=== PATIENT | female | born 1950 | race Caucasian/White ===

== ENCOUNTER 2020-01-06 06:24 | Outpatient (REF) | payer OTHER, SELFPAY ==
[2020-01-06 07:39] LABS: Alanine Aminotransferase 29 U/L (0-31); Albumin Level 3.9 g/dL (3.5-5.0); Alkaline Phosphatase 79 U/L (39-117); Aspartate Amino Transferase 27 U/L (5-31); Bilirubin Direct 0.3 mg/dL (0.0-0.5); Bilirubin Total 0.6 mg/dL (0.0-1.0); Total Protein 7.4 g/dL (6.5-8.0)
== END 2020-01-06 06:25 | disposition home or self-care (01) ==
LOC: HO.LABR 06:24
PROVIDERS: PCP Internal Medicine; Visit Provider Internal Medicine
DX: K75.4 Autoimmune hepatitis (principal)
CPT/HCPCS: 80076

== ENCOUNTER 2020-02-04 07:04 | Outpatient (REF) | payer OTHER, SELFPAY ==
[2020-02-04 08:25] LABS: Cholesterol 148 mg/dL; HDL Cholesterol 47 mg/dL; LDL Cholesterol Calculated 85 mg/dl; Triglycerides 81 mg/dL
[2020-02-04 08:30] LABS: Alanine Aminotransferase 51 U/L (0-31); Albumin Level 3.8 g/dL (3.5-5.0); Alkaline Phosphatase 131 U/L (39-117); Aspartate Amino Transferase 52 U/L (5-31); Bilirubin Direct 0.3 mg/dL (0.0-0.5); Bilirubin Total 0.5 mg/dL (0.0-1.0); Total Protein 7.6 g/dL (6.5-8.0)
[2020-02-04 08:48] LABS: Free T4 (Free Thyroxine) 1.46 ng/dL (0.71-1.85); Thyroid Stimulating Hormone 0.22 mIU/mL (0.32-4.0)
== END 2020-02-04 07:05 | disposition home or self-care (01) ==
LOC: HO.LABR 07:04
PROVIDERS: PCP Internal Medicine; Visit Provider Internal Medicine
DX: K75.4 Autoimmune hepatitis (principal)
CPT/HCPCS: 80061; 80076; 84439; 84443

== ENCOUNTER 2020-02-10 15:22 | Outpatient (REF) | payer OTHER, SELFPAY ==
--- NOTE | 2020-02-10 15:27 | US_ITS ---
EXAMINATION: US VENOUS ULTRASOUND WITH DOPPLER LOWER EXTREMITY, LEFT CLINICAL INFORMATION: Lower quadrant pain COMPARISON: None TECHNIQUE: Ultrasound of the deep veins is performed from the hip to the calf with compression sonography and color and pulse Doppler assessment. Spectral analysis with color-flow imaging is performed. FINDINGS: There is normal venous compression and respiratory variation and augmented flow. The visualized common femoral vein, superficial femoral vein, profunda femoral vein, popliteal vein, and the trifurcation region shows no evidence of deep venous thrombosis. There is no significant popliteal fossa cyst. Inguinal lymph nodes noted within normal limits If the patient's symptoms persist, followup ultrasound in 5 days 7 days might be of value to exclude proximal propagation from a non-visualized calf vein. US/US venous duplex LE LT IMPRESSION: No DVT demonstrated in the left lower extremity.
== END 2020-02-10 15:23 | disposition home or self-care (01) ==
LOC: HO.US 15:22
PROVIDERS: PCP Internal Medicine; Visit Provider Nurse Practitioner Family
DX: R10.32 Left lower quadrant pain (principal)
CPT/HCPCS: 93971

== ENCOUNTER 2020-03-13 07:00 | Outpatient (REF) | payer OTHER, SELFPAY ==
[2020-03-13 08:08] LABS: Alanine Aminotransferase 21 U/L (0-31); Albumin Level 3.9 g/dL (3.5-5.0); Alkaline Phosphatase 97 U/L (39-117); Aspartate Amino Transferase 21 U/L (5-31); Bilirubin Direct 0.3 mg/dL (0.0-0.5); Bilirubin Total 0.7 mg/dL (0.0-1.0); Total Protein 7.5 g/dL (6.5-8.0)
== END 2020-03-13 07:01 | disposition home or self-care (01) ==
LOC: HO.LABR 07:00
PROVIDERS: PCP Internal Medicine; Visit Provider Internal Medicine
DX: K75.4 Autoimmune hepatitis (principal)
CPT/HCPCS: 80076

== ENCOUNTER 2020-04-07 12:00 | Outpatient (REF) | payer MEDICARE, SELFPAY ==
[2020-04-07 13:52] LABS: Alanine Aminotransferase 39 U/L (0-31); Albumin Level 3.9 g/dL (3.5-5.0); Alkaline Phosphatase 112 U/L (39-117); Aspartate Amino Transferase 45 U/L (5-31); Bilirubin Direct 0.5 mg/dL (0.0-0.5); Bilirubin Total 1.2 mg/dL (0.0-1.0); Total Protein 7.7 g/dL (6.5-8.0)
== END 2020-04-07 12:01 | disposition home or self-care (01) ==
LOC: HO.LABR 12:00
PROVIDERS: PCP Internal Medicine; Visit Provider Internal Medicine
DX: K75.4 Autoimmune hepatitis (principal)
CPT/HCPCS: 36415; 80076

== ENCOUNTER 2020-05-05 07:07 | Outpatient (REF) | payer MEDICARE, SELFPAY ==
[2020-05-05 08:05] LABS: Alanine Aminotransferase 51 U/L (0-31); Albumin Level 3.6 g/dL (3.5-5.0); Alkaline Phosphatase 118 U/L (39-117); Aspartate Amino Transferase 49 U/L (5-31); Bilirubin Direct 0.4 mg/dL (0.0-0.5); Bilirubin Total 0.8 mg/dL (0.0-1.0); Total Protein 7.8 g/dL (6.5-8.0)
== END 2020-05-05 07:08 | disposition home or self-care (01) ==
LOC: HO.LABR 07:07
PROVIDERS: PCP Internal Medicine; Visit Provider Internal Medicine
DX: K75.4 Autoimmune hepatitis (principal)
CPT/HCPCS: 36415; 80076

== ENCOUNTER 2020-06-05 07:04 | Outpatient (REF) | payer MEDICARE, SELFPAY ==
[2020-06-05 08:11] LABS: Alanine Aminotransferase 59 U/L (0-31); Albumin Level 3.6 g/dL (3.5-5.0); Alkaline Phosphatase 159 U/L (39-117); Aspartate Amino Transferase 62 U/L (5-31); Bilirubin Direct 0.2 mg/dL (0.0-0.5); Bilirubin Total 0.4 mg/dL (0.0-1.0); Total Protein 8.3 g/dL (6.5-8.0)
== END 2020-06-05 07:05 | disposition home or self-care (01) ==
LOC: HO.LABR 07:04
PROVIDERS: PCP Internal Medicine; Visit Provider Internal Medicine
DX: K75.4 Autoimmune hepatitis (principal)
CPT/HCPCS: 36415; 80076

== ENCOUNTER 2020-07-07 11:28 | Outpatient (REF) | payer MEDICARE, SELFPAY ==
[2020-07-07 13:01] LABS: Alanine Aminotransferase 43 U/L (0-31); Albumin Level 3.5 g/dL (3.5-5.0); Alkaline Phosphatase 115 U/L (39-117); Aspartate Amino Transferase 47 U/L (5-31); Bilirubin Direct 0.3 mg/dL (0.0-0.5); Bilirubin Total 0.8 mg/dL (0.0-1.0); Total Protein 8.2 g/dL (6.5-8.0)
== END 2020-07-07 11:29 | disposition home or self-care (01) ==
LOC: HO.LABR 11:28
PROVIDERS: PCP Internal Medicine; Visit Provider Internal Medicine
DX: K75.4 Autoimmune hepatitis (principal)
CPT/HCPCS: 36415; 80076

== ENCOUNTER 2020-07-11 09:14 | Outpatient (REF) | payer MEDICARE, SELFPAY ==
[2020-07-11 12:05] LABS: Free T4 (Free Thyroxine) 1.38 ng/dL (0.71-1.85); Thyroid Stimulating Hormone 0.06 uIU/mL (0.32-4.0)
== END 2020-07-11 09:15 | disposition home or self-care (01) ==
LOC: HO.HMGCLDS 09:14
PROVIDERS: PCP Internal Medicine; Visit Provider Internal Medicine
DX: E03.9 Hypothyroidism, unspecified (principal); M85.80 Other specified disorders of bone density and structure, unspecified site
CPT/HCPCS: 36415; 82306; 84439; 84443

== ENCOUNTER 2020-08-02 06:49 | Outpatient (REF) | payer MEDICARE, SELFPAY ==
[2020-08-02 09:21] LABS: Alanine Aminotransferase 19 U/L (0-31); Albumin Level 3.7 g/dL (3.5-5.0); Alkaline Phosphatase 97 U/L (39-117); Aspartate Amino Transferase 26 U/L (5-31); Bilirubin Direct 0.3 mg/dL (0.0-0.5); Bilirubin Total 0.6 mg/dL (0.0-1.0); Total Protein 8.1 g/dL (6.5-8.0)
== END 2020-08-02 06:50 | disposition home or self-care (01) ==
LOC: HO.LABR 06:49
PROVIDERS: PCP Internal Medicine; Visit Provider Internal Medicine
DX: K75.4 Autoimmune hepatitis (principal)
CPT/HCPCS: 36415; 80076

== ENCOUNTER 2020-08-07 08:04 | Emergency (ER) | payer MEDICARE, SELFPAY ==
--- NOTE | ~2020-08-07 | CT_ITS ---
EXAMINATION: CT ABDOMEN AND PELVIS WITH CONTRAST CLINICAL INFORMATION: Abdominal cramps and diarrhea. Evaluate for colitis. COMPARISON: Previous CT scans most recent May 2019 TECHNIQUE: Multidetector volumetric images were obtained from the superior aspect of the liver through the pubic symphysis following administration 85 mL of Omnipaque 350 intravenous contrast. Sagittal and coronal reformatted images were obtained on the technologist's workstation. Oral contrast: Yes This CT examination was performed using dose optimization techniques as appropriate, variously including the following: *Automated exposure control *Adjustment of mA and/or kV according to patient size (this includes techniques or standardized protocols for targeted exams where dose is matched to indication/reason for exam; i.e. extremities or head) *Use of iterative reconstruction technique DLP: 5-7 mGy-cm FINDINGS: LUNG BASES: There is a 2 mm left lower lobe nodule axial image 10 series 2. This is similar to previous exams. The lung bases are otherwise clear. LIVER, GALLBLADDER, AND BILIARY TREE: There are small low-attenuation liver lesions that are stable and compatible with a. There are small calcifications in the liver that are stable. The liver and gallbladder are otherwise unremarkable. There is no biliary duct dilatation. PANCREAS: Unremarkable. SPLEEN: There are calcifications in the spleen that are stable. These are probably related to old granulomatous disease. ADRENAL GLANDS: Unremarkable. KIDNEYS AND URETERS: The kidneys are normal in size, shape, and attenuation. No hydronephrosis, hydroureter, or calculi seen. No perinephric stranding. BLADDER: Unremarkable. GASTROINTESTINAL TRACT: There is wall thickening of the proximal colon suggestive of mild colitis. There is mild dilatation of the colon. No evidence of obstruction, perforation or abscess is seen. The small and large bowel is otherwise unremarkable. The appendix is normal. The stomach is not optimally distended. ABDOMINAL WALL: No significant hernia is appreciated. LYMPH NODES: There are small retroperitoneal and bilateral inguinal lymph nodes. No enlarged lymph nodes are seen. VASCULAR: Unremarkable. PELVIC VISCERA: Unremarkable. OSSEOUS STRUCTURES: There is a left superior-inferior pubic ramus fracture near the pubic symphysis. This is new from May 2019 exam. There is a L3 vertebral body compression fracture that is unchanged. CT/CT abdomen pelvis w con IMPRESSION: Colitis of the proximal colon. Stable liver cysts. Calcifications in the liver and spleen probably related to old granulomatous disease. Left pubic symphysis fracture new in the interval from May 2019
--- NOTE | 2020-08-07 08:46 | ED_ITS ---
HPI - Nausea/Vomiting/Diarrhea General Chief complaint: Abdominal Pain Stated complaint: diarrhea Time Seen by Provider: 08/07/20 08:46 Source: patient Mode of arrival: ambulatory Limitations: no limitations History of Present Illness HPI Narrative: 70 yo female with hx of breast cancer, gastritis, anemia, autoimmune hepatitis (prednisone only) comes in [facility] 2 weeks of diarrhea up to 3 a day, poor appetite, no recent antibiotics, no food exposures, no prior episodes of this in past MD elicited complaint: diarrhea Onset (ago): week(s) (2) Associated nausea: No Associated abdominal pain: Yes Location of pain: LUQ and LLQ Radiation: diffuse Pain consistency: intermittent Severity: mild Quality: cramping Exacerbating factors: eating Relieving factors: none Context: new medication Associated symptoms: malaise Related Data Home Medications Medication Instructions Recorded Confirmed clobetasol 0.05 % topical ointment g TOPICAL DIRECTED 01/05/20 07/28/20 omeprazole 20 mg capsule,delayed 20 mg PO DAILY cap 01/05/20 07/28/20 release prednisone 5 mg tablet 5 mg PO Q OTHER DAY tab 07/12/20 07/28/20 Previous Rx's Medication Instructions Recorded cholecalciferol (vitamin D3) 1,250 1,250 mcg PO QWEEK 90 Days #13 cap 07/11/20 mcg (50,000 unit) capsule Levoxyl 125 mcg tablet 125 mcg PO QAM #90 tab NS 07/12/20 levofloxacin 500 mg PO DAILY 7 Days #7 tab 08/07/20 metronidazole [Flagyl] 500 mg PO BID 7 Days #14 tab 08/07/20 Allergies Allergy/AdvReac Type Severity Reaction Status Date / Time No Known Allergies Allergy Verified 07/28/20 16:25 [No Known Allergies*] Review of Systems Review of Systems: Constitutional : No Weight loss, No Fever, No Chills ENT/Mouth : No sore throat, No Rhinorrhea Eyes: No Swelling, No Redness Cardiovascular : No Chest Pain, No SOB, NoEdema Respiratory : No Cough, No Sputum, No Wheezing Gastrointestinal : Positive Nausea, no Vomiting, positive Diarrhea, positive abdominal Pain, No Hematochezia, No Melena Genitourinary : No Dysuria, No Urinary Frequency, No Hematuria, No Urgency Musculoskeletal : No joint pain, No Myalgias, No Joint Swelling Skin : No Skin Lesions, No rash Neuro : No Weakness, No Numbness, No Dizziness, No Headache Psych : No Anxiety/Panic, No Depression Heme/Lymph: No Bruising, No Lymphadenopathy Endocrine : No Polyuria, No Polydipsia All other systems reviewed and are negative. Gastrointestinal: Gastrointestinal: Denies nausea PMFSH Past Medical History Attestation statement: The following information was validated with the patient. Medical History Autoimmune hepatitis Breast cancer screening by mammogram Chronic gastritis Ductal carcinoma of left breast Duodenal ulcer Esophageal ulcer Graves disease H/O malignant neoplasm of breast History of Helicobacter pylori infection History of peptic ulcer disease Hypothyroidism Iron deficiency anemia Osteopenia Positive DASIA (antinuclear antibody) Psoriasis Tubular adenoma of colon Varicose veins of both lower extremities Vitamin D deficiency Surgical History H/O colonoscopy H/O excision of epidermal inclusion cyst H/O tubal ligation History of oophorectomy Family History Family History Father No problems noted. Mother No problems noted. Paternal Grandmother No problems noted. Paternal Grandfather No problems noted. Maternal Aunt Lupus Rheumatoid arthritis Paternal Aunt Lupus Rheumatoid arthritis Sister Psoriasis Social History Social History Alcohol intake: unknown Smoking Status: Unknown if ever smoked Packs Per Day: 1 Cigarettes Per Day: 20.0 Years Smoked: 40 yrs Use of substances other than those prescribed or required for medical reasons: Unknown Advance Directives: No Advance Directives Information Provided: No Physical Exam Vital Signs: Vital Signs: Last Vital Signs Temp 98 F 08/07/20 09:01 Pulse 90 08/07/20 09:01 Resp 18 08/07/20 09:01 BP 134/79 08/07/20 09:01 Pulse Ox 98 08/07/20 09:01 Body Mass Index 27.8 Appearance: Alert. Oriented X3. No acute distress. Eyes: Pupils equal, round and reactive to light. ENT: Pharynx normal. Neck: Normal inspection. Neck supple. CVS: Normal heart rate and rhythm. Pulses normal. Respiratory: No respiratory distress. Breath sounds normal. Abdomen: Soft and mild LLQ pain no rebound or guarding Skin: Skin warm and dry. Normal skin color. Normal skin turgor. Extremities: No lower extremity edema. No calf ttp Neuro: Oriented X 3. No motor deficit. No sensory deficit. Course Course Course Narrative: mild colitis x 2 weeks - stable labs, no bleeding, afebrile can tolerate by mouth given duration will start on levofloxacin and flagyl MDM - Nausea/Vomiting/Diarrhea MDM Narrative Medical decision making narrative: 70 yo female with autoimmune hepatitis on prednisone comes in with 2 weeks of diarrhea not related to antibiotics, no food exposures, non bloody at this time will obtain labs, CT scan for colitis, IVF, dispo per results and findings. Lab Data Result diagrams: 08/07/20 09:09 08/07/20 09:09 Labs: Lab Results 08/07/20 08/07/20 08/07/20 Range/Units 09:09 09:09 09:09 WBC 10.0 (4.8-10.8) X10*3/uL RBC 4.48 (4.20-5.50) X10*6/uL Hgb 11.0 L (12.0-16.0) g/dl Hct 35.7 L (37-47) % MCV 79.7 L (80-98) fL MCH 24.6 L (27.0-33.0) pg MCHC 30.8 L (31.0-35.0) g/dl RDW 16.5 H (11.0-16.0) % Plt Count 281 (160-400) X10*3/uL MPV 9.7 (9.4-12.3) fL Immature Gran % (Auto) 0.5 H (0.0-0.4) % Neut % (Auto) 61.8 (45-73) % Lymph % (Auto) 24.9 (20-40) % [place] % (Auto) 9.7 (2-11) % Eos % (Auto) 2.8 (0-4) % Baso % (Auto) 0.3 (0-2) % Lymph # (Auto) 2.5 (1.2-4.9) X10*3/uL [place] # (Auto) 1.0 (0.1-1.2) X10*3/uL Eos # (Auto) 0.3 (0.0-0.4) X10*3/uL Baso # (Auto) 0.0 (0.0-0.2) X10*3/uL Abs Immat Gran (auto) 0.05 H (0.00-0.03) X10*3/uL Absolute Neuts (auto) 6.2 (2.0-8.3) X10*3/uL Absolute Nucleated RBC 0.000 (0.0-0.012) X10*3/uL Nucleated RBC % (auto) 0.0 (0.0-0.2) /100WBC Hold Blue Top SEE NOTE Sodium 138 (135-145) mmol/L Potassium 4.0 (3.3-5.1) mmol/L Chloride 103 (96-108) mmol/L Carbon Dioxide 28 (22-29) mmol/L Anion Gap 11 L (12-20) BUN 8 L (9-16) mg/dL Creatinine 0.70 (0.5-1.4) mg/dL Estim Creat Clear Calc 71.7 Estimated GFR > 60 Random Glucose 115 (60-115) mg/dL Calcium 9.0 (8.4-10.2) mg/dL Magnesium 1.9 (1.6-2.6) mg/dL Total Bilirubin 0.9 (0.0-1.0) mg/dL Direct Bilirubin 0.3 (0.0-0.5) mg/dL AST 31 (5-31) U/L ALT 23 (0-31) U/L Alkaline Phosphatase 84 (39-117) U/L Total Protein 7.6 (6.5-8.0) g/dL Albumin 3.5 (3.5-5.0) g/dL Lipase 27 (8-78) U/L COVID-19 (MANE) (Negative) COVID-19 Clin Com 08/07/20 Range/Units 09:12 WBC (4.8-10.8) X10*3/uL RBC (4.20-5.50) X10*6/uL Hgb (12.0-16.0) g/dl Hct (37-47) % MCV (80-98) fL MCH (27.0-33.0) pg MCHC (31.0-35.0) g/dl RDW (11.0-16.0) % Plt Count (160-400) X10*3/uL MPV (9.4-12.3) fL Immature Gran % (Auto) (0.0-0.4) % Neut % (Auto) (45-73) % Lymph % (Auto) (20-40) % [place] % (Auto) (2-11) % Eos % (Auto) (0-4) % Baso % (Auto) (0-2) % Lymph # (Auto) (1.2-4.9) X10*3/uL [place] # (Auto) (0.1-1.2) X10*3/uL Eos # (Auto) (0.0-0.4) X10*3/uL Baso # (Auto) (0.0-0.2) X10*3/uL Abs Immat Gran (auto) (0.00-0.03) X10*3/uL Absolute Neuts (auto) (2.0-8.3) X10*3/uL Absolute Nucleated RBC (0.0-0.012) X10*3/uL Nucleated RBC % (auto) (0.0-0.2) /100WBC Hold Blue Top Sodium (135-145) mmol/L Potassium (3.3-5.1) mmol/L Chloride (96-108) mmol/L Carbon Dioxide (22-29) mmol/L Anion Gap (12-20) BUN (9-16) mg/dL Creatinine (0.5-1.4) mg/dL Estim Creat Clear Calc Estimated GFR Random Glucose (60-115) mg/dL Calcium (8.4-10.2) mg/dL Magnesium (1.6-2.6) mg/dL Total Bilirubin (0.0-1.0) mg/dL Direct Bilirubin (0.0-0.5) mg/dL AST (5-31) U/L ALT (0-31) U/L Alkaline Phosphatase (39-117) U/L Total Protein (6.5-8.0) g/dL Albumin (3.5-5.0) g/dL Lipase (8-78) U/L COVID-19 (MANE) Negative (Negative) COVID-19 Clin Com See Note Discharge Plan Discharge Clinical Impression: Colitis Diarrhea Qualifiers: Diarrhea type: unspecified type Qualified Code(s): R19.7 - Diarrhea, unspecified Patient Disposition: Home, Self-Care Instructions: Colitis (ED) Additional Instructions: return to ED for any worsening symptoms or concerns continue to follow brat diet for 3 days, add in yogurt Prescriptions: New levofloxacin 500 mg tablet 500 mg PO DAILY 7 Days Qty: 7 RF: 0 metronidazole [Flagyl] 500 mg tablet 500 mg PO BID 7 Days Qty: 14 RF: 0 No Action cholecalciferol (vitamin D3) 1,250 mcg (50,000 unit) capsule 1,250 mcg PO QWEEK 90 Days Qty: 13 RF: 0 clobetasol 0.05 % ointment topical DIRECTED RF: 0 omeprazole 20 mg capsule,delayed release(DR/EC) 20 mg PO DAILY RF: 0 prednisone 5 mg tablet 5 mg PO Q OTHER DAY RF: 0 levothyroxine [Levoxyl] 125 mcg tablet 125 mcg PO QAM Qty: 90 RF: 2 Referrals: Josephine La MD [Primary Care Provider] - 5 days (recheck assess improvement)
[2020-08-07 09:01] VITALS: BP 134/79; PULSE 90; RESP 18; TEMP 36.6; O2SAT 98; BMI 27.8
[2020-08-07 09:15] LABS: MANUAL DIFF FLAG NO
[2020-08-07] MEDS: 0.9 % Sodium Chloride 1,000 ML 999 ML IVCONT (09:15)
[2020-08-07 09:18] LABS: Basophils Percent Auto 0.3 % (0-2); Eosinophils Absolute Auto 0.3 X10*3/uL (0.0-0.4); Eosinophils Percent Auto 2.8 % (0-4); Hematocrit 35.7 % (37-47); Imm Gran Abs Auto 0.05 X10*3/uL (0.00-0.03); Imm Gran Pct Auto 0.5 % (0.0-0.4); Lymphocytes Absolute Auto 2.5 X10*3/uL (1.2-4.9); Lymphocytes Percent Auto 24.9 % (20-40); Mean Corpuscular HGB Conc 30.8 g/dl (31.0-35.0); Mean Corpuscular Hemoglobin 24.6 pg (27.0-33.0); Mean Corpuscular Volume 79.7 fL (80-98); Mean Platelet Volume 9.7 fL (9.4-12.3); Monocytes Percent Auto 9.7 % (2-11); Neutrophils Absolute Auto 6.2 X10*3/uL (2.0-8.3); Neutrophils Percent Auto 61.8 % (45-73); Platelet Count 281 X10*3/uL (160-400); Red Blood Count 4.48 X10*6/uL (4.20-5.50); Red Cell Distribution Width 16.5 % (11.0-16.0)
[2020-08-07 09:34] LABS: COVID-19 Test Negative (Negative); IDNOW Serial# 9DD0AD1C
[2020-08-07 09:40] LABS: Alanine Aminotransferase 23 U/L (0-31); Albumin Level 3.5 g/dL (3.5-5.0); Alkaline Phosphatase 84 U/L (39-117); Anion Gap 11 (12-20); Aspartate Amino Transferase 31 U/L (5-31); Bilirubin Direct 0.3 mg/dL (0.0-0.5); Bilirubin Total 0.9 mg/dL (0.0-1.0); Blood Urea Nitrogen 8 mg/dL (9-16); Carbon Dioxide 28 mmol/L (22-29); Chloride 103 mmol/L (96-108); Creatinine Clr Calc Pharmacy 71.7; Estimated Glomerular Filt Rate > 60; Glucose Random 115 mg/dL (60-115); Lipase 27 U/L (8-78); Magnesium 1.9 mg/dL (1.6-2.6); Sodium 138 mmol/L (135-145); Total Protein 7.6 g/dL (6.5-8.0)
[2020-08-07] MEDS: iohexoL 350 MG/ML 100 ML INFUS..BTL IV ×2 (09:45→10:11)
== END 2020-08-07 11:04 | disposition home or self-care (01) ==
PROVIDERS: Emergency Provider Emergency Medicine; PCP Internal Medicine
DX: K52.9 Noninfective gastroenteritis and colitis, unspecified (principal); R10.32 Left lower quadrant pain; F17.210 Nicotine dependence, cigarettes, uncomplicated; Z71.6 Tobacco abuse counseling; Z79.899 Other long term (current) drug therapy; Z20.822 Contact with and (suspected) exposure to COVID-19
CPT/HCPCS: 36415; 74177; 80048; 80076; 83690; 83735; 85025; 87635; 96360; 96361; 99284; Q9967

== ENCOUNTER 2020-09-01 10:25 | Outpatient (REF) | payer MEDICARE, SELFPAY ==
[2020-09-01 11:30] LABS: MANUAL DIFF FLAG NO
[2020-09-01 11:42] LABS: Basophils Percent Auto 0.4 % (0-2); Eosinophils Absolute Auto 0.1 X10*3/uL (0.0-0.4); Hematocrit 36.5 % (37-47); Hemoglobin 11.3 g/dl (12.0-16.0); Imm Gran Abs Auto 0.03 X10*3/uL (0.00-0.03); Imm Gran Pct Auto 0.4 % (0.0-0.4); Lymphocytes Absolute Auto 2.7 X10*3/uL (1.2-4.9); Lymphocytes Percent Auto 32.3 % (20-40); Mean Corpuscular Hemoglobin 24.6 pg (27.0-33.0); Mean Corpuscular Volume 79.5 fL (80-98); Mean Platelet Volume 10.2 fL (9.4-12.3); Monocytes Absolute Auto 0.7 X10*3/uL (0.1-1.2); Monocytes Percent Auto 8.6 % (2-11); Neutrophils Absolute Auto 4.7 X10*3/uL (2.0-8.3); Neutrophils Percent Auto 57.3 % (45-73); Platelet Count 345 X10*3/uL (160-400); Red Blood Count 4.59 X10*6/uL (4.20-5.50); Red Cell Distribution Width 17.5 % (11.0-16.0); White Blood Count 8.2 X10*3/uL (4.8-10.8)
[2020-09-01 12:00] LABS: Alanine Aminotransferase 19 U/L (0-31); Alkaline Phosphatase 88 U/L (39-117); Anion Gap 11 (12-20); Aspartate Amino Transferase 26 U/L (5-31); Bilirubin Direct 0.3 mg/dL (0.0-0.5); Bilirubin Total 0.7 mg/dL (0.0-1.0); Blood Urea Nitrogen 13 mg/dL (9-16); C Reactive Protein 0.17 mg/dL (< or = 0.50); Calcium 9.4 mg/dL (8.4-10.2); Carbon Dioxide 27 mmol/L (22-29); Chloride 104 mmol/L (96-108); Estimated Glomerular Filt Rate > 60; Glucose Random 100 mg/dL (60-115); Potassium 4.7 mmol/L (3.3-5.1); Sodium 137 mmol/L (135-145)
[2020-09-01 12:24] LABS: Erythrocyte Sedimentation Rate 27 MM/HR (0-20)
[2020-09-01 16:13] LABS: Leukocytes Stool Qualitative NEGATIVE (NEGATIVE)
[2020-09-02 08:29] LABS: CDIFF Ag Negative (Negative); CDIFF Internal ctrl Dots and bkg OK (V); CDiff Toxin Negative (Negative)
== END 2020-09-01 10:26 | disposition home or self-care (01) ==
LOC: HO.LAB 10:25
PROVIDERS: PCP Internal Medicine; Visit Provider Internal Medicine
DX: R19.7 Diarrhea, unspecified (principal)
CPT/HCPCS: 36415; 80048; 80076; 85025; 85652; 86140; 87045; 87046; 87177; 87209; 87324; 87329; 87449; 89055

== ENCOUNTER 2020-09-06 10:07 | Outpatient (REF) | payer MEDICARE, SELFPAY ==
--- NOTE | ~2020-09-06 | MM_ITS ---
EXAMINATION: MM SCREENING DIGITAL BREAST TOMOSYNTHESIS, BILATERAL CLINICAL INFORMATION: Screening. Asymptomatic. Status post left lumpectomy. COMPARISON: Mammography: February 05, 2019 and studies dating back to December 12, 2009 TECHNIQUE: Digital breast tomosynthesis is performed in both the craniocaudal and mediolateral oblique views along with computer-aided detection (CAD). Synthesized 2D images are generated from the tomosynthesis. FINDINGS: The breasts are extremely dense, which lowers the sensitivity of mammography (ACR BI-RADS breast composition Category d). There are no new significant masses, abnormal calcifications, or other abnormalities. Architecture distortion related to previous lumpectomy upper outer aspect of the left breast MM/MM tomosynthesis screening BI IMPRESSION: There are no significant changes from prior study. ASSESSMENT: BI-RADS BI-RADS 2 RECOMMENDATION: Routine annual mammography screening. This patient's information was entered into a reminder system with a target due date for their next mammogram.
--- NOTE | ~2020-09-06 | MM_ITS ---
EXAMINATION: BONE DENSITOMETRY CLINICAL INDICATION: Vitamin D deficiency, unspecified. COMPARISON: Previous BD dated 02/05/2019 and baseline BD dated 03/03/2012. TECHNIQUE: Using a [employer] DXA System (software version: 13.1) manufactured by [employer], dual-energy x-ray absorptiometry was performed of the lumbar spine and left hip. The images are of good technical quality. Summary results are attached. FINDINGS: AP SPINE L1-L4: Current: BMD 0.938 g/cm2, Z-score -0.5, T-score -2.0, osteopenia, 3.5% decrease from previous, 7.4% increase from baseline (<5% change is not significant). Prior: BMD 0.972 g/cm2. Baseline: BMD 0.873 g/cm2. LEFT FEMUR, NECK: Current: BMD 0.803 g/cm2, Z-score -0.1, T-score -1.7, osteopenia. Prior: BMD 0.830 g/cm2. Baseline: BMD 0.867 g/cm2. LEFT FEMUR, TOTAL: Current: BMD 0.870 g/cm2, Z-score 0.2, T-score -1.1, osteopenia, 4.0% decrease from previous, 2.6% decrease from baseline (<5% change is not significant). Prior: BMD 0.906 g/cm2. Baseline: BMD 0.893 g/cm2. IDENTIFIED RISK FACTORS: Early menopause, secondary osteoporosis, tobacco use (current smoker), low calcium intake, glucocorticoids (chronic), right oophorectomy. HISTORY OF FRACTURE: None listed. MEDICATIONS: None listed. MM/XR DEXA axial skeleton IMPRESSION: 1. DIAGNOSIS: Osteopenia based on the lowest T-score value of -2.0 in the lumbar spine applying World Health Organization criteria. 2. 10-YEAR FRACTURE RISK PREDICTION, FRAX: Major osteoporotic fracture (clinical spine, forearm, hip or shoulder) 16.8%. Hip fracture 4.8%. 3. Treatment Recommendations: NOF guidelines recommend consideration for treatment in postmenopausal women and men age 50 and older presenting with the following: -A hip or vertebral (clinical or morphometric) fracture. -T-score less than or equal to -2.5 at the femoral neck or spine after appropriate evaluation to exclude secondary causes. -Low bone mass at the hip or spine and a 10-year fracture probability by FRAX of greater than or equal to 3% for hip fracture or greater than or equal to 20% for major osteoporotic fracture based on the [place] adapted WHO algorithm. 4. Other Recommendations: All treatment decisions require clinical judgment and consideration of individual patient factors, including patient preferences, comorbidities, previous drug use, risk factors not captured in the FRAX model (e.g. frailty, falls, vitamin D deficiency, increased bone turnover, interval significant decline in bone density) and possible under or overestimation of fracture risk by FRAX. Additional medical evaluation for secondary cause of low bone mineral density may be appropriate. FUTURE SCAN RECOMMENDATION: People with diagnosed cases of osteoporosis or at high risk for fracture should have regular bone mineral density tests. For patients eligible for Medicare, routine testing is allowed once every 2 years. The testing frequency can be increased to one year for patients who have rapidly progressing disease, those who are receiving or discontinuing medical therapy to restore bone mass, or have additional risk factors.
== END 2020-09-06 10:08 | disposition home or self-care (01) ==
LOC: HO.MAMMO 10:07
PROVIDERS: Visit Provider Internal Medicine
DX: Z13.820 Encounter for screening for osteoporosis (principal); Z78.0 Asymptomatic menopausal state; Z12.31 Encounter for screening mammogram for malignant neoplasm of breast
CPT/HCPCS: 77063; 77067; 77080

== ENCOUNTER 2020-09-08 11:37 | Outpatient (REF) | payer MEDICARE, SELFPAY ==
[2020-09-08 12:51] LABS: MANUAL DIFF FLAG NO
[2020-09-08 13:01] LABS: Basophils Percent Auto 0.2 % (0-2); Eosinophils Absolute Auto 0.2 X10*3/uL (0.0-0.4); Hematocrit 35.5 % (37-47); Hemoglobin 10.7 g/dl (12.0-16.0); Imm Gran Abs Auto 0.03 X10*3/uL (0.00-0.03); Imm Gran Pct Auto 0.4 % (0.0-0.4); Lymphocytes Absolute Auto 2.5 X10*3/uL (1.2-4.9); Lymphocytes Percent Auto 30.6 % (20-40); Mean Corpuscular HGB Conc 30.1 g/dl (31.0-35.0); Mean Corpuscular Hemoglobin 24.2 pg (27.0-33.0); Mean Corpuscular Volume 80.1 fL (80-98); Mean Platelet Volume 10.4 fL (9.4-12.3); Monocytes Absolute Auto 0.6 X10*3/uL (0.1-1.2); Monocytes Percent Auto 7.6 % (2-11); Neutrophils Absolute Auto 4.9 X10*3/uL (2.0-8.3); Neutrophils Percent Auto 59.2 % (45-73); Platelet Count 283 X10*3/uL (160-400); Red Blood Count 4.43 X10*6/uL (4.20-5.50); Red Cell Distribution Width 17.2 % (11.0-16.0); White Blood Count 8.3 X10*3/uL (4.8-10.8)
[2020-09-08 13:10] LABS: Anion Gap 11 (12-20); Blood Urea Nitrogen 11 mg/dL (9-16); Calcium 9.1 mg/dL (8.4-10.2); Carbon Dioxide 27 mmol/L (22-29); Chloride 104 mmol/L (96-108); Estimated Glomerular Filt Rate > 60; Glucose Random 108 mg/dL (60-115); Potassium 4.4 mmol/L (3.3-5.1); Sodium 138 mmol/L (135-145)
[2020-09-12 16:07] LABS: TS Negative Control Passed; TS Panel A 0; TS Panel B 1; TS Positive Control Passed; TSpotTB Negative (SeeBelow)
== END 2020-09-08 11:38 | disposition home or self-care (01) ==
LOC: HO.LAB 11:37
PROVIDERS: PCP Internal Medicine; Visit Provider Dermatology
DX: L40.0 Psoriasis vulgaris (principal)
CPT/HCPCS: 36415; 80048; 85025; 86481

== ENCOUNTER 2020-10-06 07:59 | Outpatient (REF) | payer MEDICARE, SELFPAY ==
[2020-10-06 09:33] LABS: Alanine Aminotransferase 13 U/L (0-31); Albumin Level 3.7 g/dL (3.5-5.0); Alkaline Phosphatase 79 U/L (39-117); Aspartate Amino Transferase 18 U/L (5-31); Bilirubin Direct 0.3 mg/dL (0.0-0.5); Bilirubin Total 0.6 mg/dL (0.0-1.0); Total Protein 7.4 g/dL (6.5-8.0)
== END 2020-10-06 08:00 | disposition home or self-care (01) ==
LOC: HO.LABR 07:59
PROVIDERS: PCP Internal Medicine; Visit Provider Internal Medicine
DX: K75.4 Autoimmune hepatitis (principal)
CPT/HCPCS: 36415; 80076

== ENCOUNTER 2020-12-11 10:12 | Outpatient (REF) | payer MEDICARE, SELFPAY ==
[2020-12-11 11:43] LABS: Alanine Aminotransferase 61 U/L (0-31); Albumin Level 3.6 g/dL (3.5-5.0); Alkaline Phosphatase 109 U/L (39-117); Aspartate Amino Transferase 60 U/L (5-31); Bilirubin Direct 0.3 mg/dL (0.0-0.5); Bilirubin Total 0.8 mg/dL (0.0-1.0); Total Protein 7.6 g/dL (6.5-8.0)
== END 2020-12-11 10:13 | disposition home or self-care (01) ==
LOC: HO.LABR 10:12
PROVIDERS: PCP Internal Medicine; Visit Provider Internal Medicine
DX: K75.4 Autoimmune hepatitis (principal)
CPT/HCPCS: 36415; 80076

== ENCOUNTER 2021-01-04 11:42 | Outpatient (REF) | payer MEDICARE, SELFPAY ==
[2021-01-04 12:16] LABS: Alanine Aminotransferase 60 U/L (0-31); Albumin Level 3.3 g/dL (3.5-5.0); Alkaline Phosphatase 182 U/L (39-117); Aspartate Amino Transferase 70 U/L (5-31); Bilirubin Direct 0.4 mg/dL (0.0-0.5); Bilirubin Total 0.4 mg/dL (0.0-1.0); Total Protein 8.3 g/dL (6.5-8.0)
[2021-01-04 12:36] LABS: Free T4 (Free Thyroxine) 1.33 ng/dL (0.71-1.85); Thyroid Stimulating Hormone 0.55 uIU/mL (0.32-4.0); Vitamin D 25-OH Total 22.9 ng/mL (>30)
== END 2021-01-04 11:43 | disposition home or self-care (01) ==
LOC: HO.LAB 11:42
PROVIDERS: PCP Internal Medicine; Visit Provider Internal Medicine
DX: K75.4 Autoimmune hepatitis (principal); E03.9 Hypothyroidism, unspecified; M85.80 Other specified disorders of bone density and structure, unspecified site; E55.9 Vitamin D deficiency, unspecified; Z78.0 Asymptomatic menopausal state
CPT/HCPCS: 36415; 80076; 82306; 84439; 84443

== ENCOUNTER 2021-01-18 10:52 | Outpatient (REF) | payer MEDICARE, SELFPAY ==
[2021-01-18 11:17] LABS: MANUAL DIFF FLAG NO
[2021-01-18 11:51] LABS: Basophils Percent Auto 0.2 % (0-2); Eosinophils Absolute Auto 0.1 X10*3/uL (0.0-0.4); Eosinophils Percent Auto 0.9 % (0-4); Hemoglobin 10.8 g/dl (12.0-16.0); Imm Gran Abs Auto 0.05 X10*3/uL (0.00-0.03); Imm Gran Pct Auto 0.4 % (0.0-0.4); Lymphocytes Absolute Auto 2.7 X10*3/uL (1.2-4.9); Lymphocytes Percent Auto 21.5 % (20-40); Mean Corpuscular Hemoglobin 22.4 pg (27.0-33.0); Mean Corpuscular Volume 74.7 fL (80-98); Mean Platelet Volume 9.8 fL (9.4-12.3); Monocytes Absolute Auto 0.7 X10*3/uL (0.1-1.2); Monocytes Percent Auto 5.8 % (2-11); Neutrophils Absolute Auto 8.9 X10*3/uL (2.0-8.3); Neutrophils Percent Auto 71.2 % (45-73); Platelet Count 460 X10*3/uL (160-400); Red Blood Count 4.82 X10*6/uL (4.20-5.50); Red Cell Distribution Width 18.6 % (11.0-16.0); White Blood Count 12.5 X10*3/uL (4.8-10.8)
[2021-01-18 12:14] LABS: Alanine Aminotransferase 20 U/L (0-31); Albumin Level 3.7 g/dL (3.5-5.0); Alkaline Phosphatase 122 U/L (39-117); Anion Gap 11 (12-20); Aspartate Amino Transferase 29 U/L (5-31); Bilirubin Direct 0.4 mg/dL (0.0-0.5); Bilirubin Total 0.7 mg/dL (0.0-1.0); Blood Urea Nitrogen 7 mg/dL (9-16); C Reactive Protein 0.98 mg/dL (< or = 0.50); Calcium 9.7 mg/dL (8.4-10.2); Carbon Dioxide 26 mmol/L (22-29); Chloride 105 mmol/L (96-108); Estimated Glomerular Filt Rate > 60; Glucose Random 101 mg/dL (60-115); Sodium 138 mmol/L (135-145); Total Protein 8.5 g/dL (6.5-8.0)
[2021-01-18 12:46] LABS: Erythrocyte Sedimentation Rate 34 MM/HR (0-20)
[2021-01-19 19:46] LABS: Immunoglobulin A 754 mg/dL (70-320)
[2021-01-20 12:51] LABS: Gliadin Deamidated IgA Ab <1.0 U/mL; Gliadin Deamidated IgG Ab <1.0 U/mL; Transglutaminase Ab IgG <1.0 U/mL; Transglutaminase IgA <1.0 U/mL
[2021-01-24 14:46] LABS: Endomysial IgA Antibody Negative (Negative)
== END 2021-01-18 10:53 | disposition home or self-care (01) ==
LOC: HO.LAB 10:52
PROVIDERS: PCP Internal Medicine; Visit Provider Internal Medicine
DX: K75.1 Phlebitis of portal vein (principal); R19.7 Diarrhea, unspecified
CPT/HCPCS: 36415; 80048; 80076; 82784; 83516; 85025; 85652; 86140; 86255; 86256

== ENCOUNTER 2021-01-20 | Outpatient (REF) | payer MEDICARE, SELFPAY ==
[2021-01-22 08:55] LABS: CDiff Gene PCR NEGATIVE (Negative)
[2021-01-22 10:44] LABS: Leukocytes Stool Qualitative NEGATIVE (NEGATIVE)
[2021-01-26 21:12] LABS: Calprotectin, Fecal 211 mcg/g
== END 2021-01-20 00:01 | disposition home or self-care (01) ==
LOC: HO.LNP
PROVIDERS: Visit Provider Internal Medicine
DX: K75.4 Autoimmune hepatitis (principal); R19.7 Diarrhea, unspecified
CPT/HCPCS: 83993; 87045; 87046; 87177; 87209; 87329; 87493; 89055

== ENCOUNTER 2021-02-05 09:24 | Day surgery (SDC) | payer MEDICARE, SELFPAY ==
[2021-01-30 10:23] VITALS: BMI 28.0
--- NOTE | 2021-02-01 14:14 | P.CONAN_ITS ---
Documented by User: Paula Merino NP 02/01/21 14:33 HPI - Anesthesia Eval Consult details Narrative: 70yo F for Colonoscopy PMFSH Active Problems Active Problems: All Active Problems (Updated 01/30/21 @ 10:26 by Kellie Gamez RN) Lumbar radiculopathy (Acute) Deep inguinal pain, left (Acute) Somatic dysfunction of left sacroiliac joint (Acute) Gastroenteritis (Acute) Breast cancer screening by mammogram (Acute) Vitamin D deficiency (Acute) Positive DASIA (antinuclear antibody) (Acute) Osteopenia (Acute) Psoriasis (Acute) Chronic gastritis (Acute) Autoimmune hepatitis (Acute) Varicose veins of both lower extremities (Acute) Hypothyroidism (Acute) Ductal carcinoma of left breast (Acute) Tubular adenoma of colon (Acute) Past Medical History Medical History (Updated 01/30/21 @ 10:26 by Kellie Gamez RN) Anemia Autoimmune hepatitis Breast cancer screening by mammogram Chronic gastritis COVID-19 vaccine series completed Ductal carcinoma of left breast Duodenal ulcer Esophageal ulcer Graves disease H/O malignant neoplasm of breast History of Helicobacter pylori infection History of peptic ulcer disease Hypothyroidism Iron deficiency anemia Osteopenia Positive DASIA (antinuclear antibody) Psoriasis Tubular adenoma of colon Varicose veins of both lower extremities Vitamin D deficiency Family History Family History Father No problems noted. Mother No problems noted. Paternal Grandmother No problems noted. Paternal Grandfather No problems noted. Maternal Aunt Lupus Rheumatoid arthritis Paternal Aunt Lupus Rheumatoid arthritis Sister Psoriasis Surgical History Surgical History (Updated 01/30/21 @ 10:23 by Kellie Gamez RN) H/O colonoscopy H/O excision of epidermal inclusion cyst H/O tubal ligation History of esophagogastroduodenoscopy (EGD) History of lumpectomy of left breast History of oophorectomy Social History Social History Are you a primary pediatric care coordinator to a significant other at home: No Do you presently have visiting nurse or other home services: No Alcohol intake: unknown Patient Tobacco Use Status: Current everyday Tobacco user Tobacco use type: Cigarette Cigarette Packs Per Day: 1 Cigarettes Per Day: 20.0 Years Smoked: 50 Use of substances other than those prescribed or required for medical reasons: No Have you been hit, kicked, punched, or otherwise hurt by someone within the past year? If so, by whom?: No Are you DNR?: No Advance Directives: No Advance Directives Information Provided: Yes (informational brochure mailed) Advance Directives on File: No Recently lost weight without trying: Yes How much weight loss: 2-13 pounds Eating poorly because of decreased appetite: Yes Nutrition screen score: 4 Nutrition Risks: Acute nausea or vomiting x1 week Poor oral hygiene: No Meds Allergies Allergy/AdvReac Type Severity Reaction Status Date / Time adhesive tape Allergy Intermediate Blister Verified 01/30/21 10:21 Home Medications Medication Instructions Recorded Confirmed Last Taken Type clobetasol 0.05 % topical ointment 1 appl TOPICAL DIRECTED PRN 01/05/20 01/30/21 Unknown History omeprazole 20 mg capsule,delayed 20 mg PO DAILY cap 01/05/20 01/30/21 Unknown History release prednisone 5 mg tablet 5 mg PO Q OTHER DAY tab 07/12/20 01/30/21 Unknown History cholecalciferol (vitamin D3) 25 25 mcg PO DAILY 01/30/21 01/30/21 Unknown History mcg (1,000 unit) capsule (Vitamin D3) Exam Exam Date and Time: February 01, 2021 1414 Height,Weight and Vital Signs: Height 5 ft 2.5 in Weight 70.76 kg Pertinent Lab Results Pertinent Lab Results: Laboratory Tests 01/18/21 01/18/21 11:14 11:14 WBC 12.5 H Hgb 10.8 L Hct 36.0 L Plt Count 460 H D Sodium 138 Potassium 4.0 Chloride 105 Carbon Dioxide 26 BUN 7 L Creatinine 0.73 Assessment and Plan Assessment Anesthesia Assessment: Chart Reviewed Documented by User: Tania Johnson MD 02/05/21 10:44 PMFSH Past Medical History Medical History (Updated 01/30/21 @ 10:26 by Kellie Gamez RN) Anemia Autoimmune hepatitis Breast cancer screening by mammogram Chronic gastritis COVID-19 vaccine series completed Ductal carcinoma of left breast Duodenal ulcer Esophageal ulcer Graves disease H/O malignant neoplasm of breast History of Helicobacter pylori infection History of peptic ulcer disease Hypothyroidism Iron deficiency anemia Osteopenia Positive DASIA (antinuclear antibody) Psoriasis Tubular adenoma of colon Varicose veins of both lower extremities Vitamin D deficiency Family History Family History Father No problems noted. Mother No problems noted. Paternal Grandmother No problems noted. Paternal Grandfather No problems noted. Maternal Aunt Lupus Rheumatoid arthritis Paternal Aunt Lupus Rheumatoid arthritis Sister Psoriasis Surgical History Surgical History (Updated 01/30/21 @ 10:23 by Kellie Gamez RN) H/O colonoscopy H/O excision of epidermal inclusion cyst H/O tubal ligation History of esophagogastroduodenoscopy (EGD) History of lumpectomy of left breast History of oophorectomy History of Problems with Anesthesia: No Social History Social History Are you a primary pediatric care coordinator to a significant other at home: No Do you presently have visiting nurse or other home services: No Alcohol intake: unknown Patient Tobacco Use Status: Current everyday Tobacco user Tobacco use type: Cigarette Cigarette Packs Per Day: 1 Cigarettes Per Day: 20.0 Years Smoked: 50 Use of substances other than those prescribed or required for medical reasons: No Have you been hit, kicked, punched, or otherwise hurt by someone within the past year? If so, by whom?: No Are you DNR?: No Advance Directives: No Advance Directives Information Provided: Yes (informational brochure mailed) Advance Directives on File: No Recently lost weight without trying: Yes How much weight loss: 2-13 pounds Eating poorly because of decreased appetite: Yes Nutrition screen score: 4 Nutrition Risks: Acute nausea or vomiting x1 week Poor oral hygiene: No Meds Allergies Allergy/AdvReac Type Severity Reaction Status Date / Time adhesive tape Allergy Intermediate Blister Verified 01/30/21 10:21 Home Medications Medication Instructions Recorded Confirmed Last Taken Type clobetasol 0.05 % topical ointment 1 appl TOPICAL DIRECTED PRN 01/05/20 01/30/21 Unknown History omeprazole 20 mg capsule,delayed 20 mg PO DAILY cap 01/05/20 01/30/21 Unknown History release prednisone 5 mg tablet 5 mg PO Q OTHER DAY tab 07/12/20 01/30/21 Unknown History cholecalciferol (vitamin D3) 25 25 mcg PO DAILY 01/30/21 01/30/21 Unknown History mcg (1,000 unit) capsule (Vitamin D3) Exam Airway Mallampati Class: II TM Dist: >3cm Neck ROM: Full Loose/Missing/Broken Teeth: No Heart: RRR Lungs: CTA Assessment and Plan Assessment Anesthesia Assessment: Anesthesia Plan Discussed Final Anesthetic Review History of Problems with Anesthesia: No NPO: Yes ASA Class: III Final Preanesthetic Review: Meds/Allgs Chart Reviewed, Consent Obtained/Reviewed and Anes Risks/Benef Reviewed Patient Risk: Intermediate Procedure Risk: Low Anesthetic Plan Anesthetic Plan: MAC: Disposition: Standard PACU
[2021-02-05 09:31] VITALS: BP 126/66; PULSE 89; RESP 16; TEMP 36.1; O2SAT 98
[2021-02-05] MEDS: Lactated Ringers 1,000 ML 100 ML IVCONT (09:48)
[2021-02-05 12:00] VITALS: BP 89/49; PULSE 86; RESP 18; TEMP 36.6; O2SAT 100
--- NOTE | 2021-02-05 12:03 | PM.OP ---
Brief Operative Note Date of Service: 02/05/21 Pre-op diagnosis: Diarrhea, screening Post-op diagnosis: other (Colon polyp, AVM of cecum, R/O microscopic colitis) Procedure: Colonoscopy to the cecum and TI with cold snare polypectomy and biopsies Surgeon: Placido Abarca Anesthesia: MAC Was an Hydrogen Treater used for this Procedure?: No Estimated blood loss (mL): 3.0 Pathology: other (A. Terminal ileum B. Ascending colon C. Descending colon D. Polyp at 20cm) Condition: stable Disposition: PACU
[2021-02-05 12:15] VITALS: BP 110/68; PULSE 67; RESP 18; O2SAT 97
[2021-02-05 12:30] VITALS: BP 115/67; PULSE 67; RESP 18; TEMP 36.8; O2SAT 98
[2021-02-05 12:36] VITALS: TEMP 36.8
--- NOTE | 2021-02-05 15:16 | OP_ITS ---
SURGEON: Placido Abarca MD INDICATIONS: The patient presents for evaluation of diarrhea and personal history of tubular adenoma of the colon. Full consent has been obtained from her for this, including risks of bleeding and perforation. PREOPERATIVE DIAGNOSIS: POSTOPERATIVE DIAGNOSIS: PROCEDURE PERFORMED: Colonoscopy to cecum and terminal ileum with biopsies, and snare polypectomy with a cold snare. ESTIMATED BLOOD LOSS: COMPLICATIONS: ANESTHESIA: Monitored anesthesia care. ASSISTANTS: SPECIMENS: PREOPERATIVE DIAGNOSES: Diarrhea and personal history of tubular adenoma of the colon. POSTOPERATIVE DIAGNOSES: Diarrhea and personal history of tubular adenoma of the colon, colon polyp, rule out microscopic colitis, diverticulosis, small angiodysplasia of cecum, internal hemorrhoids. DESCRIPTION OF PROCEDURE: The patient was placed in the left lateral decubitus position. The digital rectal exam revealed no abnormalities. The Olympus video pediatric colonoscope was entered into the rectum and advanced to the cecum with the assistance of abdominal wall pressure. Once in the cecum, I did identify cecal pouch with appendiceal orifice and a normal-appearing ileocecal valve. The terminal ileum was cannulated and appeared normal. Biopsies were obtained. There was no sign of any ileitis. The scope was withdrawn back in the colon. The entire cecum was well visualized and appeared normal other than a 2 mm nonbleeding angiodysplasia in the vicinity of the appendiceal orifice. The remainder of the cecum appeared normal. The scope was then slowly withdrawn assessing all mucosal surfaces carefully. Preparation was excellent. I did not visualize any sign of colitis nor other angiodysplasia. Random biopsies were obtained in the ascending and descending colon to rule out microscopic colitis. There was a mild amount of sigmoid diverticulosis. At 20 cm, was an approximately 4 mm polyp, which was snared and recovered with the cold snare polypectomy. The polyp was recovered by suction. The polypectomy site appeared clean, without any sign of residual polyp nor any significant bleeding. In the rectum, scope was retroflexed visualizing internal hemorrhoids, but no other pathology. The rectal mucosa appeared normal. The scope was straightened out and withdrawn from the patient. She tolerated the procedure well and was returned to the recovery area in stable condition. IMPRESSION: 1. Colon polyp, status post snare polypectomy. 2. Rule out microscopic colitis. 3. Diverticulosis. 4. Nonbleeding angiodysplasia of cecum. 5. Internal hemorrhoids. PLAN: The results of the pathology will be checked. I would recommend a repeat colonoscopy in 5 years. In regard to her diarrhea, I do not see any obvious colitis today, but if indeed, she has underlying microscopic colitis and we will need to treat that with something such as budesonide. She is currently on 5 mg of prednisone every other day for the underlying autoimmune hepatitis. Given her clinical history, she may very well have some type of colitis in relation to the autoimmune history that she has. Of note, recent laboratories and stool specimens were negative for any sign of infection, although the sedimentation rate and C-reactive protein were slightly elevated. Interestingly, the calprotectin level was elevated in the stool specimen as well. She may have intermittent episodes of colitis that go into remission spontaneously. She did have an episode back in July, which was seen on the CAT scan, but that also resolved spontaneously. She will be seen within 2 to 3 months for a followup visit. In the meantime, she will use some Imodium on a p.r.n. basis unless some specific etiology is seen on the biopsies from today. MD FERNANDA Kunz/ALLISON / [id number]
== END 2021-02-05 13:00 | disposition home or self-care (01) ==
PROVIDERS: PCP Internal Medicine; Visit Provider Internal Medicine
PROC: 0DJD8ZZ Inspection of Lower Intestinal Tract, Via Natural or Artificial Opening Endoscopic (ICD-10-PCS; CPT 45378; principal; 2021-02-05 10:30)
DX: Z12.11 Encounter for screening for malignant neoplasm of colon (principal); Z86.010 Personal history of colon polyps; Z80.0 Family history of malignant neoplasm of digestive organs; D12.5 Benign neoplasm of sigmoid colon; K57.30 Diverticulosis of large intestine without perforation or abscess without bleeding; K55.20 Angiodysplasia of colon without hemorrhage; K64.8 Other hemorrhoids; K52.832 Lymphocytic colitis; K75.4 Autoimmune hepatitis; D64.9 Anemia, unspecified; E05.00 Thyrotoxicosis with diffuse goiter without thyrotoxic crisis or storm; Z79.52 Long term (current) use of systemic steroids; Z79.899 Other long term (current) drug therapy; F17.210 Nicotine dependence, cigarettes, uncomplicated; Z85.3 Personal history of malignant neoplasm of breast; Z92.3 Personal history of irradiation
CPT/HCPCS: 45385; 45380; 88305

== ENCOUNTER 2021-03-05 07:04 | Outpatient (REF) | payer MEDICARE, SELFPAY ==
[2021-03-05 08:35] LABS: Alanine Aminotransferase 18 U/L (0-31); Albumin Level 3.8 g/dL (3.5-5.0); Alkaline Phosphatase 81 U/L (39-117); Aspartate Amino Transferase 18 U/L (5-31); Bilirubin Direct 0.2 mg/dL (0.0-0.5); Bilirubin Total 0.5 mg/dL (0.0-1.0); Total Protein 7.6 g/dL (6.5-8.0)
== END 2021-03-05 07:05 | disposition home or self-care (01) ==
LOC: HO.LABR 07:04
PROVIDERS: PCP Internal Medicine; Visit Provider Internal Medicine
DX: K75.4 Autoimmune hepatitis (principal)
CPT/HCPCS: 36415; 80076

== ENCOUNTER 2021-05-07 09:33 | Outpatient (REF) | payer MEDICARE, SELFPAY ==
[2021-05-07 10:40] LABS: Alanine Aminotransferase 16 U/L (0-31); Albumin Level 3.8 g/dL (3.5-5.0); Alkaline Phosphatase 80 U/L (39-117); Aspartate Amino Transferase 18 U/L (5-31); Bilirubin Direct 0.3 mg/dL (0.0-0.5); Bilirubin Total 0.8 mg/dL (0.0-1.0); Total Protein 7.6 g/dL (6.5-8.0)
== END 2021-05-07 09:34 | disposition home or self-care (01) ==
LOC: HO.LABR 09:33
PROVIDERS: PCP Internal Medicine; Visit Provider Internal Medicine
DX: K75.4 Autoimmune hepatitis (principal)
CPT/HCPCS: 36415; 80076

== ENCOUNTER 2021-07-05 06:59 | Outpatient (REF) | payer MEDICARE, SELFPAY ==
[2021-07-05 08:23] LABS: Alanine Aminotransferase 38 U/L (0-31); Albumin Level 3.9 g/dL (3.5-5.0); Alkaline Phosphatase 91 U/L (39-117); Aspartate Amino Transferase 34 U/L (5-31); Bilirubin Direct 0.3 mg/dL (0.0-0.5); Bilirubin Total 0.8 mg/dL (0.0-1.0); Total Protein 7.7 g/dL (6.5-8.0)
== END 2021-07-05 07:00 | disposition home or self-care (01) ==
LOC: HO.LABR 06:59
PROVIDERS: PCP Internal Medicine; Visit Provider Internal Medicine
DX: K75.4 Autoimmune hepatitis (principal)
CPT/HCPCS: 36415; 80076

== ENCOUNTER 2021-09-04 06:38 | Outpatient (REF) | payer MEDICARE, SELFPAY ==
[2021-09-04 07:47] LABS: Alanine Aminotransferase 100 U/L (0-31); Albumin Level 3.5 g/dL (3.5-5.0); Alkaline Phosphatase 171 U/L (39-117); Aspartate Amino Transferase 109 U/L (5-31); Bilirubin Direct 0.4 mg/dL (0.0-0.5); Bilirubin Total 0.7 mg/dL (0.0-1.0); Total Protein 8.3 g/dL (6.5-8.0)
== END 2021-09-04 06:39 | disposition home or self-care (01) ==
LOC: HO.LABR 06:38
PROVIDERS: PCP Internal Medicine; Visit Provider Internal Medicine
DX: K75.4 Autoimmune hepatitis (principal)
CPT/HCPCS: 36415; 80076

== ENCOUNTER 2021-09-07 10:44 | Outpatient (REF) | payer MEDICARE, SELFPAY ==
--- NOTE | ~2021-09-07 | MM_ITS ---
EXAMINATION: MM SCREENING DIGITAL BREAST TOMOSYNTHESIS, BILATERAL CLINICAL INFORMATION: Screening. Asymptomatic. Left lumpectomy for breast cancer, 1999. Due for yearly. COMPARISON: Mammography: 09/06/2020, 02/05/2019, 01/02/2018, 12/31/2016 TECHNIQUE: Digital breast tomosynthesis is performed in both the craniocaudal and mediolateral oblique views along with computer-aided detection (CAD). Synthesized 2D images are generated from the tomosynthesis. FINDINGS: The breasts are heterogeneously dense, which may obscure small masses (ACR BI-RADS breast composition Category c). Parenchymal pattern is similar to prior studies. There is no interval significant mass or architectural abnormality. Biopsy clip marker again present right mid upper outer quadrant. Postsurgical changes again seen left breast with old scarring posterior upper outer quadrant and left axillary left clips. Again, there is dermal lesion overlying the posterior upper inner left breast also marked with skin marker in 2019. There are scattered bilateral benign coarse round and some vascular and spine are coarse calcifications. No significant changes. MM/MM tomosynthesis screening BI IMPRESSION: No significant changes from prior studies. Post therapy changes left breast. ASSESSMENT: BI-RADS 2: Benign RECOMMENDATION: Routine annual mammography screening. This patient's information was entered into a reminder system with a target due date for their next mammogram.
== END 2021-09-07 10:45 | disposition home or self-care (01) ==
LOC: HO.MAMMO 10:44
PROVIDERS: Visit Provider Internal Medicine
DX: Z12.31 Encounter for screening mammogram for malignant neoplasm of breast (principal)
CPT/HCPCS: 77063; 77067

== ENCOUNTER 2021-09-12 06:27 | Outpatient (REF) | payer MEDICARE, SELFPAY ==
[2021-09-12 06:46] LABS: MANUAL DIFF FLAG NO
[2021-09-12 07:14] LABS: Basophils Percent Auto 0.4 % (0-2); Eosinophils Absolute Auto 0.2 X10*3/uL (0.0-0.4); Eosinophils Percent Auto 2.4 % (0-4); Hematocrit 31.4 % (37.0-47.0); Hemoglobin 9.1 g/dl (12.0-16.0); Imm Gran Abs Auto 0.04 X10*3/uL (0.00-0.03); Imm Gran Pct Auto 0.4 % (0.0-0.4); Lymphocytes Absolute Auto 3.4 X10*3/uL (1.2-4.9); Lymphocytes Percent Auto 33.6 % (20-40); Mean Corpuscular Hemoglobin 20.8 pg (27.0-33.0); Mean Corpuscular Volume 71.7 fL (80.0-98.0); Mean Platelet Volume 9.5 fL (9.4-12.3); Monocytes Absolute Auto 1.1 X10*3/uL (0.1-1.2); Monocytes Percent Auto 10.6 % (2-11); Neutrophils Absolute Auto 5.3 x10*3/uL (2.0-8.3); Neutrophils Percent Auto 52.6 % (45-73); Platelet Count 379 X10*3/uL (160-400); Red Blood Count 4.38 X10*6/uL (4.20-5.50); Red Cell Distribution Width 19.4 % (11.0-16.0); White Blood Count 10.1 X10*3/uL (4.8-10.8)
[2021-09-12 07:18] LABS: INTERNATIONAL NORM RATIO 1.2 (0.9-1.1); Prothrombin Time 13.9 SEC (9.9-13.0)
[2021-09-12 08:07] LABS: Alanine Aminotransferase 101 U/L (0-31); Albumin Level 3.3 g/dL (3.5-5.0); Alkaline Phosphatase 154 U/L (39-117); Aspartate Amino Transferase 104 U/L (5-31); Bilirubin Direct 0.2 mg/dL (0.0-0.5); Bilirubin Total 0.3 mg/dL (0.0-1.0); Total Protein 8.1 g/dL (6.5-8.0)
== END 2021-09-12 06:28 | disposition home or self-care (01) ==
LOC: HO.LAB 06:27
PROVIDERS: PCP Internal Medicine; Visit Provider Internal Medicine
DX: K75.4 Autoimmune hepatitis (principal)
CPT/HCPCS: 36415; 80076; 85025; 85610

== ENCOUNTER 2021-09-24 07:44 | Outpatient (REF) | payer MEDICARE, SELFPAY ==
[2021-09-24 08:54] LABS: Basophils Percent Auto 0.3 % (0-2); Eosinophils Absolute Auto 0.1 X10*3/uL (0.0-0.4); Eosinophils Percent Auto 0.3 % (0-4); Hematocrit 36.1 % (37.0-47.0); Hemoglobin 10.5 g/dl (12.0-16.0); Imm Gran Pct Auto 0.6 % (0.0-0.4); Lymphocytes Percent Auto 31.6 % (20-40); MANUAL DIFF FLAG SCAN; Mean Corpuscular HGB Conc 29.1 g/dl (31.0-35.0); Mean Corpuscular Volume 75.7 fL (80.0-98.0); Mean Platelet Volume 10.3 fL (9.4-12.3); Monocytes Absolute Auto 0.9 X10*3/uL (0.1-1.2); Neutrophils Absolute Auto 9.6 x10*3/uL (2.0-8.3); Neutrophils Percent Auto 61.2 % (45-73); Platelet Count 413 X10*3/uL (160-400); Red Blood Count 4.77 X10*6/uL (4.20-5.50); Red Cell Distribution Width 23.9 % (11.0-16.0); SCAN SMEAR FLAG 1; White Blood Count 15.8 X10*3/uL (4.8-10.8)
[2021-09-24 09:24] LABS: Alanine Aminotransferase 37 U/L (0-31); Albumin Level 3.5 g/dL (3.5-5.0); Alkaline Phosphatase 91 U/L (39-117); Aspartate Amino Transferase 25 U/L (5-31); Bilirubin Direct 0.4 mg/dL (0.0-0.5); Bilirubin Total 0.6 mg/dL (0.0-1.0); C Reactive Protein 0.11 mg/dL (< or = 0.50); Iron 76 mcg/dL (30-160); Percent Iron Saturation 18 % (15-50); Total Iron Binding Capacity 422 mcg/dL (228-428); Total Protein 7.7 g/dL (6.5-8.0); Unsaturated Iron Binding 346 ug/dL
[2021-09-24 09:31] LABS: SLIDE REVIEW VERIFIED
[2021-09-24 09:36] LABS: Ferritin 22 ng/mL (10-250)
[2021-09-24 09:47] LABS: Erythrocyte Sedimentation Rate 13 MM/HR (0-20)
[2021-09-24 10:27] LABS: Vitamin B12 520 pg/mL (200-900)
== END 2021-09-24 07:45 | disposition home or self-care (01) ==
LOC: HO.LAB 07:44
PROVIDERS: Visit Provider Internal Medicine
DX: K75.4 Autoimmune hepatitis (principal); D64.9 Anemia, unspecified
CPT/HCPCS: 36415; 80076; 82607; 82728; 82746; 83540; 85025; 85652; 86140

== ENCOUNTER 2021-10-15 06:33 | Outpatient (REF) | payer MEDICARE, SELFPAY ==
[2021-10-15 06:38] LABS: MANUAL DIFF FLAG NO
[2021-10-15 07:26] LABS: Basophils Percent Auto 0.3 % (0-2); Eosinophils Absolute Auto 0.2 X10*3/uL (0.0-0.4); Eosinophils Percent Auto 2.5 % (0-4); Hematocrit 40.8 % (37.0-47.0); Hemoglobin 12.2 g/dl (12.0-16.0); Imm Gran Abs Auto 0.03 X10*3/uL (0.00-0.03); Imm Gran Pct Auto 0.3 % (0.0-0.4); Lymphocytes Absolute Auto 3.3 X10*3/uL (1.2-4.9); Lymphocytes Percent Auto 36.2 % (20-40); Mean Corpuscular HGB Conc 29.9 g/dl (31.0-35.0); Mean Corpuscular Hemoglobin 24.2 pg (27.0-33.0); Mean Platelet Volume 9.8 fL (9.4-12.3); Monocytes Absolute Auto 0.7 X10*3/uL (0.1-1.2); Monocytes Percent Auto 7.3 % (2-11); Neutrophils Absolute Auto 4.8 x10*3/uL (2.0-8.3); Neutrophils Percent Auto 53.4 % (45-73); Platelet Count 300 X10*3/uL (160-400); Red Blood Count 5.04 X10*6/uL (4.20-5.50); Red Cell Distribution Width 27.3 % (11.0-16.0); White Blood Count 9.1 X10*3/uL (4.8-10.8)
[2021-10-15 07:48] LABS: Alanine Aminotransferase 32 U/L (0-31); Albumin Level 3.6 g/dL (3.5-5.0); Alkaline Phosphatase 80 U/L (39-117); Aspartate Amino Transferase 31 U/L (5-31); Bilirubin Direct 0.4 mg/dL (0.0-0.5); Bilirubin Total 0.8 mg/dL (0.0-1.0); Total Protein 7.6 g/dL (6.5-8.0)
== END 2021-10-15 06:34 | disposition home or self-care (01) ==
LOC: HO.LAB 06:33
PROVIDERS: PCP Internal Medicine; Visit Provider Internal Medicine
DX: K75.4 Autoimmune hepatitis (principal); D50.9 Iron deficiency anemia, unspecified
CPT/HCPCS: 36415; 80076; 85025

== ENCOUNTER 2021-11-09 06:09 | Outpatient (REF) | payer MEDICARE, SELFPAY ==
[2021-11-09 07:20] LABS: Alanine Aminotransferase 27 U/L (0-31); Albumin Level 3.8 g/dL (3.5-5.0); Alkaline Phosphatase 76 U/L (39-117); Aspartate Amino Transferase 26 U/L (5-31); Bilirubin Direct 0.3 mg/dL (0.0-0.5); Bilirubin Total 0.5 mg/dL (0.0-1.0); Total Protein 7.7 g/dL (6.5-8.0)
== END 2021-11-09 06:10 | disposition home or self-care (01) ==
LOC: HO.LABR 06:09
PROVIDERS: PCP Internal Medicine; Visit Provider Internal Medicine
DX: K75.4 Autoimmune hepatitis (principal)
CPT/HCPCS: 36415; 80076

== ENCOUNTER 2021-11-21 15:12 | Outpatient (REF) | payer MEDICARE, SELFPAY ==
[2021-11-21 17:30] LABS: Free T4 (Free Thyroxine) 1.28 ng/dL (0.71-1.85); Thyroid Stimulating Hormone 3.58 uIU/mL (0.32-4.0); Vitamin D 25-OH Total 18.9 ng/mL (>30)
== END 2021-11-21 15:13 | disposition home or self-care (01) ==
LOC: HO.HMGCLDS 15:12
PROVIDERS: PCP Internal Medicine; Visit Provider Internal Medicine
DX: E03.9 Hypothyroidism, unspecified (principal); M85.80 Other specified disorders of bone density and structure, unspecified site; N95.9 Unspecified menopausal and perimenopausal disorder
CPT/HCPCS: 36415; 82306; 84439; 84443

== ENCOUNTER 2021-12-05 06:32 | Outpatient (REF) | payer MEDICARE, SELFPAY ==
[2021-12-05 07:56] LABS: Alanine Aminotransferase 24 U/L (0-31); Albumin Level 3.8 g/dL (3.5-5.0); Alkaline Phosphatase 81 U/L (39-117); Aspartate Amino Transferase 21 U/L (5-31); Bilirubin Direct 0.2 mg/dL (0.0-0.5); Bilirubin Total 0.3 mg/dL (0.0-1.0)
== END 2021-12-05 06:33 | disposition home or self-care (01) ==
LOC: HO.LABR 06:32
PROVIDERS: PCP Internal Medicine; Visit Provider Internal Medicine
DX: K75.4 Autoimmune hepatitis (principal)
CPT/HCPCS: 36415; 80076

== ENCOUNTER 2022-01-14 07:09 | Outpatient (REF) | payer MEDICARE, SELFPAY ==
[2022-01-14 07:59] LABS: Alanine Aminotransferase 22 U/L (0-31); Albumin Level 3.9 g/dL (3.5-5.0); Alkaline Phosphatase 87 U/L (39-117); Aspartate Amino Transferase 21 U/L (5-31); Bilirubin Direct 0.3 mg/dL (0.0-0.5); Bilirubin Total 0.8 mg/dL (0.0-1.0); Total Protein 7.9 g/dL (6.5-8.0)
== END 2022-01-14 07:10 | disposition home or self-care (01) ==
LOC: HO.LAB 07:09
PROVIDERS: PCP Internal Medicine; Visit Provider Internal Medicine
DX: K75.4 Autoimmune hepatitis (principal)
CPT/HCPCS: 36415; 80076

== ENCOUNTER 2022-02-16 07:08 | Outpatient (REF) | payer MEDICARE, SELFPAY ==
[2022-02-16 08:27] LABS: Alanine Aminotransferase 57 U/L (0-31); Albumin Level 3.8 g/dL (3.5-5.0); Alkaline Phosphatase 102 U/L (39-117); Aspartate Amino Transferase 51 U/L (5-31); Bilirubin Direct 0.4 mg/dL (0.0-0.5); Bilirubin Total 1.1 mg/dL (0.0-1.0); Total Protein 7.8 g/dL (6.5-8.0)
== END 2022-02-16 07:09 | disposition home or self-care (01) ==
LOC: HO.LAB 07:08
PROVIDERS: PCP Internal Medicine; Visit Provider Internal Medicine
DX: K75.4 Autoimmune hepatitis (principal)
CPT/HCPCS: 36415; 80076

== ENCOUNTER 2022-03-27 08:02 | Outpatient (REF) | payer MEDICARE, SELFPAY ==
[2022-03-27 09:07] LABS: Alanine Aminotransferase 41 U/L (0-31); Albumin Level 3.6 g/dL (3.5-5.0); Alkaline Phosphatase 104 U/L (39-117); Aspartate Amino Transferase 39 U/L (5-31); Bilirubin Direct 0.2 mg/dL (0.0-0.5); Bilirubin Total 0.6 mg/dL (0.0-1.0)
== END 2022-03-27 08:03 | disposition home or self-care (01) ==
LOC: HO.LAB 08:02
PROVIDERS: PCP Internal Medicine; Visit Provider Internal Medicine
DX: R79.89 Other specified abnormal findings of blood chemistry (principal)
CPT/HCPCS: 36415; 80076

== ENCOUNTER 2022-04-22 07:27 | Outpatient (REF) | payer MEDICARE, SELFPAY ==
[2022-04-22 08:43] LABS: Alanine Aminotransferase 39 U/L (0-31); Albumin Level 3.8 g/dL (3.5-5.0); Alkaline Phosphatase 103 U/L (39-117); Aspartate Amino Transferase 38 U/L (5-31); Bilirubin Direct 0.3 mg/dL (0.0-0.5); Bilirubin Total 0.7 mg/dL (0.0-1.0); Total Protein 8.6 g/dL (6.5-8.0)
== END 2022-04-22 07:28 | disposition home or self-care (01) ==
LOC: HO.LABR 07:27
PROVIDERS: PCP Internal Medicine; Visit Provider Internal Medicine
DX: K75.4 Autoimmune hepatitis (principal)
CPT/HCPCS: 36415; 80076

== ENCOUNTER 2022-05-20 13:29 | Outpatient (REF) | payer MEDICARE, SELFPAY ==
[2022-05-20 14:23] LABS: Alanine Aminotransferase 77 U/L (0-31); Aspartate Amino Transferase 72 U/L (5-31)
[2022-05-20 14:25] LABS: Alanine Aminotransferase 78 U/L (0-31); Albumin Level 3.5 g/dL (3.5-5.0); Alkaline Phosphatase 101 U/L (39-117); Aspartate Amino Transferase 72 U/L (5-31); Bilirubin Direct 0.3 mg/dL (0.0-0.5); Cholesterol 130 mg/dL; HDL Cholesterol 45 mg/dL; LDL Cholesterol Calculated 72 mg/dl; Total Protein 8.2 g/dL (6.5-8.0); Triglycerides 65 mg/dL
[2022-05-20 14:40] LABS: Free T4 (Free Thyroxine) 1.55 ng/dL (0.71-1.85); Vitamin D 25-OH Total 21.7 ng/mL (>30)
[2022-05-20 14:41] LABS: Thyroid Stimulating Hormone 2.38 uIU/mL (0.32-4.0)
== END 2022-05-20 13:30 | disposition home or self-care (01) ==
LOC: HO.LABR 13:29
PROVIDERS: PCP Internal Medicine; Visit Provider Internal Medicine
DX: E03.9 Hypothyroidism, unspecified (principal); E55.9 Vitamin D deficiency, unspecified; M85.80 Other specified disorders of bone density and structure, unspecified site; N95.9 Unspecified menopausal and perimenopausal disorder; K75.4 Autoimmune hepatitis
CPT/HCPCS: 36415; 80061; 80076; 82306; 84439; 84443; 84450; 84460

== ENCOUNTER 2022-05-27 10:40 | Outpatient (AMB) | payer MEDICARE, SELFPAY ==
--- NOTE | 2022-05-27 11:26 | MHC.PC.OV ---
Vital Signs 05/27/22 11:30 Height 5 ft 3 in Weight 178 lb BMI 31.5 BP 124/70 Blood Pressure Location Rt brachial Position Sitting Pulse 95 Pulse Source Pulse Oximeter Pulse Oximetry (%) 96 Oxygen Delivery Method Room Air Intake Visit Reasons: 6 month follow up Allergies adhesive tape Allergy (Intermediate, Verified 05/27/22 11:27) Blister Medication List - Last Reconciled 12/26/22 by Josephine La MD cholecalciferol (vitamin D3) 1,250 mcg PO QWEEK 90 days Levoxyl (levothyroxine) 125 mcg PO QAM NS omeprazole 20 mg PO DAILY prednisone 5 mg PO DAILY Tobacco use date assessed: 05/27/22 Fall risk assessment: No Falls in past year Last assessed Fall Risk: 05/27/22 HPI 6 month follow up HPI Details 2-year-old lady with history of autoimmune hepatitis, here today for follow-up on her hypothyroidism. Currently taking Levoxyl 125 mcg daily in a.m.. Has been feeling well on current dose, no complaints of any chest pain, shortness of breath, tachycardia, lightheadedness or tremors alteration in bowel movements or fatigue reported. Recent fasting labs done which showed presence of normal thyroid levels, liver enzymes, but vitamin-D is low at 21.7. [facility] Medical History (Updated 05/27/22 @ 11:55 by Josephine La MD) Lymphocytic colitis COVID-19 vaccine series completed Breast cancer screening by mammogram Vitamin D deficiency Positive DASIA (antinuclear antibody) Duodenal ulcer Esophageal ulcer Osteopenia History of peptic ulcer disease History of Helicobacter pylori infection Psoriasis Chronic gastritis Iron deficiency anemia Autoimmune hepatitis Varicose veins of both lower extremities Hypothyroidism Graves disease Ductal carcinoma of left breast Tubular adenoma of colon H/O malignant neoplasm of breast Surgical History History of lumpectomy of left breast History of esophagogastroduodenoscopy (EGD) History of oophorectomy H/O excision of epidermal inclusion cyst H/O colonoscopy H/O tubal ligation Family History Father No problems noted. Mother No problems noted. Paternal Grandmother No problems noted. Paternal Grandfather No problems noted. Maternal Aunt Lupus Rheumatoid arthritis Paternal Aunt Lupus Rheumatoid arthritis Sister Psoriasis Social History Housing: House Are you a primary continuum of care manager to a significant other at home: No Do you presently have visiting nurse or other home services: No Alcohol intake: unknown Patient Tobacco Use Status: Current everyday Tobacco user Tobacco use type: Cigarette Cigarette Packs Per Day: 1 Cigarettes Per Day: 20.0 Years Smoked: 50 e-Cigarette/Vaping Use: Never Used service: No Current occupational status: retired Cognitive needs: No Hearing needs: No Vision needs: Yes Questionnaire PHQ-9 Over the last 2 weeks, how often have you been bothered by any of the following problems? Depression Screening Interpretation: Negative Source: Developed by Drs. Placido Narvaez, Bridgette Ward, Nirmal Calhoun and colleagues, with an educational fawad from [employer]. Thrive Questionnaire Date Thrive assessed: 11/26/21 AUDIT C Alcohol Use Questionnaire (AUDIT-C) 1. How often do you have a drink containing alcohol?: Never 3. How often do you have six or more drinks on one occasion?: Never Total Score: 0 NIDIA-7 AMB Questionnaire NIDIA-7 Date NIDIA - 7 assessed: 11/26/21 Source: Developed by Drs. Placido Narvaez, Bridgette Ward, Nirmal Calhoun and colleagues, with an educational fawad from [employer]. Review of Systems Const Denies body aches, Denies fever(s), Denies headache(s) and Denies weakness Eyes Denies change in vision ENT Denies dizziness, Denies dry mouth, Denies headache(s), Denies nasal congestion and Denies sore throat Card Denies chest pain, Denies lightheadedness and Denies dyspnea Resp Denies chest congestion, Denies cough and Denies dyspnea GI Denies abdominal pain, Denies change in bowel habits and Denies heartburn Musc Denies arthralgias, Denies joint swelling and Reports stiffness Neuro Denies dizziness, Denies headache(s) and Denies weakness Endo Reports no additional complaints Physical exam (Primary Care) Vital Signs: Last Vital Signs Pulse 95 05/27/22 11:30 BP 124/70 05/27/22 11:30 Pulse Ox 96 05/27/22 11:30 Oxygen Delivery Method Room Air 05/27/22 11:30 BMI result Body Mass Index 31.5 Tobacco/Smoking Status: Tobacco use Status Tobacco use date assessed 05/27/22 05/27/22 11:30 Patient Tobacco Use Status Current everyday Tobacco 05/27/22 11:27 Tobacco use type Cigarette 05/27/22 11:27 e-Cigarette/Vaping Use Never Used 05/27/22 11:27 Are you ready to quit: No Depression Screening Interpretation: Negative Thrive Assessment: Date of Thrive Assessment Date Thrive assessed 11/26/21 05/27/22 11:27 Const General: cooperative, comfortable and no acute distress Orientation/consciousness: patient oriented x3 HENMT Ears: hearing grossly normal bilaterally, TM's normal bilaterally and EAC's normal General nose exam: Normal external nose present and No nasal discharge present Face and sinus: Yes sinuses nontender and Yes face symmetric Mouth: Normal oral and palatal mucosa present and moist mucous membranes Neck Neck: Yes full ROM, Yes no lymphadenopathy and Yes supple Thyroid: Thyroid normal Resp Auscultation: clear to auscultation bilaterally Cardio Other: S1-S2 present regular rate and rhythm GI Palpation (GI): Soft to palpation, nontender, no guarding and no masses Auscultation: normal bowel sounds Neuro General: patient oriented x3, gait normal, moves all extremities, no focal motor deficits and CN's II-XI intact bilaterally Extrem General: Yes full ROM, Yes no joint enlargement, Yes no pedal edema, Yes no calf tenderness and Yes normal gait Results Reviewed Results Reviewed: Name: Idania Figueroa Age/Sex: 72/F [facility] 1950 [id number] [id number] Attend Dr: Placido Abarca Re05/20/22 Status: DEP REF Location: [facility] Disch: SPEC : [id number] KI: 05/20/22 STATUS: COMP REQ : [id number] RECD: 05/20/[address]: Josephine La MD COMP: 05/20/22 ENTERED: 05/20/[address]: Placido Abarca ORDERED: AST, ALT, Vitamin D 25-OH, Free T4 Test Result Flag Reference Site AST (GOT) 72 H 5-31 U/L ALT (GPT) 77 H 0-31 U/L Vit D 25-OH Tot 21.7 >30 ng/mL Health Based Reference Values* < 20 ng/mL Deficient 20-30 ng/mL Insufficient > 30 ng/mL Sufficient *Carrie MORFIN. N Engl J Med. 2007;[id number] Care must be taken in interpreting Vitamin D results from different laboratories and methodologies. Published data demonstrated that results from patients undergoing hemodialysis may show a negative bias when tested with various automated 25-OH vitamin D assays when compared to LC-MS/MS. When testing samples from patients whose predominant form of Vitamin D is Vitamin D2, such as patients receiving Vitamin D2 supplementation, results that are subtherapeutic should be confirmed with another method such as LC-MS/MS. Free T4 1.55 0.71-1.85 ng/dL Assessment and Plan Assessment & Plan (1) Vitamin D deficiency: Code(s): E55.9 - Vitamin D deficiency, unspecified Plan: Prescription sent for vitamin-D 3 replacement 96824 units per capsule to take once a week for next 3 months. Advised patient to take [id number] vitamin D3 at 2000 units once a day after she finishes taking this prescription. (2) Hypothyroidism: Code(s): E03.9 - Hypothyroidism, unspecified Plan: Thyroid levels are within normal limits, will continue current dose of levothyroxine (3) Autoimmune hepatitis: Comment: on a slow taper of prednisone currently being followed by Dr. Abarca Code(s): K75.4 - Autoimmune hepatitis Plan: Currently followed by Dr. Abarca on a slow taper prednisone Medications: Changed From cholecalciferol (vitamin D3) 1,250 mcg PO QWEEK 90 days 13 tabs 0RF E55.9 - Vitamin D deficiency, unspecified To cholecalciferol (vitamin D3) 1,250 mcg PO QWEEK 13 tabs 0RF 90 days E55.9 - Vitamin D deficiency, unspecified Coding Level of Care Code Est Pt Level 3 (21471) Diagnoses Vitamin D deficiency E55.9 Hypothyroidism E03.9 Autoimmune hepatitis K75.4
[2022-05-27 11:30] VITALS: BP 124/70; PULSE 95; O2SAT 96; BMI 31.5
== END 2022-05-27 12:28 | disposition home or self-care (01) ==
LOC: HO.HMGC 10:40
PROVIDERS: PCP Internal Medicine; Visit Provider Internal Medicine
DX: K75.4 Autoimmune hepatitis (principal); E55.9 Vitamin D deficiency, unspecified; E03.9 Hypothyroidism, unspecified
CPT/HCPCS: 99213

== ENCOUNTER 2022-06-03 06:22 | Outpatient (REF) | payer MEDICARE, SELFPAY ==
[2022-06-03 07:59] LABS: Alanine Aminotransferase 65 U/L (0-31); Albumin Level 3.3 g/dL (3.5-5.0); Alkaline Phosphatase 96 U/L (39-117); Aspartate Amino Transferase 59 U/L (5-31); Bilirubin Direct 0.3 mg/dL (0.0-0.5); Bilirubin Total 0.8 mg/dL (0.0-1.0); Total Protein 7.8 g/dL (6.5-8.0)
== END 2022-06-03 06:23 | disposition home or self-care (01) ==
LOC: HO.LAB 06:22
PROVIDERS: PCP Internal Medicine; Visit Provider Internal Medicine
DX: K75.4 Autoimmune hepatitis (principal)
CPT/HCPCS: 36415; 80076

== ENCOUNTER 2022-07-01 06:38 | Outpatient (REF) | payer MEDICARE, SELFPAY ==
[2022-07-01 06:49] LABS: MANUAL DIFF FLAG NO
[2022-07-01 07:44] LABS: INTERNATIONAL NORM RATIO 1.1 (0.9-1.1); Prothrombin Time 13.1 SEC (10.0-13.1)
[2022-07-01 08:04] LABS: Basophils Percent Auto 0.4 % (0-2); Eosinophils Absolute Auto 0.1 X10*3/uL (0.0-0.4); Eosinophils Percent Auto 0.7 % (0-4); Hematocrit 35.5 % (37.0-47.0); Hemoglobin 10.4 g/dl (12.0-16.0); Imm Gran Abs Auto 0.04 X10*3/uL (0.00-0.03); Imm Gran Pct Auto 0.4 % (0.0-0.4); Lymphocytes Absolute Auto 2.4 X10*3/uL (1.2-4.9); Lymphocytes Percent Auto 24.1 % (20-40); Mean Corpuscular HGB Conc 29.3 g/dl (31.0-35.0); Mean Corpuscular Hemoglobin 22.1 pg (27.0-33.0); Mean Corpuscular Volume 75.5 fL (80.0-98.0); Mean Platelet Volume 9.8 fL (9.4-12.3); Monocytes Absolute Auto 0.9 X10*3/uL (0.1-1.2); Monocytes Percent Auto 9.4 % (2-11); Neutrophils Absolute Auto 6.5 x10*3/uL (2.0-8.3); Platelet Count 368 X10*3/uL (160-400); Red Cell Distribution Width 16.9 % (11.0-16.0)
[2022-07-02 13:24] LABS: Alpha Fetoprotein 2.5 ng/mL
== END 2022-07-01 06:39 | disposition home or self-care (01) ==
LOC: HO.LAB 06:38
PROVIDERS: Visit Provider Internal Medicine
DX: K75.4 Autoimmune hepatitis (principal); R94.5 Abnormal results of liver function studies
CPT/HCPCS: 36415; 82105; 85025; 85610

== ENCOUNTER 2022-07-12 07:48 | Outpatient (REF) | payer MEDICARE, SELFPAY ==
--- NOTE | ~2022-07-12 | US_ITS ---
EXAMINATION: US COMPLETE ABDOMEN WITH LIVER ELASTOGRAPHY CLINICAL INFORMATION: Autoimmune hepatitis. Abnormal liver function tests. COMPARISON: Previous CT of the abdomen and pelvis most recent July 2020 and abdominal ultrasound March 2019 TECHNIQUE: Real-time imaging of the abdominal viscera. Noninvasive ultrasound liver fibrosis assessment is performed using Patel ElastPQ point quantification shear wave elastography (2D-SWE) with a C5-2 MHz transducer. Multiple elastography samples are obtained. FINDINGS: PANCREAS: Normal. ABDOMINAL AORTA: The proximal, middle, and distal aortic segments are normal in caliber. INFERIOR VENA CAVA: Visualized portions are normal. LIVER: The liver is normal in size and shape. Liver echotexture may be slightly increased. There are several cysts, largest measuring 1.8 x 1.4 x 1.6 cm in the left lobe. No other focal liver lesion. No biliary duct dilatation. The right lobe measures 16 cm in length. The left lobe measures 12 cm in length. Portal flow is normal/hepatopedal Shear wave liver elastography median stiffness is 2 m/s (reference: normal median stiffness is 1.3 m/s or less). IQR/median stiffness to assess sampling precision is 0.05 (reference: good quality data set is IQR/median stiffness of 0.15 or less). GALLBLADDER: Normal. The gallbladder is physiologically distended without evidence of stones, sludge, polyps, wall thickening or pericholecystic fluid. COMMON BILE DUCT: Normal in caliber measuring 0.4 cm in diameter. RIGHT KIDNEY: Normal. No hydronephrosis. No renal calculi or focal parenchymal lesions. The kidney measures 11 cm in maximum dimension. LEFT KIDNEY: Normal. No hydronephrosis. No renal calculi or focal parenchymal lesions. The kidney measures 10.6 cm in maximum dimension. SPLEEN: Normal. The spleen measures 10 cm in maximum dimension. FREE FLUID: None. US/US abdomen comp w elastography IMPRESSION: 1. Impression: Multiple liver cysts. Question slight increased liver echogenicity. 2. Liver elastography: Adequate liver sampling. Increased liver stiffness suggestive of compensated advanced chronic liver disease but need further test for confirmation. REFERENCE: Society of Radiologists in Ultrasound Liver Stiffness Thresholds (2020): LIVER STIFFNESS THRESHOLDS: *Liver Stiffness equal or less than 1.3 m/s: High probability of being normal. *Liver Stiffness less than 1.7 m/s: In the absence of other known clinical signs, rules out compensated advanced chronic liver disease. *Liver Stiffness 1.7-2.1 m/s: Suggestive of compensated advanced chronic liver disease but need further test for confirmation. *Liver Stiffness over 2.1 m/s: Rules in compensated advanced chronic liver disease. *Liver Stiffness over 2.4 m/s: Suggestive of clinically significant portal hypertension. QUALITY OF DATA SET: *IQR/Median value equal or less than 0.15 implies a quality data set. *IQR/Median value over 0.15 implies a poor quality data set. SIGNIFICANT CHANGE FROM PRIOR EXAM: Significant change if liver stiffness measurement is 10% or greater from prior exam. OTHER CONSIDERATIONS: The stage of liver fibrosis may be overestimated in the setting of acute hepatitis, liver inflammation, elevated liver function tests, hepatic vascular congestion, obstructive cholestasis, non-fasting state, and infiltrative diseases such as amyloidosis and lymphoma. In some patients with NAFLD, the liver stiffness thresholds for compensated advanced chronic liver disease may be lower. In causes other than viral hepatitis and NAFLD, liver stiffness thresholds are not well established.
== END 2022-07-12 07:49 | disposition home or self-care (01) ==
LOC: HO.US 07:48
PROVIDERS: PCP Internal Medicine; Visit Provider Internal Medicine
DX: K75.4 Autoimmune hepatitis (principal); R94.5 Abnormal results of liver function studies
CPT/HCPCS: 76705; 76981

== ENCOUNTER 2022-07-31 12:36 | Outpatient (REF) | payer MEDICARE, SELFPAY ==
[2022-07-31 12:49] LABS: MANUAL DIFF FLAG NO
[2022-07-31 13:33] LABS: Basophils Percent Auto 0.3 % (0-2); Eosinophils Absolute Auto 0.1 X10*3/uL (0.0-0.4); Eosinophils Percent Auto 0.6 % (0-4); Hematocrit 37.8 % (37.0-47.0); Hemoglobin 11.2 g/dl (12.0-16.0); Imm Gran Abs Auto 0.04 X10*3/uL (0.00-0.03); Imm Gran Pct Auto 0.4 % (0.0-0.4); Lymphocytes Absolute Auto 2.4 X10*3/uL (1.2-4.9); Lymphocytes Percent Auto 23.4 % (20-40); Mean Corpuscular HGB Conc 29.6 g/dl (31.0-35.0); Mean Corpuscular Volume 77.8 fL (80.0-98.0); Mean Platelet Volume 10.4 fL (9.4-12.3); Monocytes Absolute Auto 0.8 X10*3/uL (0.1-1.2); Monocytes Percent Auto 7.4 % (2-11); Neutrophils Absolute Auto 6.9 x10*3/uL (2.0-8.3); Neutrophils Percent Auto 67.9 % (45-73); Platelet Count 341 X10*3/uL (160-400); Red Blood Count 4.86 X10*6/uL (4.20-5.50); Red Cell Distribution Width 21.6 % (11.0-16.0); White Blood Count 10.1 X10*3/uL (4.8-10.8)
[2022-07-31 14:25] LABS: Alanine Aminotransferase 23 U/L (0-31); Albumin Level 3.6 g/dL (3.5-5.0); Alkaline Phosphatase 88 U/L (39-117); Aspartate Amino Transferase 28 U/L (5-31); Bilirubin Direct 0.3 mg/dL (0.0-0.5); Bilirubin Total 0.9 mg/dL (0.0-1.0); Iron 27 mcg/dL (30-160); Percent Iron Saturation 7 % (15-50); Total Iron Binding Capacity 381 mcg/dL (228-428); Total Protein 7.9 g/dL (6.5-8.0); Unsaturated Iron Binding 354 ug/dL
[2022-07-31 14:41] LABS: Ferritin 23 ng/mL (10-250); Folate 12.6 ng/mL (> or = 4.0); Vitamin B12 737 pg/mL (200-900)
== END 2022-07-31 12:37 | disposition home or self-care (01) ==
LOC: HO.LAB 12:36
PROVIDERS: PCP Internal Medicine; Visit Provider Internal Medicine
DX: D50.9 Iron deficiency anemia, unspecified (principal)
CPT/HCPCS: 36415; 80076; 82607; 82728; 82746; 83540; 85025

== ENCOUNTER 2022-09-02 07:15 | Outpatient (REF) | payer MEDICARE, SELFPAY ==
[2022-09-02 08:17] LABS: Alanine Aminotransferase 32 U/L (0-31); Albumin Level 3.5 g/dL (3.5-5.0); Alkaline Phosphatase 89 U/L (39-117); Aspartate Amino Transferase 34 U/L (5-31); Bilirubin Direct 0.3 mg/dL (0.0-0.5); Bilirubin Total 0.9 mg/dL (0.0-1.0); Total Protein 7.9 g/dL (6.5-8.0)
== END 2022-09-02 07:16 | disposition home or self-care (01) ==
LOC: HO.LABR 07:15
PROVIDERS: PCP Internal Medicine; Visit Provider Internal Medicine
DX: K75.4 Autoimmune hepatitis (principal)
CPT/HCPCS: 36415; 80076

== ENCOUNTER 2022-09-09 09:31 | Outpatient (REF) | payer MEDICARE, SELFPAY ==
--- NOTE | ~2022-09-09 | MM_ITS ---
EXAMINATION: MM SCREENING DIGITAL BREAST TOMOSYNTHESIS, BILATERAL CLINICAL INFORMATION: Screening. Asymptomatic. Left lumpectomy for breast cancer, 1999. COMPARISON: Mammography: 09/07/2021, 09/06/2020, 02/05/2019 TECHNIQUE: Digital breast tomosynthesis is performed in both the craniocaudal and mediolateral oblique views along with computer-aided detection (CAD). Synthesized 2D images are generated from the tomosynthesis. FINDINGS: The breasts are heterogeneously dense, which may obscure small masses (ACR BI-RADS breast composition Category c). Breast tissue composition borders on extremely dense. Parenchymal pattern is similar to prior studies and there is no developing density or interval architectural abnormality. There are post therapy changes on the left with reduced breast size, surgical clips, and scarring posterior upper outer quadrant. There are multiple bilateral round, rim, vascular, and lesser scattered punctate calcifications. No abnormal calcifications. The axilla are unremarkable. There is dermal lesion overlying the posterior medial left breast. MM/MM tomosynthesis screening BI IMPRESSION: -No mammographic evidence of malignancy. -Post therapy changes left breast. ASSESSMENT: BI-RADS 2: Benign RECOMMENDATION: Routine annual mammography screening. This patient's information was entered into a reminder system with a target due date for their next mammogram.
== END 2022-09-09 09:32 | disposition home or self-care (01) ==
LOC: HO.MAMMO 09:31
PROVIDERS: PCP Internal Medicine; Visit Provider Internal Medicine
DX: Z12.31 Encounter for screening mammogram for malignant neoplasm of breast (principal)
CPT/HCPCS: 77063; 77067

== ENCOUNTER 2022-10-07 07:11 | Outpatient (REF) | payer MEDICARE, SELFPAY ==
[2022-10-07 08:05] LABS: Alanine Aminotransferase 41 U/L (0-31); Albumin Level 3.6 g/dL (3.5-5.0); Alkaline Phosphatase 90 U/L (39-117); Aspartate Amino Transferase 41 U/L (5-31); Bilirubin Direct 0.2 mg/dL (0.0-0.5); Bilirubin Total 0.6 mg/dL (0.0-1.0); Total Protein 8.5 g/dL (6.5-8.0)
== END 2022-10-07 07:12 | disposition home or self-care (01) ==
LOC: HO.LABR 07:11
PROVIDERS: PCP Internal Medicine; Visit Provider Internal Medicine
DX: K75.4 Autoimmune hepatitis (principal)
CPT/HCPCS: 36415; 80076

== ENCOUNTER 2022-11-04 06:36 | Outpatient (REF) | payer MEDICARE, SELFPAY ==
[2022-11-04 07:43] LABS: Alanine Aminotransferase 39 U/L (0-31); Albumin Level 3.6 g/dL (3.5-5.0); Alkaline Phosphatase 86 U/L (39-117); Aspartate Amino Transferase 38 U/L (5-31); Bilirubin Direct 0.4 mg/dL (0.0-0.5); Bilirubin Total 0.9 mg/dL (0.0-1.0); Total Protein 8.9 g/dL (6.5-8.0)
== END 2022-11-04 06:37 | disposition home or self-care (01) ==
LOC: HO.LABR 06:36
PROVIDERS: PCP Internal Medicine; Visit Provider Internal Medicine
DX: K75.4 Autoimmune hepatitis (principal)
CPT/HCPCS: 36415; 80076

== ENCOUNTER 2022-12-03 07:10 | Outpatient (REF) | payer MEDICARE, SELFPAY ==
[2022-12-03 08:17] LABS: Alanine Aminotransferase 39 U/L (0-31); Albumin Level 3.5 g/dL (3.5-5.0); Alkaline Phosphatase 90 U/L (39-117); Aspartate Amino Transferase 42 U/L (5-31); Bilirubin Direct 0.3 mg/dL (0.0-0.5); Bilirubin Total 0.7 mg/dL (0.0-1.0); Total Protein 8.4 g/dL (6.5-8.0)
== END 2022-12-03 07:11 | disposition home or self-care (01) ==
LOC: HO.LABR 07:10
PROVIDERS: Visit Provider Internal Medicine
DX: K75.4 Autoimmune hepatitis (principal)
CPT/HCPCS: 36415; 80076

== ENCOUNTER 2022-12-25 06:26 | Outpatient (REF) | payer MEDICARE, SELFPAY ==
[2022-12-25 06:36] LABS: MANUAL DIFF FLAG NO
[2022-12-25 07:30] LABS: Basophils Percent Auto 0.3 % (0-2); Eosinophils Absolute Auto 0.1 X10*3/uL (0.0-0.4); Eosinophils Percent Auto 0.9 % (0-4); Hematocrit 41.1 % (37.0-47.0); Hemoglobin 12.3 g/dl (12.0-16.0); Imm Gran Abs Auto 0.04 X10*3/uL (0.00-0.03); Imm Gran Pct Auto 0.5 % (0.0-0.4); Lymphocytes Percent Auto 23.1 % (20-40); Mean Corpuscular HGB Conc 29.9 g/dl (31.0-35.0); Mean Corpuscular Volume 80.1 fL (80.0-98.0); Mean Platelet Volume 10.2 fL (9.4-12.3); Monocytes Absolute Auto 0.8 X10*3/uL (0.1-1.2); Monocytes Percent Auto 8.7 % (2-11); Neutrophils Absolute Auto 5.7 x10*3/uL (2.0-8.3); Neutrophils Percent Auto 66.5 % (45-73); Platelet Count 305 X10*3/uL (160-400); Red Blood Count 5.13 X10*6/uL (4.20-5.50); Red Cell Distribution Width 22.9 % (11.0-16.0); White Blood Count 8.6 X10*3/uL (4.8-10.8)
[2022-12-25 08:17] LABS: Alanine Aminotransferase 38 U/L (0-31); Albumin Level 3.8 g/dL (3.5-5.0); Alkaline Phosphatase 89 U/L (39-117); Aspartate Amino Transferase 41 U/L (5-31); Bilirubin Direct 0.3 mg/dL (0.0-0.5); Bilirubin Total 0.7 mg/dL (0.0-1.0); Iron 71 mcg/dL (30-160); Percent Iron Saturation 18 % (15-50); Total Iron Binding Capacity 388 mcg/dL (228-428); Total Protein 8.7 g/dL (6.5-8.0); Unsaturated Iron Binding 317 ug/dL
[2022-12-25 08:20] LABS: Ferritin 39 ng/mL (10-250)
== END 2022-12-25 06:27 | disposition home or self-care (01) ==
LOC: HO.LAB 06:26
PROVIDERS: PCP Internal Medicine; Visit Provider Internal Medicine
DX: K75.4 Autoimmune hepatitis (principal); D50.9 Iron deficiency anemia, unspecified
CPT/HCPCS: 36415; 80076; 82728; 83540; 85025

== ENCOUNTER 2023-01-28 06:54 | Outpatient (REF) | payer MEDICARE, SELFPAY ==
[2023-01-28 07:14] LABS: MANUAL DIFF FLAG NO
[2023-01-28 07:32] LABS: Basophils Percent Auto 0.4 % (0-2); Eosinophils Absolute Auto 0.1 X10*3/uL (0.0-0.4); Eosinophils Percent Auto 1.2 % (0-4); Hematocrit 44.8 % (37.0-47.0); Hemoglobin 14.1 g/dl (12.0-16.0); Imm Gran Abs Auto 0.03 X10*3/uL (0.00-0.03); Imm Gran Pct Auto 0.4 % (0.0-0.4); Lymphocytes Absolute Auto 1.9 X10*3/uL (1.2-4.9); Lymphocytes Percent Auto 22.6 % (20-40); Mean Corpuscular HGB Conc 31.5 g/dl (31.0-35.0); Mean Corpuscular Hemoglobin 26.3 pg (27.0-33.0); Mean Corpuscular Volume 83.4 fL (80.0-98.0); Mean Platelet Volume 10.1 fL (9.4-12.3); Monocytes Absolute Auto 0.8 X10*3/uL (0.1-1.2); Monocytes Percent Auto 9.2 % (2-11); Neutrophils Absolute Auto 5.4 x10*3/uL (2.0-8.3); Neutrophils Percent Auto 66.2 % (45-73); Platelet Count 273 X10*3/uL (160-400); Red Blood Count 5.37 X10*6/uL (4.20-5.50); Red Cell Distribution Width 23.4 % (11.0-16.0); White Blood Count 8.2 X10*3/uL (4.8-10.8)
[2023-01-28 08:12] LABS: Alanine Aminotransferase 187 U/L (0-31); Albumin Level 3.3 g/dL (3.5-5.0); Alkaline Phosphatase 137 U/L (39-117); Aspartate Amino Transferase 199 U/L (5-31); Bilirubin Direct 0.3 mg/dL (0.0-0.5); Bilirubin Total 0.9 mg/dL (0.0-1.0); Total Protein 8.5 g/dL (6.5-8.0)
== END 2023-01-28 06:55 | disposition home or self-care (01) ==
LOC: HO.LABR 06:54
PROVIDERS: PCP Internal Medicine; Visit Provider Internal Medicine
DX: K75.4 Autoimmune hepatitis (principal); D50.9 Iron deficiency anemia, unspecified
CPT/HCPCS: 36415; 80076; 85025

== ENCOUNTER 2023-02-03 06:37 | Outpatient (REF) | payer MEDICARE, SELFPAY ==
[2023-02-03 08:41] LABS: Alanine Aminotransferase 99 U/L (0-31); Albumin Level 3.5 g/dL (3.5-5.0); Alkaline Phosphatase 113 U/L (39-117); Anion Gap 11 (12-20); Aspartate Amino Transferase 58 U/L (5-31); Bilirubin Direct 0.3 mg/dL (0.0-0.5); Bilirubin Total 0.7 mg/dL (0.0-1.0); Blood Urea Nitrogen 12 mg/dL (9-16); Calcium 9.7 mg/dL (8.4-10.2); Carbon Dioxide 31 mmol/L (22-29); Chloride 98 mmol/L (96-108); Estimated Glomerular Filt Rate > 60; Glucose Random 181 mg/dL (60-115); Potassium 3.9 mmol/L (3.3-5.1); Sodium 136 mmol/L (135-145); Total Protein 8.6 g/dL (6.5-8.0)
== END 2023-02-03 06:38 | disposition home or self-care (01) ==
LOC: HO.LAB 06:37
PROVIDERS: PCP Internal Medicine; Visit Provider Internal Medicine
DX: K75.4 Autoimmune hepatitis (principal)
CPT/HCPCS: 36415; 80048; 80076

== ENCOUNTER 2023-02-17 07:02 | Outpatient (REF) | payer MEDICARE, SELFPAY ==
[2023-02-17 08:30] LABS: Alanine Aminotransferase 36 U/L (0-31); Albumin Level 3.9 g/dL (3.5-5.0); Alkaline Phosphatase 81 U/L (39-117); Aspartate Amino Transferase 21 U/L (5-31); Bilirubin Direct 0.4 mg/dL (0.0-0.5); Bilirubin Total 1.2 mg/dL (0.0-1.0); Glucose Fasting 121 mg/dL (60-99); Total Protein 8.4 g/dL (6.5-8.0)
== END 2023-02-17 07:03 | disposition home or self-care (01) ==
LOC: HO.LAB 07:02
PROVIDERS: PCP Internal Medicine; Visit Provider Internal Medicine
DX: K75.4 Autoimmune hepatitis (principal)
CPT/HCPCS: 36415; 80076; 82947

== ENCOUNTER 2023-03-18 07:30 | Outpatient (REF) | payer MEDICARE, SELFPAY ==
[2023-03-18 07:49] LABS: MANUAL DIFF FLAG NO
[2023-03-18 08:47] LABS: Basophils Percent Auto 0.3 % (0-2); Eosinophils Percent Auto 0.1 % (0-4); Hematocrit 48.9 % (37.0-47.0); Hemoglobin 15.6 g/dl (12.0-16.0); Imm Gran Abs Auto 0.09 X10*3/uL (0.00-0.03); Imm Gran Pct Auto 0.9 % (0.0-0.4); Lymphocytes Absolute Auto 2.9 X10*3/uL (1.2-4.9); Lymphocytes Percent Auto 27.6 % (20-40); Mean Corpuscular HGB Conc 31.9 g/dl (31.0-35.0); Mean Corpuscular Hemoglobin 28.7 pg (27.0-33.0); Mean Corpuscular Volume 90.1 fL (80.0-98.0); Mean Platelet Volume 10.5 fL (9.4-12.3); Monocytes Absolute Auto 0.7 X10*3/uL (0.1-1.2); Monocytes Percent Auto 6.4 % (2-11); Neutrophils Absolute Auto 6.8 x10*3/uL (2.0-8.3); Neutrophils Percent Auto 64.7 % (45-73); Platelet Count 249 X10*3/uL (160-400); Red Blood Count 5.43 X10*6/uL (4.20-5.50); Red Cell Distribution Width 16.2 % (11.0-16.0); White Blood Count 10.5 X10*3/uL (4.8-10.8)
[2023-03-18 09:07] LABS: Alanine Aminotransferase 24 U/L (0-31); Albumin Level 3.8 g/dL (3.5-5.0); Alkaline Phosphatase 72 U/L (39-117); Aspartate Amino Transferase 20 U/L (5-31); Bilirubin Direct 0.3 mg/dL (0.0-0.5); Bilirubin Total 0.9 mg/dL (0.0-1.0); Total Protein 7.7 g/dL (6.5-8.0)
== END 2023-03-18 07:31 | disposition home or self-care (01) ==
LOC: HO.LABR 07:30
PROVIDERS: PCP Internal Medicine; Visit Provider Internal Medicine
DX: K75.4 Autoimmune hepatitis (principal); D50.9 Iron deficiency anemia, unspecified
CPT/HCPCS: 36415; 80076; 85025

== ENCOUNTER 2023-04-22 06:48 | Outpatient (REF) | payer MEDICARE, SELFPAY ==
[2023-04-22 06:56] LABS: MANUAL DIFF FLAG NO
[2023-04-22 07:38] LABS: Basophils Absolute Auto 0.1 X10*3/uL (0.0-0.2); Basophils Percent Auto 0.4 % (0-2); Eosinophils Absolute Auto 0.1 X10*3/uL (0.0-0.4); Eosinophils Percent Auto 0.4 % (0-4); Hematocrit 51.6 % (37.0-47.0); Hemoglobin 16.9 g/dl (12.0-16.0); Imm Gran Abs Auto 0.07 X10*3/uL (0.00-0.03); Imm Gran Pct Auto 0.6 % (0.0-0.4); Lymphocytes Absolute Auto 2.9 X10*3/uL (1.2-4.9); Lymphocytes Percent Auto 24.8 % (20-40); Mean Corpuscular HGB Conc 32.8 g/dl (31.0-35.0); Mean Corpuscular Hemoglobin 30.1 pg (27.0-33.0); Mean Platelet Volume 10.2 fL (9.4-12.3); Monocytes Absolute Auto 0.9 X10*3/uL (0.1-1.2); Monocytes Percent Auto 7.2 % (2-11); Neutrophils Absolute Auto 7.8 x10*3/uL (2.0-8.3); Neutrophils Percent Auto 66.6 % (45-73); Platelet Count 264 X10*3/uL (160-400); Red Blood Count 5.61 X10*6/uL (4.20-5.50); Red Cell Distribution Width 14.3 % (11.0-16.0); White Blood Count 11.8 X10*3/uL (4.8-10.8)
[2023-04-22 07:52] LABS: Alanine Aminotransferase 49 U/L (0-31); Albumin Level 3.9 g/dL (3.5-5.0); Alkaline Phosphatase 76 U/L (39-117); Aspartate Amino Transferase 48 U/L (5-31); Bilirubin Direct 0.5 mg/dL (0.0-0.5); Bilirubin Total 1.5 mg/dL (0.0-1.0); Total Protein 8.2 g/dL (6.5-8.0)
== END 2023-04-22 06:49 | disposition home or self-care (01) ==
LOC: HO.LABR 06:48
PROVIDERS: Visit Provider Internal Medicine
DX: K75.4 Autoimmune hepatitis (principal); D50.9 Iron deficiency anemia, unspecified
CPT/HCPCS: 36415; 80076; 85025

== ENCOUNTER 2023-05-23 06:49 | Outpatient (REF) | payer MEDICARE, SELFPAY ==
[2023-05-23 07:05] LABS: MANUAL DIFF FLAG NO
[2023-05-23 07:12] LABS: Basophils Percent Auto 0.6 % (0-2); Eosinophils Absolute Auto 0.1 X10*3/uL (0.0-0.4); Eosinophils Percent Auto 1.6 % (0-4); Hematocrit 46.8 % (37.0-47.0); Hemoglobin 15.4 g/dl (12.0-16.0); Imm Gran Abs Auto 0.04 X10*3/uL (0.00-0.03); Imm Gran Pct Auto 0.6 % (0.0-0.4); Lymphocytes Absolute Auto 1.8 X10*3/uL (1.2-4.9); Lymphocytes Percent Auto 25.3 % (20-40); Mean Corpuscular HGB Conc 32.9 g/dl (31.0-35.0); Mean Corpuscular Hemoglobin 30.6 pg (27.0-33.0); Mean Corpuscular Volume 92.9 fL (80.0-98.0); Mean Platelet Volume 9.9 fL (9.4-12.3); Monocytes Absolute Auto 0.5 X10*3/uL (0.1-1.2); Monocytes Percent Auto 7.3 % (2-11); Neutrophils Absolute Auto 4.6 x10*3/uL (2.0-8.3); Neutrophils Percent Auto 64.6 % (45-73); Platelet Count 211 X10*3/uL (160-400); Red Blood Count 5.04 X10*6/uL (4.20-5.50); Red Cell Distribution Width 14.1 % (11.0-16.0)
[2023-05-23 07:44] LABS: Alanine Aminotransferase 126 U/L (0-31); Albumin Level 3.5 g/dL (3.5-5.0); Alkaline Phosphatase 88 U/L (39-117); Aspartate Amino Transferase 96 U/L (5-31); Bilirubin Direct 0.5 mg/dL (0.0-0.5); Total Protein 7.9 g/dL (6.5-8.0)
== END 2023-05-23 06:50 | disposition home or self-care (01) ==
LOC: HO.LABR 06:49
PROVIDERS: Visit Provider Internal Medicine
DX: K75.4 Autoimmune hepatitis (principal); D50.9 Iron deficiency anemia, unspecified
CPT/HCPCS: 36415; 80076; 85025

== ENCOUNTER 2023-06-03 06:34 | Outpatient (REF) | payer MEDICARE, SELFPAY ==
[2023-06-03 07:25] LABS: Alanine Aminotransferase 48 U/L (0-31); Albumin Level 3.7 g/dL (3.5-5.0); Alkaline Phosphatase 77 U/L (39-117); Aspartate Amino Transferase 24 U/L (5-31); Bilirubin Direct 0.3 mg/dL (0.0-0.5); Bilirubin Total 0.7 mg/dL (0.0-1.0); Total Protein 8.1 g/dL (6.5-8.0)
[2023-06-03 08:16] LABS: HBS Num1 0.02 mIU/mL (0-7.99); HBc Num1 0.38 S/CO (0.00-0.79); HBsAGNum1 0.63 S/CO (0.00-0.99); Hepatitis B Core Antibody Nonreactive (Nonreactive); Hepatitis B Surface Antigen Negative (Negative); ~Hepatitis B Surface Antibody NONREACTIVE (Nonreactive)
[2023-06-05 19:34] LABS: TS Negative Control Passed; TS Panel A 0; TS Panel B 1; TS Positive Control Passed; TSpotTB Negative (Negative)
== END 2023-06-03 06:35 | disposition home or self-care (01) ==
LOC: HO.LAB 06:34
PROVIDERS: PCP Internal Medicine; Visit Provider Internal Medicine
DX: K75.4 Autoimmune hepatitis (principal)
CPT/HCPCS: 36415; 80076; 86481; 86704; 86706; 87340

== ENCOUNTER 2023-06-23 08:05 | Outpatient (REF) | payer MEDICARE, SELFPAY ==
[2023-06-23 08:18] LABS: MANUAL DIFF FLAG NO
[2023-06-23 08:24] LABS: Basophils Percent Auto 0.2 % (0-2); Hematocrit 49.1 % (37.0-47.0); Imm Gran Abs Auto 0.07 X10*3/uL (0.00-0.03); Imm Gran Pct Auto 0.6 % (0.0-0.4); Lymphocytes Absolute Auto 1.8 X10*3/uL (1.2-4.9); Lymphocytes Percent Auto 14.8 % (20-40); Mean Corpuscular HGB Conc 32.6 g/dl (31.0-35.0); Mean Corpuscular Hemoglobin 31.2 pg (27.0-33.0); Mean Corpuscular Volume 95.7 fL (80.0-98.0); Mean Platelet Volume 10.1 fL (9.4-12.3); Monocytes Absolute Auto 0.4 X10*3/uL (0.1-1.2); Monocytes Percent Auto 3.4 % (2-11); Neutrophils Absolute Auto 9.7 x10*3/uL (2.0-8.3); Platelet Count 202 X10*3/uL (160-400); Red Blood Count 5.13 X10*6/uL (4.20-5.50); Red Cell Distribution Width 13.8 % (11.0-16.0)
[2023-06-23 08:47] LABS: Alanine Aminotransferase 25 U/L (0-31); Albumin Level 3.6 g/dL (3.5-5.0); Alkaline Phosphatase 67 U/L (39-117); Aspartate Amino Transferase 14 U/L (5-31); Bilirubin Direct 0.4 mg/dL (0.0-0.5); Bilirubin Total 1.3 mg/dL (0.0-1.0); Total Protein 7.2 g/dL (6.5-8.0)
== END 2023-06-23 08:06 | disposition home or self-care (01) ==
LOC: HO.LABR 08:05
PROVIDERS: Visit Provider Internal Medicine
DX: K75.4 Autoimmune hepatitis (principal); D50.9 Iron deficiency anemia, unspecified
CPT/HCPCS: 36415; 80076; 85025

== ENCOUNTER 2023-07-24 06:32 | Outpatient (REF) | payer MEDICARE, SELFPAY ==
[2023-07-24 06:44] LABS: MANUAL DIFF FLAG NO
[2023-07-24 08:03] LABS: Basophils Percent Auto 0.3 % (0-2); Eosinophils Absolute Auto 0.1 X10*3/uL (0.0-0.4); Eosinophils Percent Auto 0.7 % (0-4); Hematocrit 50.8 % (37.0-47.0); Hemoglobin 16.7 g/dl (12.0-16.0); Imm Gran Abs Auto 0.05 X10*3/uL (0.00-0.03); Imm Gran Pct Auto 0.4 % (0.0-0.4); Lymphocytes Absolute Auto 2.4 X10*3/uL (1.2-4.9); Lymphocytes Percent Auto 21.5 % (20-40); Mean Corpuscular HGB Conc 32.9 g/dl (31.0-35.0); Mean Corpuscular Volume 94.4 fL (80.0-98.0); Mean Platelet Volume 10.5 fL (9.4-12.3); Monocytes Absolute Auto 0.7 X10*3/uL (0.1-1.2); Monocytes Percent Auto 5.8 % (2-11); Neutrophils Percent Auto 71.3 % (45-73); Platelet Count 228 X10*3/uL (160-400); Red Blood Count 5.38 X10*6/uL (4.20-5.50); Red Cell Distribution Width 13.4 % (11.0-16.0); White Blood Count 11.2 X10*3/uL (4.8-10.8)
[2023-07-24 08:41] LABS: Alanine Aminotransferase 21 U/L (0-31); Albumin Level 3.8 g/dL (3.5-5.0); Alkaline Phosphatase 70 U/L (39-117); Aspartate Amino Transferase 20 U/L (5-31); Bilirubin Direct 0.5 mg/dL (0.0-0.5); Bilirubin Total 1.4 mg/dL (0.0-1.0); Total Protein 7.6 g/dL (6.5-8.0)
== END 2023-07-24 06:33 | disposition home or self-care (01) ==
LOC: HO.LABR 06:32
PROVIDERS: PCP Internal Medicine; Visit Provider Internal Medicine
DX: K75.4 Autoimmune hepatitis (principal)
CPT/HCPCS: 36415; 80076; 85025

== ENCOUNTER 2023-08-13 09:16 | Outpatient (REF) | payer MEDICARE, SELFPAY ==
[2023-08-13 09:29] LABS: MANUAL DIFF FLAG NO
[2023-08-13 09:58] LABS: Basophils Percent Auto 0.3 % (0-2); Eosinophils Absolute Auto 0.1 X10*3/uL (0.0-0.4); Eosinophils Percent Auto 0.7 % (0-4); Hematocrit 47.2 % (37.0-47.0); Hemoglobin 15.9 g/dl (12.0-16.0); Imm Gran Abs Auto 0.04 X10*3/uL (0.00-0.03); Imm Gran Pct Auto 0.3 % (0.0-0.4); Lymphocytes Absolute Auto 1.9 X10*3/uL (1.2-4.9); Lymphocytes Percent Auto 15.8 % (20-40); Mean Corpuscular HGB Conc 33.7 g/dl (31.0-35.0); Mean Corpuscular Hemoglobin 31.4 pg (27.0-33.0); Mean Corpuscular Volume 93.1 fL (80.0-98.0); Mean Platelet Volume 10.5 fL (9.4-12.3); Monocytes Absolute Auto 0.8 X10*3/uL (0.1-1.2); Monocytes Percent Auto 6.5 % (2-11); Neutrophils Absolute Auto 9.2 x10*3/uL (2.0-8.3); Neutrophils Percent Auto 76.4 % (45-73); Platelet Count 263 X10*3/uL (160-400); Red Blood Count 5.07 X10*6/uL (4.20-5.50); Red Cell Distribution Width 13.6 % (11.0-16.0)
[2023-08-13 10:16] LABS: Alanine Aminotransferase 42 U/L (0-31); Albumin Level 3.8 g/dL (3.5-5.0); Alkaline Phosphatase 76 U/L (39-117); Amylase 13 U/L (28-100); Anion Gap 12 (12-20); Aspartate Amino Transferase 46 U/L (5-31); Bilirubin Direct 0.3 mg/dL (0.0-0.5); Bilirubin Total 0.9 mg/dL (0.0-1.0); Blood Urea Nitrogen 13 mg/dL (9-16); Calcium 9.6 mg/dL (8.4-10.2); Carbon Dioxide 27 mmol/L (22-29); Chloride 105 mmol/L (96-108); Estimated Glomerular Filt Rate > 60; Glucose Random 99 mg/dL (60-115); Lipase 56 U/L (8-78); Potassium 4.1 mmol/L (3.3-5.1); Sodium 140 mmol/L (135-145); Total Protein 7.9 g/dL (6.5-8.0)
== END 2023-08-13 09:17 | disposition home or self-care (01) ==
LOC: HO.LAB 09:16
PROVIDERS: Visit Provider Internal Medicine
DX: K75.4 Autoimmune hepatitis (principal); R11.2 Nausea with vomiting, unspecified
CPT/HCPCS: 36415; 80048; 80076; 82150; 83690; 85025

== ENCOUNTER 2023-08-20 07:01 | Outpatient (REF) | payer MEDICARE, SELFPAY ==
[2023-08-20 07:14] LABS: MANUAL DIFF FLAG NO
[2023-08-20 07:53] LABS: Basophils Absolute Auto 0.1 X10*3/uL (0.0-0.2); Basophils Percent Auto 0.3 % (0-2); Eosinophils Percent Auto 0.1 % (0-4); Hematocrit 48.6 % (37.0-47.0); Hemoglobin 16.2 g/dl (12.0-16.0); Imm Gran Abs Auto 0.14 X10*3/uL (0.00-0.03); Imm Gran Pct Auto 0.7 % (0.0-0.4); Lymphocytes Absolute Auto 1.5 X10*3/uL (1.2-4.9); Mean Corpuscular HGB Conc 33.3 g/dl (31.0-35.0); Mean Corpuscular Volume 93.1 fL (80.0-98.0); Mean Platelet Volume 10.7 fL (9.4-12.3); Monocytes Absolute Auto 0.7 X10*3/uL (0.1-1.2); Monocytes Percent Auto 3.7 % (2-11); Neutrophils Absolute Auto 16.5 x10*3/uL (2.0-8.3); Neutrophils Percent Auto 87.2 % (45-73); Platelet Count 316 X10*3/uL (160-400); Red Blood Count 5.22 X10*6/uL (4.20-5.50); Red Cell Distribution Width 13.8 % (11.0-16.0); White Blood Count 18.9 X10*3/uL (4.8-10.8)
[2023-08-20 08:45] LABS: Alanine Aminotransferase 56 U/L (0-31); Albumin Level 3.9 g/dL (3.5-5.0); Alkaline Phosphatase 82 U/L (39-117); Aspartate Amino Transferase 66 U/L (5-31); Bilirubin Direct 0.5 mg/dL (0.0-0.5); Bilirubin Total 1.7 mg/dL (0.0-1.0)
== END 2023-08-20 07:02 | disposition home or self-care (01) ==
LOC: HO.LABR 07:01
PROVIDERS: PCP Internal Medicine; Visit Provider Internal Medicine
DX: K75.4 Autoimmune hepatitis (principal); D50.9 Iron deficiency anemia, unspecified
CPT/HCPCS: 36415; 80076; 85025

== ENCOUNTER 2023-08-27 07:35 | Outpatient (REF) | payer MEDICARE, SELFPAY ==
[2023-08-27 07:46] LABS: MANUAL DIFF FLAG NO
[2023-08-27 08:03] LABS: Basophils Percent Auto 0.4 % (0-2); Eosinophils Absolute Auto 0.2 X10*3/uL (0.0-0.4); Eosinophils Percent Auto 1.4 % (0-4); Hematocrit 46.2 % (37.0-47.0); Hemoglobin 15.7 g/dl (12.0-16.0); Imm Gran Abs Auto 0.05 X10*3/uL (0.00-0.03); Imm Gran Pct Auto 0.5 % (0.0-0.4); Lymphocytes Absolute Auto 2.8 X10*3/uL (1.2-4.9); Lymphocytes Percent Auto 26.7 % (20-40); Mean Corpuscular Hemoglobin 31.8 pg (27.0-33.0); Mean Corpuscular Volume 93.5 fL (80.0-98.0); Monocytes Absolute Auto 0.7 X10*3/uL (0.1-1.2); Monocytes Percent Auto 6.4 % (2-11); Neutrophils Absolute Auto 6.7 x10*3/uL (2.0-8.3); Neutrophils Percent Auto 64.6 % (45-73); Platelet Count 288 X10*3/uL (160-400); Red Blood Count 4.94 X10*6/uL (4.20-5.50); Red Cell Distribution Width 13.8 % (11.0-16.0); White Blood Count 10.4 X10*3/uL (4.8-10.8)
[2023-08-27 08:38] LABS: Alanine Aminotransferase 55 U/L (0-31); Albumin Level 3.6 g/dL (3.5-5.0); Alkaline Phosphatase 77 U/L (39-117); Aspartate Amino Transferase 53 U/L (5-31); Bilirubin Direct 0.4 mg/dL (0.0-0.5); Bilirubin Total 0.9 mg/dL (0.0-1.0); Total Protein 7.5 g/dL (6.5-8.0)
== END 2023-08-27 07:36 | disposition home or self-care (01) ==
LOC: HO.LAB 07:35
PROVIDERS: PCP Internal Medicine; Visit Provider Internal Medicine
DX: K75.4 Autoimmune hepatitis (principal)
CPT/HCPCS: 36415; 80076; 85025

== ENCOUNTER 2023-09-15 09:18 | Outpatient (REF) | payer MEDICARE, SELFPAY ==
--- NOTE | ~2023-09-15 | MM_ITS ---
EXAMINATION: MM SCREENING DIGITAL BREAST TOMOSYNTHESIS, BILATERAL CLINICAL INFORMATION: Screening. Asymptomatic. The patient is status post left breast cancer diagnosis in 1998. She was treated with surgery, chemotherapy and radiation. COMPARISON: Mammography: This study is compared with prior exams dating back to 2019. TECHNIQUE: Digital breast tomosynthesis is performed in both the craniocaudal and mediolateral oblique views along with computer-aided detection (CAD). Synthesized 2D images are generated from the tomosynthesis. FINDINGS: The breasts are heterogeneously dense, which may obscure small masses (ACR BI-RADS breast composition Category c). There are no significant masses, abnormal calcifications, or other abnormalities. There are bilateral benign calcifications in each breast. There are postsurgical changes in the upper outer quadrant of the left breast from prior cancer treatment. There is a biopsy tissue marker in the right breast. MM/MM tomosynthesis screening BI IMPRESSION: No mammographic evidence of malignancy. ASSESSMENT: BI-RADS BI-RADS 2 - Benign Findings RECOMMENDATION: Routine annual mammography screening. 1 year F/U This examination should not preclude the clinical evaluation of a suspicious palpable abnormality. This patient's information was entered into a reminder system with a target due date for their next mammogram.
== END 2023-09-15 09:19 | disposition home or self-care (01) ==
LOC: HO.MAMMO 09:18
PROVIDERS: PCP Internal Medicine; Visit Provider Internal Medicine
DX: Z12.31 Encounter for screening mammogram for malignant neoplasm of breast (principal)
CPT/HCPCS: 77063; 77067

== ENCOUNTER → 2023-09-15 09:30 | Outpatient (BNV) | payer MEDICARE, SELFPAY | PROVIDERS: PCP Internal Medicine; Visit Provider Radiology Diagnostic Radiology | DX: Z12.31 Encounter for screening mammogram for malignant neoplasm of breast (principal) | CPT/HCPCS: 77063; 77067 ==

== ENCOUNTER 2023-09-25 08:49 | Outpatient (REF) | payer MEDICARE, SELFPAY ==
[2023-09-25 08:59] LABS: MANUAL DIFF FLAG NO
[2023-09-25 09:44] LABS: Basophils Percent Auto 0.3 % (0-2); Eosinophils Absolute Auto 0.1 X10*3/uL (0.0-0.4); Eosinophils Percent Auto 1.1 % (0-4); Hematocrit 45.1 % (37.0-47.0); Hemoglobin 14.9 g/dl (12.0-16.0); Imm Gran Abs Auto 0.05 X10*3/uL (0.00-0.03); Imm Gran Pct Auto 0.5 % (0.0-0.4); Lymphocytes Absolute Auto 3.1 X10*3/uL (1.2-4.9); Lymphocytes Percent Auto 32.3 % (20-40); Mean Corpuscular Hemoglobin 31.6 pg (27.0-33.0); Mean Corpuscular Volume 95.6 fL (80.0-98.0); Mean Platelet Volume 10.4 fL (9.4-12.3); Monocytes Absolute Auto 0.6 X10*3/uL (0.1-1.2); Monocytes Percent Auto 6.2 % (2-11); Neutrophils Absolute Auto 5.7 x10*3/uL (2.0-8.3); Neutrophils Percent Auto 59.6 % (45-73); Platelet Count 234 X10*3/uL (160-400); Red Blood Count 4.72 X10*6/uL (4.20-5.50); Red Cell Distribution Width 13.9 % (11.0-16.0); White Blood Count 9.6 X10*3/uL (4.8-10.8)
[2023-09-25 10:25] LABS: Alanine Aminotransferase 27 U/L (0-31); Albumin Level 3.7 g/dL (3.5-5.0); Alkaline Phosphatase 74 U/L (39-117); Aspartate Amino Transferase 28 U/L (5-31); Bilirubin Direct 0.4 mg/dL (0.0-0.5); Bilirubin Total 1.2 mg/dL (0.0-1.0); Total Protein 7.7 g/dL (6.5-8.0)
== END 2023-09-25 08:50 | disposition home or self-care (01) ==
LOC: HO.LABR 08:49
PROVIDERS: PCP Internal Medicine; Visit Provider Internal Medicine
DX: K75.4 Autoimmune hepatitis (principal); D50.9 Iron deficiency anemia, unspecified
CPT/HCPCS: 36415; 80076; 85025

== ENCOUNTER 2023-10-27 09:20 | Outpatient (REF) | payer MEDICARE, SELFPAY ==
[2023-10-27 09:29] LABS: MANUAL DIFF FLAG NO
[2023-10-27 09:57] LABS: Basophils Percent Auto 0.5 % (0-2); Eosinophils Absolute Auto 0.2 X10*3/uL (0.0-0.4); Eosinophils Percent Auto 1.9 % (0-4); Hematocrit 45.7 % (37.0-47.0); Hemoglobin 15.4 g/dl (12.0-16.0); Imm Gran Abs Auto 0.03 X10*3/uL (0.00-0.03); Imm Gran Pct Auto 0.4 % (0.0-0.4); Lymphocytes Absolute Auto 2.3 X10*3/uL (1.2-4.9); Lymphocytes Percent Auto 27.9 % (20-40); Mean Corpuscular HGB Conc 33.7 g/dl (31.0-35.0); Mean Corpuscular Hemoglobin 31.4 pg (27.0-33.0); Mean Corpuscular Volume 93.3 fL (80.0-98.0); Mean Platelet Volume 9.9 fL (9.4-12.3); Monocytes Absolute Auto 0.6 X10*3/uL (0.1-1.2); Monocytes Percent Auto 6.6 % (2-11); Neutrophils Absolute Auto 5.2 x10*3/uL (2.0-8.3); Neutrophils Percent Auto 62.7 % (45-73); Platelet Count 246 X10*3/uL (160-400); Red Cell Distribution Width 13.5 % (11.0-16.0); White Blood Count 8.3 X10*3/uL (4.8-10.8)
[2023-10-27 10:43] LABS: Alanine Aminotransferase 29 U/L (0-31); Albumin Level 3.7 g/dL (3.5-5.0); Alkaline Phosphatase 74 U/L (39-117); Aspartate Amino Transferase 32 U/L (5-31); Bilirubin Direct 0.3 mg/dL (0.0-0.5); Total Protein 7.6 g/dL (6.5-8.0)
== END 2023-10-27 09:21 | disposition home or self-care (01) ==
LOC: HO.LABR 09:20
PROVIDERS: PCP Internal Medicine; Visit Provider Internal Medicine
DX: K75.4 Autoimmune hepatitis (principal); D50.9 Iron deficiency anemia, unspecified
CPT/HCPCS: 36415; 80076; 85025

== ENCOUNTER 2023-11-24 07:10 | Outpatient (REF) | payer MEDICARE, SELFPAY ==
[2023-11-24 07:25] LABS: MANUAL DIFF FLAG NO
[2023-11-24 07:48] LABS: Basophils Absolute Auto 0.1 X10*3/uL (0.0-0.2); Basophils Percent Auto 0.5 % (0-2); Eosinophils Absolute Auto 0.1 X10*3/uL (0.0-0.4); Eosinophils Percent Auto 0.6 % (0-4); Hematocrit 46.7 % (37.0-47.0); Hemoglobin 15.7 g/dl (12.0-16.0); Imm Gran Abs Auto 0.05 X10*3/uL (0.00-0.03); Imm Gran Pct Auto 0.5 % (0.0-0.4); Lymphocytes Absolute Auto 2.6 X10*3/uL (1.2-4.9); Lymphocytes Percent Auto 27.7 % (20-40); Mean Corpuscular HGB Conc 33.6 g/dl (31.0-35.0); Mean Corpuscular Hemoglobin 31.5 pg (27.0-33.0); Mean Corpuscular Volume 93.6 fL (80.0-98.0); Mean Platelet Volume 9.8 fL (9.4-12.3); Monocytes Absolute Auto 0.4 X10*3/uL (0.1-1.2); Monocytes Percent Auto 3.8 % (2-11); Neutrophils Absolute Auto 6.2 x10*3/uL (2.0-8.3); Neutrophils Percent Auto 66.9 % (45-73); Platelet Count 237 X10*3/uL (160-400); Red Blood Count 4.99 X10*6/uL (4.20-5.50); Red Cell Distribution Width 14.3 % (11.0-16.0); White Blood Count 9.3 X10*3/uL (4.8-10.8)
[2023-11-24 08:13] LABS: Alanine Aminotransferase 37 U/L (0-31); Alkaline Phosphatase 71 U/L (39-117); Aspartate Amino Transferase 50 U/L (5-31); Bilirubin Direct 0.3 mg/dL (0.0-0.5); Bilirubin Total 0.8 mg/dL (0.0-1.0); Total Protein 8.2 g/dL (6.5-8.0)
== END 2023-11-24 07:11 | disposition home or self-care (01) ==
LOC: HO.LABR 07:10
PROVIDERS: PCP Internal Medicine; Visit Provider Internal Medicine
DX: K75.4 Autoimmune hepatitis (principal); D50.9 Iron deficiency anemia, unspecified
CPT/HCPCS: 36415; 80076; 85025

== ENCOUNTER 2023-12-22 07:43 | Outpatient (REF) | payer MEDICARE, SELFPAY ==
[2023-12-22 07:58] LABS: MANUAL DIFF FLAG NO
[2023-12-22 08:24] LABS: Basophils Absolute Auto 0.1 X10*3/uL (0.0-0.2); Basophils Percent Auto 0.6 % (0-2); Eosinophils Absolute Auto 0.1 X10*3/uL (0.0-0.4); Eosinophils Percent Auto 1.2 % (0-4); Hemoglobin 14.1 g/dl (12.0-16.0); Imm Gran Abs Auto 0.04 X10*3/uL (0.00-0.03); Imm Gran Pct Auto 0.5 % (0.0-0.4); Lymphocytes Absolute Auto 2.7 X10*3/uL (1.2-4.9); Mean Corpuscular HGB Conc 32.8 g/dl (31.0-35.0); Mean Corpuscular Hemoglobin 31.1 pg (27.0-33.0); Mean Corpuscular Volume 94.7 fL (80.0-98.0); Monocytes Absolute Auto 0.4 X10*3/uL (0.1-1.2); Monocytes Percent Auto 4.4 % (2-11); Neutrophils Absolute Auto 5.3 x10*3/uL (2.0-8.3); Neutrophils Percent Auto 62.3 % (45-73); Platelet Count 243 X10*3/uL (160-400); Red Blood Count 4.54 X10*6/uL (4.20-5.50); Red Cell Distribution Width 15.2 % (11.0-16.0); White Blood Count 8.6 X10*3/uL (4.8-10.8)
[2023-12-22 09:01] LABS: Alanine Aminotransferase 40 U/L (0-31); Albumin Level 3.9 g/dL (3.5-5.0); Alkaline Phosphatase 67 U/L (39-117); Aspartate Amino Transferase 50 U/L (5-31); Bilirubin Direct 0.4 mg/dL (0.0-0.5); Bilirubin Total 1.1 mg/dL (0.0-1.0); Total Protein 8.2 g/dL (6.5-8.0)
== END 2023-12-22 07:44 | disposition home or self-care (01) ==
LOC: HO.LABR 07:43
PROVIDERS: PCP Internal Medicine; Visit Provider Internal Medicine
DX: K75.4 Autoimmune hepatitis (principal); D50.9 Iron deficiency anemia, unspecified
CPT/HCPCS: 36415; 80076; 85025

== ENCOUNTER 2024-01-30 09:09 | Outpatient (REF) | payer MEDICARE, SELFPAY ==
[2024-01-30 09:33] LABS: MANUAL DIFF FLAG NO
[2024-01-30 10:36] LABS: Basophils Percent Auto 0.5 % (0-2); Eosinophils Absolute Auto 0.2 X10*3/uL (0.0-0.4); Eosinophils Percent Auto 2.5 % (0-4); Hematocrit 38.2 % (37.0-47.0); Hemoglobin 12.4 g/dl (12.0-16.0); Imm Gran Abs Auto 0.04 X10*3/uL (0.00-0.03); Imm Gran Pct Auto 0.5 % (0.0-0.4); Lymphocytes Absolute Auto 2.3 X10*3/uL (1.2-4.9); Lymphocytes Percent Auto 26.9 % (20-40); Mean Corpuscular HGB Conc 32.5 g/dl (31.0-35.0); Mean Corpuscular Hemoglobin 29.8 pg (27.0-33.0); Mean Corpuscular Volume 91.8 fL (80.0-98.0); Mean Platelet Volume 10.3 fL (9.4-12.3); Monocytes Absolute Auto 0.8 X10*3/uL (0.1-1.2); Monocytes Percent Auto 9.8 % (2-11); Neutrophils Absolute Auto 5.1 x10*3/uL (2.0-8.3); Neutrophils Percent Auto 59.8 % (45-73); Platelet Count 302 X10*3/uL (160-400); Red Blood Count 4.16 X10*6/uL (4.20-5.50); Red Cell Distribution Width 13.6 % (11.0-16.0); White Blood Count 8.5 X10*3/uL (4.8-10.8)
[2024-01-30 11:52] LABS: Alanine Aminotransferase 197 U/L (0-31); Albumin Level 3.4 g/dL (3.5-5.0); Alkaline Phosphatase 107 U/L (39-117); Aspartate Amino Transferase 196 U/L (5-31); Bilirubin Direct 0.3 mg/dL (0.0-0.5); Total Protein 8.3 g/dL (6.5-8.0)
== END 2024-01-30 09:10 | disposition home or self-care (01) ==
LOC: HO.LAB 09:09
PROVIDERS: PCP Internal Medicine; Visit Provider Internal Medicine
DX: K75.4 Autoimmune hepatitis (principal)
CPT/HCPCS: 36415; 80076; 85025

== ENCOUNTER 2024-02-09 07:02 | Outpatient (REF) | payer MEDICARE, SELFPAY ==
[2024-02-09 07:58] LABS: Alanine Aminotransferase 58 U/L (0-31); Albumin Level 3.6 g/dL (3.5-5.0); Alkaline Phosphatase 71 U/L (39-117); Aspartate Amino Transferase 30 U/L (5-31); Bilirubin Direct 0.3 mg/dL (0.0-0.5); Bilirubin Total 0.9 mg/dL (0.0-1.0); Total Protein 8.3 g/dL (6.5-8.0)
== END 2024-02-09 07:03 | disposition home or self-care (01) ==
LOC: HO.LAB 07:02
PROVIDERS: PCP Internal Medicine; Visit Provider Internal Medicine
DX: K75.4 Autoimmune hepatitis (principal)
CPT/HCPCS: 36415; 80076

== ENCOUNTER 2024-02-17 08:27 | Outpatient (AMB) | payer MEDICARE, SELFPAY ==
--- NOTE | 2024-02-17 08:30 | MHC.PC.OV ---
Vital Signs 02/17/24 08:38 Height 5 ft 2 in Weight 170 lb BMI 31.1 BP 110/74 Blood Pressure Location Lt brachial Position Sitting Pulse 78 Pulse Source Pulse Oximeter Pulse Oximetry (%) 97 Oxygen Delivery Method Room Air Intake Visit Reasons: Annual PE - see comments Intake Note: Pt is here today for her PE: last mammogram 09/15/23, bone density scan 09/06/20, colonoscopy 02/15/21 Allergies adhesive tape Allergy (Intermediate, Verified 02/17/24 09:12) Blister Medication List - Last Reconciled 02/17/24 by Josephine La MD Levoxyl (levothyroxine) 125 mcg PO QAM NS omeprazole 20 mg PO DAILY prednisone 5 mg PO DIRECTED Tobacco use date assessed: 02/17/24 Fall risk assessment: No Falls in past year Last assessed Fall Risk: 02/17/24 Dental Screening Dental Screen Date: 02/17/24 Did you have a dental visit in the last 12 months?: Yes Did you have a dental problem in the last 6 months where you did not have access to dental care?: Yes Was dental information given to patient?: Patient has dentist HPI Annual PE - see comments HPI Details The patient is a 74-year-old female presenting for a routine physical exam and management of chronic conditions. She reports a history of autoimmune hepatitis diagnosed three years ago by Dr Abarca, for which she is currently on Prednisone 30 mg daily, planning to decrease by 5 mg weekly until reaching 10 mg. The condition has caused fluctuations in liver enzymes, resulting in recent increases in medication dosage. She also has a background of lymphocytic colitis and has been experiencing various gastrointestinal issues. Past treatments include colonoscopy performed in January 2021, revealing lymphocytic colitis and removal of a tubular adenoma, repeat colonoscopy due again in [address] Abarca. 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 Her last mammogram in August 2023 was benign but noted bilateral dense breast tissue, prompting a planned breast ultrasound. She also has a history of osteopenia noted in her lumbar spine, left femoral neck, and left femur from a bone density test performed in August 2020. No history of fractures is reported. The patient has a history of hypothyroidism, currently managed with Levothyroxine 125 micrograms daily in the morning. She also experiences GERD controlled with Omeprazole and reports a significant weight loss of 8 pounds since May last year. A known smoker, she uses approximately a pack of cigarettes daily and does not plan to quit, declines lung cancer screening.. There is no current alcohol Complains of redness and swelling on medial aspect of left lower leg , which has been present for the last week . No history of trauma or prolonged immobilization. - Lives with family; has a and a son as healthcare proxies. - Reports a pack per day smoking habit and is not interested in quitting. - Declines alcohol consumption. - Last dental cleaning not recent; planned tooth extractions on March 02. - Reports no exercise regime or specific dietary plan. [facility] Medical History (Updated 02/17/24 @ 09:54 by Josephine La MD) Osteopenia of multiple sites History of ductal carcinoma in situ (DCIS) of left breast Dense breast tissue on mammogram Autoimmune hepatitis treated with steroids Lymphocytic colitis COVID-19 vaccine series completed Breast cancer screening by mammogram Vitamin D deficiency Positive DASIA (antinuclear antibody) Duodenal ulcer Esophageal ulcer Osteopenia History of peptic ulcer disease History of Helicobacter pylori infection Psoriasis Chronic gastritis Iron deficiency anemia Autoimmune hepatitis Varicose veins of both lower extremities Hypothyroidism Graves disease Ductal carcinoma of left breast Tubular adenoma of colon H/O malignant neoplasm of breast Surgical History History of lumpectomy of left breast History of esophagogastroduodenoscopy (EGD) History of oophorectomy H/O excision of epidermal inclusion cyst H/O colonoscopy H/O tubal ligation Family History Father No problems noted. Mother No problems noted. Paternal Grandmother No problems noted. Paternal Grandfather No problems noted. Maternal Aunt Lupus Rheumatoid arthritis Paternal Aunt Lupus Rheumatoid arthritis Sister Psoriasis Social History Housing: House Are you a primary rn coronary care unit to a significant other at home: No Do you presently have visiting nurse or other home services: No Alcohol intake: unknown Patient Tobacco Use Status: Current everyday Tobacco user Tobacco use type: Cigarette Cigarette Packs Per Day: 1 Cigarettes Per Day: 20.0 Years Smoked: 50 e-Cigarette/Vaping Use: Never Used service: No Current occupational status: retired Cognitive needs: No Hearing needs: No Vision needs: Yes Questionnaire PHQ-9 Over the last 2 weeks, how often have you been bothered by any of the following problems? 1. Little interest or pleasure in doing things: not at all 2. Feeling down, depressed, or hopeless: not at all 3. Trouble falling or staying asleep, or sleeping too much: several days 4. Feeling tired or having little energy: not at all 5. Poor appetite or overeating: not at all 6. Feeling bad about yourself - or that you are a failure or have let yourself or your family down: not at all 7. Trouble concentrating on things, such as reading the newspaper or watching television: not at all 8. Moving or speaking so slowly that other people could have noticed. Or the opposite - being so fidgety or restless that you have been moving around a lot more than usual: not at all 9. Thoughts that you would be better off or of hurting yourself in some way: not at all Total score: 1 Depression Screening Interpretation: Negative Depression Screening Done: Yes 01709 - PHQ-9 Billing: Yes Source: Developed by Drs. Placido Narvaez, Bridgette Ward, Nirmal Calhoun and colleagues, with an educational fawad from [employer]. Thrive Questionnaire Date Thrive assessed: 02/17/24 I am a: Patient What is your living situation today?: I have a steady place to live Within the past 12 months, did the food you bought not last and you didn't have the money to get more?: Often true Within the past 12 months, did you worry whether your food would run out before you got money to buy more?: Never true Do you have trouble paying for medicines?: No Do you have trouble getting transportation to medical appointments?: No Do you have trouble paying your heating and electricity bill?: No Do you have trouble taking care of your child, family member or friend?: No Do you have trouble with day-to-day activities such as bathing, preparing meals, shopping, managing finances, etc.?: No Are you currently unemployed and looking for a job?: I choose not to answer this question Are you interested in more education?: No Please select the resources that you would like help with: None Currently or been in a relationship where the following occur: No concerns reported THRIVE Score: 1 AUDIT C Alcohol Use Questionnaire (AUDIT-C) 1. How often do you have a drink containing alcohol?: Never Total Score: 0 NIDIA-7 AMB Questionnaire NIDIA-7 Date NIDIA - 7 assessed: 02/17/24 Feeling nervous, anxious, or on edge: 0 = Not at all Not being able to stop or control worryin = Not at all Worrying too much about different things: 0 = Not at all Trouble relaxin = Not at all Being so restless that it is hard to sit still: 0 = Not at all Becoming easily annoyed or irritable: 0 = Not at all Feeling afraid as if something awful might happen: 0 = Not at all Total NIDIA-7 score (0-4 normal; 5-9 mild; 10-14 moderate; 15-21 severe): 0 Source: Developed by Drs. Placido Narvaez, Bridgette Ward, Nirmal Calhoun and colleagues, with an educational fawad from [employer]. NIDIA-7 Assessment Billing NIDIA-7 Assessment Tool: NIDIA-7 Assessment 20313 Review of Systems Const Details: - General: Denies chest pain or breathlessness. Reports weight loss. - Gastrointestinal: Denies abdominal pain or changes in bowel habits; heartburn controlled with medication. - Genitourinary: Denies urinary incontinence or vaginal discharge. - Musculoskeletal: Denies muscle weakness; no fractures reported. - Respiratory: Denies breathing difficulty; reports stuffy nose and congested ears occasionally. - Endocrine: Denies increased thirst or abnormal bleeding. - Neurological: Denies headaches or fainting spells; no reported muscle pain. - Psychiatric: Denies depression or anxiety. Eyes Details: goes to [facility] , beginning cataracts ENT Reports no additional complaints Reports nipple discharge Musc Reports no additional complaints, Reports abnormal gait (uses a walker) and Reports radiating pain into limb Skin/Breast Denies breast pain, Denies breast mass, Denies lesions, Reports nipple discharge and Denies unusual bruising Neuro Reports abnormal gait (uses a walker) Psych Reports no additional complaints Endo Reports no additional complaints Shin/Lymph Reports no additional complaints Aller/Immun Reports no additional complaints Physical exam (Primary Care) Vital Signs: Last Vital Signs Pulse 78 02/17/24 08:38 BP 110/74 02/17/24 08:38 Pulse Ox 97 02/17/24 08:38 Oxygen Delivery Method Room Air 02/17/24 08:38 BMI result Body Mass Index 31.1 Tobacco/Smoking Status: Tobacco use Status Tobacco use date assessed 02/17/24 02/17/24 08:43 Patient Tobacco Use Status Current everyday Tobacco 02/17/24 08:31 Tobacco use type Cigarette 02/17/24 08:31 e-Cigarette/Vaping Use Never Used 02/17/24 08:31 Are you ready to quit: No Tobacco cessation counseling provided: Yes PHQ-9: PHQ-9 Score PHQ-9: Total score 1 02/18/24 00:33 Depression Screening Interpretation: Negative Thrive Assessment: Date of Thrive Assessment Date Thrive assessed 02/17/24 02/17/24 08:43 Currently or been in a relationship where the following occur: No concerns reported Advance Care Planning discussion: Completed/Scanned Date of discussion: 02/17/24 Who was present: patient Forms completed: Health Care Proxy and MOLST Time spent: 16-45 minutes Const Other: - General: cooperative, comfortable and no acute distress Orientation/consciousness: patient oriented x3 HENMT Ears: hearing grossly normal bilaterally, TM's normal bilaterally and EAC's normal General nose exam: Normal external nose present and No nasal discharge present Face and sinus: Yes sinuses nontender and Yes face symmetric Mouth: Normal oral and palatal mucosa present and moist mucous membranes Eyes General: appearance normal, both eyes and all related structures Neck Neck: Yes full ROM, Yes no lymphadenopathy and Yes supple Thyroid: Thyroid normal Chest Breast/axilla palpation: normal palpation of the breasts Resp Auscultation: clear to auscultation bilaterally Cardio Other: S1-S2 present regular rate and rhythm GI Palpation (GI): Soft to palpation, nontender, no guarding and no masses Auscultation: normal bowel sounds General: Yes bladder normal to inspection and Yes no CVA tenderness Back/Spine/Pelvis Back: no CVA tenderness Skin Other: erythematous swelling on medial aspect of left lower extremity, slightly warm and tender to palpation Neuro General: patient oriented x3, moves all extremities, no focal motor deficits and CN's II-XI intact bilaterally Extrem General: Yes normal to inspection, Yes full ROM, Yes no joint enlargement, Yes no pedal edema and Yes no calf tenderness Psych Appearance: grossly normal and well kempt Mental Status: mental status grossly normal Speech and movement: Normal speech and movement present Affect: normal affect Attitude: cooperative Thought process: Normal thought process present Thought content: Normal thought content present Results Reviewed Results Reviewed: Name: Idania Figueroa Age/Sex: 73/F : 1950 Unit#: [id number] Attend Dr: Placido Abarca MD Re01/30/24 Status: DEP REF Location: .LAB Disch: SPEC : [id number] KI: 01/30/24 STATUS: COMP REQ : [id number] RECD: 01/30/[address] [facility] DR: Placido Abarca MD COMP: 01/30/24 ENTERED: 01/30/[address] [facility] [address]: ORDERED: CBC Auto Diff Test Result Flag Reference WBC 8.5 4.8-10.8 X10*3/uL RBC 4.16 L 4.20-5.50 X10*6/uL HGB 12.4 12.0-16.0 g/dl HCT 38.2 37.0-47.0 % MCV 91.8 80.0-98.0 fL MCH 29.8 27.0-33.0 pg MCHC 32.5 31.0-35.0 g/dl RDW 13.6 11.0-16.0 % PLT 302 160-400 X10*3/uL MPV 10.3 9.4-12.3 fL Neut Pct Auto 59.8 45-73 % ImGran Pct Auto 0.5 H 0.0-0.4 % Lymp Pct Auto 26.9 20-40 % [place] Pct Auto 9.8 2-11 % Eos Pct Auto 2.5 0-4 % Baso Pct Auto 0.5 0-2 % NRBC Pct Auto 0.0 0.0-0.2 /100WBC ANC Neut Abs # 5.1 2.0-8.3 x10*3/uL ImGran Abs Auto 0.04 H 0.00-0.03 X10*3/uL Lymph Abs Auto 2.3 1.2-4.9 X10*3/uL [place] Abs Auto 0.8 0.1-1.2 X10*3/uL Eos Abs Auto 0.2 0.0-0.4 X10*3/uL Baso Abs Auto 0.0 0.0-0.2 X10*3/uL NRBC Abs Auto 0.000 0.0-0.012 X10*3/uL Name: Idania Figueroa Age/Sex: 73/F : 1950 Unit#: [id number] Attend Dr: Placido Abarca MD Re02/09/24 Status: DEP REF Location: .LAB Disch: SPEC : [id number] KI: 02/09/24 STATUS: COMP REQ : [id number] RECD: 02/09/[address]: Placido Abarca MD COMP: 02/09/24 ENTERED: 02/09/[address] [facility] [address]: ORDERED: Liver Panel Test Result Flag Reference Total Bili 0.9 0.0-1.0 mg/dL Direct Bili 0.3 0.0-0.5 mg/dL AST (GOT) 30 5-31 U/L ALT (GPT) 58 H 0-31 U/L Protein, Total 8.3 H 6.5-8.0 g/dL Alb 3.6 3.5-5.0 g/dL Alk Phos 71 39-117 U/L Coding Level of Care Code Est Pt Prev Care >65y(00148) Diagnoses Annual visit for general adult medical examination with abnormal findings Z00.01 Osteopenia of multiple sites M85.89 Hypothyroidism E03.9 Autoimmune hepatitis treated with steroids K75.4 Pain and swelling of left lower leg M79.662; M79.89 Additional Codes NIDIA-7 Assessment Billing - NIDIA-7 Assessment Tool: NIDIA-7 Assessment 04050 ([id number]) PHQ-9 - 79365 - PHQ-9 Billing: Yes ([id number]) Vital Signs *Quality* - Advance Care Planning discussion: Completed/Scanned ([id number]) Vital Signs *Quality* - Time spent: 16-45 minutes ([id number]) Time Spent (min) 10 Comment Assessment & Plan Assessment & Plan (1) Annual visit for general adult medical examination with abnormal findings: Code(s): Z00.01 - Encounter for general adult medical examination with abnormal findings (2) Osteopenia of multiple sites: Code(s): M85.89 - Other specified disorders of bone density and structure, multiple sites Category: Medical (3) Hypothyroidism: Code(s): E03.9 - Hypothyroidism, unspecified Category: Medical (4) Autoimmune hepatitis treated with steroids: Comment: followed by Dr Abarca Code(s): K75.4 - Autoimmune hepatitis Category: Medical Plan: on a slow taper of prednisone currently being followed by Dr. Abarca (5) Pain and swelling of left lower leg: Code(s): M79.662 - Pain in left lower leg; M79.89 - Other specified soft tissue disorders Category: Medical Plan: stat venous doppler US to r/o DVT, elevateleg and may try taking tylenol 500 mg/tab every 6 hours as needed for pain relief . Plan 1. - Osteopenia: - Ductal Carcinoma History: Order breast ultrasound to further evaluate dense breast tissue. - Hypothyroidism: Order TSH and free T4 to assess current dose efficacy. - GERD: Continue current management with Omeprazole. - Vaccinations: advised to get flu and shingles vaccines from pharmacy. - Smoking and Obesity: Document smoking status; encourage cessation, discuss weight management at future visits. - Hypertension: Continue surveillance as blood pressure is currently controlled. . Given her history of dense breasts and previous cancer, I advised a breast ultrasound for further assessment. We reviewed her osteopenia status and the necessity of a bone density scan. I addressed her smoking habit and the potential health benefits of quitting. We discussed updating her vaccinations, including the shingles and flu vaccines. Given her discomfort, I ordered a leg ultrasound to check for deep vein thrombosis. I advised fasting labs for cholesterol, electrolytes, and thyroid function, which she can undertake at her convenience. Scheduled breast ultrasound and bone density scan. - Schedule follow-up in three months, with blood work a week prior. - Follow up with Dr. Abarca in May 2024 continue current thyroid medication dosage. - Maintain care with regular dental cleanings every six months. - Patient was informed and verbally consented to the use of an ambient scribe for clinic note documentation during this visit. Orders: Orders US breast LT complete 02/17/24 R92.30 - Dense breasts, unspecified, Z86.000 - Personal history of in-situ neoplasm of breast XR DEXA axial skeleton 02/17/24 M85.89 - Other specified disorders of bone density and structure, multiple sites Vitamin D 25-OH Total 02/17/24 K75.4 - Autoimmune hepatitis, M85.89 - Other specified disorders of bone density and structure, multiple sites, Z00.01 - Encounter for general adult medical examination with abnormal findings, Z13.1 - Encounter for screening for diabetes mellitus, Z53.20 - Procedure and treatment not carried out because of patient's decision for unspecified reasons US breast RT complete 02/17/24 R92.30 - Dense breasts, unspecified, Z86.000 - Personal history of in-situ neoplasm of breast Lipid Panel 02/17/24 K75.4 - Autoimmune hepatitis, M85.89 - Other specified disorders of bone density and structure, multiple sites, Z00.01 - Encounter for general adult medical examination with abnormal findings, Z13.1 - Encounter for screening for diabetes mellitus, Z53.20 - Procedure and treatment not carried out because of patient's decision for unspecified reasons Basic Metabolic Panel Fasting 02/17/24 K75.4 - Autoimmune hepatitis, M85.89 - Other specified disorders of bone density and structure, multiple sites, Z00.01 - Encounter for general adult medical examination with abnormal findings, Z13.1 - Encounter for screening for diabetes mellitus, Z53.20 - Procedure and treatment not carried out because of patient's decision for unspecified reasons Thyroid Stimulating Hormone 02/17/24 E03.9 - Hypothyroidism, unspecified Free T4 (Free Thyroxine) 02/17/24 E03.9 - Hypothyroidism, unspecified US venous duplex LE LT 02/17/24 M79.662 - Pain in left lower leg, M79.89 - Other specified soft tissue disorders
[2024-02-17 08:38] VITALS: BP 110/74; PULSE 78; O2SAT 97; BMI 31.1
== END 2024-02-17 09:44 | disposition home or self-care (01) ==
PROVIDERS: PCP Internal Medicine; Visit Provider Internal Medicine
DX: Z00.01 Encounter for general adult medical examination with abnormal findings (principal); M85.89 Other specified disorders of bone density and structure, multiple sites; E03.9 Hypothyroidism, unspecified; K75.4 Autoimmune hepatitis; M79.662 Pain in left lower leg; M79.89 Other specified soft tissue disorders; Z00.00 Encounter for general adult medical examination without abnormal findings

== ENCOUNTER → 2024-02-17 08:27 | Outpatient (BNVA) | payer MEDICARE, SELFPAY | PROVIDERS: PCP Internal Medicine; Visit Provider Internal Medicine | DX: Z00.01 Encounter for general adult medical examination with abnormal findings (principal); M85.89 Other specified disorders of bone density and structure, multiple sites; E03.9 Hypothyroidism, unspecified; K75.4 Autoimmune hepatitis; M79.662 Pain in left lower leg; M79.89 Other specified soft tissue disorders | CPT/HCPCS: 96127; 99397; 99497 ==

== ENCOUNTER 2024-02-18 13:59 | Outpatient (REF) | payer MEDICARE, SELFPAY ==
--- NOTE | ~2024-02-18 | US_ITS ---
EXAMINATION: US TRIPLEX LOWER EXTREMITY, LEFT CLINICAL INFORMATION: Left lower extremity pain. Evaluate for deep vein thrombosis. COMPARISON: Left lower extremity venous ultrasound dated 02/10/2020. TECHNIQUE: Color-flow triplex imaging with spectral analysis and compression Doppler were performed on the left lower extremity. FINDINGS: Respiratory variation, normal compression and augmented flow are noted throughout the left lower extremity. The visualized common femoral vein, superficial femoral vein, profunda femoral vein, popliteal vein and midcalf peroneal and posterior tibial venous segments show no evidence of deep venous thrombosis. Within varicosities peripheral to the greater saphenous vein in the proximal and midcalf there are areas of superficial thrombophlebitis with redness and tenderness to palpation. There is no Crespo's cyst. US/US venous duplex LE LT IMPRESSION: 1. No evidence of deep venous thrombosis involving the left lower extremity. 2. Superficial thrombophlebitis within varicosities peripheral to the greater saphenous vein in the proximal and mid calf. Electronically signed by: Shamir Maurice MD 02/18/2024 03:25 PM [facility]
== END 2024-02-18 14:00 | disposition home or self-care (01) ==
LOC: HO.HMGCX 13:59
PROVIDERS: PCP Internal Medicine; Visit Provider Internal Medicine
DX: M79.662 Pain in left lower leg (principal); M79.89 Other specified soft tissue disorders; I80.02 Phlebitis and thrombophlebitis of superficial vessels of left lower extremity
CPT/HCPCS: 93971

== ENCOUNTER 2024-03-01 06:59 | Outpatient (REF) | payer MEDICARE, SELFPAY ==
[2024-03-01 08:19] LABS: Alanine Aminotransferase 24 U/L (0-31); Albumin Level 3.5 g/dL (3.5-5.0); Alkaline Phosphatase 57 U/L (39-117); Aspartate Amino Transferase 21 U/L (5-31); Bilirubin Direct 0.3 mg/dL (0.0-0.5); Bilirubin Total 0.6 mg/dL (0.0-1.0); Total Protein 7.2 g/dL (6.5-8.0)
== END 2024-03-01 07:00 | disposition home or self-care (01) ==
LOC: HO.LABR 06:59
PROVIDERS: PCP Internal Medicine; Visit Provider Internal Medicine
DX: K75.4 Autoimmune hepatitis (principal)
CPT/HCPCS: 36415; 80076

== ENCOUNTER 2024-04-02 09:12 | Outpatient (REF) | payer MEDICARE, SELFPAY ==
[2024-04-02 10:03] LABS: Alanine Aminotransferase 25 U/L (0-31); Alkaline Phosphatase 60 U/L (39-117); Aspartate Amino Transferase 26 U/L (5-31); Bilirubin Direct 0.2 mg/dL (0.0-0.5); Bilirubin Total 0.5 mg/dL (0.0-1.0); Total Protein 7.8 g/dL (6.5-8.0)
== END 2024-04-02 09:13 | disposition home or self-care (01) ==
LOC: HO.LABR 09:12
PROVIDERS: PCP Internal Medicine; Visit Provider Internal Medicine
DX: K75.4 Autoimmune hepatitis (principal)
CPT/HCPCS: 36415; 80076

== ENCOUNTER 2024-04-29 11:19 | Outpatient (REF) | payer MEDICARE, SELFPAY ==
--- NOTE | ~2024-04-29 | MM_ITS ---
EXAMINATION: DXA BONE DENSITY AXIAL HISTORY: Estrogen deficiency TECHNIQUE: [employer] Dual energy absorptiometry (DEXA) of the lumbar spine, total left hip, and femoral neck was performed. COMPARISON: Comparison is made with the prior examination dated 09/06/2020. FINDINGS: The bone mineral density of the lumbar spine is 0.835 with a T-score of -2.9, and a Z-score of -1.6. This represents a BMD change of -11.0% compared to the prior exam. This is statistically significant. The bone mineral density of the left total hip is 0.843 with a T-score of -1.3, and a Z-score of 0.0. This represents BMD change of -3.1% compared to the prior exam. This is not statistically significant. The bone mineral density of the left femoral neck is 0.810 with a T-score of -1.6, and a Z-score of -0.1. This represents BMD change of 0.9% compared to the prior exam. MM/XR DEXA axial skeleton IMPRESSION: Based on bone mineral density, and according to World Health Organization (WHO) criteria, the diagnosis is consistent with osteoporosis. All bone density values are in grams per centimeter squared (g/cm2). Statistically, 68% of repeat scans fall within 1 SD (+/- 0.010 g/cm2 for AP spine L1-L4) and 1 SD (+/- 0.012 g/cm2 for femur total) FRAX is a trademark of the [employer] Met[employer], a World Health Organization (WHO) Collaborating Center. Electronically signed by: Placido Li MD 05/03/2024 12:22 PM [facility] [place]
--- OUTSIDE RECORDS SUMMARY | 2024-04-29 15:11 | XMS_ITS ---
Author Organization [facility] Address [address] [place] [id number] Care Team Providers Care Phlebotomy Services Technician Name Role Phone Bessie MARIE, Josephine Primary Care Provider Placido Espinoza Unavailable [phone] REASON FOR VISIT will be on 2 prenisone qd starting this Friday Encounters Encounter Location Date Provider Diagnosis [facility] [address] [place] [phone] 03/09/2024 Placido Abarca PLAN OF TREATMENT Next Appt Details Provider Name:Placido Abarca , 06/24/2024 09:20:00 AM, [address], [address], [place], [address],
--- OUTSIDE RECORDS SUMMARY | 2024-04-29 15:12 | XMS_ITS ---
Author Organization [facility] Address [address] [place] [address] Care Team Providers Care Seed Pelleter Name Role Phone Bessie MARIE, Josephine Primary Care Provider Placido Espinoza [facility] [phone] Encounters Encounter Location Date Provider Diagnosis [facility] [address] [place] [address] 02/04/2024 Placido Abarca PLAN OF TREATMENT Next Appt Details Provider Name:Placido Abarca , 06/24/2024 09:20:00 AM, [address], [address], [place], [address],
--- OUTSIDE RECORDS SUMMARY | 2024-04-29 15:12 | XMS_ITS ---
Author Organization [facility] Address [address] [place] [address] Care Team Providers Care Grinding Machine Operator Automatic Name Role Phone Bessie MARIE, Josephine Primary Care Provider Placido Espinoza [phone] MEDICATIONS Medication SIG (Take, Route, Fr equency, Duration) Notes Start Date End Date Status predniSONE 5 MG 8 pills(40mg) daily for 7 days, and then decrease by 1 pill(5mg) every week. Once you are on 2 pills(10mg) daily call my office before you decrease any further. Orally Once a day for 56 days 01/31/2024 Active Encounters Encounter Location Date Provider Diagnosis [facility] [address] [place] [phone] 01/31/2024 Placido Abarca Autoimmune hepatitis K75.4 ASSESSMENTS Encounter Date Diagnosis Assessment Notes Treatment Notes Treatment Clinical Notes 01/31/2024 Autoimmune hepatitis (ICD-10 - K75.4) PLAN OF TREATMENT Medication Medication Name Sig Start Date Stop Date Notes predniSONE 5 MG 8 pills(40mg) daily for 7 days, and then decrease by 1 pill(5mg) every week. Once you are on 2 pills(10mg) daily call my office before you decrease any further. Orally Once a day for 56 days 01/31/2024 Pending Test Test Name Order Date LIVER PROFILE 01/31/2024 Next Appt Details Provider Name:Placido Abarca , 06/24/2024 09:20:00 AM, [address] [place] [address], [address], [place], [address],
== END 2024-04-29 11:20 | disposition home or self-care (01) ==
LOC: HO.MAMMO 11:19
PROVIDERS: PCP Internal Medicine; Visit Provider Internal Medicine
DX: Z13.820 Encounter for screening for osteoporosis (principal); M85.89 Other specified disorders of bone density and structure, multiple sites; Z78.0 Asymptomatic menopausal state
CPT/HCPCS: 77080

== ENCOUNTER → 2024-04-29 11:30 | Outpatient (BNV) | payer MEDICARE, SELFPAY | PROVIDERS: PCP Internal Medicine; Visit Provider Radiology Diagnostic Radiology | DX: E28.39 Other primary ovarian failure (principal) | CPT/HCPCS: 77080 ==

== ENCOUNTER 2024-05-12 09:27 | Outpatient (REF) | payer MEDICARE, SELFPAY ==
--- OUTSIDE RECORDS SUMMARY | 2024-05-12 10:39 | XMS_ITS ---
Author Organization [facility] Address [address] [facility] [address] [place] [address] Care Team Providers Care Industrial Robotics Mechanic Name Role Phone Bessie MARIE, Josephine Primary Care Provider Placido Espinoza Unavailable [phone] REASON FOR VISIT will be on 2 prenisone qd starting this Friday Encounters Encounter Location Date Provider Diagnosis [facility] [address] [facility] [address] [place] [address] 03/09/2024 Placido Abarca PLAN OF TREATMENT Next Appt Details Provider Name:Placido Abarca , 06/24/2024 09:20:00 AM, [address] [facility], [address], [place], [address],
--- OUTSIDE RECORDS SUMMARY | 2024-05-12 10:40 | XMS_ITS ---
Author Organization [facility] Address [address] [place] [address] Care Team Providers Care Shuttle Filler Name Role Phone Bessie MARIE, Josephine Primary Care Provider Placido Espinoza [facility] [phone] Encounters Encounter Location Date Provider Diagnosis [facility] [address] [facility] [address] [place] [address] 02/04/2024 Placido Abarca PLAN OF TREATMENT Next Appt Details Provider Name:Placido Abarca , 06/24/2024 09:20:00 AM, [address] [facility], [address], [place], [address],
--- OUTSIDE RECORDS SUMMARY | 2024-05-12 10:40 | XMS_ITS ---
Author Organization [facility] Address [address] [facility] [address] [place] [address] Care Team Providers Care Clinical Biostatistician Name Role Phone Bessie MARIE, Josephine Primary Care Provider Placido Espinoza [phone] MEDICATIONS Medication SIG (Take, Route, Fr equency, Duration) Notes Start Date End Date Status predniSONE 5 MG 8 pills(40mg) daily for 7 days, and then decrease by 1 pill(5mg) every week. Once you are on 2 pills(10mg) daily call my office before you decrease any further. Orally Once a day for 56 days 01/31/2024 Active Encounters Encounter Location Date Provider Diagnosis [facility] [address] [place] [address] 01/31/2024 Placido Abarca Autoimmune hepatitis K75.4 ASSESSMENTS [...] Provider Name:Placido Abarca , 06/24/2024 09:20:00 AM, [address] [place] [address], [address], [place], [address],
[2024-05-12 11:35] LABS: Alanine Aminotransferase 42 U/L (0-31); Albumin Level 3.6 g/dL (3.5-5.0); Alkaline Phosphatase 70 U/L (39-117); Aspartate Amino Transferase 46 U/L (5-31); Bilirubin Direct 0.3 mg/dL (0.0-0.5); Bilirubin Total 0.9 mg/dL (0.0-1.0); Total Protein 8.2 g/dL (6.5-8.0)
== END 2024-05-12 09:28 | disposition home or self-care (01) ==
LOC: HO.LABR 09:27
PROVIDERS: PCP Internal Medicine; Visit Provider Internal Medicine
DX: K75.4 Autoimmune hepatitis (principal)
CPT/HCPCS: 36415; 80076

== ENCOUNTER 2024-05-13 10:41 | Outpatient (REF) | payer MEDICARE, SELFPAY ==
--- OUTSIDE RECORDS SUMMARY | 2024-05-13 11:23 | XMS_ITS ---
Author Organization [facility] Address [address] [facility] [address] [place] [address] Care Team Providers Care Corrugator Helper Name Role Phone Bessie MARIE, Josephine Primary Care Provider Placido Espinoza [phone] MEDICATIONS Medication SIG (Take, Route, Fr equency, Duration) Notes Start Date End Date Status predniSONE 5 MG 8 pills(40mg) daily for 7 days, and then decrease by 1 pill(5mg) every week. Once you are on 2 pills(10mg) daily call my office before you decrease any further. Orally Once a day for 56 days 01/31/2024 Active Encounters Encounter Location Date Provider Diagnosis [facility] [address] [place] [address] 01/31/2024 Placido Abarca Autoimmune hepatitis K75.4 ASSESSMENTS [...] Provider Name:Placido Abarca , 06/24/2024 09:20:00 AM, [address] [place] [address], [address], [place], [address],
--- OUTSIDE RECORDS SUMMARY | 2024-05-13 11:23 | XMS_ITS ---
Author Organization [facility] Address [address] [facility] [address] [place] [address] Care Team Providers Care Raisin Washer Name Role Phone Bessie MARIE, Josephine Primary Care Provider Placido Espinoza Unavailable [phone] REASON FOR VISIT will be on 2 prenisone qd starting this Friday Encounters Encounter Location Date Provider Diagnosis [facility] [address] [facility] [address] [place] [address] 03/09/2024 Placido Abarca PLAN OF TREATMENT Next Appt Details Provider Name:Placido Abarca , 06/24/2024 09:20:00 AM, [address] [facility], [address], [place], [address],
--- OUTSIDE RECORDS SUMMARY | 2024-05-13 11:23 | XMS_ITS ---
Author Organization [facility] Address [address] [place] [address] Care Team Providers Care Exchange Underwriting Consultant Name Role Phone Bessie MARIE, Josephine Primary Care Provider Placido Espinoza [facility] [phone] Encounters Encounter Location Date Provider Diagnosis [facility] [address] [facility] [address] [place] [address] 02/04/2024 Placido Abarca PLAN OF TREATMENT Next Appt Details Provider Name:Placido Abarca , 06/24/2024 09:20:00 AM, [address] [facility], [address], [place], [address],
[2024-05-13 13:16] LABS: Anion Gap 11 (12-20); Blood Urea Nitrogen 13 mg/dL (9-16); Calcium 9.4 mg/dL (8.4-10.2); Carbon Dioxide 28 mmol/L (22-29); Chloride 107 mmol/L (96-108); Cholesterol 132 mg/dL (<200); Estimated Glomerular Filt Rate > 60; Glucose Fasting 86 mg/dL (60-99); HDL Cholesterol 47 mg/dL (>40); LDL Cholesterol Calculated 71 mg/dL (<100); Potassium 4.1 mmol/L (3.3-5.1); Sodium 142 mmol/L (135-145); Triglycerides 72 mg/dL (<150)
[2024-05-13 13:32] LABS: Free T4 (Free Thyroxine) 1.38 ng/dL (0.71-1.85); Thyroid Stimulating Hormone 2.12 uIU/mL (0.32-4.0); Vitamin D 25-OH Total 16.3 ng/mL (>30)
== END 2024-05-13 10:42 | disposition home or self-care (01) ==
LOC: HO.HMGCLDS 10:41
PROVIDERS: PCP Internal Medicine; Visit Provider Internal Medicine
DX: Z00.01 Encounter for general adult medical examination with abnormal findings (principal); M85.89 Other specified disorders of bone density and structure, multiple sites; Z53.20 Procedure and treatment not carried out because of patient's decision for unspecified reasons; Z13.1 Encounter for screening for diabetes mellitus; K75.4 Autoimmune hepatitis; E03.9 Hypothyroidism, unspecified
CPT/HCPCS: 36415; 80048; 80061; 82306; 84439; 84443

== ENCOUNTER 2024-05-20 08:41 | Outpatient (AMB) | payer MEDICARE, SELFPAY ==
[2024-05-20 08:45] VITALS: BP 112/74; PULSE 73; RESP 15; TEMP 36.7; O2SAT 99; BMI 30.9
--- NOTE | 2024-05-20 08:45 | MHC.PC.OV ---
Vital Signs 05/20/24 08:45 Height 5 ft 2 in Weight 169 lb BMI 30.9 BP 112/74 Blood Pressure Location Rt brachial Position Sitting Respiration 15 Pulse 73 Pulse Source Pulse Oximeter Temp 98.0 F Temp Source Oral Pulse Oximetry (%) 99 Oxygen Delivery Method Room Air Intake Visit Reasons: 3 months f/up Intake Note: Pt is here today for her 3mo. f/u Allergies adhesive tape Allergy (Intermediate, Verified 05/20/24 09:10) Blister Medication List - Last Reconciled 05/20/24 by Josephine La MD Levoxyl (levothyroxine) 125 mcg PO QAM NS omeprazole 20 mg PO DAILY prednisone 5 mg PO DIRECTED Tobacco use date assessed: 05/20/24 Fall risk assessment: No Falls in past year Last assessed Fall Risk: 05/20/24 Dental Screening Dental Screen Date: 05/20/24 Did you have a dental visit in the last 12 months?: Yes Did you have a dental problem in the last 6 months where you did not have access to dental care?: Yes Was dental information given to patient?: Patient has dentist HPI 3 months f/up HPI Details 74-year-old lady with past medical history significant for DCIS of left breast s/p lumpectomy, chemotherapy and radiation; autoimmune hepatitis, adenomatous polyp colon, lymphocytic colitis followed by Dr. Abarca and currently on prednisone 5 mg daily and due for colonoscopy in 2025; , here today for follow-up on hypothyroidism. She is currently taking levothyroxine 125 mcg daily in a.m.. Latest labs showed thyroid levels within normal limits. She had a bone density done last month which showed presence now osteoporosis in lumbar spine. No history of fractures. Recent fasting labs showed vitamin-D levels deficient. [facility] Medical History (Updated 05/23/24 @ 14:48 by Josephine La MD) Vitamin D deficiency Osteoporosis of lumbar spine Osteopenia of multiple sites History of ductal carcinoma in situ (DCIS) of left breast Dense breast tissue on mammogram Lymphocytic colitis COVID-19 vaccine series completed Breast cancer screening by mammogram Vitamin D deficiency Positive DASIA (antinuclear antibody) Duodenal ulcer Esophageal ulcer History of peptic ulcer disease History of Helicobacter pylori infection Psoriasis Chronic gastritis Iron deficiency anemia Autoimmune hepatitis Varicose veins of both lower extremities Hypothyroidism Graves disease Ductal carcinoma of left breast Tubular adenoma of colon H/O malignant neoplasm of breast Surgical History History of lumpectomy of left breast History of esophagogastroduodenoscopy (EGD) History of oophorectomy H/O excision of epidermal inclusion cyst H/O colonoscopy H/O tubal ligation Family History Father No problems noted. Mother No problems noted. Paternal Grandmother No problems noted. Paternal Grandfather No problems noted. Maternal Aunt Lupus Rheumatoid arthritis Paternal Aunt Lupus Rheumatoid arthritis Sister Psoriasis Social History Housing: House Are you a primary career and guidance counselor to a significant other at home: No Do you presently have visiting nurse or other home services: No Alcohol intake: unknown Patient Tobacco Use Status: Current everyday Tobacco user Tobacco use type: Cigarette Cigarette Packs Per Day: 1 Cigarettes Per Day: 20.0 Years Smoked: 50 e-Cigarette/Vaping Use: Never Used service: No Current occupational status: retired Cognitive needs: No Hearing needs: No Vision needs: Yes Questionnaire PHQ-9 Over the last 2 weeks, how often have you been bothered by any of the following problems? 1. Little interest or pleasure in doing things: not at all 2. Feeling down, depressed, or hopeless: not at all 3. Trouble falling or staying asleep, or sleeping too much: not at all 4. Feeling tired or having little energy: not at all 5. Poor appetite or overeating: not at all 6. Feeling bad about yourself - or that you are a failure or have let yourself or your family down: not at all 7. Trouble concentrating on things, such as reading the newspaper or watching television: not at all 8. Moving or speaking so slowly that other people could have noticed. Or the opposite - being so fidgety or restless that you have been moving around a lot more than usual: not at all 9. Thoughts that you would be better off or of hurting yourself in some way: not at all Total score: 0 Depression Screening Interpretation: Negative Depression Screening Done: Yes 64464 - PHQ-9 Billing: Yes Source: Developed by Drs. Placido Narvaez, Bridgette Ward, Nirmal Calhoun and colleagues, with an educational fawad from [employer] Thrive Questionnaire Date Thrive assessed: 05/20/24 I am a: Patient What is your living situation today?: I have a steady place to live Within the past 12 months, did the food you bought not last and you didn't have the money to get more?: Never true Within the past 12 months, did you worry whether your food would run out before you got money to buy more?: Never true Do you have trouble paying for medicines?: No Do you have trouble getting transportation to medical appointments?: No Do you have trouble paying your heating and electricity bill?: No Do you have trouble taking care of your child, family member or friend?: No Do you have trouble with day-to-day activities such as bathing, preparing meals, shopping, managing finances, etc.?: No Are you currently unemployed and looking for a job?: No Are you interested in more education?: No Please select the resources that you would like help with: None Currently or been in a relationship where the following occur: I choose not to answer THRIVE Score: 0 AUDIT C Alcohol Use Questionnaire (AUDIT-C) 1. How often do you have a drink containing alcohol?: Never Total Score: 0 NIDIA-7 AMB Questionnaire NIDIA-7 Date NIDIA - 7 assessed: 05/20/24 Feeling nervous, anxious, or on edge: 0 = Not at all Not being able to stop or control worryin = Not at all Worrying too much about different things: 0 = Not at all Trouble relaxin = Not at all Being so restless that it is hard to sit still: 0 = Not at all Becoming easily annoyed or irritable: 0 = Not at all Feeling afraid as if something awful might happen: 0 = Not at all Total NIDIA-7 score (0-4 normal; 5-9 mild; 10-14 moderate; 15-21 severe): 0 Source: Developed by Drs. Placido Narvaez, Nirmal Ledezma and colleagues, with an educational fawad from [employer].. NIDIA-7 Assessment Billing NIDIA-7 Assessment Tool: NIDIA-7 Assessment 00492 Review of Systems Const Reports no additional complaints Eyes Details: goes to [facility] , beginning cataracts ENT Reports no additional complaints Card Denies chest pain, Denies rapid heart rate, Denies irregular heart rhythm and Denies lightheadedness Resp Denies cough GI Denies abdominal pain, Denies melena and Denies change in bowel habits Musc Reports no additional complaints, Reports abnormal gait (uses a walker) and Reports radiating pain into limb Skin/Breast Denies breast pain, Denies breast mass, Denies lesions and Denies unusual bruising Neuro Reports abnormal gait (uses a walker) Psych Reports no additional complaints Endo Reports no additional complaints Shin/Lymph Reports no additional complaints Aller/Immun Reports no additional complaints Physical exam (Primary Care) Vital Signs: Last Vital Signs Temp 98.0 F 05/20/24 08:45 Pulse 73 05/20/24 08:45 Resp 15 05/20/24 08:45 BP 112/74 05/20/24 08:45 Pulse Ox 99 05/20/24 08:45 Oxygen Delivery Method Room Air 05/20/24 08:45 BMI result Body Mass Index 30.9 Tobacco/Smoking Status: Tobacco use Status Tobacco use date assessed 05/20/24 05/20/24 08:47 Patient Tobacco Use Status Current everyday Tobacco 05/20/24 08:47 Tobacco use type Cigarette 05/20/24 08:47 e-Cigarette/Vaping Use Never Used 05/20/24 08:47 Are you ready to quit: No Tobacco cessation counseling provided: Yes PHQ-9: PHQ-9 Score PHQ-9: Total score 0 05/20/24 09:11 Depression Screening Interpretation: Negative Thrive Assessment: Date of Thrive Assessment Date Thrive assessed 05/20/24 05/20/24 08:50 Currently or been in a relationship where the following occur: I choose not to answer Const Other: - General: cooperative, comfortable and no acute distress Orientation/consciousness: patient oriented x3 HENMT General nose exam: Normal external nose present Face and sinus: Yes face symmetric Mouth: Normal oral and palatal mucosa present and moist mucous membranes Eyes General: appearance normal, both eyes and all related structures Neck Neck: Yes full ROM, Yes no lymphadenopathy and Yes supple Thyroid: Thyroid normal Resp Auscultation: clear to auscultation bilaterally Cardio Other: S1-S2 present regular rate and rhythm GI Palpation (GI): Soft to palpation, nontender, no guarding and no masses Auscultation: normal bowel sounds General: Yes bladder normal to inspection and Yes no CVA tenderness Back/Spine/Pelvis Back: no CVA tenderness Neuro General: patient oriented x3, moves all extremities, no focal motor deficits and CN's II-XI intact bilaterally Extrem General: Yes normal to inspection, Yes full ROM, Yes no joint enlargement, Yes no pedal edema and Yes no calf tenderness Psych Appearance: grossly normal and well kempt Mental Status: mental status grossly normal Speech and movement: Normal speech and movement present Affect: normal affect Attitude: cooperative Thought process: Normal thought process present Thought content: Normal thought content present Results Reviewed Results Reviewed: jose: Idania Figueroa Age/Sex: 74/F : 1950 Unit#: [id number] Attend Dr: Josephine La MD Re05/13/24 Status: DEP REF Location: [facility] Disch: SPEC : [id number] KI: 05/13/24 STATUS: COMP REQ : [id number] RECD: 05/13/[address]: Josephine La MD COMP: 05/13/24 ENTERED: 05/13/[address]: ORDERED: Met Prof Fast, Lipid Panel, Vitamin D 25-OH, Free T4, TSH Test Result Flag Reference Sodium 142 135-145 mmol/L Potassium 4.1 3.3-5.1 mmol/L CL 107 96-108 mmol/L CO2 28 22-29 mmol/L Gap 11 L 12-20 BUN 13 9-16 mg/dL Creat 0.64 0.5-1.4 mg/dL eGFR > 60 Chronic Kidney Disease: Estimated GFR < 60 mL/min/1.73m2 Severe Kidney Disease: Estimated GFR < 15 mL/min/1.73m2 FBS 86 60-99 mg/dL CA 9.4 8.4-10.2 mg/dL Triglyceride 72 <150 mg/dL Desirable Triglyceride: less than 150 mg/dL Borderline High Triglyceride 150-199 mg/dL High Triglyceride: 200-499 mg/dL Very High Triglyceride: greater than or equal to 5OO mg/dL Cholesterol 132 <200 mg/dL Desirable Cholesterol: less than 200 mg/dL Borderline High Cholesterol: 200-239 mg/dL High Cholesterol: greater than 239 mg/dL LDL Calculated 71 <100 mg/dL Desirable LDL: less than 100 mg/dL Near Optimal/Above Optimal LDL: 110-129 mg/dL Borderline High LDL: 130-159 mg/dL High LDL: 160-189 mg/dL Very High LDL: greater than or equal to 190 mg/dL HDL 47 >40 mg/dL Desirable HDL: greater than 40 mg/dL Note: This HDL assay may give artificially low results in patients with liver disease. Vit D 25-OH Tot 16.3 L >30 ng/mL Health Based Reference Values* < 20 ng/mL Deficient 20-30 ng/mL Insufficient > 30 ng/mL Sufficient *Carrie MORFIN. N Engl J Med. 2007;357:266-280 Care must be taken in interpreting Vitamin D results from different laboratories and methodologies. Published data demonstrated that results from patients undergoing hemodialysis may show a negative bias when tested with various automated 25-OH vitamin D assays when compared to LC-MS/MS. When testing samples from patients whose predominant form of Vitamin D is Vitamin D2, such as patients receiving Vitamin D2 supplementation, results that are subtherapeutic should be confirmed with another method such as LC-MS/MS. Free T4 1.38 0.71-1.85 ng/dL TSH 3rd Gen. 2.12 0.32-4.0 uIU/mL TSH 3rd Generation ([facility]) Coding Level of Care Code Est Pt Level 4 (57332) Complex EM visit Add On G2211 Diagnoses Osteoporosis of lumbar spine M81.0 Vitamin D deficiency E55.9 Acquired hypothyroidism E03.9 Hypothyroidism type: acquired Autoimmune hepatitis K75.4 Additional Codes PHQ-9 - 81770 - PHQ-9 Billing: Yes ([id number]) NIDIA-7 Assessment Billing - NIDIA-7 Assessment Tool: NIDIA-7 Assessment 73021 ([id number]) Assessment & Plan Assessment & Plan (1) Osteoporosis of lumbar spine: Code(s): M81.0 - Age-related osteoporosis without current pathological fracture Category: Medical Plan: Referral to endocrine clinic ordered for further evaluation management. Stressed importance of taking adequate calcium from dietary sources, replace vitamin-D deficiency. (2) Vitamin D deficiency: Code(s): E55.9 - Vitamin D deficiency, unspecified Category: Medical Plan: Prescription sent for cholecalciferol 52215 units per capsule to take once a week for the next 3 months. (3) Hypothyroidism: Code(s): E03.9 - Hypothyroidism, unspecified Category: Medical Qualifiers: Hypothyroidism type: acquired Qualified Code(s): E03.9 - Hypothyroidism, unspecified Plan: Thyroid levels are within normal limits with current dose of Levoxyl 125 mcg taken once a day in a.m. (4) Autoimmune hepatitis: Comment: on a slow taper of prednisone currently being followed by Dr. Abarca Code(s): K75.4 - Autoimmune hepatitis Category: Medical Plan: Currently followed by Dr. Abarca, on prednisone 5 mg daily Orders: Referrals Endocrinology Referral M81.0 - Age-related osteoporosis without current pathological fracture Medications: New cholecalciferol (vitamin D3) 1,250 mcg PO QWEEK 3 months 13 caps 0RF E55.9 - Vitamin D deficiency, unspecified Refilled Levoxyl (levothyroxine) 125 mcg PO QAM 90 tabs 1RF NS E03.9 - Hypothyroidism, unspecified
--- OUTSIDE RECORDS SUMMARY | 2024-05-20 09:07 | XMS_ITS ---
Author Organization [facility] Address [address] [place] [address] Care Team Providers Care Typesetters Printer Name Role Phone Bessie MARIE, Josephine Primary Care Provider Placido Espinoza [facility] [phone] Encounters Encounter Location Date Provider Diagnosis [facility] [address] [facility] [address] [place] [address] 02/04/2024 Placido Abarca PLAN OF TREATMENT Next Appt Details Provider Name:Placido Abarca , 06/24/2024 09:20:00 AM, [address] [facility], [address], [place], [address],
--- OUTSIDE RECORDS SUMMARY | 2024-05-20 09:07 | XMS_ITS ---
Author Organization [facility] Address [address] [facility] [address] [place] [address] Care Team Providers Care Lightning Rod Installer Name Role Phone Bessie MARIE, Josephine Primary Care Provider Placido Espinoza Unavailable [phone] REASON FOR VISIT will be on 2 prenisone qd starting this Friday Encounters Encounter Location Date Provider Diagnosis [facility] [address] [facility] [address] [place] [address] 03/09/2024 Placido Abarca PLAN OF TREATMENT Next Appt Details Provider Name:Placido Abarca , 06/24/2024 09:20:00 AM, [address] [facility], [address], [place], [address],
--- OUTSIDE RECORDS SUMMARY | 2024-05-20 09:07 | XMS_ITS ---
Author Organization [facility] Address [address] [facility] [address] [place] [address] Care Team Providers Care Head Boys Golf Coach Name Role Phone Bessie MARIE, Josephine Primary Care Provider Placido Espinoza [phone] MEDICATIONS Medication SIG (Take, Route, Fr equency, Duration) Notes Start Date End Date Status predniSONE 5 MG 8 pills(40mg) daily for 7 days, and then decrease by 1 pill(5mg) every week. Once you are on 2 pills(10mg) daily call my office before you decrease any further. Orally Once a day for 56 days 01/31/2024 Active Encounters Encounter Location Date Provider Diagnosis [facility] [address] [place] [address] 01/31/2024 Placido Abarca Autoimmune hepatitis K75.4 ASSESSMENTS [...] Provider Name:Placido Abarca , 06/24/2024 09:20:00 AM, [address] [place] [address], [address], [place], [address],
== END 2024-05-20 09:46 | disposition home or self-care (01) ==
PROVIDERS: PCP Internal Medicine; Visit Provider Internal Medicine
DX: M81.0 Age-related osteoporosis without current pathological fracture (principal); E55.9 Vitamin D deficiency, unspecified; E03.9 Hypothyroidism, unspecified; K75.4 Autoimmune hepatitis

== ENCOUNTER → 2024-05-20 08:41 | Outpatient (BNVA) | payer MEDICARE, SELFPAY | PROVIDERS: PCP Internal Medicine; Visit Provider Internal Medicine | DX: M81.0 Age-related osteoporosis without current pathological fracture (principal); E55.9 Vitamin D deficiency, unspecified; E03.9 Hypothyroidism, unspecified; K75.4 Autoimmune hepatitis | CPT/HCPCS: 96127; 99212 ==

== ENCOUNTER 2024-06-09 08:48 | Outpatient (AMB) | payer MEDICARE, SELFPAY ==
--- NOTE | 2024-06-09 08:52 | A.OFFVIS_ITS ---
Vital Signs 06/09/24 08:53 Height 5 ft 2 in Weight 167 lb 15.876 oz BMI 30.7 BP 116/74 Blood Pressure Location Lt brachial Position Sitting Pulse 51 Pulse Source Pulse Oximeter Pulse Oximetry (%) 96 Oxygen Delivery Method Room Air Intake Visit Reasons: Osteoporosis Intake Note: New patient internally referred by PCP for Age-related Osteoporosis. Allergies adhesive tape Allergy (Intermediate, Verified 06/09/24 08:56) Blister HPI Comments Details: The patient is a 74-year-old female presenting with osteoporosis. Diagnosed last month following a previous indication of osteopenia. No prior treatment history for the osteoporosis, newly recognized vitamin D deficiency, commenced on weekly vitamin D three weeks ago. Denies any history of bone fractures, currently taking omeprazole for gastroesophageal reflux disease and prednisone for autoimmune hepatitis. Smoking one pack per day, informed about osteoporosis risk related to tobacco use. Menstrual history normal, menopause before age 51. No personal or familial history of osteoporosis or renal calculi, maintains regular dental checkups without planned procedures. Dietary habits include consumption of milk with cereal and occasional broccoli, dislikes cheese, does not currently take calcium supplements. Engages in minimal exercise without significant height loss or alcohol consumption, provided with dietary advice and cessation resources for smoking. First diagnosed in last mo . Not Received treatment in the past Takes 11214 IU of Vitamin D daily started 3 wks a go . Takes PPI, but no anticoagulant, antiepileptic but does take glucocorticoid medication for autoimmune hepatitis . Not Does weight bearing exercise [employer] history: Menarche at age 14 - Menopause age 51 - nl Denies family history of Osteoporosis or hip fracture. UTD on dental cleanings and sees dentist every 6 months. No planned upcoming dental work or extractions. Currently tabacco use but no heavy ETOH use DXA dated 04/29/24 :FINDINGS: The bone mineral density of the lumbar spine is 0.835 with a T-score of -2.9, and a Z-score of -1.6. This represents a BMD change of -11.0% compared to the prior exam. This is statistically significant. The bone mineral density of the left total hip is 0.843 with a T-score of -1.3, and a Z-score of 0.0. This represents BMD change of -3.1% compared to the prior exam. This is not statistically significant. The bone mineral density of the left femoral neck is 0.810 with a T-score of -1.6, and a Z-score of -0.1. This represents BMD change of 0.9% compared to the prior exam. Labs: [facility] Medical History Vitamin D deficiency Osteoporosis of lumbar spine Osteopenia of multiple sites History of ductal carcinoma in situ (DCIS) of left breast Dense breast tissue on mammogram Lymphocytic colitis COVID-19 vaccine series completed Breast cancer screening by mammogram Vitamin D deficiency Positive DASIA (antinuclear antibody) Duodenal ulcer Esophageal ulcer History of peptic ulcer disease History of Helicobacter pylori infection Psoriasis Chronic gastritis Iron deficiency anemia Autoimmune hepatitis Varicose veins of both lower extremities Hypothyroidism Graves disease Ductal carcinoma of left breast Tubular adenoma of colon H/O malignant neoplasm of breast Surgical History History of lumpectomy of left breast History of esophagogastroduodenoscopy (EGD) History of oophorectomy H/O excision of epidermal inclusion cyst H/O colonoscopy H/O tubal ligation Family History Father No problems noted. Mother No problems noted. Paternal Grandmother No problems noted. Paternal Grandfather No problems noted. Maternal Aunt Lupus Rheumatoid arthritis Paternal Aunt Lupus Rheumatoid arthritis Sister Psoriasis Social History Housing: House Are you a primary career development associate to a significant other at home: No Do you presently have visiting nurse or other home services: No Alcohol intake: unknown Patient Tobacco Use Status: Current everyday Tobacco user Tobacco use type: Cigarette Cigarette Packs Per Day: 1 Cigarettes Per Day: 20.0 Years Smoked: 50 e-Cigarette/Vaping Use: Never Used service: No Current occupational status: retired Cognitive needs: No Hearing needs: No Vision needs: Yes Physical Exam Vital Signs: Last Vital Signs Pulse 51 06/09/24 08:53 BP 116/74 06/09/24 08:53 Pulse Ox 96 06/09/24 08:53 Oxygen Delivery Method Room Air 06/09/24 08:53 BMI result Body Mass Index 30.7 There are no Cushingoid features. Absence of blue sclera. Absence of kyphosis. Thyroid gland is of nl size and weighs 15 gms. There are no thyroid nodules palpated. Lungs CTA. Heart S1 S2 Reg R/R Abdominal exam benign. Muscle strength 5/5 . Examination of spine reveals absence of tenderness on palpation Assessment & Plan Assessment & Plan (1) Osteoporosis of lumbar spine: Code(s): M81.0 - Age-related osteoporosis without current pathological fracture Category: Medical Plan: 1. Osteoporosis: The patient exhibits osteoporosis following prior osteopenia diagnosis. Affected by smoking and prednisone use, currently on vitamin D regimen. Plan includes vitamin D re-evaluation, calcium supplementation, encouragement of smoking cessation, potential introduction of pharmacological treatments subject to review. We will check 24 hour urine for calcium and creatinine, SPEP, urine immunofixation to complete secondary workup. Assuming secondary workup is negative, could consider treatment with anti resorptive agent like bisphosphonate or Prolia considering high risk of fracture based on low bone density, smoking and chronic steroid use. However would hold off until vitamin-D replete. 2. Vitamin D deficiency: Management with a weekly dose of ergocalciferol continued along with 2000 IU of vitamin D3 and follow-up in three months post- initiation to determine status improvement. Consideration for a daily main tenance dose post-repletion. 3. Autoimmune hepatitis: Continued management under Dr. Abarca with prednisone. Discussion included possible alternative treatment to minimize impact on bone health. 4. Gastroesophageal reflux disease: Ongoing management with omeprazole noted, potential interactions with proposed osteoporosis treatments acknowledged. 5. Tobacco use disorder: Highlighted role in osteoporosis risk, advised on cessation benefits, offered resources and strategies. The patient had an opportunity to ask questions regarding treatment plan. The patient expressed understanding and agreement with the above treatment plan. The patient is aware they should contact our office by phone for worsening glucose readings or for any low blood sugars which may warrant a change in diabetes medication. Compliance is encouraged with medications and any followup testing/consults which may have been ordered. Patient was informed and verbally consented to the use of an ambient scribe for clinic note documentation during this visit. I discussed the diagnosis of osteoporosis and vitamin D deficiency with the patient, emphasizing the importance of vitamin D and calcium supplementation. The patient was informed about exacerbating factors such as prednisone use and smoking. I explained the role of osteoclast and osteoblast activity in bone remodeling and the potential effects of smoking and steroid use on bone density. We reviewed options for pharmacologic treatment of osteoporosis, including bisphosphonates and denosumab, recognizing the patient's current management approach and future considerations. Follow-up laboratory evaluation for vitamin D status and calcium levels was advised to guide further management. The patient was encouraged to engage in weightbearing exercise, consider dietary modifications, and explore smoking cessation, understanding these could positively impact her bone health. Continue weekly vitamin D supplementation and monitor for follow-up testing in three months. - Increase dietary calcium intake to 1200 mg daily; consider using calcium citrate supplements if dietary intake is insufficient. - Initiate a weightbearing exercise regimen and participate in balance programs as available. - Prioritize smoking cessation to reduce risks associated with osteoporosis, and utilize available resources as needed. - Follow lifestyle modifications to prevent falls, including maintaining a safe home environment. - Schedule a follow-up appointment in four months for reassessment and further management planning. Orders: Orders Protein Electrophoresis, Serum Today M81.0 - Age-related osteoporosis without current pathological fracture Immunofixation, Random Urine Today M81.0 - Age-related osteoporosis without current pathological fracture Vitamin D 25-OH Total 3 Months M81.0 - Age-related osteoporosis without current pathological fracture Calcium, 24 Hr Ur Today M81.0 - Age-related osteoporosis without current pathological fracture Creatinine, 24 Hr Group Today M81.0 - Age-related osteoporosis without current pathological fracture Medications: New cholecalciferol (vitamin D3) 50 mcg PO DAILY 30 caps 4RF Coding Level of Care Code New Pt Level 4 (65937) Diagnoses Osteoporosis of lumbar spine M81.0
[2024-06-09 08:53] VITALS: BP 116/74; PULSE 51; O2SAT 96; BMI 30.7
--- OUTSIDE RECORDS SUMMARY | 2024-06-09 09:20 | XMS_ITS ---
Author Organization [facility] Address [address] [place] [phone] Care Team Providers Care Elevator Examiner And Adjuster Name Role Phone Bessie MARIE, Josephine Primary Care Provider Placido Espinoza [phone] REASON FOR VISIT will be on 2 prenisone qd starting this Friday Encounters Encounter Location Date Provider Diagnosis [facility] [address] [place] [phone] 03/09/2024 Placido Abarca Plan Of Treatment Next Appt Details Provider Name:Placido Abarca , 06/24/2024 09:20:00 AM, [address], [address], [place], [address], Progress Notes * IVET GARCIA ADOB:1950 ([age] yo F)Acc No.[id number]:03/09/2024 Patient:?IVET GARCIA :1950???Age:74 Y???Sex:Female Address:[address] [place] [address] [place] [address] * true * Date:? Generated for Printi mio/Faleonidg/eTransmitting on:?06/09/2024 09:20 AM EDT
--- OUTSIDE RECORDS SUMMARY | 2024-06-09 09:20 | XMS_ITS ---
Author Organization [facility] Address [address] [facility] [address] [place] [phone] Care Team Providers Care Blender Operator Name Role Phone Bessie MARIE, Josephine Primary Care Provider Placido Espinoza [phone] Medications Medication SIG (Take, Route, Fr equency, Duration) Notes Start Date End Date Status predniSONE 5 MG 8 pills(40mg) daily for 7 days, and then decrease by 1 pill(5mg) every week. Once you are on 2 pills(10mg) daily call my office before you decrease any further. Orally Once a day for 56 days 01/31/2024 Active Encounters Encounter Location Date Provider Diagnosis [facility] [address] [place] [phone] 01/31/2024 Placido Abarca Autoimmune hepatitis K75.4 Assessments Encounter Date Diagnosis (ICD Code) Assessment Notes Treatment Notes Treatment Clinical Notes Section Notes 01/31/2024 Autoimmune hepatitis (ICD-10 - K75.4) Plan Of Treatment Medication Medication Name Sig Start Date Stop [...] Provider Name:Placido Abarca , 06/24/2024 09:20:00 AM, [address] [place] [address], [address], [place], [address], Progress Notes * IVET GARCIA ADOB:1950 ([age] yo F)Acc No.[id number]:01/31/2024 Patient:IVET LEWIS :1950???Age:73 Y???Sex:Female Address:[address] [place] [address], [place] [address] * Refills? Start predniSONE Tablet, 5 MG, Orally, 275, 8 pills(40mg) daily for 7 days, and then decrease by 1 pill(5mg) every week. Once you are on 2 pills(10mg) daily call my office before you decrease any further., Once a day, 56 days, Refills=1 Subjective: * Chief Complaints: * ??? * Medical History:? * Surgical History:? * Hospitalization/Major Diagno stic Procedure:? * Medications:? Objective: Assessment: * Assessment: 1.?Autoimmune hepatitis - K7 5.4 (Primary)? Plan: * Treatment: 2.?Others? Start predniSONE Tablet, 5 MG, 8 pills(40mg) daily for 7 days, and then decrease by 1 pill(5mg) every week. Once you are on 2 pills(10mg) daily call my office before you decrease any further., Orally, Once a day, 56 days, 275, Refills 1.?? * Procedure Codes:? * true * Date:? Generated for Desean lieberman/Jeevan/eTransmitting on:?06/09/2024 09:20 AM EDT
--- OUTSIDE RECORDS SUMMARY | 2024-06-09 09:21 | XMS_ITS ---
Author Organization [facility] Address [address] [place] [address] Care Team Providers Care Pure Culture Operator Name Role Phone Bessie MARIE, Josephine Primary Care Provider Placido Espinoza [phone] Encounters Encounter Location Date Provider Diagnosis [facility] [address] [facility] [address] [place] [address] 02/04/2024 Placido Abarca Plan Of Treatment Next Appt Details Provider Name:Placido Abarca , 06/24/2024 09:20:00 AM, [address], [address], [place], [address], Progress Notes * IVET GARCIA ADOB:1950 ([age] yo F)Acc No.[id number]:02/04/2024 Patient:?IVET GARCIA :1950???Age:73 Y???Sex:Female Address:[address] [place] [address] [facility] [place] [address] * true * Date:? Generated for Printi ng/Faxing/eTransmitting on:?06/09/2024 09:20 AM EDT
== END 2024-06-09 09:25 | disposition home or self-care (01) ==
LOC: HO.ENCR 08:48
PROVIDERS: PCP Internal Medicine; Visit Provider Internal Medicine Endocrinology, Diabetes & Metabolism
DX: M81.0 Age-related osteoporosis without current pathological fracture (principal)
CPT/HCPCS: 99204

== ENCOUNTER → 2024-06-09 08:48 | Outpatient (BNVA) | payer MEDICARE, SELFPAY | PROVIDERS: PCP Internal Medicine; Visit Provider Internal Medicine Endocrinology, Diabetes & Metabolism | DX: M81.0 Age-related osteoporosis without current pathological fracture (principal) | CPT/HCPCS: 99202 ==

== ENCOUNTER 2024-06-09 09:31 | Outpatient (REF) | payer MEDICARE, SELFPAY ==
--- OUTSIDE RECORDS SUMMARY | 2024-06-09 10:25 | XMS_ITS | Patient Health Record ---
Author Organization [facility] Address [address] [place] [address] Care Team Providers Care Sp[employer]er [employer] Strand Name Role Phone Bessie MARIE, Josephine Primary Care Provider Placido Espinoza [phone] Allergies Allergen (clinical drug ingredient) Drug/Non Drug Allergy documented on EMR Reaction Allergy Type Onset Date Status levofloxacin Levofloxacin RASH Drug Allergy A ctive azathioprine azaTHIOprine N/V Drug Allergy A ctive Results Component Value Reference Range Notes Amylase Reviewed date:08/13/2023 11:05:31 PM Interpretation: Performing Lab:[facility], [address] [place] [phone] Notes/Report: Amylase 13 28-100 U/L Lipase Reviewed date:08/13/2023 11:05:23 PM Interpretation: Performing Lab:[facility], [address] [place] [phone] Notes/Report: Lipase 56 8-78 U/L Complete Blood Count Auto Di ff Reviewed date:06/23/2023 11:43:14 PM Interpretation: Performing Lab:[facility], [address] [place] [phone] Notes/Report: White Blood Count 12.0 4.8-10.8 X10*3/uL Red Blood Count 5.13 4.20-5.50 X10*6/uL Hemoglobin 16.0 12.0-16.0 g/dl Hematocrit 49.1 37.0-47.0 % Mean Corpuscular Volume 95.7 80.0-98.0 fL Mean Corpuscular Hemoglobin 31.2 27.0-33.0 pg Mean Corpuscular HGB Conc 32.6 31.0-35.0 g/dl Red Cell Distribution Width 13.8 11.0-16.0 % Platelet Count 202 160-400 X10*3/uL Mean Platelet Volume 10.1 9.4-12.3 fL Neutrophils Percent Auto 81.0 45-73 % Imm Gran Pct Auto 0.6 0.0-0.4 % Lymphocytes Percent Auto 14.8 20-40 % Monocytes Percent Auto 3.4 2-11 % Eosinophils Percent Auto 0.0 0-4 % Basophils Percent Auto 0.2 0-2 % NRBC Pct Auto 0.0 0.0-0.2 /100WBC Neutrophils Absolute Auto 9.7 2.0-8.3 x10*3/u L Imm Gran Abs Auto 0.07 0.00-0.03 X10*3/uL Lymphocytes Absolute Auto 1.8 1.2-4.9 X10*3/u L Monocytes Absolute Auto 0.4 0.1-1.2 X10*3/uL Eosinophils Absolute Auto 0.0 0.0-0.4 X10*3/u L Basophils Absolute Auto 0.0 0.0-0.2 X10*3/uL NRBC Abs Auto 0.000 0.0-0.012 X10*3/uL Liver Panel Reviewed date:06/26/2023 09:51:21 AM Interpretation: Performing Lab:[address] [phone] Notes/Report: Bilirubin Total 1.3 0.0-1.0 mg/dL Bilirubin Direct 0.4 0.0-0.5 mg/dL Aspartate Amino Transferase 14 5-31 U/L Alanine Aminotransferase 25 0-31 U/L Total Protein 7.2 6.5-8.0 g/dL Albumin Level 3.6 3.5-5.0 g/dL Alkaline Phosphatase 67 39-117 U/L Complete Blood Count Auto Di ff Reviewed date:07/24/2023 09:06:08 AM Interpretation: Performing Lab:[address] [phone] Notes/Report: White Blood Count 11.2 4.8-10.8 X10*3/uL Red Blood Count 5.38 4.20-5.50 X10*6/uL Hemoglobin 16.7 12.0-16.0 g/dl Hematocrit 50.8 37.0-47.0 % Mean Corpuscular Volume 94.4 80.0-98.0 fL Mean Corpuscular Hemoglobin 31.0 27.0-33.0 pg Mean Corpuscular HGB Conc 32.9 31.0-35.0 g/dl Red Cell Distribution Width 13.4 11.0-16.0 % Platelet Count 228 160-400 X10*3/uL Mean Platelet Volume 10.5 9.4-12.3 fL Neutrophils Percent Auto 71.3 45-73 % Imm Gran Pct Auto 0.4 0.0-0.4 % Lymphocytes Percent Auto 21.5 20-40 % Monocytes Percent Auto 5.8 2-11 % Eosinophils Percent Auto 0.7 0-4 % Basophils Percent Auto 0.3 0-2 % NRBC Pct Auto 0.0 0.0-0.2 /100WBC Neutrophils Absolute Auto 8.0 2.0-8.3 x10*3/u L Imm Gran Abs Auto 0.05 0.00-0.03 X10*3/uL Lymphocytes Absolute Auto 2.4 1.2-4.9 X10*3/u L Monocytes Absolute Auto 0.7 0.1-1.2 X10*3/uL Eosinophils Absolute Auto 0.1 0.0-0.4 X10*3/u L Basophils Absolute Auto 0.0 0.0-0.2 X10*3/uL NRBC Abs Auto 0.000 0.0-0.012 X10*3/uL Liver Panel Reviewed date:07/28/2023 07:49:25 AM Interpretation: Performing Lab:[facility], [address] [place] [phone] Notes/Report: Bilirubin Total 1.4 0.0-1.0 mg/dL Bilirubin Direct 0.5 0.0-0.5 mg/dL Aspartate Amino Transferase 20 5-31 U/L Alanine Aminotransferase 21 0-31 U/L Total Protein 7.6 6.5-8.0 g/dL Albumin Level 3.8 3.5-5.0 g/dL Alkaline Phosphatase 70 39-117 U/L Complete Blood Count Auto Di ff Reviewed date:08/13/2023 11:03:09 PM Interpretation: Performing Lab:[facility], [address] [place] [phone] Notes/Report: White Blood Count 12.0 4.8-10.8 X10*3/uL Red Blood Count 5.07 4.20-5.50 X10*6/uL Hemoglobin 15.9 12.0-16.0 g/dl Hematocrit 47.2 37.0-47.0 % Mean Corpuscular Volume 93.1 80.0-98.0 fL Mean Corpuscular Hemoglobin 31.4 27.0-33.0 pg Mean Corpuscular HGB Conc 33.7 31.0-35.0 g/dl Red Cell Distribution Width 13.6 11.0-16.0 % Platelet Count 263 160-400 X10*3/uL Mean Platelet Volume 10.5 9.4-12.3 fL Neutrophils Percent Auto 76.4 45-73 % Imm Gran Pct Auto 0.3 0.0-0.4 % Lymphocytes Percent Auto 15.8 20-40 % Monocytes Percent Auto 6.5 2-11 % Eosinophils Percent Auto 0.7 0-4 % Basophils Percent Auto 0.3 0-2 % NRBC Pct Auto 0.0 0.0-0.2 /100WBC Neutrophils Absolute Auto 9.2 2.0-8.3 x10*3/u L Imm Gran Abs Auto 0.04 0.00-0.03 X10*3/uL Lymphocytes Absolute Auto 1.9 1.2-4.9 X10*3/u L Monocytes Absolute Auto 0.8 0.1-1.2 X10*3/uL Eosinophils Absolute Auto 0.1 0.0-0.4 X10*3/u L Basophils Absolute Auto 0.0 0.0-0.2 X10*3/uL NRBC Abs Auto 0.000 0.0-0.012 X10*3/uL Liver Panel Reviewed date:08/14/2023 04:49:39 PM Interpretation: Performing Lab:[facility], [address] [place] [phone] Notes/Report: Bilirubin Total 0.9 0.0-1.0 mg/dL Bilirubin Direct 0.3 0.0-0.5 mg/dL Aspartate Amino Transferase 46 5-31 U/L Alanine Aminotransferase 42 0-31 U/L Total Protein 7.9 6.5-8.0 g/dL Albumin Level 3.8 3.5-5.0 g/dL Alkaline Phosphatase 76 39-117 U/L Basic Metabolic Panel Reviewed date:08/13/2023 11:05:11 PM Interpretation: Performing Lab:[address] [phone] Notes/Report: Sodium 140 135-145 mmol/L Potassium 4.1 3.3-5.1 mmol/L Chloride 105 96-108 mmol/L Carbon Dioxide 27 22-29 mmol/L Anion Gap 12 12-20 Blood Urea Nitrogen 13 9-16 mg/dL Creatinine 0.77 0.5-1.4 mg/dL Estimated Glomerular Filt Rate > 60 NOTE: For -[place] Island[place] individuals, multiply the result by 1.210. Chronic Kidney Disease: Estimated GFR < 60 mL/min/1.73m2 Severe Kidney Disease: Estimated GFR < 15 mL/min/1.73m2 Glucose Random 99 60-115 mg/dL Calcium 9.6 8.4-10.2 mg/dL Complete Blood Count Auto Di ff Reviewed date:08/25/2023 05:47:44 PM Interpretation: Performing Lab:[address] [phone] Notes/Report: White Blood Count 18.9 4.8-10.8 X10*3/uL Red Blood Count 5.22 4.20-5.50 X10*6/uL Hemoglobin 16.2 12.0-16.0 g/dl Hematocrit 48.6 37.0-47.0 % Mean Corpuscular Volume 93.1 80.0-98.0 fL Mean Corpuscular Hemoglobin 31.0 27.0-33.0 pg Mean Corpuscular HGB Conc 33.3 31.0-35.0 g/dl Red Cell Distribution Width 13.8 11.0-16.0 % Platelet Count 316 160-400 X10*3/uL Mean Platelet Volume 10.7 9.4-12.3 fL Neutrophils Percent Auto 87.2 45-73 % Imm Gran Pct Auto 0.7 0.0-0.4 % Lymphocytes Percent Auto 8.0 20-40 % Monocytes Percent Auto 3.7 2-11 % Eosinophils Percent Auto 0.1 0-4 % Basophils Percent Auto 0.3 0-2 % NRBC Pct Auto 0.0 0.0-0.2 /100WBC Neutrophils Absolute Auto 16.5 2.0-8.3 x10*3/u L Imm Gran Abs Auto 0.14 0.00-0.03 X10*3/uL Lymphocytes Absolute Auto 1.5 1.2-4.9 X10*3/u L Monocytes Absolute Auto 0.7 0.1-1.2 X10*3/uL Eosinophils Absolute Auto 0.0 0.0-0.4 X10*3/u L Basophils Absolute Auto 0.1 0.0-0.2 X10*3/uL NRBC Abs Auto 0.000 0.0-0.012 X10*3/uL Liver Panel Reviewed date:08/21/2023 12:01:21 AM Interpretation: Performing Lab:[facility], [address] [place] [phone] Notes/Report: Bilirubin Total 1.7 0.0-1.0 mg/dL Bilirubin Direct 0.5 0.0-0.5 mg/dL Aspartate Amino Transferase 66 5-31 U/L Alanine Aminotransferase 56 0-31 U/L Total Protein 8.0 6.5-8.0 g/dL Albumin Level 3.9 3.5-5.0 g/dL Alkaline Phosphatase 82 39-117 U/L Complete Blood Count Auto Di ff Reviewed date:09/06/2023 10:08:32 PM Interpretation: Performing Lab:[address] [phone] Notes/Report: White Blood Count 10.4 4.8-10.8 X10*3/uL Red Blood Count 4.94 4.20-5.50 X10*6/uL Hemoglobin 15.7 12.0-16.0 g/dl Hematocrit 46.2 37.0-47.0 % Mean Corpuscular Volume 93.5 80.0-98.0 fL Mean Corpuscular Hemoglobin 31.8 27.0-33.0 pg Mean Corpuscular HGB Conc 34.0 31.0-35.0 g/dl Red Cell Distribution Width 13.8 11.0-16.0 % Platelet Count 288 160-400 X10*3/uL Mean Platelet Volume 10.0 9.4-12.3 fL Neutrophils Percent Auto 64.6 45-73 % Imm Gran Pct Auto 0.5 0.0-0.4 % Lymphocytes Percent Auto 26.7 20-40 % Monocytes Percent Auto 6.4 2-11 % Eosinophils Percent Auto 1.4 0-4 % Basophils Percent Auto 0.4 0-2 % NRBC Pct Auto 0.0 0.0-0.2 /100WBC Neutrophils Absolute Auto 6.7 2.0-8.3 x10*3/u L Imm Gran Abs Auto 0.05 0.00-0.03 X10*3/uL Lymphocytes Absolute Auto 2.8 1.2-4.9 X10*3/u L Monocytes Absolute Auto 0.7 0.1-1.2 X10*3/uL Eosinophils Absolute Auto 0.2 0.0-0.4 X10*3/u L Basophils Absolute Auto 0.0 0.0-0.2 X10*3/uL NRBC Abs Auto 0.000 0.0-0.012 X10*3/uL Liver Panel Reviewed date:02/12/2024 07:44:38 PM Interpretation: Performing Lab:[address] [phone] Notes/Report: Bilirubin Total 0.9 0.0-1.0 mg/dL Bilirubin Direct 0.4 0.0-0.5 mg/dL Aspartate Amino Transferase 53 5-31 U/L Alanine Aminotransferase 55 0-31 U/L Total Protein 7.5 6.5-8.0 g/dL Albumin Level 3.6 3.5-5.0 g/dL Alkaline Phosphatase 77 39-117 U/L Complete Blood Count Auto Di ff Reviewed date:09/25/2023 12:37:51 PM Interpretation: Performing Lab:[address] [phone] Notes/Report: White Blood Count 9.6 4.8-10.8 X10*3/uL Red Blood Count 4.72 4.20-5.50 X10*6/uL Hemoglobin 14.9 12.0-16.0 g/dl Hematocrit 45.1 37.0-47.0 % Mean Corpuscular Volume 95.6 80.0-98.0 fL Mean Corpuscular Hemoglobin 31.6 27.0-33.0 pg Mean Corpuscular HGB Conc 33.0 31.0-35.0 g/dl Red Cell Distribution Width 13.9 11.0-16.0 % Platelet Count 234 160-400 X10*3/uL Mean Platelet Volume 10.4 9.4-12.3 fL Neutrophils Percent Auto 59.6 45-73 % Imm Gran Pct Auto 0.5 0.0-0.4 % Lymphocytes Percent Auto 32.3 20-40 % Monocytes Percent Auto 6.2 2-11 % Eosinophils Percent Auto 1.1 0-4 % Basophils Percent Auto 0.3 0-2 % NRBC Pct Auto 0.0 0.0-0.2 /100WBC Neutrophils Absolute Auto 5.7 2.0-8.3 x10*3/u L Imm Gran Abs Auto 0.05 0.00-0.03 X10*3/uL Lymphocytes Absolute Auto 3.1 1.2-4.9 X10*3/u L Monocytes Absolute Auto 0.6 0.1-1.2 X10*3/uL Eosinophils Absolute Auto 0.1 0.0-0.4 X10*3/u L Basophils Absolute Auto 0.0 0.0-0.2 X10*3/uL NRBC Abs Auto 0.000 0.0-0.012 X10*3/uL Liver Panel Reviewed date:09/30/2023 09:06:45 AM Interpretation: Performing Lab:[address] [phone] Notes/Report: Bilirubin Total 1.2 0.0-1.0 mg/dL Bilirubin Direct 0.4 0.0-0.5 mg/dL Aspartate Amino Transferase 28 5-31 U/L Alanine Aminotransferase 27 0-31 U/L Total Protein 7.7 6.5-8.0 g/dL Albumin Level 3.7 3.5-5.0 g/dL Alkaline Phosphatase 74 39-117 U/L Complete Blood Count Auto Di ff Reviewed date:10/28/2023 11:38:36 AM Interpretation: Performing Lab:[address], [place] [address] Notes/Report: White Blood Count 8.3 4.8-10.8 X10*3/uL Red Blood Count 4.90 4.20-5.50 X10*6/uL Hemoglobin 15.4 12.0-16.0 g/dl Hematocrit 45.7 37.0-47.0 % Mean Corpuscular Volume 93.3 80.0-98.0 fL Mean Corpuscular Hemoglobin 31.4 27.0-33.0 pg Mean Corpuscular HGB Conc 33.7 31.0-35.0 g/dl Red Cell Distribution Width 13.5 11.0-16.0 % Platelet Count 246 160-400 X10*3/uL Mean Platelet Volume 9.9 9.4-12.3 fL Neutrophils Percent Auto 62.7 45-73 % Imm Gran Pct Auto 0.4 0.0-0.4 % Lymphocytes Percent Auto 27.9 20-40 % Monocytes Percent Auto 6.6 2-11 % Eosinophils Percent Auto 1.9 0-4 % Basophils Percent Auto 0.5 0-2 % NRBC Pct Auto 0.0 0.0-0.2 /100WBC Neutrophils Absolute Auto 5.2 2.0-8.3 x10*3/u L Imm Gran Abs Auto 0.03 0.00-0.03 X10*3/uL Lymphocytes Absolute Auto 2.3 1.2-4.9 X10*3/u L Monocytes Absolute Auto 0.6 0.1-1.2 X10*3/uL Eosinophils Absolute Auto 0.2 0.0-0.4 X10*3/u L Basophils Absolute Auto 0.0 0.0-0.2 X10*3/uL NRBC Abs Auto 0.000 0.0-0.012 X10*3/uL Liver Panel (Not yet reviewe d by provider) Interpretation: Performing Lab:[facility], [address] [place] [phone] Notes/Report: Bilirubin Total 1.0 0.0-1.0 mg/dL Bilirubin Direct 0.3 0.0-0.5 mg/dL Aspartate Amino Transferase 32 5-31 U/L Alanine Aminotransferase 29 0-31 U/L Total Protein 7.6 6.5-8.0 g/dL Albumin Level 3.7 3.5-5.0 g/dL Alkaline Phosphatase 74 39-117 U/L Complete Blood Count Auto Di ff Reviewed date:11/24/2023 11:29:56 PM Interpretation: Performing Lab:[address] [phone] Notes/Report: White Blood Count 9.3 4.8-10.8 X10*3/uL Red Blood Count 4.99 4.20-5.50 X10*6/uL Hemoglobin 15.7 12.0-16.0 g/dl Hematocrit 46.7 37.0-47.0 % Mean Corpuscular Volume 93.6 80.0-98.0 fL Mean Corpuscular Hemoglobin 31.5 27.0-33.0 pg Mean Corpuscular HGB Conc 33.6 31.0-35.0 g/dl Red Cell Distribution Width 14.3 11.0-16.0 % Platelet Count 237 160-400 X10*3/uL Mean Platelet Volume 9.8 9.4-12.3 fL Neutrophils Percent Auto 66.9 45-73 % Imm Gran Pct Auto 0.5 0.0-0.4 % Lymphocytes Percent Auto 27.7 20-40 % Monocytes Percent Auto 3.8 2-11 % Eosinophils Percent Auto 0.6 0-4 % Basophils Percent Auto 0.5 0-2 % NRBC Pct Auto 0.0 0.0-0.2 /100WBC Neutrophils Absolute Auto 6.2 2.0-8.3 x10*3/u L Imm Gran Abs Auto 0.05 0.00-0.03 X10*3/uL Lymphocytes Absolute Auto 2.6 1.2-4.9 X10*3/u L Monocytes Absolute Auto 0.4 0.1-1.2 X10*3/uL Eosinophils Absolute Auto 0.1 0.0-0.4 X10*3/u L Basophils Absolute Auto 0.1 0.0-0.2 X10*3/uL NRBC Abs Auto 0.000 0.0-0.012 X10*3/uL Liver Panel (Not yet reviewe d by provider) Interpretation: Performing Lab:[facility], [address] [place] [phone] Notes/Report: Bilirubin Total 0.8 0.0-1.0 mg/dL Bilirubin Direct 0.3 0.0-0.5 mg/dL Aspartate Amino Transferase 50 5-31 U/L Alanine Aminotransferase 37 0-31 U/L Total Protein 8.2 6.5-8.0 g/dL Albumin Level 4.0 3.5-5.0 g/dL Alkaline Phosphatase 71 39-117 U/L Complete Blood Count Auto Di ff Reviewed date:12/22/2023 11:22:16 PM Interpretation: Performing Lab:[facility], [address] [place] [phone] Notes/Report: White Blood Count 8.6 4.8-10.8 X10*3/uL Red Blood Count 4.54 4.20-5.50 X10*6/uL Hemoglobin 14.1 12.0-16.0 g/dl Hematocrit 43.0 37.0-47.0 % Mean Corpuscular Volume 94.7 80.0-98.0 fL Mean Corpuscular Hemoglobin 31.1 27.0-33.0 pg Mean Corpuscular HGB Conc 32.8 31.0-35.0 g/dl Red Cell Distribution Width 15.2 11.0-16.0 % Platelet Count 243 160-400 X10*3/uL Mean Platelet Volume 10.0 9.4-12.3 fL Neutrophils Percent Auto 62.3 45-73 % Imm Gran Pct Auto 0.5 0.0-0.4 % Lymphocytes Percent Auto 31.0 20-40 % Monocytes Percent Auto 4.4 2-11 % Eosinophils Percent Auto 1.2 0-4 % Basophils Percent Auto 0.6 0-2 % NRBC Pct Auto 0.0 0.0-0.2 /100WBC Neutrophils Absolute Auto 5.3 2.0-8.3 x10*3/u L Imm Gran Abs Auto 0.04 0.00-0.03 X10*3/uL Lymphocytes Absolute Auto 2.7 1.2-4.9 X10*3/u L Monocytes Absolute Auto 0.4 0.1-1.2 X10*3/uL Eosinophils Absolute Auto 0.1 0.0-0.4 X10*3/u L Basophils Absolute Auto 0.1 0.0-0.2 X10*3/uL NRBC Abs Auto 0.000 0.0-0.012 X10*3/uL Liver Panel Reviewed date:12/25/2023 10:29:39 AM Interpretation: Performing Lab:[facility], [address] [place] [phone] Notes/Report: Bilirubin Total 1.1 0.0-1.0 mg/dL Bilirubin Direct 0.4 0.0-0.5 mg/dL Aspartate Amino Transferase 50 5-31 U/L Alanine Aminotransferase 40 0-31 U/L Total Protein 8.2 6.5-8.0 g/dL Albumin Level 3.9 3.5-5.0 g/dL Alkaline Phosphatase 67 39-117 U/L Complete Blood Count Auto Di ff Reviewed date:01/30/2024 12:40:23 PM Interpretation: Performing Lab:[facility], [address] [place] [phone] Notes/Report: White Blood Count 8.5 4.8-10.8 X10*3/uL Red Blood Count 4.16 4.20-5.50 X10*6/uL Hemoglobin 12.4 12.0-16.0 g/dl Hematocrit 38.2 37.0-47.0 % Mean Corpuscular Volume 91.8 80.0-98.0 fL Mean Corpuscular Hemoglobin 29.8 27.0-33.0 pg Mean Corpuscular HGB Conc 32.5 31.0-35.0 g/dl Red Cell Distribution Width 13.6 11.0-16.0 % Platelet Count 302 160-400 X10*3/uL Mean Platelet Volume 10.3 9.4-12.3 fL Neutrophils Percent Auto 59.8 45-73 % Imm Gran Pct Auto 0.5 0.0-0.4 % Lymphocytes Percent Auto 26.9 20-40 % Monocytes Percent Auto 9.8 2-11 % Eosinophils Percent Auto 2.5 0-4 % Basophils Percent Auto 0.5 0-2 % NRBC Pct Auto 0.0 0.0-0.2 /100WBC Neutrophils Absolute Auto 5.1 2.0-8.3 x10*3/u L Imm Gran Abs Auto 0.04 0.00-0.03 X10*3/uL Lymphocytes Absolute Auto 2.3 1.2-4.9 X10*3/u L Monocytes Absolute Auto 0.8 0.1-1.2 X10*3/uL Eosinophils Absolute Auto 0.2 0.0-0.4 X10*3/u L Basophils Absolute Auto 0.0 0.0-0.2 X10*3/uL NRBC Abs Auto 0.000 0.0-0.012 X10*3/uL Liver Panel Reviewed date:02/02/2024 02:51:52 PM Interpretation: Performing Lab:[facility], [address] [place] [phone] Notes/Report: Bilirubin Total 1.0 0.0-1.0 mg/dL Bilirubin Direct 0.3 0.0-0.5 mg/dL Aspartate Amino Transferase 196 5-31 U/L Alanine Aminotransferase 197 0-31 U/L Total Protein 8.3 6.5-8.0 g/dL Albumin Level 3.4 3.5-5.0 g/dL Alkaline Phosphatase 107 39-117 U/L Liver Panel Reviewed date:02/12/2024 07:36:35 PM Interpretation: Performing Lab:[facility], [address] [place] [phone] Notes/Report: Bilirubin Total 0.9 0.0-1.0 mg/dL Bilirubin Direct 0.3 0.0-0.5 mg/dL Aspartate Amino Transferase 30 5-31 U/L Alanine Aminotransferase 58 0-31 U/L Total Protein 8.3 6.5-8.0 g/dL Albumin Level 3.6 3.5-5.0 g/dL Alkaline Phosphatase 71 39-117 U/L Liver Panel Reviewed date:03/02/2024 07:29:08 AM Interpretation: Performing Lab:[facility], [address] [place] [phone] Notes/Report: Bilirubin Total 0.6 0.0-1.0 mg/dL Bilirubin Direct 0.3 0.0-0.5 mg/dL Aspartate Amino Transferase 21 5-31 U/L Alanine Aminotransferase 24 0-31 U/L Total Protein 7.2 6.5-8.0 g/dL Albumin Level 3.5 3.5-5.0 g/dL Alkaline Phosphatase 57 39-117 U/L Liver Panel (Not yet review ed by provider) Interpretation: Performing Lab:[facility], [address] [place] [phone] Notes/Report: Bilirubin Total 0.5 0.0-1.0 mg/dL Bilirubin Direct 0.2 0.0-0.5 mg/dL Aspartate Amino Transferase 26 5-31 U/L Alanine Aminotransferase 25 0-31 U/L Total Protein 7.8 6.5-8.0 g/dL Albumin Level 4.0 3.5-5.0 g/dL Alkaline Phosphatase 60 39-117 U/L Liver Panel (Not yet reviewe d by provider) Interpretation: Performing Lab:[facility], [address] [place] [phone] Notes/Report: Bilirubin Total 0.9 0.0-1.0 mg/dL Bilirubin Direct 0.3 0.0-0.5 mg/dL Aspartate Amino Transferase 46 5-31 U/L Alanine Aminotransferase 42 0-31 U/L Total Protein 8.2 6.5-8.0 g/dL Albumin Level 3.6 3.5-5.0 g/dL Alkaline Phosphatase 70 39-117 U/L Reason For Referral No Information Medications Medication SIG (Take, Route, Frequency, Duration) Notes Start Date End Date Status Omeprazole 20 MG TAKE 1 CAPSULE BY [facility] EVERY DAY for 90 Active Tylenol PRN Active Levothyroxine Sodium 125 MCG 1 tablet in the morning on an empty stomach Orally Once a day Active predniSONE 5 MG 8 pills(40mg) daily for 7 days, and then decrease by 1 pill(5mg) every week. Once you are on 2 pills(10mg) daily call my office before you decrease any further. Orally Once a day for 56 days 01/31/2024 Active predniSONE 5 MG 1 tablet Orally Once a day Active Immunizations Vaccine Route Administration Date Status Comme nts Influenza Unknown 01/14/2019 Administered Influenza Unknown 01/05/2020 Administered Influenza Unknown 12/29/2020 Administered Influenza Unknown 11/29/2021 Administered Social History Tobacco Use: Social History Observation Description Date Details (start date - stop date) Current Smoker NA - NA Tobacco Use/Smoking Question Answer Notes Patient is a current smoker How often do you smoke cigarettes? every day How many cigarettes a day do you smoke? 11-20 How soon after you wake up do you smoke your fir st cigarette? within 5 minutes Alcohol Screen Question Answer Notes Did you have a drink containing alcohol in the p ast year? No Points 0 Interpretation Negative Section Notes: Smoker 1ppd; no sig alcohol Smoker 1ppd; no sig alcohol Smoker 1ppd; no sig alcohol Smoker 1ppd; no sig alcohol Smoker 1ppd; no sig alcohol Smoker 1ppd; no sig alcohol Smoker 1ppd; no sig alcohol Smoker 1ppd; no sig alcohol Smoker 1ppd; no sig alcohol Smoker 1ppd; no sig alcohol Smoker 1ppd; no sig alcohol Smoker 1ppd; no sig alcohol Smoker 1ppd; no sig alcohol Problems Problem Type SNOMED Code ICD Code Onset Dates Problem Status W/U Status Risk Notes Problem 86476252 Epigastric abdominal pain (R10.13) Active confirmed Problem 556257322 Encounter for screening for malignant neoplasm of colon (Z12.11) Active confirmed Problem 170246772 History of adenomatous polyp of colon (Z86.010) Active confirmed Problem 230463509 Weight loss (R63.4) Active confirmed Problem 27705257 Ulcer of esophag us without bleeding (K22.10) Active confirmed Problem 855203079 Autoimmune hepatitis (K75.4) Active confirmed Problem 122125159 Early satiety (R68.81) Active confirmed Problem 339158239 Gastroesophageal reflux disease with esophagitis (K21.0) Active confirmed Problem 24878322 Abdominal pain, epigastric (R10.13) Active confirmed Problem Iron deficiency anemia (57756632) Iron deficiency anemia (D50.9) Active confirmed Problem 404415519 Elevated liver enzymes (R74.8) Active confirmed Problem 851729455 Fatty liver (K76.0) Active confirmed Problem 13872063 Hiatal hernia (K44.9) Active confirmed Problem Anemia (678076142) Anemia (D64.9) Active confirmed Problem 02712043 Iron deficiency anemia, unspecified iron deficiency anemia type (D50.9) Active confirmed Problem 849330836 Abnormal UGI ser ies (R93.3) Active confirmed Problem 90301932 Duodenal ulcer (K26.9) Active confirmed Problem 37770834 Diarrhea, unspecified type (R19.7) Active confirmed Problem 99238548 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 Problem 368077498 Elevated liver function tests (R94.5) Active confirmed Problem Nausea and vomiting (42348737) Nausea and vomiting, intractability of vomiting not specified, unspecified vomiting type (R11.2) Active confirmed Problem Diverticulosis of colon (262801666) Diverticulosis of colon (K57.30) Active confirmed Problem 590684798 Abnormal LFTs (R94.5) Active confirmed Vital Signs Blood pressure diastolic 00 mm Hg 12/25/2023 Height 62.5 in 12/25/2023 Blood pressure systolic 00 mm Hg 12/25/2023 Weight 165 lbs 12/25/2023 BMI 29.69 kg/m2 12/25/2023 Encounters Encounter Location Date Provider Diagnosis [facility] [address] [place] [phone] 06/26/2023 Placido Abarca Autoimmune hepatitis K75.4 and Abnormal LFTs R94.5 [facility] [address] [place] [phone] 12/25/2023 Placido Abarca Autoimmune hepatitis K75.4 [facility] [address] [place] [phone] 08/12/2023 Placido Abarca Autoimmune hepatitis K75.4 and Nausea and vomiting, intractability of vomiting not specified, unspecified vomiting type R11.2 [facility] [address] [place] [phone] 08/13/2023 Placido Abarca [facility] [address] [place] [id number] 08/15/2023 Placido Abarca Autoimmune hepatitis K75.4 [facility] [address] [place] [id number] 01/27/2024 Placido Abarca Autoimmune hepatitis K75.4 [facility] [address] [place] [phone] 01/31/2024 Placido Abarca Autoimmune hepatitis K75.4 [facility] [address] [place] [phone] 02/04/2024 Placido Abarca [facility] [address] [place] [phone] 03/09/2024 Placido Abarca Assessments Encounter Date Diagnosis (ICD Code) Assessment Notes Treatment Notes Treatment Clinical Notes Section Notes 06/26/2023 Autoimmune hepatitis (ICD-10 - K75.4) Continue the prednisone taper and then stay on the 5mg pill every day. We will start the new medicine of Azathioprine for the autoimmune hepatitis Keep doing your labs every 4th week beginning the last week June, Overall, Ivet appears well. We did have a detailed discussion today regarding her autoimmune hepatitis and recurrent flareups requiring high-dose prednisone. I have recommended that we start her on azathioprine at this point to hopefully keep the autoimmune hepatitis in remission once we are able to get her back down to a low dose of prednisone. We did review azathioprine in detail including potential risks of immunosuppression and increased risk of infection, drug-induced hepatitis, and drug-induced pancreatitis. I will start her on 50 mg daily for one month and then increase that as long as she tolerates it. In the meantime I advised her to continue the 5 mg per week taper of prednisone and then continuing the 5 mg dose daily when she gets down to that dose. We'll also continue her monthly CBC and liver profile both in regard to starting azathioprine and to monitor the autoimmune hepatitis. I will plan to see her in the Fall for a follow up visit but will be in touch with her periodically and most likely will increase the azathioprine somewhat as long as things are stable on that. I did advise her to call me prior to that if she has any problems or questions I can be of assistance with. Ivet was comfortable with this plan. Thank you again for allowing me to participate in Ivet's care. I shall continue to keep you advised of her progress. 06/26/2023 Abnormal LFTs (ICD-10 - R94.5) Overall, Ivet appears well. We did have a detailed discussion today regarding her autoimmune hepatitis and recurrent flareups requiring high-dose prednisone. I have recommended that we start her on azathioprine at this point to hopefully keep the autoimmune hepatitis in remission once we are able to get her back down to a low dose of prednisone. We did review azathioprine in detail including potential risks of immunosuppression and increased risk of infection, drug-induced hepatitis, and drug-induced pancreatitis. I will start her on 50 mg daily for one month and then increase that as long as she tolerates it. In the meantime I advised her to continue the 5 mg per week taper of prednisone and then continuing the 5 mg dose daily when she gets down to that dose. We'll also continue her monthly CBC and liver profile both in regard to starting azathioprine and to monitor the autoimmune hepatitis. I will plan to see her in the Fall for a follow up visit but will be in touch with her periodically and most likely will increase the azathioprine somewhat as long as things are stable on that. I did advise her to call me prior to that if she has any problems or questions I can be of assistance with. Ivet was comfortable with this plan. Thank you again for allowing me to participate in Ivet's care. I shall continue to keep you advised of her progress. 12/25/2023 Autoimmune hepatitis (ICD-10 - K75.4) Continue current regimen of the 5mg prednisone daily and the monthly labs Overall, Ivet appears well and the autoimmune hepatitis is remaining in clinical remission at the present time with a low dose of prednisone. She obviously could not tolerate the azathioprine due to the drug-induced reaction of significant GI distress. As such we will continue the current regimen and continue to follow her monthly labs closely. I did advise her to certainly let me know if she ever notices any jaundice. We did review that she will be due for a followup screening colonoscopy in 2025. I will plan to see her again in 6 months but advised her to contact me prior to that if she has any problems or questions I can be of assistance with. Ivet was comfortable with this plan. Thank you again for allowing me to participate in Ivet's care. I shall continue to keep you advised of her progress. 08/12/2023 Autoimmune hepatitis (ICD-10 - K75.4) 08/12/2023 Nausea and vomiting, intractability of vomiting not specified, unspecified vomiting type (ICD-10 - R11.2) 08/15/2023 Autoimmune hepatitis (ICD-10 - K75.4) 01/27/2024 Autoimmune hepatitis (ICD-10 - K75.4) 01/31/2024 Autoimmune hepatitis (ICD-10 - K75.4) Plan Of Treatment Pending Test Test Name Order Date CHEM 7 PROFILE 01/18/2021 CHEM 7 PROFILE 08/29/2020 CHEM 7 PROFILE 08/12/2023 CHEM 7 PROFILE 07/01/2019 CHEM 7 PROFILE 01/28/2023 CHEM 7 PROFILE 06/04/2019 FASTING BLOOD SUGAR (FBS, GLUCOSE) 02/04 LIVER PROFILE 11/11/2019 LIVER PROFILE 08/15/2023 LIVER PROFILE 09/04/2021 LIVER PROFILE 01/28/2023 LIVER PROFILE 07/06/2022 LIVER PROFILE 12/08/2020 LIVER PROFILE 09/24/2021 LIVER PROFILE 12/26/2022 LIVER PROFILE 12/27/2021 LIVER PROFILE 01/02/2021 LIVER PROFILE 01/18/2021 LIVER PROFILE 08/29/2020 LIVER PROFILE 01/27/2024 LIVER PROFILE 02/04/2023 LIVER PROFILE 08/12/2023 LIVER PROFILE 11/11/2021 LIVER PROFILE 09/12/2021 LIVER PROFILE 05/25/2023 LIVER PROFILE 07/01/2019 LIVER PROFILE 05/03/2021 LIVER PROFILE 05/27/2022 LIVER PROFILE 01/31/2024 LIVER PROFILE 09/10/2019 IRON + IBC (FE) 12/11/2022 IRON + IBC (FE) 07/06/2022 IRON + IBC (FE) 09/12/2021 CRP 09/12/2021 CRP 01/18/2021 CRP 08/29/2020 VITAMIN B12 AND FOLATE 09/12/2021 CBC w DIFF 06/04/2019 CBC w DIFF 08/15/2023 CBC w DIFF 09/04/2021 CBC w DIFF 06/09/2019 CBC w DIFF 12/11/2022 CBC w DIFF 09/24/2021 CBC w DIFF 12/26/2022 CBC w DIFF 07/06/2022 CBC w DIFF 09/12/2021 CBC w DIFF 06/25/2022 CBC w DIFF 01/27/2024 CBC w DIFF 06/02/2019 CBC w DIFF 08/12/2023 CBC w DIFF 01/18/2021 CBC w DIFF 08/29/2020 SED RATE (ESR) 01/18/2021 SED RATE (ESR) 08/29/2020 SED RATE (ESR) 09/12/2021 HEPATITIS B PROFILE 05/25/2023 ALPHA-FETOPROTEIN,TUMOR MARKER 3 CELIAC PANEL #10 01/18/2021 OVA & PARASITES (O&P) 08/29/2020 OVA & PARASITES (O&P) 01/18/2021 CULTURE, STOOL 08/29/2020 CULTURE, STOOL 01/18/2021 US ABD 06/03/2019 STOOL WBC 08/29/2020 STOOL WBC 01/18/2021 US ABDOMEN COMP WITH ELASTOGRAPHY 2022 C DIFFICILE RFLX PCR 01/18/2021 C DIFFICILE RFLX PCR 08/29/2020 Prothrombin Time INR 09/04/2021 Liver Panel 11/24/2023 Liver Panel 04/02/2024 Liver Panel 05/12/2024 Liver Panel 11/04/2022 Liver Panel 01/05/2021 Liver Panel 10/27/2023 Ferritin 09/12/2021 Ferritin 12/11/2022 Ferritin 07/06/2022 Vitamin B12 and Folate 07/06/2022 T Spot TB 05/25/2023 Future Test Test Name Order Date UPPER GI ENDOSCOPY 08/29/2015 COLONOSCOPY 08/29/2015 UPPER GI ENDOSCOPY 06/02/2019 UPPER GI ENDOSCOPY 06/13/2019 COLONOSCOPY 01/18/2021 Next Appt Details Provider Name:Placido Abarca , 06/24/2024 09:20:00 AM, [address] [facility], [address], [place], [address], Insurance Providers Payer Name Payer Address Payer Phone Subscriber Number Group Number Insured Name Patient Relationship to Insured Coverage Start Date Coverage End Date [facility] [address] [address] [place] [address] [id number] IVET GARCIA Self - patient is the insured Medical (General) History Medical History History ICD Code Colonosocpy 02-26-2010--hype rplastic polyps, 1 tubular adenoma removed in 2002; neg. colonoscopy in 11/2015 Left-sided breast cancer--lumpectomy, XR T, chemo-[address],DM,CVA,Lung disease,renal dise ase Grave's disease EGD 05/2015--duodenal ulcers, erosive gastritis, H. pylori infection, erosive esophagitis, hiatal hernia--Hpylori was treated EGD in 11/2015-healed ulcers, gastric bx neg for Hpylori, small HH Psoriasis Anemia Autoimmune hepatitis diagnos ed in May 2019 with a positive DASIA with a titer of greater than 1:1,280. Her liver biopsy in May revealed a panlobular hepatitis with increased plasma cells and eosinophils. There were no florid bile duct lesions. There was only minimal steatosis. There was no significant fibrosis and iron stain was negative. She responded to a course of steroids as of the 08/2019 office visit. The rest of her liver workup was negative including viral serologies and iron studies. The AIH flared up in 10/2019 on prednisone 2.5mg QOD-responded to prednisone and has remained on 5mg QD as of 01/19/20. She was switched to 5 mg every other day in May of 2020 and things have remained in remission as of the May 2021 office visit Upper endoscopy in May of 2019 revealed an esophageal ulcer, duodenal ulcer, and moderate size hiatal hernia. Biopsies were negative for H. pylori. A followup endoscopy in July of 2019 revealed complete healing of the ulcers and esophageal biopsies were negative for Fernandez's mucosa. Acute right-sided colitis se en on CT scan in 07/2020 in the ER--resolved with antibiotics Lymphocytic colitis--Colonos copy in January of 2021 revealed a small tubular adenoma and a nonbleeding small angiodysplasia in the cecum--there was no gross evidence of colitis the biopsies from the colon were consistent with a lymphocytic colitis --she was having diarrhea at that time and was started on budesonide--she reports that did not help her, but things have resolved completely from a symptomatic standpoint as of the 05/2021 office visit. Flare of the autoimmune hepa titis in 08/2021 with enzymes > 100....responded to a short course of increased prednisone Flares of the autoimmune hep atitis in December of 2022 and May of 2023 both responding to prednisone. The plan is to start her on azathioprine as of the May 2023 office visit. She was unable to tolerate the azathioprine due to significant vomiting Surgical History Surgery Date(Month/Year) Lumpectomy for breast cancer as above--2 000 Left oophorectomy-benign
[2024-06-11 10:18] LABS: Prot Elec - Albumin 3.5 g/dL (3.8-4.8); Prot Elec - Alpha1 0.2 g/dL (0.2-0.3); Prot Elec - Alpha2 0.9 g/dL (0.5-0.9); Prot Elec - Beta 1 0.6 g/dL (0.4-0.6); Prot Elec - Beta 2 0.5 g/dL (0.2-0.5); Prot Elec - Gamma 2.5 g/dL (0.8-1.7); Prot Elec - Total Protein 8.2 g/dL (6.1-8.1)
== END 2024-06-09 09:32 | disposition home or self-care (01) ==
LOC: HO.10HDL 09:31
PROVIDERS: Visit Provider Internal Medicine Endocrinology, Diabetes & Metabolism
DX: M81.0 Age-related osteoporosis without current pathological fracture (principal)
CPT/HCPCS: 84165; 86335

== ENCOUNTER 2024-06-17 07:14 | Outpatient (REF) | payer MEDICARE, SELFPAY ==
[2024-06-17 08:17] LABS: Alanine Aminotransferase 65 U/L (0-31); Albumin Level 3.6 g/dL (3.5-5.0); Alkaline Phosphatase 85 U/L (39-117); Aspartate Amino Transferase 56 U/L (5-31); Bilirubin Direct 0.3 mg/dL (0.0-0.5); Bilirubin Total 0.7 mg/dL (0.0-1.0); Total Protein 8.9 g/dL (6.5-8.0)
== END 2024-06-17 07:15 | disposition home or self-care (01) ==
LOC: HO.LABR 07:14
PROVIDERS: PCP Internal Medicine; Visit Provider Internal Medicine
DX: K75.4 Autoimmune hepatitis (principal)
CPT/HCPCS: 36415; 80076

== ENCOUNTER 2024-08-06 07:45 | Outpatient (REF) | payer MEDICARE, SELFPAY ==
--- NOTE | ~2024-08-06 | US_ITS ---
EXAMINATION: US SCREENING ULTRASOUND BREAST, BILATERAL CLINICAL INFORMATION: Dense breasts on mammography. Screening ultrasound. Bilateral screening ultrasound. History of left breast cancer 1998. COMPARISON: Priors on PACS. TECHNIQUE: Ultrasound is performed using grayscale imaging and color Doppler. Imaging is performed to include the four quadrants and retroareolar region. Both breasts are imaged. FINDINGS: Right breast: There is no suspicious finding by ultrasound. There is no solid mass or focal architectural abnormality. Left breast: There is no suspicious finding by ultrasound. There is no solid mass or focal architectural abnormality. US/US breast BI complete IMPRESSION: No suspicious findings on screening breast ultrasound. ASSESSMENT: BI-RADS 1 - Negative RECOMMENDATION: 1 year F/U This patient's information was entered into a reminder system with a target due date for their next mammogram. Electronically signed by: Vannessa Nava DO 08/06/2024 09:36 AM EDT
--- OUTSIDE RECORDS SUMMARY | 2024-08-06 07:48 | XMS_ITS ---
Author Organization [facility] Address [address] [facility] [address] [place] [address] Care Team Providers Care Quality Assurance Group Leader Name Role Phone Bessie MARIE, Josephine Primary Care Provider Placido Espinoza [phone] REASON FOR VISIT Patient presents today for an autoimmune hepatitis Encounters Encounter Location Date Provider Diagnosis [facility] [address] [facility] [address] [place] [address] 06/24/2024 Placido Abarca Plan Of Treatment Next Appt Details Provider Name:Placido Abarca , 09/07/2024 11:10:00 AM, [address] [facility], [address], [place], [address], Progress Notes * IVET GARCIA ADOB:1950 ([age] yo F)Acc No.[id number]:06/24/2024 Progress Notes Patient:?IVET GARCIA Provider:?Placido Abarca MD :1950???Age:74 Y???Sex:Female D ate:06/24/2024 Address:[address] [place] [address] [facility] Pcp:Josephine La MD Subjective: * Chief Complaints: * ???1. Patient presents today for an autoimmune hepatitis. * Medical History:? Objective: * Vitals:? Assessment: Plan: * Treatment: * * The named appointment provid er may or may not be the originator of this progress note, and it is not deemed complete until electronically signed by the appointment provider. Sign off status: Pending * Provider:?Placido Abarca MD Date:? 025 Generated for Desean lieberman/Jeevan/Tracey on:?08/06/2024 07:48 AM EDT
--- OUTSIDE RECORDS SUMMARY | 2024-08-06 07:48 | XMS_ITS ---
Author Organization [facility] Address [address] [facility] [address] [place] [address] Care Team Providers Care Content Manager Name Role Phone Bessie MARIE, Josephine Primary Care Provider Placido Espinoza [phone] REASON FOR VISIT will be on 2 prenisone qd starting this Friday Encounters Encounter Location Date Provider Diagnosis [facility] [address] [facility] [address] [place] [address] 03/09/2024 Placido Abarca Plan Of Treatment Next Appt Details Provider Name:Placido Abarca , 09/07/2024 11:10:00 AM, [address] [facility], [address], [place], [address], Progress Notes * IVET GARCIA ADOB:1950 ([age] yo F)Acc No.[id number]:03/09/2024 Patient:?IVET GARCIA :1950???Age:74 Y???Sex:Female Address:[address] [place] [address] [place] [id number] * true * Date:? Generated for Ohi mio/Jeevan/eTransmitting on:?08/06/2024 07:48 AM EDT
--- OUTSIDE RECORDS SUMMARY | 2024-08-06 07:48 | XMS_ITS ---
Author Organization [facility] Address [address] [facility] [address] [place] [address] Care Team Providers Care Carpet Cutter Name Role Phone Bessie MARIE, Josephine Primary Care Provider Placido Espinoza [phone] REASON FOR VISIT labs Encounters Encounter Location Date Provider Diagnosis [facility] [address] [facility] [address] [place] [address] 07/27/2024 Placido Abarca Autoimmune hepatitis K75.4 Assessments Encounter Date Diagnosis (ICD Code) Assessment Notes Treatment Notes Treatment Clinical Notes Section Notes 07/27/2024 Autoimmune hepatitis (ICD-10 - K75.4) Plan Of Treatment Pending Test Test Name Order Date LIVER PROFILE 07/27/2024 Next Appt Details Provider Name:Placido Abarca , 09/07/2024 11:10:00 AM, [address] [facility], [address], [place], [address], Progress Notes * IVET GARCIA ADOB:1950 ([age] yo F)Acc No.[id number]:07/27/2024 Patient:?IVET GARCIA :1950???Age:74 Y???Sex:Female Address:[address] [place] [address] Subjective: * Chief Complaints: * ???Labs * Medical History:? * Surgical History:? * Hospitalization/Major Diagno stic Procedure:? * Medications:? Objective: * Vitals:? * Physical Examination:? Assessment: * Assessment: 1.?Autoimmune hepatitis - K7 5.4 (Primary)??? Plan: * Treatment: * Procedure Codes:? * true * Date:? Generated for Desean lieberman/Jeevan/Tracey on:?08/06/2024 07:48 AM EDT
--- OUTSIDE RECORDS SUMMARY | 2024-08-06 07:49 | XMS_ITS | Patient Health Record ---
Author Organization [facility] Address [address] [place] [address] Care Team Providers Care Secretary Bookkeeper Name Role Phone Bessie MARIE, Josephine Primary Care Provider Placido Espinoza [phone] Allergies Allergen (clinical drug ingredient) Drug/Non Drug Allergy documented on EMR Reaction Allergy Type Onset Date Status levofloxacin Levofloxacin RASH Drug Allergy A ctive azathioprine azaTHIOprine N/V Drug Allergy A ctive Results Component Value Reference Range Notes Amylase Reviewed date:08/13/2023 11:05:31 PM Interpretation: Performing Lab:[facility], [address] [place] [phone] Notes/Report: Amylase 13 28-100 U/L Lipase Reviewed date:08/13/2023 11:05:23 PM Interpretation: Performing Lab:[facility], [address] [place] [phone] Notes/Report: Lipase 56 8-78 U/L Complete Blood Count Auto Di ff Reviewed date:08/13/2023 11:03:09 PM Interpretation: Performing Lab:[facility], [address] [place] [phone] Notes/Report: White Blood Count 12.0 4.8-10.8 X10*3/uL [...] Panel Reviewed date:08/14/2023 04:49:39 PM Interpretation: Performing Lab:[facility], [address] [place] [phone] Notes/Report: Bilirubin Total 0.9 0.0-1.0 mg/dL Bilirubin Direct 0.3 0.0-0.5 mg/dL Aspartate Amino Transferase 46 5-31 U/L Alanine Aminotransferase 42 0-31 U/L Total Protein 7.9 6.5-8.0 g/dL Albumin Level 3.8 3.5-5.0 g/dL Alkaline Phosphatase 76 39-117 U/L Basic Metabolic Panel Reviewed date:08/13/2023 11:05:11 PM Interpretation: Performing Lab:[facility], [address] [place] [phone] Notes/Report: Sodium 140 135-145 mmol/L Potassium 4.1 3.3-5.1 mmol/L Chloride 105 96-108 mmol/L Carbon Dioxide 27 22-29 mmol/L Anion Gap 12 12-20 Blood Urea Nitrogen 13 9-16 mg/dL Creatinine 0.77 0.5-1.4 mg/dL Estimated Glomerular Filt Rate > 60 NOTE: For -Vincentian individuals, multiply the result by 1.210. Chronic Kidney Disease: Estimated GFR < 60 mL/min/1.73m2 Severe Kidney Disease: Estimated GFR < 15 mL/min/1.73m2 Glucose Random 99 60-115 mg/dL Calcium 9.6 8.4-10.2 mg/dL Complete Blood Count Auto Di ff Reviewed date:08/25/2023 05:47:44 PM Interpretation: Performing Lab:[facility], [address] [place] [phone] Notes/Report: White Blood Count 18.9 4.8-10.8 X10*3/uL [...] Panel Reviewed date:08/21/2023 12:01:21 AM Interpretation: Performing Lab:[facility], [address] [place] [phone] Notes/Report: Bilirubin Total 1.7 0.0-1.0 mg/dL Bilirubin Direct 0.5 0.0-0.5 mg/dL Aspartate Amino Transferase 66 5-31 U/L Alanine Aminotransferase 56 0-31 U/L Total Protein 8.0 6.5-8.0 g/dL Albumin Level 3.9 3.5-5.0 g/dL Alkaline Phosphatase 82 39-117 U/L Complete Blood Count Auto Di ff Reviewed date:09/06/2023 10:08:32 PM Interpretation: Performing Lab:[facility], [address] [place] [phone] Notes/Report: White Blood Count 10.4 4.8-10.8 X10*3/uL [...] Panel Reviewed date:02/12/2024 07:44:38 PM Interpretation: Performing Lab:[facility], [address] [place] [phone] Notes/Report: Bilirubin Total 0.9 0.0-1.0 mg/dL Bilirubin Direct 0.4 0.0-0.5 mg/dL Aspartate Amino Transferase 53 5-31 U/L Alanine Aminotransferase 55 0-31 U/L Total Protein 7.5 6.5-8.0 g/dL Albumin Level 3.6 3.5-5.0 g/dL Alkaline Phosphatase 77 39-117 U/L Complete Blood Count Auto Di ff Reviewed date:09/25/2023 12:37:51 PM Interpretation: Performing Lab:[facility], [address] [place] [phone] Notes/Report: White Blood Count 9.6 4.8-10.8 X10*3/uL [...] Panel Reviewed date:09/30/2023 09:06:45 AM Interpretation: Performing Lab:[address] [phone] Notes/Report: Bilirubin Total 1.2 0.0-1.0 mg/dL Bilirubin Direct 0.4 0.0-0.5 mg/dL Aspartate Amino Transferase 28 5-31 U/L Alanine Aminotransferase 27 0-31 U/L Total Protein 7.7 6.5-8.0 g/dL Albumin Level 3.7 3.5-5.0 g/dL Alkaline Phosphatase 74 39-117 U/L Complete Blood Count Auto Di ff Reviewed date:10/28/2023 11:38:36 AM Interpretation: Performing Lab:[address] [phone] Notes/Report: White Blood Count 8.3 4.8-10.8 X10*3/uL [...] yet reviewe d by provider) Interpretation: Performing Lab:[address] [phone] Notes/Report: Bilirubin Total 1.0 0.0-1.0 mg/dL Bilirubin Direct 0.3 0.0-0.5 mg/dL Aspartate Amino Transferase 32 5-31 U/L Alanine Aminotransferase 29 0-31 U/L Total Protein 7.6 6.5-8.0 g/dL Albumin Level 3.7 3.5-5.0 g/dL Alkaline Phosphatase 74 39-117 U/L Complete Blood Count Auto Di ff Reviewed date:11/24/2023 11:29:56 PM Interpretation: Performing Lab:[address] [phone] Notes/Report: White Blood Count 9.3 4.8-10.8 X10*3/uL [...] yet reviewe d by provider) Interpretation: Performing Lab:[address] [phone] Notes/Report: Bilirubin Total 0.8 0.0-1.0 mg/dL Bilirubin Direct 0.3 0.0-0.5 mg/dL Aspartate Amino Transferase 50 5-31 U/L Alanine Aminotransferase 37 0-31 U/L Total Protein 8.2 6.5-8.0 g/dL Albumin Level 4.0 3.5-5.0 g/dL Alkaline Phosphatase 71 39-117 U/L Complete Blood Count Auto Di ff Reviewed date:12/22/2023 11:22:16 PM Interpretation: Performing Lab:[address] [phone] Notes/Report: White Blood Count 8.6 4.8-10.8 X10*3/uL [...] Panel Reviewed date:12/25/2023 10:29:39 AM Interpretation: Performing Lab:[facility], [address] [place] [phone] Notes/Report: Bilirubin Total 1.1 0.0-1.0 mg/dL Bilirubin Direct 0.4 0.0-0.5 mg/dL Aspartate Amino Transferase 50 5-31 U/L Alanine Aminotransferase 40 0-31 U/L Total Protein 8.2 6.5-8.0 g/dL Albumin Level 3.9 3.5-5.0 g/dL Alkaline Phosphatase 67 39-117 U/L Complete Blood Count Auto Di ff Reviewed date:01/30/2024 12:40:23 PM Interpretation: Performing Lab:[address] [phone] Notes/Report: White Blood Count 8.5 4.8-10.8 X10*3/uL [...] Panel Reviewed date:02/02/2024 02:51:52 PM Interpretation: Performing Lab:[facility], [address] [place] [phone] Notes/Report: Bilirubin Total 1.0 0.0-1.0 mg/dL Bilirubin Direct 0.3 0.0-0.5 mg/dL Aspartate Amino Transferase 196 5-31 U/L Alanine Aminotransferase 197 0-31 U/L Total Protein 8.3 6.5-8.0 g/dL Albumin Level 3.4 3.5-5.0 g/dL Alkaline Phosphatase 107 39-117 U/L Liver Panel Reviewed date:02/12/2024 07:36:35 PM Interpretation: Performing Lab:[facility], [address] [place] [phone] Notes/Report: Bilirubin Total 0.9 0.0-1.0 mg/dL Bilirubin Direct 0.3 0.0-0.5 mg/dL Aspartate Amino Transferase 30 5-31 U/L Alanine Aminotransferase 58 0-31 U/L Total Protein 8.3 6.5-8.0 g/dL Albumin Level 3.6 3.5-5.0 g/dL Alkaline Phosphatase 71 39-117 U/L Liver Panel Reviewed date:03/02/2024 07:29:08 AM Interpretation: Performing Lab:[facility], [address] [place] [phone] Notes/Report: Bilirubin Total 0.6 0.0-1.0 mg/dL Bilirubin Direct 0.3 0.0-0.5 mg/dL Aspartate Amino Transferase 21 5-31 U/L Alanine Aminotransferase 24 0-31 U/L Total Protein 7.2 6.5-8.0 g/dL Albumin Level 3.5 3.5-5.0 g/dL Alkaline Phosphatase 57 39-117 U/L Liver Panel (Not yet reviewe d by provider) Interpretation: Performing Lab:[facility], [address] [place] [phone] Notes/Report: Bilirubin Total 0.5 0.0-1.0 mg/dL Bilirubin Direct 0.2 0.0-0.5 mg/dL Aspartate Amino Transferase 26 5-31 U/L Alanine Aminotransferase 25 0-31 U/L Total Protein 7.8 6.5-8.0 g/dL Albumin Level 4.0 3.5-5.0 g/dL Alkaline Phosphatase 60 39-117 U/L Liver Panel (Not yet reviewe d by provider) Interpretation: Performing Lab:[facility], [address] [place] [phone] Notes/Report: Bilirubin Total 0.9 0.0-1.0 mg/dL Bilirubin Direct 0.3 0.0-0.5 mg/dL Aspartate Amino Transferase 46 5-31 U/L Alanine Aminotransferase 42 0-31 U/L Total Protein 8.2 6.5-8.0 g/dL Albumin Level 3.6 3.5-5.0 g/dL Alkaline Phosphatase 70 39-117 U/L Liver Panel Reviewed date:06/21/2024 11:27:44 AM Interpretation: Performing Lab:[facility], [address] [place] [phone] Notes/Report: Bilirubin Total 0.7 0.0-1.0 mg/dL Bilirubin Direct 0.3 0.0-0.5 mg/dL Aspartate Amino Transferase 56 5-31 U/L Alanine Aminotransferase 65 0-31 U/L Total Protein 8.9 6.5-8.0 g/dL Albumin Level 3.6 3.5-5.0 g/dL Alkaline Phosphatase 85 39-117 U/L Reason For Referral No Information [...] Problem Status W/U Status Risk Notes Problem 49606035 Epigastric abdominal pain (R10.13) Active confirmed Problem 444863328 Encounter for screening for malignant neoplasm of colon (Z12.11) Active confirmed Problem 415152488 History of adenomatous polyp of colon (Z86.010) Active confirmed Problem 189907972 Weight loss (R63.4) Active confirmed Problem 28931423 Ulcer of esophag us without bleeding (K22.10) Active confirmed Problem 878080910 Autoimmune hepatitis (K75.4) Active confirmed Problem 973201740 Early satiety (R68.81) Active confirmed Problem 796810497 Gastroesophageal reflux disease with esophagitis (K21.0) Active confirmed Problem 79907845 Abdominal pain, epigastric (R10.13) Active confirmed Problem Iron deficiency anemia (87916063) Iron deficiency anemia (D50.9) Active confirmed Problem 644437581 Elevated liver enzymes (R74.8) Active confirmed Problem 191075188 Fatty liver (K76.0) Active confirmed Problem 08101971 Hiatal hernia (K44.9) Active confirmed Problem Anemia (046011172) Anemia (D64.9) Active confirmed Problem 00202127 Iron deficiency anemia, unspecified iron deficiency anemia type (D50.9) Active confirmed Problem 177042162 Abnormal UGI ser ies (R93.3) Active confirmed Problem 18292917 Duodenal ulcer (K26.9) Active confirmed Problem 76959952 Diarrhea, unspecified type (R19.7) Active confirmed Problem 13453059 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 Problem 267305177 Elevated liver function tests (R94.5) Active confirmed Problem Nausea and vomiting, intractability of vomiting not specified, unspecified vomiting type (R11.2) Active confirmed Problem Diverticulosis of colon (298163827) Diverticulosis of colon (K57.30) Active confirmed Problem 062735436 Abnormal LFTs (R94.5) Active confirmed Vital Signs Blood pressure diastolic 00 mm Hg 12/25/2023 Height 62.5 in 12/25/2023 Blood pressure systolic 00 mm Hg 12/25/2023 Weight 165 lbs 12/25/2023 BMI 29.69 kg/m2 12/25/2023 Encounters Encounter Location Date Provider Diagnosis [facility] [address] [place] [address] 12/25/2023 Placido Abarca Autoimmune hepatitis K75.4 [facility] [address] [place] [address] 08/12/2023 Placido Abarca Autoimmune hepatitis K75.4 and Nausea and vomiting, intractability of vomiting not specified, unspecified vomiting type R11.2 [facility] [address] [place] [address] 08/13/2023 Placido Abarca [facility] [address] [place] [phone] 08/15/2023 Placido Abarca Autoimmune hepatitis K75.4 [facility] [address] [place] [address] 01/27/2024 Placido Abarca Autoimmune hepatitis K75.4 [facility] [address] [place] [phone] 01/31/2024 Placido Abarca Autoimmune hepatitis K75.4 [facility] [address] [place] [phone] 02/04/2024 Placido Abarca [facility] [address] [place] [phone] 03/09/2024 Placido Abarca [facility] [address] [place] [phone] 07/27/2024 Placido Abarca Autoimmune hepatitis K75.4 Assessments Encounter Date Diagnosis (ICD Code) Assessment Notes Treatment Notes Treatment Clinical Notes Section Notes 12/25/2023 Autoimmune hepatitis (ICD-10 - K75.4) Continue [...] K75.4) 01/31/2024 Autoimmune hepatitis (ICD-10 - K75.4) 07/27/2024 Autoimmune hepatitis (ICD-10 - K75.4) Plan Of Treatment Pending Test Test Name Order Date CHEM 7 PROFILE 07/01/2019 CHEM 7 PROFILE 01/28/2023 CHEM 7 PROFILE 06/04/2019 CHEM 7 PROFILE 01/18/2021 CHEM 7 PROFILE 08/29/2020 CHEM 7 PROFILE 08/12/2023 FASTING BLOOD SUGAR (FBS, GLUCOSE) 02/04 LIVER PROFILE 08/12/2023 LIVER PROFILE 11/11/2021 LIVER PROFILE 09/12/2021 LIVER PROFILE 05/25/2023 LIVER PROFILE 07/01/2019 LIVER PROFILE 05/03/2021 LIVER PROFILE 05/27/2022 LIVER PROFILE 01/31/2024 LIVER PROFILE 09/10/2019 LIVER PROFILE 11/11/2019 LIVER PROFILE 09/04/2021 LIVER PROFILE 08/15/2023 LIVER PROFILE 01/28/2023 LIVER PROFILE 07/06/2022 LIVER PROFILE 07/27/2024 LIVER PROFILE 12/08/2020 LIVER PROFILE 09/24/2021 LIVER PROFILE 12/26/2022 LIVER PROFILE 12/27/2021 LIVER PROFILE 01/18/2021 LIVER PROFILE 01/02/2021 LIVER PROFILE 08/29/2020 LIVER PROFILE 01/27/2024 LIVER PROFILE 02/04/2023 IRON + IBC (FE) 09/12/2021 IRON + IBC (FE) 12/11/2022 IRON + IBC (FE) 07/06/2022 CRP 01/18/2021 CRP 08/29/2020 CRP 09/12/2021 VITAMIN B12 AND FOLATE 09/12/2021 CBC w DIFF 07/06/2022 CBC w DIFF 09/12/2021 CBC w DIFF 06/25/2022 CBC w DIFF 01/27/2024 CBC w DIFF 06/02/2019 CBC w DIFF 01/18/2021 CBC w DIFF 08/12/2023 CBC w DIFF 08/29/2020 CBC w DIFF 06/04/2019 CBC w DIFF 09/04/2021 CBC w DIFF 08/15/2023 CBC w DIFF 06/09/2019 CBC w DIFF 12/11/2022 CBC w DIFF 09/24/2021 CBC w DIFF 12/26/2022 SED RATE (ESR) 09/12/2021 SED RATE (ESR) 01/18/2021 SED RATE (ESR) 08/29/2020 HEPATITIS B PROFILE 05/25/2023 ALPHA-FETOPROTEIN,TUMOR MARKER CELIAC PANEL #10 01/18/2021 OVA & PARASITES (O&P) 08/29/2020 OVA & PARASITES (O&P) 01/18/2021 CULTURE, STOOL 01/18/2021 CULTURE, STOOL 08/29/2020 US ABD 06/03/2019 STOOL WBC 08/29/2020 STOOL WBC 01/18/2021 US ABDOMEN COMP WITH ELASTOGRAPHY 2022 C DIFFICILE RFLX PCR 08/29/2020 C DIFFICILE RFLX PCR 01/18/2021 Prothrombin Time INR 09/04/2021 Liver Panel 10/27/2023 Liver Panel 01/05/2021 Liver Panel 11/24/2023 Liver Panel 04/02/2024 Liver Panel 05/12/2024 Liver Panel 11/04/2022 Ferritin 12/11/2022 Ferritin 07/06/2022 Ferritin 09/12/2021 Vitamin B12 and Folate 07/06/2022 T Spot TB 05/25/2023 Future Test Test Name Order Date UPPER GI ENDOSCOPY 08/29/2015 COLONOSCOPY 08/29/2015 UPPER GI ENDOSCOPY 06/02/2019 UPPER GI ENDOSCOPY 06/13/2019 COLONOSCOPY 01/18/2021 Next Appt Details Provider Name:Placido Abarca , 09/07/2024 11:10:00 AM, [address], [address], [place], [address], Insurance Providers Payer Name Payer Address Payer Phone Subscriber Number Group Number Insured Name Patient Relationship to Insured Coverage Start Date Coverage End Date [facility] [address] [address] [place] N, [place] [id number] IVET GARCIA Self - patient is the insured Medical (General) History Medical History History ICD Code Colonosocpy 02-26-2010--hype rplastic polyps, 1 tubular adenoma removed in 2002; neg. colonoscopy in 11/2015 Left-sided breast cancer--lumpectomy, XR T, chemo-1999 Denies UT,DM,CVA,Lung disease,renal dise ase Grave's disease EGD 05/2015--duodenal [...]
== END 2024-08-06 07:46 | disposition home or self-care (01) ==
LOC: HO.MAMMO 07:45
PROVIDERS: PCP Internal Medicine; Visit Provider Internal Medicine
DX: R92.30 Dense breasts, unspecified (principal); Z86.000 Personal history of in-situ neoplasm of breast
CPT/HCPCS: 76641

== ENCOUNTER → 2024-08-06 08:00 | Outpatient (BNV) | payer MEDICARE, SELFPAY | PROVIDERS: PCP Internal Medicine; Visit Provider Internal Medicine | DX: R92.8 Other abnormal and inconclusive findings on diagnostic imaging of breast (principal); Z85.3 Personal history of malignant neoplasm of breast | CPT/HCPCS: 76641 ==

== ENCOUNTER 2024-08-17 10:12 | Outpatient (REF) | payer MEDICARE, SELFPAY ==
[2024-08-17 11:22] LABS: Alanine Aminotransferase 26 U/L (0-31); Albumin Level 3.7 g/dL (3.5-5.0); Alkaline Phosphatase 71 U/L (39-117); Aspartate Amino Transferase 35 U/L (5-31); Bilirubin Direct 0.3 mg/dL (0.0-0.5); Bilirubin Total 0.9 mg/dL (0.0-1.0)
--- OUTSIDE RECORDS SUMMARY | 2024-08-17 11:24 | XMS_ITS ---
Author Organization [facility] Address [address] [facility] [address] [place] [phone] Care Team Providers Care Marketing Outreach Coordinator Name Role Phone Bessie MARIE, Josephine Primary Care Provider Placido Espinoza [phone] REASON FOR VISIT Patient presents today for an autoimmune hepatitis Encounters Encounter Location Date Provider Diagnosis [facility] [address] [facility] [address] [place] [phone] 06/24/2024 Placido Abarca Plan Of Treatment Next Appt Details Provider Name:Placido Abarca , 09/07/2024 11:10:00 AM, [address] [facility], [address], [place], [address], Progress Notes * IVET GARCIA ADOB:1950 ([age] yo F)Acc No.[id number]:06/24/2024 Progress Notes Patient:?IVET GARCIA Provider:?Placido Abarca MD :1950???Age:74 Y???Sex:Female D ate:06/24/2024 Address:[address] [place] [address] [id number] Pcp:Josephine La MD Subjective: * Chief Complaints: [...] MD Date:? 025 Generated for Desean lieberman/Jeevan/Tracey on:?08/17/2024 11:24 AM EDT
--- OUTSIDE RECORDS SUMMARY | 2024-08-17 11:24 | XMS_ITS ---
Author Organization [facility] Address [address] [facility] [address] [place] [address] Care Team Providers Care Finish Specialist Name Role Phone Bessie MARIE, Josephine Primary Care Provider Placido Espinoza [phone] REASON FOR VISIT will be on 2 prenisone qd starting this Friday Encounters Encounter Location Date Provider Diagnosis [facility] [address] [facility] [address] [place] [phone] 03/09/2024 Placido Abarca Plan Of Treatment Next Appt Details Provider Name:Placido Abarca , 09/07/2024 11:10:00 AM, [address] [facility], [address], [place], [address], Progress Notes * IVET GARCIA ADOB:1950 ([age] yo F)Acc No.[id number]:03/09/2024 Patient:?IVET GARCIA :1950???Age:74 Y???Sex:Female Address:[address] [place] [address] [place] [address] * true * Date:? Generated for Printi mio/Faleonidg/eTransmitting on:?08/17/2024 11:24 AM EDT
--- OUTSIDE RECORDS SUMMARY | 2024-08-17 11:25 | XMS_ITS ---
Author Organization [facility] Address [address] [facility] [address] [place] [address] Care Team Providers Care Sole Buffer Name Role Phone Bessie MARIE, Josephine Primary Care Provider Placido Espinoza [phone] REASON FOR VISIT labs Encounters Encounter Location Date Provider Diagnosis [facility] [address] [facility] [address] [place] [address] 07/27/2024 Placido Abarca Autoimmune hepatitis K75.4 Assessments Encounter Date Diagnosis (ICD Code) Assessment Notes Treatment Notes Treatment Clinical Notes Section Notes 07/27/2024 Autoimmune hepatitis (ICD-10 - K75.4) Plan Of Treatment Pending Test Test Name Order Date LIVER PROFILE 07/27/2024 Next Appt Details Provider Name:Placido Abarca , 09/07/2024 11:10:00 AM, [address] [facility], [address], [place], [address], Progress Notes * IVET GARCIA ADOB:1950 ([age] yo F)Acc No.[id number]:07/27/2024 Patient:?IVET GARCIA :1950???Age:74 Y???Sex:Female Address:[address] [place] [address] Subjective: * Chief Complaints: * ???Labs * Medical History:? * Surgical History:? * Hospitalization/Major Diagno stic Procedure:? * Medications:? Objective: * Vitals:? * Physical Examination:? Assessment: * Assessment: 1.?Autoimmune hepatitis - K7 5.4 (Primary)??? Plan: * Treatment: * Procedure Codes:? * true * Date:? Generated for Desean lieberman/Jeevan/Tracey on:?08/17/2024 11:24 AM EDT
--- OUTSIDE RECORDS SUMMARY | 2024-08-17 11:25 | XMS_ITS | Patient Health Record ---
Author Organization [facility] Address [address] [place] [address] Care Team Providers Care Revenue Cycle Administrator Name Role Phone Bessie MARIE, Josephine Primary Care Provider Placido Espinoza [phone] Allergies Allergen (clinical drug ingredient) Drug/Non Drug Allergy documented on EMR Reaction Allergy Type Onset Date Status levofloxacin Levofloxacin RASH Drug Allergy A ctive azathioprine azaTHIOprine N/V Drug Allergy A ctive Results Component Value Reference Range Notes Complete Blood Count Auto Di ff Reviewed date:08/25/2023 05:47:44 PM Interpretation: Performing Lab:[facility], [address] [place] [phone] Notes/Report: White Blood Count 18.9 4.8-10.8 X10*3/uL [...] Panel Reviewed date:08/21/2023 12:01:21 AM Interpretation: Performing Lab:[address] [phone] Notes/Report: Bilirubin Total 1.7 0.0-1.0 mg/dL Bilirubin Direct 0.5 0.0-0.5 mg/dL Aspartate Amino Transferase 66 5-31 U/L Alanine Aminotransferase 56 0-31 U/L Total Protein 8.0 6.5-8.0 g/dL Albumin Level 3.9 3.5-5.0 g/dL Alkaline Phosphatase 82 39-117 U/L Complete Blood Count Auto Di ff Reviewed date:09/06/2023 10:08:32 PM Interpretation: Performing Lab:[address] [phone] Notes/Report: White Blood Count 10.4 4.8-10.8 X10*3/uL [...] Panel Reviewed date:02/12/2024 07:44:38 PM Interpretation: Performing Lab:[address] [phone] Notes/Report: Bilirubin Total 0.9 0.0-1.0 mg/dL Bilirubin Direct 0.4 0.0-0.5 mg/dL Aspartate Amino Transferase 53 5-31 U/L Alanine Aminotransferase 55 0-31 U/L Total Protein 7.5 6.5-8.0 g/dL Albumin Level 3.6 3.5-5.0 g/dL Alkaline Phosphatase 77 39-117 U/L Complete Blood Count Auto Di ff Reviewed date:09/25/2023 12:37:51 PM Interpretation: Performing Lab:[address] [phone] Notes/Report: White Blood Count 9.6 4.8-10.8 X10*3/uL [...] Panel Reviewed date:09/30/2023 09:06:45 AM Interpretation: Performing Lab:[address] [phone] Notes/Report: Bilirubin Total 1.2 0.0-1.0 mg/dL Bilirubin Direct 0.4 0.0-0.5 mg/dL Aspartate Amino Transferase 28 5-31 U/L Alanine Aminotransferase 27 0-31 U/L Total Protein 7.7 6.5-8.0 g/dL Albumin Level 3.7 3.5-5.0 g/dL Alkaline Phosphatase 74 39-117 U/L Complete Blood Count Auto Di ff Reviewed date:10/28/2023 11:38:36 AM Interpretation: Performing Lab:[address] [phone] Notes/Report: White Blood Count 8.3 4.8-10.8 X10*3/uL [...] yet reviewe d by provider) Interpretation: Performing Lab:[facility], [address] [place] [phone] Notes/Report: Bilirubin Total 1.0 0.0-1.0 mg/dL Bilirubin Direct 0.3 0.0-0.5 mg/dL Aspartate Amino Transferase 32 5-31 U/L Alanine Aminotransferase 29 0-31 U/L Total Protein 7.6 6.5-8.0 g/dL Albumin Level 3.7 3.5-5.0 g/dL Alkaline Phosphatase 74 39-117 U/L Complete Blood Count Auto Di ff Reviewed date:11/24/2023 11:29:56 PM Interpretation: Performing Lab:[facility], [address] [place] [phone] Notes/Report: White Blood Count 9.3 4.8-10.8 X10*3/uL [...] yet reviewe d by provider) Interpretation: Performing Lab:[facility], [address] [place] [phone] Notes/Report: Bilirubin Total 0.8 0.0-1.0 mg/dL Bilirubin Direct 0.3 0.0-0.5 mg/dL Aspartate Amino Transferase 50 5-31 U/L Alanine Aminotransferase 37 0-31 U/L Total Protein 8.2 6.5-8.0 g/dL Albumin Level 4.0 3.5-5.0 g/dL Alkaline Phosphatase 71 39-117 U/L Complete Blood Count Auto Di ff Reviewed date:12/22/2023 11:22:16 PM Interpretation: Performing Lab:[facility], [address] [place] [phone] Notes/Report: White Blood Count 8.6 4.8-10.8 X10*3/uL [...] Panel Reviewed date:12/25/2023 10:29:39 AM Interpretation: Performing Lab:[facility], [address] [place] [phone] Notes/Report: Bilirubin Total 1.1 0.0-1.0 mg/dL Bilirubin Direct 0.4 0.0-0.5 mg/dL Aspartate Amino Transferase 50 5-31 U/L Alanine Aminotransferase 40 0-31 U/L Total Protein 8.2 6.5-8.0 g/dL Albumin Level 3.9 3.5-5.0 g/dL Alkaline Phosphatase 67 39-117 U/L Complete Blood Count Auto Di ff Reviewed date:01/30/2024 12:40:23 PM Interpretation: Performing Lab:[facility], [address] [place] [phone] Notes/Report: White Blood Count 8.5 4.8-10.8 X10*3/uL [...] Panel Reviewed date:02/02/2024 02:51:52 PM Interpretation: Performing Lab:[address] [phone] Notes/Report: Bilirubin Total 1.0 0.0-1.0 mg/dL Bilirubin Direct 0.3 0.0-0.5 mg/dL Aspartate Amino Transferase 196 5-31 U/L Alanine Aminotransferase 197 0-31 U/L Total Protein 8.3 6.5-8.0 g/dL Albumin Level 3.4 3.5-5.0 g/dL Alkaline Phosphatase 107 39-117 U/L Liver Panel Reviewed date:02/12/2024 07:36:35 PM Interpretation: Performing Lab:[facility], [address] [place] [phone] Notes/Report: Bilirubin Total 0.9 0.0-1.0 mg/dL Bilirubin Direct 0.3 0.0-0.5 mg/dL Aspartate Amino Transferase 30 5-31 U/L Alanine Aminotransferase 58 0-31 U/L Total Protein 8.3 6.5-8.0 g/dL Albumin Level 3.6 3.5-5.0 g/dL Alkaline Phosphatase 71 39-117 U/L Liver Panel Reviewed date:03/02/2024 07:29:08 AM Interpretation: Performing Lab:[address] [phone] Notes/Report: Bilirubin Total 0.6 0.0-1.0 mg/dL Bilirubin Direct 0.3 0.0-0.5 mg/dL Aspartate Amino Transferase 21 5-31 U/L Alanine Aminotransferase 24 0-31 U/L Total Protein 7.2 6.5-8.0 g/dL Albumin Level 3.5 3.5-5.0 g/dL Alkaline Phosphatase 57 39-117 U/L Liver Panel (Not yet reviewe d by provider) Interpretation: Performing Lab:[facility], [address] [place] [phone] Notes/Report: Bilirubin Total 0.5 0.0-1.0 mg/dL Bilirubin Direct 0.2 0.0-0.5 mg/dL Aspartate Amino Transferase 26 5-31 U/L Alanine Aminotransferase 25 0-31 U/L Total Protein 7.8 6.5-8.0 g/dL Albumin Level 4.0 3.5-5.0 g/dL Alkaline Phosphatase 60 39-117 U/L Liver Panel (Not yet reviewe d by provider) Interpretation: Performing Lab:[facility], [address] [place] [phone] Notes/Report: Bilirubin Total 0.9 0.0-1.0 mg/dL Bilirubin Direct 0.3 0.0-0.5 mg/dL Aspartate Amino Transferase 46 5-31 U/L Alanine Aminotransferase 42 0-31 U/L Total Protein 8.2 6.5-8.0 g/dL Albumin Level 3.6 3.5-5.0 g/dL Alkaline Phosphatase 70 39-117 U/L Liver Panel Reviewed date:06/21/2024 11:27:44 AM Interpretation: Performing Lab:[facility], [address] [place] [phone] Notes/Report: Bilirubin Total 0.7 0.0-1.0 mg/dL Bilirubin Direct 0.3 0.0-0.5 mg/dL Aspartate Amino Transferase 56 5-31 U/L Alanine Aminotransferase 65 0-31 U/L Total Protein 8.9 6.5-8.0 g/dL Albumin Level 3.6 3.5-5.0 g/dL Alkaline Phosphatase 85 39-117 U/L Liver Panel (Not yet reviewe d by provider) Interpretation: Performing Lab:[address] [phone] Notes/Report: Bilirubin Total 0.9 0.0-1.0 mg/dL Bilirubin Direct 0.3 0.0-0.5 mg/dL Aspartate Amino Transferase 35 5-31 U/L Alanine Aminotransferase 26 0-31 U/L Total Protein 8.0 6.5-8.0 g/dL Albumin Level 3.7 3.5-5.0 g/dL Alkaline Phosphatase 71 39-117 U/L Reason For Referral No Information Medications Medication SIG (Take, Route, Frequency, Duration) Notes Start Date End Date Status Omeprazole 20 MG TAKE 1 CAPSULE BY [facility] EVERY DAY for 90 Active Tylenol PRN [...] Problem Status W/U Status Risk Notes Problem 58606839 Epigastric abdominal pain (R10.13) Active confirmed Problem 802548306 Encounter for screening for malignant neoplasm of colon (Z12.11) Active confirmed Problem 057036164 History of adenomatous polyp of colon (Z86.010) Active confirmed Problem 289982465 Weight loss (R63.4) Active confirmed Problem 10443656 Ulcer of esophag us without bleeding (K22.10) Active confirmed Problem 391957255 Autoimmune hepatitis (K75.4) Active confirmed Problem 081329391 Early satiety (R68.81) Active confirmed Problem 613526471 Gastroesophageal reflux disease with esophagitis (K21.0) Active confirmed Problem 57162596 Abdominal pain, epigastric (R10.13) Active confirmed Problem Iron deficiency anemia (05505672) Iron deficiency anemia (D50.9) Active confirmed Problem 282617983 Elevated liver enzymes (R74.8) Active confirmed Problem 969267366 Fatty liver (K76.0) Active confirmed Problem 19012186 Hiatal hernia (K44.9) Active confirmed Problem Anemia (399347704) Anemia (D64.9) Active confirmed Problem 22700527 Iron deficiency anemia, unspecified iron deficiency anemia type (D50.9) Active confirmed Problem 624067651 Abnormal UGI ser ies (R93.3) Active confirmed Problem 96210763 Duodenal ulcer (K26.9) Active confirmed Problem 89596413 Diarrhea, unspecified type (R19.7) Active confirmed Problem 26950851 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 Problem 832410193 Elevated liver function tests (R94.5) Active confirmed Problem Nausea and vomiting, intractability of vomiting not specified, unspecified vomiting type (R11.2) Active confirmed Problem Diverticulosis of colon (812471288) Diverticulosis of colon (K57.30) Active confirmed Problem 989746663 Abnormal LFTs (R94.5) Active confirmed Vital Signs Blood pressure diastolic 00 mm Hg 12/25/2023 Height 62.5 in 12/25/2023 Blood pressure systolic 00 mm Hg 12/25/2023 Weight 165 lbs 12/25/2023 BMI 29.69 kg/m2 12/25/2023 Encounters Encounter Location Date Provider Diagnosis [facility] [address] [place] [phone] 12/25/2023 Placido Abarca Autoimmune hepatitis K75.4 [facility] [address] [place] [phone] 01/27/2024 Placido Abarca Autoimmune hepatitis K75.4 [facility] [address] [place] [phone] 01/31/2024 Placido Abarca Autoimmune hepatitis K75.4 [facility] [address] [place] [address] 02/04/2024 Placido Abarca [facility] [address] [place] [address] 03/09/2024 Placido Abarca [facility] [address] [place] [address] 07/27/2024 Placido Abarca Autoimmune hepatitis K75.4 Assessments [...] to keep you advised of her progress. 01/27/2024 Autoimmune hepatitis (ICD-10 - K75.4) 01/31/2024 [...] 01/18/2021 Prothrombin Time INR 09/04/2021 Liver Panel 04/02/2024 Liver Panel 01/05/2021 Liver Panel 05/12/2024 Liver Panel 11/04/2022 Liver Panel 08/17/2024 Liver Panel 10/27/2023 Liver Panel 11/24/2023 Ferritin 12/11/2022 Ferritin 07/06/2022 Ferritin 09/12/2021 Vitamin B12 and Folate 07/06/2022 T Spot TB 05/25/2023 Future Test Test Name Order Date UPPER GI ENDOSCOPY 08/29/2015 COLONOSCOPY 08/29/2015 UPPER GI ENDOSCOPY 06/02/2019 UPPER GI ENDOSCOPY 06/13/2019 COLONOSCOPY 01/18/2021 Next Appt Details Provider Name:Placido Abarca , 09/07/2024 11:10:00 AM, [address] [facility], [address], [place], [address], Insurance Providers Payer Name Payer Address Payer Phone Subscriber Number Group Number Insured Name Patient Relationship to Insured Coverage Start Date Coverage End Date [facility] [address] [address] [place] [address] [id number] GARCIA Self - patient is the insured Medical (General) History Medical History History ICD Code Colonosocpy 02-26-2010--hype rplastic polyps, 1 tubular adenoma removed in 2002; neg. colonoscopy in 11/2015 Left-sided breast cancer--lumpectomy, XR T, chemo-1999 Denies GA,DM,CVA,Lung disease,renal dise ase Grave's disease EGD 05/2015--duodenal [...]
== END 2024-08-17 10:13 | disposition home or self-care (01) ==
LOC: HO.LAB 10:12
PROVIDERS: PCP Internal Medicine; Visit Provider Internal Medicine
DX: K75.4 Autoimmune hepatitis (principal)
CPT/HCPCS: 36415; 80076

== ENCOUNTER 2024-09-20 09:12 | Outpatient (REF) | payer MEDICARE, SELFPAY ==
--- OUTSIDE RECORDS SUMMARY | 2024-06-24 05:20 | XMS_ITS ---
Author Organization [facility] Address [address] [place] [address] Care Team Providers Care Herbarium Worker Name Role Phone Bessie MARIE, Josephine Primary Care Provider Placido Espinoza [phone] REASON FOR VISIT Patient presents today for an autoimmune hepatitis Encounters Encounter Location Date Provider Diagnosis [facility] [address] [address] 06/24/2024 Placido Abarca Plan Of Treatment No Information Progress Notes * IVET GARCIA ADOB:1950 ([age] yo F)Acc No.[id number]:06/24/2024 Progress Notes Patient: IVET RUTHERFORD Provider: Ryder Abarca MD :1950 A ge:74 Y S ex:Female Date:06/24/2024 Address:[address] [place] [address] [id number] Pcp:Josephine La MD Subjective: * Chief Complaints: * 1 . Patient presents today for an autoimmune hepatitis. * Medical History: Objective: * Vitals: Assessment: Plan: * Treatment: * * The named appointment provid er may or may not be the originator of this progress note, and it is not deemed complete until electronically signed by the appointment provider. Sign off status: Pending * Provider: Ryder Abarca MD Date: 0 06/24/2024 Generated for Printi ng/Faleonidg/eTransmitting on: 0 09/20/2024 09:54 AM EDT
--- NOTE | ~2024-09-20 | MM_ITS ---
EXAMINATION: MM SCREENING DIGITAL BREAST TOMOSYNTHESIS, BILATERAL CLINICAL INFORMATION: Screening. Asymptomatic. History of left breast cancer 1998 status post lumpectomy. COMPARISON: Mammography: Comparison is made with available priors TECHNIQUE: Digital breast mammography with tomosynthesis is performed in both the craniocaudal and mediolateral oblique views along with computer-aided detection (CAD). FINDINGS: There are scattered areas of fibroglandular density (ACR BI-RADS breast composition Category b). Left breast post lumpectomy changes are stable. Bilateral benign calcifications are stable. There are no significant masses, abnormal calcifications, or other abnormalities. MM/MM tomosynthesis screening BI IMPRESSION: No mammographic evidence of malignancy. ASSESSMENT: BI-RADS BI-RADS 2 - Benign Findings RECOMMENDATION: Routine annual mammography screening. 1 year F/U This examination should not preclude the clinical evaluation of a suspicious palpable abnormality. This patient's information was entered into a reminder system with a target due date for their next mammogram. Electronically signed by: Vannessa Nava DO 09/24/2024 10:19 AM EDT
[2024-09-20 09:55] LABS: MANUAL DIFF FLAG NO
[2024-09-20 10:33] LABS: Basophils Percent Auto 0.3 % (0-2); Eosinophils Absolute Auto 0.2 X10*3/uL (0.0-0.4); Eosinophils Percent Auto 2.1 % (0-4); Hemoglobin 11.7 g/dl (12.0-16.0); Imm Gran Abs Auto 0.04 X10*3/uL (0.00-0.03); Imm Gran Pct Auto 0.5 % (0.0-0.4); Lymphocytes Absolute Auto 2.6 X10*3/uL (1.2-4.9); Lymphocytes Percent Auto 29.4 % (20-40); Mean Corpuscular Hemoglobin 24.9 pg (27.0-33.0); Mean Corpuscular Volume 83.2 fL (80.0-98.0); Mean Platelet Volume 10.3 fL (9.4-12.3); Monocytes Absolute Auto 0.8 X10*3/uL (0.1-1.2); Monocytes Percent Auto 9.4 % (2-11); Neutrophils Absolute Auto 5.1 x10*3/uL (2.0-8.3); Neutrophils Percent Auto 58.3 % (45-73); Platelet Count 301 X10*3/uL (160-400); Red Blood Count 4.69 X10*6/uL (4.20-5.50); Red Cell Distribution Width 21.7 % (11.0-16.0); White Blood Count 8.7 X10*3/uL (4.8-10.8)
[2024-09-20 11:27] LABS: Alanine Aminotransferase 102 U/L (0-31); Albumin Level 3.8 g/dL (3.5-5.0); Alkaline Phosphatase 112 U/L (39-117); Aspartate Amino Transferase 111 U/L (5-31); Bilirubin Direct 0.3 mg/dL (0.0-0.5); Bilirubin Total 0.6 mg/dL (0.0-1.0); Total Protein 8.2 g/dL (6.5-8.0)
== END 2024-09-20 09:13 | disposition home or self-care (01) ==
LOC: HO.MAMMO 09:12
PROVIDERS: Absent Provider Internal Medicine; PCP Internal Medicine; Visit Provider Internal Medicine
DX: Z12.31 Encounter for screening mammogram for malignant neoplasm of breast (principal); Z85.3 Personal history of malignant neoplasm of breast; Z98.890 Other specified postprocedural states; K75.4 Autoimmune hepatitis
CPT/HCPCS: 36415; 77063; 77067; 80076; 85025

== ENCOUNTER → 2024-09-20 09:30 | Outpatient (BNV) | payer MEDICARE, SELFPAY | PROVIDERS: Absent Provider Internal Medicine; PCP Internal Medicine; Visit Provider Internal Medicine | DX: Z12.31 Encounter for screening mammogram for malignant neoplasm of breast (principal) | CPT/HCPCS: 77063; 77067 ==

== ENCOUNTER 2024-09-23 15:41 | Outpatient (REF) | payer MEDICARE, SELFPAY ==
--- NOTE | ~2024-09-23 | US_ITS ---
EXAMINATION: US COMPLETE ABDOMEN WITH LIVER ELASTOGRAPHY CLINICAL INFORMATION: Elevated LFTs COMPARISON: 07/12/2022. TECHNIQUE: Real-time imaging of the abdominal viscera. Noninvasive ultrasound liver fibrosis assessment is performed using Patel ElastPQ point quantification shear wave elastography (pSWE) with a C5-2 MHz transducer. Multiple elastography samples are obtained. FINDINGS: PANCREAS: The visualized pancreatic head and body are normal in appearance. The remainder of the pancreas is obscured from visualization by the overlying bowel gas. ABDOMINAL AORTA: No aortic aneurysm is seen. INFERIOR VENA CAVA: Visualized portions are normal. LIVER: The liver demonstrates normal size, contour and mildly diffusely increased echogenicity. No suspicious focal lesion or intrahepatic biliary duct dilatation. There is a calcified granuloma measuring 8 mm in the left hepatic lobe. There are 2 simple cysts in the left hepatic lobe measuring 1.2, and 1.3 cm. The right lobe measures 15.6 cm in length. The left lobe measures 9.0 cm in length. Portal flow is towards the liver (hepatopetal). Shear wave liver elastography median stiffness is 1.74 m/s (reference: normal median stiffness is 1.3 m/s or less). (Previously measuring 2.04 m/s) IQR/median stiffness to assess sampling precision is 0.14 (reference: good quality data set is IQR/median stiffness of 0.15 or less). GALLBLADDER: The gallbladder is physiologically distended without evidence of stones, sludge, wall thickening or pericholecystic fluid. There is a small 3 x 5 mm mural based polyp on the anterior wall. COMMON BILE DUCT: Normal in caliber measuring 0.3 cm in diameter. RIGHT KIDNEY: No hydronephrosis. No renal calculi or focal parenchymal lesions. The kidney measures 10.1 cm in maximum dimension. LEFT KIDNEY: No hydronephrosis. No renal calculi or focal parenchymal lesions. The kidney measures 9.9 cm in maximum dimension. SPLEEN: Unremarkable. The spleen measures 9.3 cm in maximum dimension. There is a 7 mm calcified granuloma present. FREE FLUID: None seen. US/US abdomen comp w elastography IMPRESSION: 1. Mildly diffusely increased hepatic echogenicity. Normal hepatic size and contour. No suspicious hepatic lesion. 2 small left hepatic lobe cysts. 2. Liver elastography: Measurements are suggestive of compensated advanced chroniic liver disease but need further test for confirmation. When compared with prior exam, there is a statistically significant decrease in liver stiffness (decrease at least 10%). 3. There is a 5 x 3 mm gallbladder polyp present. No follow-up recommended due to small size. 4. There are calcified granulomas within the spleen and left hepatic lobe. 5. Remainder of the exam is normal. REFERENCE: Society of Radiologists in Ultrasound Liver Stiffness Thresholds (2020): LIVER STIFFNESS THRESHOLDS: *Liver Stiffness equal or less than 1.3 m/s: High probability of being normal. *Liver Stiffness less than 1.7 m/s: In the absence of other known clinical signs, rules out compensated advanced chronic liver disease. *Liver Stiffness 1.7-2.1 m/s: Suggestive of compensated advanced chronic liver disease but need further test for confirmation. *Liver Stiffness over 2.1 m/s: Rules in compensated advanced chronic liver disease. *Liver Stiffness over 2.4 m/s: Suggestive of clinically significant portal hypertension. QUALITY OF DATA SET: *IQR/Median value equal or less than 0.15 implies a quality data set. *IQR/Median value over 0.15 implies a poor quality data set. SIGNIFICANT CHANGE FROM PRIOR EXAM: Significant change if liver stiffness measurement is 10% or greater from prior exam. OTHER CONSIDERATIONS: The stage of liver fibrosis may be overestimated in the setting of acute hepatitis, liver inflammation, elevated liver function tests, hepatic vascular congestion, obstructive cholestasis, non-fasting state, and infiltrative diseases such as amyloidosis and lymphoma. In some patients with NAFLD, the liver stiffness thresholds for compensated advanced chronic liver disease may be lower. In causes other than viral hepatitis and NAFLD, liver stiffness thresholds are not well established. Electronically signed by: William Pizarro MD 09/23/2024 04:54 PM EDT
--- OUTSIDE RECORDS SUMMARY | 2024-09-23 19:23 | XMS_ITS | Patient Health Record ---
Author Organization [facility] Address [address] [place] [phone] Care Team Providers Care Intelligent Systems Engineer Name Role Phone Bessie MARIE, Josephine Primary Care Provider Placido Espinoza [phone] Allergies Allergen (clinical drug ingredient) Drug/Non Drug Allergy documented on EMR Reaction Allergy Type Onset Date Status levofloxacin Levofloxacin RASH Drug Allergy A ctive azathioprine azaTHIOprine N/V Drug Allergy A ctive Results Component Value Reference Range Notes US abdomen comp w elastograp hy (Not yet reviewed by provider) Interpretation: Performing Lab: Notes/Report: [address] [address] Ultrasound Report Signed Patient: Ivet Garcia MR#: [id number] : 1950 Acct:[id number] Age/Sex: 74 / F ADM Date: 09/23/24 Loc: HO.US Attending Dr: Placido Abarca MD Ordering Physician: Placido Abarca MD Date of Service: 09/23/24 Procedure(s): US abdomen comp w elastography Accession Number(s): [id number] cc: Josephine La MD; Placido Abarca MD EXAMINATION: US COMPLETE ABDOMEN WITH LIVER ELASTOGRAPHY CLINICAL INFORMATION: Elevated LFTs COMPARISON: 07/12/2022. TECHNIQUE: Real-time imaging of the abdominal viscera. Noninvasive ultrasound liver fibrosis assessment is performed using Patel ElastPQ point quantification shear wave elastography (pSWE) with a C5-2 MHz transducer. Multiple elastography samples are obtained. FINDINGS: PANCREAS: The visualized pancreatic head and body are normal in appearance. The remainder of the pancreas is obscured from visualization by the overlying bowel gas. ABDOMINAL AORTA: No aortic aneurysm is seen. INFERIOR VENA CAVA: Visualized portions are normal. LIVER: The liver demonstrates normal size, contour and mildly diffusely increased echogenicity. No suspicious focal lesion or intrahepatic biliary duct dilatation. There is a calcified granuloma measuring 8 mm in the left hepatic lobe. There are 2 simple cysts in the left hepatic lobe measuring 1.2, and 1.3 cm. The right lobe measures 15.6 cm in length. The left lobe measures 9.0 cm in length. Portal flow is towards the liver (hepatopetal). Shear wave liver elastography median stiffness is 1.74 m/s (reference: normal median stiffness is 1.3 m/s or less). (Previously measuring 2.04 m/s) IQR/median stiffness to assess sampling precision is 0.14 (reference: good quality data set is IQR/median stiffness of 0.15 or less). GALLBLADDER: The gallbladder is physiologically distended without evidence of stones, sludge, wall thickening or pericholecystic fluid. There is a small 3 x 5 mm mural based polyp on the anterior wall. COMMON BILE DUCT: Normal in caliber measuring 0.3 cm in diameter. RIGHT KIDNEY: No hydronephrosis. No renal calculi or focal parenchymal lesions. The kidney measures 10.1 cm in maximum dimension. LEFT KIDNEY: No hydronephrosis. No renal calculi or focal parenchymal lesions. The kidney measures 9.9 cm in maximum dimension. SPLEEN: Unremarkable. The spleen measures 9.3 cm in maximum dimension. There is a 7 mm calcified granuloma present. FREE FLUID: None seen. US/US abdomen comp w elastography IMPRESSION: 1. Mildly diffusely increased hepatic echogenicity. Normal hepatic size and contour. No suspicious hepatic lesion. 2 small left hepatic lobe cysts. 2. Liver elastography: Measurements are suggestive of compensated advanced chroniic liver disease but need further test for confirmation. When compared with prior exam, there is a statistically significant decrease in liver stiffness (decrease at least 10%). 3. There is a 5 x 3 mm gallbladder polyp present. No follow-up recommended due to small size. 4. There are calcified granulomas within the spleen and left hepatic lobe. 5. Remainder of the exam is normal. REFERENCE: Society of Radiologists in Ultrasound Liver Stiffness Thresholds (2020): LIVER STIFFNESS THRESHOLDS: *Liver Stiffness equal or less than 1.3 m/s: High probability of being normal. *Liver Stiffness less than 1.7 m/s: In the absence of other known clinical signs, rules out compensated advanced chronic liver disease. *Liver Stiffness 1.7-2.1 m/s: Suggestive of compensated advanced chronic liver disease but need further test for confirmation. *Liver Stiffness over 2.1 m/s: Rules in compensated advanced chronic liver disease. *Liver Stiffness over 2.4 m/s: Suggestive of clinically significant portal hypertension. QUALITY OF DATA SET: *IQR/Median value equal or less than 0.15 implies a quality data set. *IQR/Median value over 0.15 implies a poor quality data set. SIGNIFICANT CHANGE FROM PRIOR EXAM: Significant change if liver stiffness measurement is 10% or greater from prior exam. OTHER CONSIDERATIONS: The stage of liver fibrosis may be overestimated in the setting of acute hepatitis, liver inflammation, elevated liver function tests, hepatic vascular congestion, obstructive cholestasis, non-fasting state, and infiltrative diseases such as amyloidosis and lymphoma. In some patients with NAFLD, the liver stiffness thresholds for compensated advanced chronic liver disease may be lower. In causes other than viral hepatitis and NAFLD, liver stiffness thresholds are not well established. Electronically signed by: William Pizarro MD 09/23/2024 04:54 PM EDT Dictated By: William Pizarro MD Signed By: <Electronically signed by William Pizarro MD in OV> 09/23/24 1654 DD/ 1559 TD/TT: 09/23/24 1615 Senior C Software Engineer: Complete Blood Count Auto Di ff Reviewed date:09/25/2023 12:37:51 PM Interpretation: Performing Lab:[facility], [address] [place] [phone] Notes/Report: White Blood Count 9.6 4.8-10.8 X10*3/uL [...] Panel Reviewed date:09/30/2023 09:06:45 AM Interpretation: Performing Lab:[address] [phone] Notes/Report: Bilirubin Total 1.2 0.0-1.0 mg/dL Bilirubin Direct 0.4 0.0-0.5 mg/dL Aspartate Amino Transferase 28 5-31 U/L Alanine Aminotransferase 27 0-31 U/L Total Protein 7.7 6.5-8.0 g/dL Albumin Level 3.7 3.5-5.0 g/dL Alkaline Phosphatase 74 39-117 U/L Complete Blood Count Auto Di ff Reviewed date:10/28/2023 11:38:36 AM Interpretation: Performing Lab:[address] [phone] Notes/Report: White Blood Count 8.3 4.8-10.8 X10*3/uL [...] yet reviewe d by provider) Interpretation: Performing Lab:[facility], [address] [place] [phone] Notes/Report: Bilirubin Total 1.0 0.0-1.0 mg/dL Bilirubin Direct 0.3 0.0-0.5 mg/dL Aspartate Amino Transferase 32 5-31 U/L Alanine Aminotransferase 29 0-31 U/L Total Protein 7.6 6.5-8.0 g/dL Albumin Level 3.7 3.5-5.0 g/dL Alkaline Phosphatase 74 39-117 U/L Complete Blood Count Auto Di ff Reviewed date:11/24/2023 11:29:56 PM Interpretation: Performing Lab:[facility], [address] [place] [phone] Notes/Report: White Blood Count 9.3 4.8-10.8 X10*3/uL [...] yet reviewe d by provider) Interpretation: Performing Lab:[facility], [address] [place] [phone] Notes/Report: Bilirubin Total 0.8 0.0-1.0 mg/dL Bilirubin Direct 0.3 0.0-0.5 mg/dL Aspartate Amino Transferase 50 5-31 U/L Alanine Aminotransferase 37 0-31 U/L Total Protein 8.2 6.5-8.0 g/dL Albumin Level 4.0 3.5-5.0 g/dL Alkaline Phosphatase 71 39-117 U/L Complete Blood Count Auto Di ff Reviewed date:12/22/2023 11:22:16 PM Interpretation: Performing Lab:[facility], [address] [place] [phone] Notes/Report: White Blood Count 8.6 4.8-10.8 X10*3/uL [...] Panel Reviewed date:12/25/2023 10:29:39 AM Interpretation: Performing Lab:[facility], [address] [place] [phone] Notes/Report: Bilirubin Total 1.1 0.0-1.0 mg/dL Bilirubin Direct 0.4 0.0-0.5 mg/dL Aspartate Amino Transferase 50 5-31 U/L Alanine Aminotransferase 40 0-31 U/L Total Protein 8.2 6.5-8.0 g/dL Albumin Level 3.9 3.5-5.0 g/dL Alkaline Phosphatase 67 39-117 U/L Complete Blood Count Auto Di ff Reviewed date:01/30/2024 12:40:23 PM Interpretation: Performing Lab:[facility], [address] [place] [phone] Notes/Report: White Blood Count 8.5 4.8-10.8 X10*3/uL [...] Panel Reviewed date:02/02/2024 02:51:52 PM Interpretation: Performing Lab:[facility], [address] [place] [phone] Notes/Report: Bilirubin Total 1.0 0.0-1.0 mg/dL Bilirubin Direct 0.3 0.0-0.5 mg/dL Aspartate Amino Transferase 196 5-31 U/L Alanine Aminotransferase 197 0-31 U/L Total Protein 8.3 6.5-8.0 g/dL Albumin Level 3.4 3.5-5.0 g/dL Alkaline Phosphatase 107 39-117 U/L Liver Panel Reviewed date:02/12/2024 07:36:35 PM Interpretation: Performing Lab:[facility], [address] [place] [phone] Notes/Report: Bilirubin Total 0.9 0.0-1.0 mg/dL Bilirubin Direct 0.3 0.0-0.5 mg/dL Aspartate Amino Transferase 30 5-31 U/L Alanine Aminotransferase 58 0-31 U/L Total Protein 8.3 6.5-8.0 g/dL Albumin Level 3.6 3.5-5.0 g/dL Alkaline Phosphatase 71 39-117 U/L Liver Panel Reviewed date:03/02/2024 07:29:08 AM Interpretation: Performing Lab:[facility], [address] [place] [phone] Notes/Report: Bilirubin Total 0.6 0.0-1.0 mg/dL Bilirubin Direct 0.3 0.0-0.5 mg/dL Aspartate Amino Transferase 21 5-31 U/L Alanine Aminotransferase 24 0-31 U/L Total Protein 7.2 6.5-8.0 g/dL Albumin Level 3.5 3.5-5.0 g/dL Alkaline Phosphatase 57 39-117 U/L Liver Panel (Not yet reviewe d by provider) Interpretation: Performing Lab:[address] [phone] Notes/Report: Bilirubin Total 0.5 0.0-1.0 mg/dL Bilirubin Direct 0.2 0.0-0.5 mg/dL Aspartate Amino Transferase 26 5-31 U/L Alanine Aminotransferase 25 0-31 U/L Total Protein 7.8 6.5-8.0 g/dL Albumin Level 4.0 3.5-5.0 g/dL Alkaline Phosphatase 60 39-117 U/L Liver Panel (Not yet reviewe d by provider) Interpretation: Performing Lab:[address] [phone] Notes/Report: Bilirubin Total 0.9 0.0-1.0 mg/dL Bilirubin Direct 0.3 0.0-0.5 mg/dL Aspartate Amino Transferase 46 5-31 U/L Alanine Aminotransferase 42 0-31 U/L Total Protein 8.2 6.5-8.0 g/dL Albumin Level 3.6 3.5-5.0 g/dL Alkaline Phosphatase 70 39-117 U/L Liver Panel Reviewed date:06/21/2024 11:27:44 AM Interpretation: Performing Lab:[address] [phone] Notes/Report: Bilirubin Total 0.7 0.0-1.0 mg/dL Bilirubin Direct 0.3 0.0-0.5 mg/dL Aspartate Amino Transferase 56 5-31 U/L Alanine Aminotransferase 65 0-31 U/L Total Protein 8.9 6.5-8.0 g/dL Albumin Level 3.6 3.5-5.0 g/dL Alkaline Phosphatase 85 39-117 U/L Liver Panel Reviewed date:08/18/2024 03:38:55 PM Interpretation: Performing Lab:[address] [phone] Notes/Report: Bilirubin Total 0.9 0.0-1.0 mg/dL Bilirubin Direct 0.3 0.0-0.5 mg/dL Aspartate Amino Transferase 35 5-31 U/L Alanine Aminotransferase 26 0-31 U/L Total Protein 8.0 6.5-8.0 g/dL Albumin Level 3.7 3.5-5.0 g/dL Alkaline Phosphatase 71 39-117 U/L Complete Blood Count Auto Di ff Reviewed date:09/20/2024 07:30:46 PM Interpretation: Performing Lab:[facility], [address] [place] [phone] Notes/Report: White Blood Count 8.7 4.8-10.8 X10*3/uL Red Blood Count 4.69 4.20-5.50 X10*6/uL Hemoglobin 11.7 12.0-16.0 g/dl Hematocrit 39.0 37.0-47.0 % Mean Corpuscular Volume 83.2 80.0-98.0 fL Mean Corpuscular Hemoglobin 24.9 27.0-33.0 pg Mean Corpuscular HGB Conc 30.0 31.0-35.0 g/dl Red Cell Distribution Width 21.7 11.0-16.0 % Platelet Count 301 160-400 X10*3/uL Mean Platelet Volume 10.3 9.4-12.3 fL Neutrophils Percent Auto 58.3 45-73 % Imm Gran Pct Auto 0.5 0.0-0.4 % Lymphocytes Percent Auto 29.4 20-40 % Monocytes Percent Auto 9.4 2-11 % Eosinophils Percent Auto 2.1 0-4 % Basophils Percent Auto 0.3 0-2 % NRBC Pct Auto 0.0 0.0-0.2 /100WBC Neutrophils Absolute Auto 5.1 2.0-8.3 x10*3/u L Imm Gran Abs Auto 0.04 0.00-0.03 X10*3/uL Lymphocytes Absolute Auto 2.6 1.2-4.9 X10*3/u L Monocytes Absolute Auto 0.8 0.1-1.2 X10*3/uL Eosinophils Absolute Auto 0.2 0.0-0.4 X10*3/u L Basophils Absolute Auto 0.0 0.0-0.2 X10*3/uL NRBC Abs Auto 0.000 0.0-0.012 X10*3/uL Liver Panel Reviewed date:09/23/2024 03:31:32 PM Interpretation: Performing Lab:[facility], [address] [place] [phone] Notes/Report: Bilirubin Total 0.6 0.0-1.0 mg/dL Bilirubin Direct 0.3 0.0-0.5 mg/dL Aspartate Amino Transferase 111 5-31 U/L Alanine Aminotransferase 102 0-31 U/L Total Protein 8.2 6.5-8.0 g/dL Albumin Level 3.8 3.5-5.0 g/dL Alkaline Phosphatase 112 39-117 U/L Reason For Referral No Information Medications Medication SIG (Take, Route, Frequency, Duration) Notes Start Date End Date Status Budesonide 3 MG 3 capsules Orally da cliff for 30 days 09/22/2024 Active Tylenol PRN Active Omeprazole 20 MG TAKE 1 CAPSULE BY MO UTH EVERY DAY for 90 Active predniSONE 5 MG 1 tablet Orally Once a day Active Vitamin D3 50 MCG (1999 UT) TAKE 1 CAPSU LE BY MOUTH EVERY DAY Oral for 90 Days Active Levothyroxine Sodium 125 MCG 1 tablet in the morning on an empty stomach Orally Once a day Active Immunizations Vaccine [...] Problem Status W/U Status Risk Notes Problem 24057131 Epigastric abdominal pain (R10.13) Active confirmed Problem 282207742 Encounter for screening for malignant neoplasm of colon (Z12.11) Active confirmed Problem 544683511 History of adenomatous polyp of colon (Z86.010) Active confirmed Problem 417795169 Weight loss (R63.4) Active confirmed Problem 76152516 Ulcer of esophag us without bleeding (K22.10) Active confirmed Problem 466355758 Autoimmune hepatitis (K75.4) Active confirmed Problem 397252976 Early satiety (R68.81) Active confirmed Problem 538417820 Gastroesophageal reflux disease with esophagitis (K21.0) Active confirmed Problem 04537958 Abdominal pain, epigastric (R10.13) Active confirmed Problem Iron deficiency anemia (47674253) Iron deficiency anemia (D50.9) Active confirmed Problem Elevated liver enzymes level (951996643) Elevated liver function tests (R79.89) Active confirmed Problem 148606399 Elevated liver enzymes (R74.8) Active confirmed Problem 354143920 Fatty liver (K76.0) Active confirmed Problem 37456034 Hiatal hernia (K44.9) Active confirmed Problem Anemia (412243872) Anemia (D64.9) Active confirmed Problem 54636401 Iron deficiency anemia, unspecified iron deficiency anemia type (D50.9) Active confirmed Problem 045713313 Abnormal UGI ser ies (R93.3) Active confirmed Problem 22749297 Duodenal ulcer (K26.9) Active confirmed Problem 59715434 Diarrhea, unspecified type (R19.7) Active confirmed Problem 32545987 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 Problem 739510975 Elevated liver function tests (R94.5) Active confirmed Problem Nausea and vomiting (81759251) Nausea and vomiting, intractability of vomiting not specified, unspecified vomiting type (R11.2) Active confirmed Problem Diverticulosis of colon (997041791) Diverticulosis of colon (K57.30) Active confirmed Problem 925191812 Abnormal LFTs (R94.5) Active confirmed Vital Signs Blood pressure diastolic 77 mm Hg 09/07/2024 Height 62.5 in 09/07/2024 Blood pressure systolic 111 mm Hg 09/07/2024 Weight 171 lbs 09/07/2024 BMI 30.77 kg/m2 09/07/2024 Encounters Encounter Location Date Provider Diagnosis [facility] [address] [place] [phone] 12/25/2023 Placido Abarca Autoimmune hepatitis K75.4 [facility] [address] [place] [phone] 09/07/2024 Placido Abarca Autoimmune hepatitis K75.4 and Encounter for screening for malignant neoplasm of colon Z12.11 [facility] [address] [place] [address] 01/27/2024 Placido Abarca Autoimmune hepatitis K75.4 [facility] [address] [place] [address] 01/31/2024 Placido Abarca Autoimmune hepatitis K75.4 [facility] [address] [place] [address] 02/04/2024 Placido Abarca [facility] [address] [place] [address], [place] [address] 03/09/2024 Placido Abarca [facility] [address] [place] [address], [place] [address] 07/27/2024 Placido Abarca Autoimmune hepatitis K75.4 [facility] [address] [place] [phone] 09/22/2024 Placido Abarca Autoimmune hepatitis K75.4 and Elevated liver function tests R79.89 Assessments Encounter Date Diagnosis (ICD Code) Assessment [...] to keep you advised of her progress. 09/07/2024 Autoimmune hepatitis (ICD-10 - K75.4) Overall, Ivet appears well. Her autoimmune hepatitis is back in clinical remission on the maintenance dose of the low-dose of prednisone. She will continue the 5 mg daily and continue with her monthly liver profiles. I shall check a CBC when she has her next liver profile as well. She certainly does not show any signs nor have any symptoms of progressive liver disease at this time. We did review that she will be due for a follow-up colonoscopy toward the latter part of 2025. If things remain well I will plan to see her in 1 year for a follow-up office visit. I did advise her to certainly call if she has any problems or questions I can be of assistance with. Ivet was comfortable with this plan. Thank you again for allowing me to participate in Ivet's care. I shall continue to keep you advised of her progress. 01/27/2024 Autoimmune hepatitis (ICD-10 - K75.4) 01/31/2024 Autoimmune hepatitis (ICD-10 - K75.4) 07/27/2024 Autoimmune hepatitis (ICD-10 - K75.4) 09/22/2024 Autoimmune hepatitis (ICD-10 - K75.4) 09/22/2024 Elevated liver function tests (ICD-10 - R79.89) 09/07/2024 Encounter for screening for malignant neoplasm of colon (ICD-10 - Z12.11) Repeat coplonoscopy in 2025 Overall, Ivet appears well. Her autoimmune hepatitis is back in clinical remission on the maintenance dose of the low-dose of prednisone. She will continue the 5 mg daily and continue with her monthly liver profiles. I shall check a CBC when she has her next liver profile as well. She certainly does not show any signs nor have any symptoms of progressive liver disease at this time. We did review that she will be due for a follow-up colonoscopy toward the latter part of 2025. If things remain well I will plan to see her in 1 year for a follow-up office visit. I did advise her to certainly call if she has any problems or questions I can be of assistance with. Ivet was comfortable with this plan. Thank you again for allowing me to participate in Ivet's care. I shall continue to keep you advised of her progress. Plan Of Treatment Pending Test Test Name Order Date CHEM 7 PROFILE 09/22/2024 CHEM 7 PROFILE 08/12/2023 CHEM 7 PROFILE 07/01/2019 CHEM 7 PROFILE 01/28/2023 CHEM 7 PROFILE 06/04/2019 CHEM 7 PROFILE 01/18/2021 CHEM 7 PROFILE 08/29/2020 FASTING BLOOD SUGAR (FBS, GLUCOSE) 02/04 LIVER PROFILE 01/02/2021 LIVER PROFILE 08/29/2020 LIVER PROFILE 01/27/2024 LIVER PROFILE 09/22/2024 LIVER PROFILE 02/04/2023 LIVER PROFILE 08/12/2023 LIVER PROFILE 11/11/2021 LIVER PROFILE 09/12/2021 LIVER PROFILE 05/25/2023 LIVER PROFILE 09/10/2019 LIVER PROFILE 07/01/2019 LIVER PROFILE 05/03/2021 LIVER PROFILE 05/27/2022 LIVER PROFILE 01/31/2024 LIVER PROFILE 11/11/2019 LIVER PROFILE 12/26/2022 LIVER PROFILE 08/15/2023 LIVER PROFILE 09/04/2021 LIVER PROFILE 01/28/2023 LIVER PROFILE 07/06/2022 LIVER PROFILE 07/27/2024 LIVER PROFILE 12/27/2021 LIVER PROFILE 12/08/2020 LIVER PROFILE 01/18/2021 LIVER PROFILE 09/24/2021 IRON + IBC (FE) 07/06/2022 IRON + IBC (FE) 09/12/2021 IRON + IBC (FE) 12/11/2022 CRP 01/18/2021 CRP 08/29/2020 CRP 09/12/2021 VITAMIN B12 AND FOLATE 09/12/2021 CBC w DIFF 06/09/2019 CBC w DIFF 06/25/2022 CBC w DIFF 12/11/2022 CBC w DIFF 09/07/2024 CBC w DIFF 09/24/2021 CBC w DIFF 06/02/2019 CBC w DIFF 07/06/2022 CBC w DIFF 09/12/2021 CBC w DIFF 01/18/2021 CBC w DIFF 01/27/2024 CBC w DIFF 09/22/2024 CBC w DIFF 08/12/2023 CBC w DIFF 08/29/2020 CBC w DIFF 06/04/2019 CBC w DIFF 12/26/2022 CBC w DIFF 08/15/2023 CBC w DIFF 09/04/2021 SED RATE (ESR) 09/12/2021 SED RATE (ESR) 01/18/2021 SED RATE (ESR) 08/29/2020 HEPATITIS B PROFILE 05/25/2023 ALPHA-FETOPROTEIN,TUMOR MARKER 03/28/202 3 ALPHA-FETOPROTEIN,TUMOR MARKER 5 CELIAC PANEL #10 01/18/2021 OVA & PARASITES (O&P) 01/18/2021 OVA & PARASITES (O&P) 08/29/2020 CULTURE, STOOL 01/18/2021 CULTURE, STOOL 08/29/2020 US ABD 06/03/2019 STOOL WBC 01/18/2021 STOOL WBC 08/29/2020 US ABDOMEN COMP WITH ELASTOGRAPHY 2022 C DIFFICILE RFLX PCR 01/18/2021 C DIFFICILE RFLX PCR 08/29/2020 Prothrombin Time INR 09/04/2021 Prothrombin Time INR 09/22/2024 Liver Panel 11/24/2023 Liver Panel 04/02/2024 Liver Panel 01/05/2021 Liver Panel 05/12/2024 Liver Panel 11/04/2022 Liver Panel 10/27/2023 Ferritin 12/11/2022 Ferritin 07/06/2022 Ferritin 09/12/2021 Vitamin B12 and Folate 07/06/2022 Liver Fibrosis Pnl 09/22/2024 T Spot TB 05/25/2023 US abdomen comp w elastography 5 Future Test Test Name Order Date UPPER GI ENDOSCOPY 08/29/2015 COLONOSCOPY 08/29/2015 UPPER GI ENDOSCOPY 06/02/2019 UPPER GI ENDOSCOPY 06/13/2019 COLONOSCOPY 01/18/2021 Insurance Providers Payer Name Payer Address Payer Phone Subscriber Number Group Number Insured Name Patient Relationship to Insured Coverage Start Date Coverage End Date [facility] [address] [place], [place] [phone] [id number] PCP IVET GARCIA Self - patient is the insured 5 Medical (General) History Medical History History ICD Code Colonosocpy 02-26-2010--hype rplastic polyps, 1 tubular adenoma removed in 2002; neg. colonoscopy in 11/2015 Left-sided breast cancer--lumpectomy, XR T, chemo-1999 Denies SD,DM,CVA,Lung disease,renal dise ase Grave's disease EGD 05/2015--duodenal [...] to significant vomiting Surgical History Surgery Date(Month/Year) Left oophorectomy-benign Lumpectomy for breast cancer as above--2 000
== END 2024-09-23 15:42 | disposition home or self-care (01) ==
LOC: HO.US 15:41
PROVIDERS: PCP Internal Medicine; Visit Provider Internal Medicine
DX: K75.4 Autoimmune hepatitis (principal); R79.89 Other specified abnormal findings of blood chemistry
CPT/HCPCS: 76700; 76981

== ENCOUNTER → 2024-09-23 15:59 | Outpatient (BNV) | payer MEDICARE, SELFPAY | PROVIDERS: PCP Internal Medicine; Visit Provider Radiology Diagnostic Radiology | DX: K82.8 Other specified diseases of gallbladder (principal); D73.89 Other diseases of spleen | CPT/HCPCS: 76700 ==

== ENCOUNTER 2024-10-04 06:04 | Outpatient (REF) | payer MEDICARE, SELFPAY ==
--- OUTSIDE RECORDS SUMMARY | 2024-10-04 06:06 | XMS_ITS | Patient Health Record ---
Author Organization [facility] Address [address] [place] [address] Care Team Providers Care [employer] Name Role Phone Bessie MARIE, Josephine Primary Care Provider Placido Espinoza [phone] Allergies Allergen (clinical drug ingredient) Drug/Non Drug Allergy documented on EMR Reaction Allergy Type Onset Date Status levofloxacin Levofloxacin RASH Drug Allergy A ctive azathioprine azaTHIOprine N/V Drug Allergy A ctive Results Component Value Reference Range Notes US abdomen comp w elastograp hy (Not yet reviewed by provider) Interpretation: Performing Lab: Notes/Report: [address] [address] Ultrasound Report Signed Patient: Ivet Garcia MR#: [id number] : 1950 Acct:[id number] Age/Sex: 74 / F ADM Date: 09/23/24 Loc: HO.US Attending Dr: Placido Abarca MD Ordering Physician: Placido Abarca MD Date of Service: 09/23/24 Procedure(s): US abdomen comp w elastography Accession Number(s): [id number] cc: Josephine La MD; Placido Abarca MD [...] 09/23/24 1654 DD/ 1559 TD/TT: 09/23/24 1615 Operator Technician: Complete Blood Count Auto Di ff Reviewed date:10/28/2023 11:38:36 AM Interpretation: Performing Lab:[facility], [address] [place] [phone] Notes/Report: White Blood Count 8.3 4.8-10.8 X10*3/uL [...] yet reviewe d by provider) Interpretation: Performing Lab:[address] [address] Notes/Report: Bilirubin Total 1.0 0.0-1.0 mg/dL Bilirubin Direct 0.3 0.0-0.5 mg/dL Aspartate Amino Transferase 32 5-31 U/L Alanine Aminotransferase 29 0-31 U/L Total Protein 7.6 6.5-8.0 g/dL Albumin Level 3.7 3.5-5.0 g/dL Alkaline Phosphatase 74 39-117 U/L Complete Blood Count Auto Di ff Reviewed date:11/24/2023 11:29:56 PM Interpretation: Performing Lab:[address] [address] Notes/Report: White Blood Count 9.3 4.8-10.8 X10*3/uL [...] yet reviewe d by provider) Interpretation: Performing Lab:[facility], [address] [phone] Notes/Report: Bilirubin Total 0.8 0.0-1.0 mg/dL Bilirubin Direct 0.3 0.0-0.5 mg/dL Aspartate Amino Transferase 50 5-31 U/L Alanine Aminotransferase 37 0-31 U/L Total Protein 8.2 6.5-8.0 g/dL Albumin Level 4.0 3.5-5.0 g/dL Alkaline Phosphatase 71 39-117 U/L Complete Blood Count Auto Di ff Reviewed date:12/22/2023 11:22:16 PM Interpretation: Performing Lab:[facility], [address] [place] [phone] Notes/Report: White Blood Count 8.6 4.8-10.8 X10*3/uL [...] Panel Reviewed date:12/25/2023 10:29:39 AM Interpretation: Performing Lab:[facility], [address] [place] [phone] Notes/Report: Bilirubin Total 1.1 0.0-1.0 mg/dL Bilirubin Direct 0.4 0.0-0.5 mg/dL Aspartate Amino Transferase 50 5-31 U/L Alanine Aminotransferase 40 0-31 U/L Total Protein 8.2 6.5-8.0 g/dL Albumin Level 3.9 3.5-5.0 g/dL Alkaline Phosphatase 67 39-117 U/L Complete Blood Count Auto Di ff Reviewed date:01/30/2024 12:40:23 PM Interpretation: Performing Lab:[facility], [address] [place] [phone] Notes/Report: White Blood Count 8.5 4.8-10.8 X10*3/uL [...] Panel Reviewed date:02/02/2024 02:51:52 PM Interpretation: Performing Lab:[facility], [address] [place] [phone] Notes/Report: Bilirubin Total 1.0 0.0-1.0 mg/dL Bilirubin Direct 0.3 0.0-0.5 mg/dL Aspartate Amino Transferase 196 5-31 U/L Alanine Aminotransferase 197 0-31 U/L Total Protein 8.3 6.5-8.0 g/dL Albumin Level 3.4 3.5-5.0 g/dL Alkaline Phosphatase 107 39-117 U/L Liver Panel Reviewed date:02/12/2024 07:36:35 PM Interpretation: Performing Lab:[facility], [address] [place] [phone] Notes/Report: Bilirubin Total 0.9 0.0-1.0 mg/dL Bilirubin Direct 0.3 0.0-0.5 mg/dL Aspartate Amino Transferase 30 5-31 U/L Alanine Aminotransferase 58 0-31 U/L Total Protein 8.3 6.5-8.0 g/dL Albumin Level 3.6 3.5-5.0 g/dL Alkaline Phosphatase 71 39-117 U/L Liver Panel Reviewed date:03/02/2024 07:29:08 AM Interpretation: Performing Lab:[facility], [address] [place] [phone] Notes/Report: Bilirubin Total 0.6 0.0-1.0 mg/dL Bilirubin Direct 0.3 0.0-0.5 mg/dL Aspartate Amino Transferase 21 5-31 U/L Alanine Aminotransferase 24 0-31 U/L Total Protein 7.2 6.5-8.0 g/dL Albumin Level 3.5 3.5-5.0 g/dL Alkaline Phosphatase 57 39-117 U/L Liver Panel (Not yet reviewe d by provider) Interpretation: Performing Lab:[address] [phone] Notes/Report: Bilirubin Total 0.5 0.0-1.0 mg/dL Bilirubin Direct 0.2 0.0-0.5 mg/dL Aspartate Amino Transferase 26 5-31 U/L Alanine Aminotransferase 25 0-31 U/L Total Protein 7.8 6.5-8.0 g/dL Albumin Level 4.0 3.5-5.0 g/dL Alkaline Phosphatase 60 39-117 U/L Liver Panel (Not yet review ed by provider) Interpretation: Performing Lab:[address] [address] Notes/Report: Bilirubin Total 0.9 0.0-1.0 mg/dL Bilirubin Direct 0.3 0.0-0.5 mg/dL Aspartate Amino Transferase 46 5-31 U/L Alanine Aminotransferase 42 0-31 U/L Total Protein 8.2 6.5-8.0 g/dL Albumin Level 3.6 3.5-5.0 g/dL Alkaline Phosphatase 70 39-117 U/L Liver Panel Reviewed date:06/21/2024 11:27:44 AM Interpretation: Performing Lab:[address] [address] Notes/Report: Bilirubin Total 0.7 0.0-1.0 mg/dL Bilirubin Direct 0.3 0.0-0.5 mg/dL Aspartate Amino Transferase 56 5-31 U/L Alanine Aminotransferase 65 0-31 U/L Total Protein 8.9 6.5-8.0 g/dL Albumin Level 3.6 3.5-5.0 g/dL Alkaline Phosphatase 85 39-117 U/L Liver Panel Reviewed date:08/18/2024 03:38:55 PM Interpretation: Performing Lab:[address] [address] Notes/Report: Bilirubin Total 0.9 0.0-1.0 mg/dL Bilirubin Direct 0.3 0.0-0.5 mg/dL Aspartate Amino Transferase 35 5-31 U/L Alanine Aminotransferase 26 0-31 U/L Total Protein 8.0 6.5-8.0 g/dL Albumin Level 3.7 3.5-5.0 g/dL Alkaline Phosphatase 71 39-117 U/L Complete Blood Count Auto Di ff Reviewed date:09/20/2024 07:30:46 PM Interpretation: Performing Lab:[address] [phone] Notes/Report: White Blood Count 8.7 4.8-10.8 X10*3/uL [...] Panel Reviewed date:09/23/2024 03:31:32 PM Interpretation: Performing Lab:[facility], [address] [place] [phone] Notes/Report: Bilirubin Total 0.6 0.0-1.0 mg/dL Bilirubin [...] a day Active Vitamin D3 50 MCG (1999) TAKE 1 CAPSU LE BY MOUTH EVERY [...] Problem Status W/U Status Risk Notes Problem 54190973 Epigastric abdominal pain (R10.13) Active confirmed Problem 048114793 Encounter for screening for malignant neoplasm of colon (Z12.11) Active confirmed Problem 671998522 History of adenomatous polyp of colon (Z86.010) Active confirmed Problem 968616694 Weight loss (R63.4) Active confirmed Problem 32436834 Ulcer of esophag us without bleeding (K22.10) Active confirmed Problem 601715742 Autoimmune hepatitis (K75.4) Active confirmed Problem 228867420 Early satiety (R68.81) Active confirmed Problem 273658359 Gastroesophageal reflux disease with esophagitis (K21.0) Active confirmed Problem 57928871 Abdominal pain, epigastric (R10.13) Active confirmed Problem Iron deficiency anemia (77524580) Iron deficiency anemia (D50.9) Active confirmed Problem Elevated liver enzymes level (032055497) Elevated liver function tests (R79.89) Active confirmed Problem 965164880 Elevated liver enzymes (R74.8) Active confirmed Problem 448119100 Fatty liver (K76.0) Active confirmed Problem 63186946 Hiatal hernia (K44.9) Active confirmed Problem Anemia (091232543) Anemia (D64.9) Active confirmed Problem 35026247 Iron deficiency anemia, unspecified iron deficiency anemia type (D50.9) Active confirmed Problem 781470782 Abnormal UGI ser ies (R93.3) Active confirmed Problem 99055631 Duodenal ulcer (K26.9) Active confirmed Problem 65237150 Diarrhea, unspecified type (R19.7) Active confirmed Problem 47361151 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 Problem 582499412 Elevated liver function tests (R94.5) Active confirmed Problem Nausea and vomiting (73359684) Nausea and vomiting, intractability of vomiting not specified, unspecified vomiting type (R11.2) Active confirmed Problem Diverticulosis of colon (581454717) Diverticulosis of colon (K57.30) Active confirmed Problem 728503156 Abnormal LFTs (R94.5) Active confirmed Vital Signs Blood pressure diastolic 77 mm Hg 09/07/2024 Height 62.5 in 09/07/2024 Blood pressure systolic 111 mm Hg 09/07/2024 Weight 171 lbs 09/07/2024 BMI 30.77 kg/m2 09/07/2024 Encounters Encounter Location Date Provider Diagnosis [facility] [address] [place] [address] 12/25/2023 Placido Abarca Autoimmune hepatitis K75.4 [facility] [address] [place] [address] 09/07/2024 Placido Abarca Autoimmune hepatitis K75.4 and Encounter for screening for malignant neoplasm of colon Z12.11 [facility] [address] [place] [address] 01/27/2024 Placido Abarca Autoimmune hepatitis K75.4 [facility] [address] [place] [address] 01/31/2024 Placido Abarca Autoimmune hepatitis K75.4 [facility] [address] [place] [address] 02/04/2024 Placido Abarca [facility] [address] [place] [address] 03/09/2024 Placido Abarca [facility] [address] [place], [place] [address] [place] [address] 07/27/2024 Placido Abarca Autoimmune hepatitis K75.4 [facility] [address] [place] [address] 09/22/2024 Placido Abarca Autoimmune hepatitis K75.4 and [...] PROFILE 11/11/2021 LIVER PROFILE 09/12/2021 LIVER PROFILE 09/10/2019 LIVER PROFILE 05/25/2023 LIVER PROFILE 07/01/2019 LIVER PROFILE 05/03/2021 LIVER PROFILE 05/27/2022 LIVER PROFILE 01/31/2024 LIVER PROFILE 11/11/2019 LIVER PROFILE 12/26/2022 LIVER PROFILE 09/04/2021 LIVER PROFILE 08/15/2023 LIVER PROFILE 01/28/2023 LIVER PROFILE 07/06/2022 LIVER PROFILE 07/27/2024 LIVER PROFILE 09/22/2024 LIVER PROFILE 12/27/2021 LIVER PROFILE 12/08/2020 LIVER PROFILE 01/18/2021 LIVER PROFILE 09/24/2021 IRON + IBC (FE) 07/06/2022 IRON + IBC (FE) 09/12/2021 IRON + IBC (FE) 12/11/2022 CRP 01/18/2021 CRP 08/29/2020 CRP 09/12/2021 VITAMIN B12 AND FOLATE 09/12/2021 CBC w DIFF 09/04/2021 CBC w DIFF 08/15/2023 CBC w DIFF 06/09/2019 CBC w DIFF 09/22/2024 CBC w DIFF 06/25/2022 CBC w DIFF 12/11/2022 CBC w DIFF 09/24/2021 CBC w DIFF 09/07/2024 CBC w DIFF 06/02/2019 CBC w DIFF 07/06/2022 CBC w DIFF 09/12/2021 CBC w DIFF 01/18/2021 CBC w DIFF 01/27/2024 CBC w DIFF 08/12/2023 CBC w DIFF 08/29/2020 CBC w DIFF 06/04/2019 CBC w DIFF 12/26/2022 SED RATE (ESR) 09/12/2021 SED RATE (ESR) 01/18/2021 SED RATE (ESR) 08/29/2020 HEPATITIS B PROFILE 05/25/2023 ALPHA-FETOPROTEIN,TUMOR MARKER ALPHA-FETOPROTEIN,TUMOR MARKER 3 CELIAC PANEL #10 01/18/2021 OVA & PARASITES (O&P) 01/18/2021 OVA & PARASITES (O&P) 08/29/2020 CULTURE, STOOL 01/18/2021 CULTURE, STOOL 08/29/2020 US ABD 06/03/2019 STOOL WBC 01/18/2021 STOOL WBC 08/29/2020 US ABDOMEN COMP WITH ELASTOGRAPHY 2022 C DIFFICILE RFLX PCR 01/18/2021 C DIFFICILE RFLX PCR 08/29/2020 Prothrombin Time INR 09/04/2021 Prothrombin Time INR 09/22/2024 Liver Panel 05/12/2024 Liver Panel 11/04/2022 Liver Panel 01/05/2021 Liver Panel 10/27/2023 Liver Panel 11/24/2023 Liver Panel 04/02/2024 Ferritin 12/11/2022 Ferritin 07/06/2022 Ferritin 09/12/2021 Vitamin B12 and Folate 07/06/2022 Liver Fibrosis Pnl 09/22/2024 T Spot TB 05/25/2023 US abdomen comp w elastography Future Test Test Name Order Date UPPER GI ENDOSCOPY 08/29/2015 COLONOSCOPY 08/29/2015 UPPER GI ENDOSCOPY 06/02/2019 UPPER GI ENDOSCOPY 06/13/2019 COLONOSCOPY 01/18/2021 Insurance Providers Payer Name Payer Address Payer Phone Subscriber Number Group Number Insured Name Patient Relationship to Insured Coverage Start Date Coverage End Date [facility] [address] [place], [place] [id number] PCP IVET GARCIA Self - patient is the insured 5 Medical (General) History Medical History History ICD Code Colonosocpy 02-26-2010--hype rplastic polyps, 1 tubular adenoma removed in 2002; neg. colonoscopy in 11/2015 Left-sided breast cancer--lumpectomy, XR T, chemo-1999 Denies [place],DM,CVA,Lung disease,renal dise ase Grave's disease EGD 05/2015--duodenal ulcers, erosive gastritis, H. pylori infection, erosive esophagitis, hiatal hernia--Hpylori was treated EGD in 11/2015-healed ulcers, gastric bx neg for Hpylori, small HH Psoriasis Anemia Autoimmune hepatitis diagnos ed in May 2019 with a positive DAISA with a titer of greater than 1:1,280. [...]
[2024-10-04 07:27] LABS: INTERNATIONAL NORM RATIO 1.0 (0.9-1.1); Prothrombin Time 11.4 SEC (10.9-12.4)
[2024-10-04 07:31] LABS: Hematocrit 40.0 % (37.0-47.0); Hemoglobin 12.0 g/dl (12.0-16.0); Imm Gran Abs Auto 0.13 X10*3/uL (0.00-0.03); Imm Gran Pct Auto 1.0 % (0.0-0.4); Lymphocytes Absolute Auto 3.4 X10*3/uL (1.2-4.9); MANUAL DIFF FLAG NO; Mean Corpuscular HGB Conc 30.0 g/dl (31.0-35.0); Mean Corpuscular Hemoglobin 24.8 pg (27.0-33.0); Mean Corpuscular Volume 82.8 fL (80.0-98.0); NRBC Abs Auto 0.000 X10*3/uL (0.0-0.012); NRBC Pct Auto 0.0 /100WBC (0.0-0.2); Platelet Count 340 X10*3/uL (160-400); Red Blood Count 4.83 X10*6/uL (4.20-5.50); White Blood Count 12.6 X10*3/uL (4.8-10.8)
[2024-10-04 07:51] LABS: Alanine Aminotransferase 42 U/L (0-31); Albumin Level 3.6 g/dL (3.5-5.0); Alkaline Phosphatase 87 U/L (39-117); Anion Gap 10 (12-20); Aspartate Amino Transferase 30 U/L (5-31); Blood Urea Nitrogen 14 mg/dL (9-16); Calcium 9.2 mg/dL (8.4-10.2); Carbon Dioxide 27 mmol/L (22-29); Chloride 104 mmol/L (96-108); Estimated Glomerular Filt Rate > 60; Potassium 3.8 mmol/L (3.3-5.1); Sodium 137 mmol/L (135-145); Total Protein 7.7 g/dL (6.5-8.0)
[2024-10-11 15:09] LABS: FIB-ALT 31 U/L (6-29); FIB-Alpha-2-Macroglobulin 321 mg/dL (106-279); FIB-Apolipoprotein A1 153 mg/dL (101-198); FIB-GGT 67 U/L (3-65); FIB-Haptoglobin 141 mg/dL (43-212); FIB-Total Bilirubin 0.4 mg/dL (0.2-1.2); Liver Fibrosis Score 0.52; Liver Fibrosis Stage F2; Nec Inflam Act Grade A0-A1; Nec Inflam Act Score 0.20
== END 2024-10-04 06:05 | disposition home or self-care (01) ==
LOC: HO.LAB 06:04
PROVIDERS: PCP Internal Medicine; Visit Provider Internal Medicine
DX: K75.4 Autoimmune hepatitis (principal); R79.89 Other specified abnormal findings of blood chemistry; Z51.81 Encounter for therapeutic drug level monitoring
CPT/HCPCS: 36415; 80048; 80076; 81596; 82105; 85025; 85610

== ENCOUNTER 2024-10-18 06:09 | Outpatient (REF) | payer MEDICARE, SELFPAY ==
--- OUTSIDE RECORDS SUMMARY | 2024-10-18 06:11 | XMS_ITS | Patient Health Record ---
Author Organization [facility] Address [address] [place] [address] Care Team Providers Care Air Reduction Equipment Operator Name Role Phone Bessie MARIE, Josephine Primary Care Provider Placido Espinoza [phone] Allergies Allergen (clinical drug ingredient) Drug/Non Drug Allergy documented on EMR Reaction Allergy Type Onset Date Status levofloxacin Levofloxacin RASH Drug Allergy A ctive azathioprine azaTHIOprine N/V Drug Allergy A ctive Results Component Value Reference Range Notes US abdomen comp w elastograp hy (Not yet reviewed by provider) Interpretation: Performing Lab: Notes/Report: [address] [address] Ultrasound Report Signed Patient: Ivet Garcia MR#: [id number] : 1950 Acct:[id number] Age/Sex: 74 / F ADM Date: 09/23/24 Loc: HO.US Attending Dr: Placido Abarca MD Ordering Physician: Placido Abarca MD Date of Service: 09/23/24 Procedure(s): US abdomen comp w elastography Accession Number(s): [id number] cc: Josephine La MD; Placido Abarca MD [...] 09/23/24 1654 DD/ 1559 TD/TT: 09/23/24 1615 Visual Journalist: Complete Blood Count Auto Di ff Reviewed date:10/28/2023 11:38:36 AM Interpretation: Performing Lab:[facility], [address] [place] [phone] Notes/Report: White Blood Count 8.3 4.8-10.8 X10*3/uL [...] yet reviewe d by provider) Interpretation: Performing Lab:[address] [address] Notes/Report: Bilirubin Total 1.0 0.0-1.0 mg/dL Bilirubin Direct 0.3 0.0-0.5 mg/dL Aspartate Amino Transferase 32 5-31 U/L Alanine Aminotransferase 29 0-31 U/L Total Protein 7.6 6.5-8.0 g/dL Albumin Level 3.7 3.5-5.0 g/dL Alkaline Phosphatase 74 39-117 U/L Complete Blood Count Auto Di ff Reviewed date:11/24/2023 11:29:56 PM Interpretation: Performing Lab:[address] [phone] Notes/Report: White Blood Count 9.3 4.8-10.8 X10*3/uL [...] yet reviewe d by provider) Interpretation: Performing Lab:[facility], [address] [place] [phone] Notes/Report: Bilirubin Total 0.8 0.0-1.0 mg/dL Bilirubin Direct 0.3 0.0-0.5 mg/dL Aspartate Amino Transferase 50 5-31 U/L Alanine Aminotransferase 37 0-31 U/L Total Protein 8.2 6.5-8.0 g/dL Albumin Level 4.0 3.5-5.0 g/dL Alkaline Phosphatase 71 39-117 U/L Complete Blood Count Auto Di ff Reviewed date:12/22/2023 11:22:16 PM Interpretation: Performing Lab:[facility], [address] [place] [phone] Notes/Report: White Blood Count 8.6 4.8-10.8 X10*3/uL [...] Panel Reviewed date:12/25/2023 10:29:39 AM Interpretation: Performing Lab:[facility], [address] [place] [phone] Notes/Report: Bilirubin Total 1.1 0.0-1.0 mg/dL Bilirubin Direct 0.4 0.0-0.5 mg/dL Aspartate Amino Transferase 50 5-31 U/L Alanine Aminotransferase 40 0-31 U/L Total Protein 8.2 6.5-8.0 g/dL Albumin Level 3.9 3.5-5.0 g/dL Alkaline Phosphatase 67 39-117 U/L Complete Blood Count Auto Di ff Reviewed date:01/30/2024 12:40:23 PM Interpretation: Performing Lab:[facility], [address] [place] [phone] Notes/Report: White Blood Count 8.5 4.8-10.8 X10*3/uL [...] Panel Reviewed date:02/02/2024 02:51:52 PM Interpretation: Performing Lab:[facility], [address] [place] [phone] Notes/Report: Bilirubin Total 1.0 0.0-1.0 mg/dL Bilirubin Direct 0.3 0.0-0.5 mg/dL Aspartate Amino Transferase 196 5-31 U/L Alanine Aminotransferase 197 0-31 U/L Total Protein 8.3 6.5-8.0 g/dL Albumin Level 3.4 3.5-5.0 g/dL Alkaline Phosphatase 107 39-117 U/L Liver Panel Reviewed date:02/12/2024 07:36:35 PM Interpretation: Performing Lab:[facility], [address] [place] [phone] Notes/Report: Bilirubin Total 0.9 0.0-1.0 mg/dL Bilirubin Direct 0.3 0.0-0.5 mg/dL Aspartate Amino Transferase 30 5-31 U/L Alanine Aminotransferase 58 0-31 U/L Total Protein 8.3 6.5-8.0 g/dL Albumin Level 3.6 3.5-5.0 g/dL Alkaline Phosphatase 71 39-117 U/L Liver Panel Reviewed date:03/02/2024 07:29:08 AM Interpretation: Performing Lab:[facility], [address] [place] [phone] Notes/Report: Bilirubin Total 0.6 0.0-1.0 mg/dL Bilirubin Direct 0.3 0.0-0.5 mg/dL Aspartate Amino Transferase 21 5-31 U/L Alanine Aminotransferase 24 0-31 U/L Total Protein 7.2 6.5-8.0 g/dL Albumin Level 3.5 3.5-5.0 g/dL Alkaline Phosphatase 57 39-117 U/L Liver Panel (Not yet reviewe d by provider) Interpretation: Performing Lab:[address] [phone] Notes/Report: Bilirubin Total 0.5 0.0-1.0 mg/dL Bilirubin Direct 0.2 0.0-0.5 mg/dL Aspartate Amino Transferase 26 5-31 U/L Alanine Aminotransferase 25 0-31 U/L Total Protein 7.8 6.5-8.0 g/dL Albumin Level 4.0 3.5-5.0 g/dL Alkaline Phosphatase 60 39-117 U/L Liver Panel (Not yet review ed by provider) Interpretation: Performing Lab:[address] [phone] Notes/Report: Bilirubin Total 0.9 0.0-1.0 mg/dL Bilirubin Direct 0.3 0.0-0.5 mg/dL Aspartate Amino Transferase 46 5-31 U/L Alanine Aminotransferase 42 0-31 U/L Total Protein 8.2 6.5-8.0 g/dL Albumin Level 3.6 3.5-5.0 g/dL Alkaline Phosphatase 70 39-117 U/L Liver Panel Reviewed date:06/21/2024 11:27:44 AM Interpretation: Performing Lab:[address] [address] Notes/Report: Bilirubin Total 0.7 0.0-1.0 mg/dL Bilirubin Direct 0.3 0.0-0.5 mg/dL Aspartate Amino Transferase 56 5-31 U/L Alanine Aminotransferase 65 0-31 U/L Total Protein 8.9 6.5-8.0 g/dL Albumin Level 3.6 3.5-5.0 g/dL Alkaline Phosphatase 85 39-117 U/L Liver Panel Reviewed date:08/18/2024 03:38:55 PM Interpretation: Performing Lab:[address] [phone] Notes/Report: Bilirubin Total 0.9 0.0-1.0 mg/dL Bilirubin Direct 0.3 0.0-0.5 mg/dL Aspartate Amino Transferase 35 5-31 U/L Alanine Aminotransferase 26 0-31 U/L Total Protein 8.0 6.5-8.0 g/dL Albumin Level 3.7 3.5-5.0 g/dL Alkaline Phosphatase 71 39-117 U/L Complete Blood Count Auto Di ff Reviewed date:09/20/2024 07:30:46 PM Interpretation: Performing Lab:[address] [phone] Notes/Report: White Blood Count 8.7 4.8-10.8 X10*3/uL [...] Panel Reviewed date:09/23/2024 03:31:32 PM Interpretation: Performing Lab:[facility], [address] [place] [phone] Notes/Report: Bilirubin Total 0.6 0.0-1.0 mg/dL Bilirubin Direct 0.3 0.0-0.5 mg/dL Aspartate Amino Transferase 111 5-31 U/L Alanine Aminotransferase 102 0-31 U/L Total Protein 8.2 6.5-8.0 g/dL Albumin Level 3.8 3.5-5.0 g/dL Alkaline Phosphatase 112 39-117 U/L Complete Blood Count Auto Di ff Reviewed date:10/04/2024 11:56:42 PM Interpretation: Performing Lab:[facility], [address] [place] [phone] Notes/Report: White Blood Count 12.6 4.8-10.8 X10*3/uL Red Blood Count 4.83 4.20-5.50 X10*6/uL Hemoglobin 12.0 12.0-16.0 g/dl Hematocrit 40.0 37.0-47.0 % Mean Corpuscular Volume 82.8 80.0-98.0 fL Mean Corpuscular Hemoglobin 24.8 27.0-33.0 pg Mean Corpuscular HGB Conc 30.0 31.0-35.0 g/dl Red Cell Distribution Width 20.3 11.0-16.0 % Platelet Count 340 160-400 X10*3/uL Mean Platelet Volume 9.7 9.4-12.3 fL Neutrophils Percent Auto 65.0 45-73 % Imm Gran Pct Auto 1.0 0.0-0.4 % Lymphocytes Percent Auto 27.0 20-40 % Monocytes Percent Auto 6.3 2-11 % Eosinophils Percent Auto 0.3 0-4 % Basophils Percent Auto 0.4 0-2 % NRBC Pct Auto 0.0 0.0-0.2 /100WBC Neutrophils Absolute Auto 8.2 2.0-8.3 x10*3/u L Imm Gran Abs Auto 0.13 0.00-0.03 X10*3/uL Lymphocytes Absolute Auto 3.4 1.2-4.9 X10*3/u L Monocytes Absolute Auto 0.8 0.1-1.2 X10*3/uL Eosinophils Absolute Auto 0.0 0.0-0.4 X10*3/u L Basophils Absolute Auto 0.1 0.0-0.2 X10*3/uL NRBC Abs Auto 0.000 0.0-0.012 X10*3/uL Prothrombin Time INR Reviewed date:10/04/2024 11:56:54 PM Interpretation: Performing Lab:[facility], [address] [place] [phone] Notes/Report: Prothrombin Time 11.4 10.9-12.4 SEC INTERNATIONAL NORM RATIO 1.0 0.9-1.1 INTERNATIONAL NORMALIZED RATIO (INR) REFERENCE RANGES Reference Range For patients not on anticoagulant therapy: 0.9 - 1.1 INR ranges for oral anticoagulant therapy: For prevention and treatment of venous thrombosis and pulmonary embolism: 2.0 - 3.0 For acute myocardial infarction with aspirin therapy: 2.0 - 3.0 For acute myocardial infarction without aspirin therapy: 3.0 - 4.0 For patients with mechanical prosthetic heart valves: 2.5 - 3.5 Liver Panel (Not yet review ed by provider) Interpretation: Performing Lab:[address] [phone] Notes/Report: Bilirubin Total 0.4 0.0-1.0 mg/dL Bilirubin Direct 0.2 0.0-0.5 mg/dL Aspartate Amino Transferase 30 5-31 U/L Alanine Aminotransferase 42 0-31 U/L Total Protein 7.7 6.5-8.0 g/dL Albumin Level 3.6 3.5-5.0 g/dL Alkaline Phosphatase 87 39-117 U/L Basic Metabolic Panel Reviewed date:10/04/2024 11:54:39 PM Interpretation: Performing Lab:[address] [address] Notes/Report: Sodium 137 135-145 mmol/L Potassium 3.8 3.3-5.1 mmol/L Chloride 104 96-108 mmol/L Carbon Dioxide 27 22-29 mmol/L Anion Gap 10 12-20 Blood Urea Nitrogen 14 9-16 mg/dL Creatinine 0.63 0.5-1.4 mg/dL Estimated Glomerular Filt Rate > 60 Chronic Kidney Disease: Estimated GFR < 60 mL/min/1.73m2 Severe Kidney Disease: Estimated GFR < 15 mL/min/1.73m2 Glucose Random 123 60-115 mg/dL Calcium 9.2 8.4-10.2 mg/dL Alpha Fetoprotein (Not yet r eviewed by provider) Interpretation: Performing Lab:[address] [address] Notes/Report: Alpha Fetoprotein 3.1 Reference Range: <6.1 The use of AFP as a tumor marker in females is not recommended. This test was performed using the Daniele Adalberto chemiluminescent method. Values obtained from different assay methods cannot be used interchangeably. AFP levels, regardless of value, should not be interpreted as absolute evidence of the presence or absence of disease. THIS TEST WAS PERFORMED AT: [facility] [address] [place] [phone] LONI HATCH MD Liver Fibrosis Pnl Reviewed date:10/15/2024 08:11:24 AM Interpretation: Performing Lab:[facility], [address] [place] [phone] Notes/Report: Liver Fibrosis Score 0.52 Liver Fibrosis Stage F2 Liver Fibrosis Interpretation SEE NOTE moderate fibrosis Fibro Test Score (f) Metavir Score f>=0 and f<=0.21 : F0 (no fibrosis) f>0.21 and f<=0.27 : F0-F1 (no fibrosis) f>0.27 and f<=0.31 : F1 (minimal fibrosis) f>0.31 and f<=0.48 : F1-F2 (minimal fibrosis) f>0.48 and f<=0.58 : F2 (moderate fibrosis) f>0.58 and f<=0.72 : F3 (advanced fibrosis) f>0.72 and f<=0.74 : F3-F4 (advanced fibrosis) f>0.74 and f<=1.00 : F4 (severe fibrosis) Nec Inflam Act Score 0.20 Nec Inflam Act Grade A0-A1 Nec Inflam Act Interpretation SEE NOTE no activity ActiTest Score (a) Metavir Score a>=0 and a<=0.17 : A0 (no activity) a>0.17 and a<=0.29 : A0-A1 (no activity) a>0.29 and a<=0.36 : A1 (minimal activity) a>0.36 and a<=0.52 : A1-A2 (minimal activity) a>0.52 and a<=0.60 : A2 (significant activity) a>0.60 and a<=0.62 : A2-A3 (significant activity) a>0.62 and a<=1.00 : A3 (severe activity) DBZ-[id number]-9-Macroglobulin 321 106-279 mg/dL FIB-Haptoglobin 141 43-212 mg/dL FIB-Apolipoprotein A1 153 101-198 mg/dL FIB-Total Bilirubin 0.4 0.2-1.2 mg/dL FIB-GGT 67 3-65 U/L FIB-ALT 31 6-29 U/L Reference ID [id number] Footnote SEE NOTE The reliability of results is dependent on compliance with the preanalytical and analytical conditions recommended by [employer]. The tests have to be deferred for: acute hemolysis, acute hepatitis, acute inflammation, extra hepatic cholestasis. The advice of a specialist should be sought for interpretation in chronic hemolysis and Gilbert's syndrome. The test interpretation is not validated in liver transplant patients. Isolated extreme values of one of the components should lead to caution in interpreting the results. In case of discordance between a biopsy result and a test, it is recommended to seek the advice of a specialist. The causes of these discordances could be due to a flaw of the test or to a flaw in the biopsy: i.e. a liver biopsy has a 33% variability rate for one fibrosis stage. FibroTest is interpretable for chronic hepatitis B and C, alcoholic and non alcoholic steatosis. ActiTest is interpretable for chronic hepatitis B and C. The performance characteristics have been determined by [facility]. It has not been cleared or approved by the U.S. Food and Drug Administration. Performance characteristics refer to the analytical performance of the test. [employer], [employer], the associated logo, [employer] and all associated [employer] miranda are the registered trademarks of [employer]. All third republican miranda - (R) and (TM) - are the property of their respective owners. (C) 3747-2049 [employer]. All rights reserved. THIS TEST WAS PERFORMED AT: [employer] [facility] [place] [address] [place] [address] DARRIAN LOZANO MD,PHD,VALERIE Reason For Referral No Information Medications Medication [...] Problem Status W/U Status Risk Notes Problem 37415456 Epigastric abdominal pain (R10.13) Active confirmed Problem 664172747 Encounter for screening for malignant neoplasm of colon (Z12.11) Active confirmed Problem 891053406 History of adenomatous polyp of colon (Z86.010) Active confirmed Problem 062283990 Weight loss (R63.4) Active confirmed Problem 43215544 Ulcer of esophag us without bleeding (K22.10) Active confirmed Problem 976087731 Autoimmune hepatitis (K75.4) Active confirmed Problem 130866144 Early satiety (R68.81) Active confirmed Problem 079563697 Gastroesophageal reflux disease with esophagitis (K21.0) Active confirmed Problem 44594858 Abdominal pain, epigastric (R10.13) Active confirmed Problem Iron deficiency anemia (23878211) Iron deficiency anemia (D50.9) Active confirmed Problem Elevated liver function tests (R79.89) Active confirmed Problem 883404523 Elevated liver enzymes (R74.8) Active confirmed Problem 244419556 Fatty liver (K76.0) Active confirmed Problem 89018791 Hiatal hernia (K44.9) Active confirmed Problem Anemia (892000021) Anemia (D64.9) Active confirmed Problem 67699957 Iron deficiency anemia, unspecified iron deficiency anemia type (D50.9) Active confirmed Problem 042809616 Abnormal UGI ser ies (R93.3) Active confirmed Problem 96121868 Duodenal ulcer (K26.9) Active confirmed Problem 57863680 Diarrhea, unspecified type (R19.7) Active confirmed Problem 52169015 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 Problem 032654486 Elevated liver function tests (R94.5) Active confirmed Problem Nausea and vomiting (77019096) Nausea and vomiting, intractability of vomiting not specified, unspecified vomiting type (R11.2) Active confirmed Problem Diverticulosis of colon (733032107) Diverticulosis of colon (K57.30) Active confirmed Problem 717398063 Abnormal LFTs (R94.5) Active confirmed Vital Signs Blood pressure diastolic 77 mm Hg 09/07/2024 Height 62.5 in 09/07/2024 Blood pressure systolic 111 mm Hg 09/07/2024 Weight 171 lbs 09/07/2024 BMI 30.77 kg/m2 09/07/2024 Encounters Encounter Location Date Provider Diagnosis [facility] [address] [place] [phone] 12/25/2023 Placido Abarca Autoimmune hepatitis K75.4 [facility] [address] [place] [address] 09/07/2024 Placido Abarca Autoimmune hepatitis K75.4 and Encounter for screening for malignant neoplasm of colon Z12.11 [facility] [address] [place] [phone] 01/27/2024 Placido Abarca Autoimmune hepatitis K75.4 [facility] [address] [place] [address] 01/31/2024 Placido Abarca Autoimmune hepatitis K75.4 [facility] [address] [place] [phone] 02/04/2024 Placido Abarca [facility] [address] [place] [phone] 03/09/2024 Placido Abarca [facility] [address] [place] [phone] 07/27/2024 Placido Abarca Autoimmune hepatitis K75.4 [facility] [address] [place] [address] 09/22/2024 Placido Abarca Autoimmune hepatitis K75.4 and Elevated liver function tests R79.89 [facility] [address] [place] [address] 10/08/2024 Placido Abarca Autoimmune hepatitis K75.4 Assessments Encounter [...] Elevated liver function tests (ICD-10 - R79.89) 10/08/2024 Autoimmune hepatitis (ICD-10 - K75.4) 09/07/2024 Encounter for screening for malignant neoplasm [...] PROFILE 07/01/2019 LIVER PROFILE 05/03/2021 LIVER PROFILE 10/08/2024 LIVER PROFILE 05/27/2022 LIVER PROFILE 01/31/2024 LIVER [...] B PROFILE 05/25/2023 ALPHA-FETOPROTEIN,TUMOR MARKER ALPHA-FETOPROTEIN,TUMOR MARKER 5 CELIAC PANEL #10 01/18/2021 OVA & PARASITES (O&P) 01/18/2021 OVA & PARASITES (O&P) 08/29/2020 CULTURE, STOOL 01/18/2021 CULTURE, STOOL 08/29/2020 US ABD 06/03/2019 STOOL WBC 01/18/2021 STOOL WBC 08/29/2020 US ABDOMEN COMP WITH ELASTOGRAPHY 2022 C DIFFICILE RFLX PCR 01/18/2021 C DIFFICILE RFLX PCR 08/29/2020 Prothrombin Time INR 09/04/2021 Prothrombin Time INR 09/22/2024 Liver Panel 10/27/2023 Liver Panel 11/24/2023 Liver Panel 01/05/2021 Liver Panel 04/02/2024 Liver Panel 05/12/2024 Liver Panel 11/04/2022 Liver Panel 10/04/2024 Ferritin 12/11/2022 Ferritin 07/06/2022 Ferritin 09/12/2021 Vitamin B12 and Folate 07/06/2022 Alpha Fetoprotein 10/04/2024 Liver Fibrosis Pnl 09/22/2024 T Spot TB 05/25/2023 US abdomen comp w elastography Future Test Test Name Order Date UPPER GI ENDOSCOPY 08/29/2015 COLONOSCOPY 08/29/2015 UPPER GI ENDOSCOPY 06/02/2019 UPPER GI ENDOSCOPY 06/13/2019 COLONOSCOPY 01/18/2021 Insurance Providers Payer Name Payer Address Payer Phone Subscriber Number Group Number Insured Name Patient Relationship to Insured Coverage Start Date Coverage End Date [facility] [address] [place], [place] [id number] PCP IVET GARCIA Self - patient is the insured 5 Medical (General) History Medical History History ICD Code Colonosocpy 02-26-2010--hype rplastic polyps, 1 tubular adenoma removed in 2002; neg. colonoscopy in 11/2015 Left-sided breast cancer--lumpectomy, XR T, chemo-1999 Denies CO,DM,CVA,Lung disease,renal dise ase Grave's disease EGD 05/2015--duodenal [...]
[2024-10-18 08:26] LABS: Alanine Aminotransferase 35 U/L (0-31); Albumin Level 3.7 g/dL (3.5-5.0); Alkaline Phosphatase 72 U/L (39-117); Aspartate Amino Transferase 37 U/L (5-31); Total Protein 8.0 g/dL (6.5-8.0)
== END 2024-10-18 06:10 | disposition home or self-care (01) ==
LOC: HO.LAB 06:09
PROVIDERS: PCP Internal Medicine; Visit Provider Internal Medicine
DX: K75.4 Autoimmune hepatitis (principal)
CPT/HCPCS: 36415; 80076

== ENCOUNTER 2024-11-16 06:56 | Outpatient (REF) | payer MEDICARE, SELFPAY ==
[2024-11-16 07:55] LABS: Alanine Aminotransferase 18 U/L (0-31); Albumin Level 3.9 g/dL (3.5-5.0); Alkaline Phosphatase 71 U/L (39-117); Aspartate Amino Transferase 26 U/L (5-31); Total Protein 7.7 g/dL (6.5-8.0)
== END 2024-11-16 06:57 | disposition home or self-care (01) ==
LOC: HO.LABR 06:56
PROVIDERS: PCP Internal Medicine; Visit Provider Internal Medicine
DX: K75.4 Autoimmune hepatitis (principal)
CPT/HCPCS: 36415; 80076

== ENCOUNTER 2024-12-21 06:53 | Outpatient (REF) | payer MEDICARE, SELFPAY ==
--- OUTSIDE RECORDS SUMMARY | 2024-12-21 06:55 | XMS_ITS | Patient Health Record ---
Author Organization [facility] Address [address] [place] [address] Care Team Providers Care Insurance Writer Name Role Phone Bessie MARIE, Josephine Primary Care Provider Placido Espinoza [phone] Allergies Allergen (clinical drug ingredient) Drug/Non Drug Allergy documented on EMR Reaction Allergy Type Onset Date Status levofloxacin Levofloxacin RASH Drug Allergy A ctive azathioprine azaTHIOprine N/V Drug Allergy A ctive Results Component Value Reference Range Notes US abdomen comp w elastograp hy Reviewed date:10/24/2024 10:24:44 PM Interpretation: Performing Lab: Notes/Report: [address] [address] Ultrasound Report Signed Patient: Ivet Garcia MR#: [id number] : 1950 Acct:[id number] Age/Sex: 74 / F ADM Date: 09/23/24 Loc: HO.US Attending Dr: Placido Abarca MD Ordering Physician: Placido Abarca MD Date of Service: 09/23/24 Procedure(s): US abdomen comp w elastography Accession Number(s): [id number] cc: Josephine La MD; Placido Abarca MD [...] 09/23/24 1654 DD/ 1559 TD/TT: 09/23/24 1615 Can Intake Worker: Complete Blood Count Auto Di ff Reviewed date:12/22/2023 11:22:16 PM Interpretation: Performing Lab:[facility], [address] [place] [phone] Notes/Report: White Blood Count 8.6 4.8-10.8 X10*3/uL [...] Panel Reviewed date:12/25/2023 10:29:39 AM Interpretation: Performing Lab:[address] [address] Notes/Report: Bilirubin Total 1.1 0.0-1.0 mg/dL Bilirubin Direct 0.4 0.0-0.5 mg/dL Aspartate Amino Transferase 50 5-31 U/L Alanine Aminotransferase 40 0-31 U/L Total Protein 8.2 6.5-8.0 g/dL Albumin Level 3.9 3.5-5.0 g/dL Alkaline Phosphatase 67 39-117 U/L Complete Blood Count Auto Di ff Reviewed date:01/30/2024 12:40:23 PM Interpretation: Performing Lab:[address] [address] Notes/Report: White Blood Count 8.5 4.8-10.8 X10*3/uL [...] Panel Reviewed date:02/02/2024 02:51:52 PM Interpretation: Performing Lab:[facility], [address] [place] [phone] Notes/Report: Bilirubin Total 1.0 0.0-1.0 mg/dL Bilirubin Direct 0.3 0.0-0.5 mg/dL Aspartate Amino Transferase 196 5-31 U/L Alanine Aminotransferase 197 0-31 U/L Total Protein 8.3 6.5-8.0 g/dL Albumin Level 3.4 3.5-5.0 g/dL Alkaline Phosphatase 107 39-117 U/L Liver Panel Reviewed date:02/12/2024 07:36:35 PM Interpretation: Performing Lab:[facility], [address] [place] [phone] Notes/Report: Bilirubin Total 0.9 0.0-1.0 mg/dL Bilirubin Direct 0.3 0.0-0.5 mg/dL Aspartate Amino Transferase 30 5-31 U/L Alanine Aminotransferase 58 0-31 U/L Total Protein 8.3 6.5-8.0 g/dL Albumin Level 3.6 3.5-5.0 g/dL Alkaline Phosphatase 71 39-117 U/L Liver Panel Reviewed date:03/02/2024 07:29:08 AM Interpretation: Performing Lab:[facility], [address] [place] [phone] Notes/Report: Bilirubin Total 0.6 0.0-1.0 mg/dL Bilirubin Direct 0.3 0.0-0.5 mg/dL Aspartate Amino Transferase 21 5-31 U/L Alanine Aminotransferase 24 0-31 U/L Total Protein 7.2 6.5-8.0 g/dL Albumin Level 3.5 3.5-5.0 g/dL Alkaline Phosphatase 57 39-117 U/L Liver Panel (Not yet reviewe d by provider) Interpretation: Performing Lab:[facility], [address] [place] [phone] Notes/Report: Bilirubin Total 0.5 0.0-1.0 mg/dL Bilirubin Direct 0.2 0.0-0.5 mg/dL Aspartate Amino Transferase 26 5-31 U/L Alanine Aminotransferase 25 0-31 U/L Total Protein 7.8 6.5-8.0 g/dL Albumin Level 4.0 3.5-5.0 g/dL Alkaline Phosphatase 60 39-117 U/L Liver Panel (Not yet reviewe d by provider) Interpretation: Performing Lab:[address] [phone] Notes/Report: Bilirubin Total 0.9 0.0-1.0 mg/dL Bilirubin Direct 0.3 0.0-0.5 mg/dL Aspartate Amino Transferase 46 5-31 U/L Alanine Aminotransferase 42 0-31 U/L Total Protein 8.2 6.5-8.0 g/dL Albumin Level 3.6 3.5-5.0 g/dL Alkaline Phosphatase 70 39-117 U/L Liver Panel Reviewed date:06/21/2024 11:27:44 AM Interpretation: Performing Lab:[facility], [address] [place] [phone] Notes/Report: Bilirubin Total 0.7 0.0-1.0 mg/dL Bilirubin Direct 0.3 0.0-0.5 mg/dL Aspartate Amino Transferase 56 5-31 U/L Alanine Aminotransferase 65 0-31 U/L Total Protein 8.9 6.5-8.0 g/dL Albumin Level 3.6 3.5-5.0 g/dL Alkaline Phosphatase 85 39-117 U/L Liver Panel Reviewed date:08/18/2024 03:38:55 PM Interpretation: Performing Lab:[facility], [address] [place] [phone] Notes/Report: Bilirubin Total 0.9 0.0-1.0 mg/dL Bilirubin Direct 0.3 0.0-0.5 mg/dL Aspartate Amino Transferase 35 5-31 U/L Alanine Aminotransferase 26 0-31 U/L Total Protein 8.0 6.5-8.0 g/dL Albumin Level 3.7 3.5-5.0 g/dL Alkaline Phosphatase 71 39-117 U/L Complete Blood Count Auto Di ff Reviewed date:09/20/2024 07:30:46 PM Interpretation: Performing Lab:[address] [phone] Notes/Report: White Blood Count 8.7 4.8-10.8 X10*3/uL [...] Panel Reviewed date:09/23/2024 03:31:32 PM Interpretation: Performing Lab:[facility], [address] [place] [phone] Notes/Report: Bilirubin Total 0.6 0.0-1.0 mg/dL Bilirubin Direct 0.3 0.0-0.5 mg/dL Aspartate Amino Transferase 111 5-31 U/L Alanine Aminotransferase 102 0-31 U/L Total Protein 8.2 6.5-8.0 g/dL Albumin Level 3.8 3.5-5.0 g/dL Alkaline Phosphatase 112 39-117 U/L Complete Blood Count Auto Di ff Reviewed date:10/04/2024 11:56:42 PM Interpretation: Performing Lab:[facility], [address] [place] [phone] Notes/Report: White Blood Count 12.6 4.8-10.8 X10*3/uL [...] INR Reviewed date:10/04/2024 11:56:54 PM Interpretation: Performing Lab:[address] [address] Notes/Report: Prothrombin Time 11.4 10.9-12.4 [employer] [...] heart valves: 2.5 - 3.5 Liver Panel Reviewed date:10/24/2024 10:16:54 PM Interpretation: Performing Lab:[facility] [address] Notes/Report: Bilirubin Total 0.4 0.0-1.0 mg/dL Bilirubin Direct 0.2 0.0-0.5 mg/dL Aspartate Amino Transferase 30 5-31 U/L Alanine Aminotransferase 42 0-31 U/L Total Protein 7.7 6.5-8.0 g/dL Albumin Level 3.6 3.5-5.0 g/dL Alkaline Phosphatase 87 39-117 U/L Basic Metabolic Panel Reviewed date:10/04/2024 11:54:39 PM Interpretation: Performing Lab:[address] [address] Notes/Report: Sodium 137 135-145 mmol/L Potassium 3.8 [...] mg/dL Calcium 9.2 8.4-10.2 mg/dL Alpha Fetoprotein Reviewed date:10/24/2024 10:16:39 PM Interpretation: Performing Lab:[address] [address] Notes/Report: Alpha Fetoprotein 3.1 Reference Range: <6.1 [...] of disease. THIS TEST WAS PERFORMED AT: [facility] [address] [place] [phone] LONI HATCH MD Liver Fibrosis Pnl Reviewed date:10/15/2024 08:11:24 AM Interpretation: Performing Lab:[address] [address] Notes/Report: Liver Fibrosis Score 0.52 Liver Fibrosis [...] a>0.62 and a<=1.00 : A3 (severe activity) WGR-Enoly-3-Macroglobulin 321 106-279 mg/dL FIB-Haptoglobin 141 43-212 mg/dL FIB-Apolipoprotein A1 153 101-198 mg/dL FIB-Total Bilirubin 0.4 0.2-1.2 mg/dL FIB-GGT 67 3-65 U/L FIB-ALT 31 6-29 U/L Reference ID [id number] Footnote SEE NOTE The reliability of results is dependent on compliance with the preanalytical and analytical conditions recommended by [employer]. The tests have to be deferred for: [...] The performance characteristics have been determined by [facility]. It has not been cleared or approved by the U.S. Food and Drug Administration. Performance characteristics refer to the analytical performance of the test. [employer], the associated logo, [employer] and all associated [employer] miranda are the registered trademarks of [employer]. All third green party miranda - (R) and (TM) - are the property of their respective owners. (C) [id number] [employer]. All rights reserved. THIS TEST WAS PERFORMED AT: [facility] [address] [place] [address] DARRIAN LOZANO MD,PHD,VALERIE Liver Panel Reviewed date:10/24/2024 08:36:13 PM Interpretation: Performing Lab:[facility], [address] [place] [phone] Notes/Report: Bilirubin Total 0.7 0.0-1.0 mg/dL Bilirubin Direct 0.3 0.0-0.5 mg/dL Aspartate Amino Transferase 37 5-31 U/L Alanine Aminotransferase 35 0-31 U/L Total Protein 8.0 6.5-8.0 g/dL Albumin Level 3.7 3.5-5.0 g/dL Alkaline Phosphatase 72 39-117 U/L Liver Panel Reviewed date:11/17/2024 12:00:12 AM Interpretation: Performing Lab:[facility], [address] [place] [phone] Notes/Report: Bilirubin Total 0.6 0.0-1.0 mg/dL Bilirubin Direct 0.2 0.0-0.5 mg/dL Aspartate Amino Transferase 26 5-31 U/L Alanine Aminotransferase 18 0-31 U/L Total Protein 7.7 6.5-8.0 g/dL Albumin Level 3.9 3.5-5.0 g/dL Alkaline Phosphatase 71 39-117 U/L [...] Problem Status W/U Status Risk Notes Problem 80287822 Epigastric abdominal pain (R10.13) Active confirmed Problem 095157194 Encounter for screening for malignant neoplasm of colon (Z12.11) Active confirmed Problem 492482440 History of adenomatous polyp of colon (Z86.010) Active confirmed Problem 516161712 Weight loss (R63.4) Active confirmed Problem 52253896 Ulcer of esophag us without bleeding (K22.10) Active confirmed Problem 185762784 Autoimmune hepatitis (K75.4) Active confirmed Problem 202733050 Early satiety (R68.81) Active confirmed Problem 654253330 Gastroesophageal reflux disease with esophagitis (K21.0) Active confirmed Problem 54527927 Abdominal pain, epigastric (R10.13) Active confirmed Problem Iron deficiency anemia (85577786) Iron deficiency anemia (D50.9) Active confirmed Problem Elevated liver enzymes level (959358226) Elevated liver function tests (R79.89) Active confirmed Problem 760068335 Elevated liver enzymes (R74.8) Active confirmed Problem 682429394 Fatty liver (K76.0) Active confirmed Problem 53858343 Hiatal hernia (K44.9) Active confirmed Problem Anemia (876575506) Anemia (D64.9) Active confirmed Problem 64643896 Iron deficiency anemia, unspecified iron deficiency anemia type (D50.9) Active confirmed Problem 141264391 Abnormal UGI ser ies (R93.3) Active confirmed Problem 76440321 Duodenal ulcer (K26.9) Active confirmed Problem 58187352 Diarrhea, unspecified type (R19.7) Active confirmed Problem 33588729 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 Problem 828074143 Elevated liver function tests (R94.5) Active confirmed Problem Nausea and vomiting (98058437) Nausea and vomiting, intractability of vomiting not specified, unspecified vomiting type (R11.2) Active confirmed Problem Diverticulosis of colon (756425812) Diverticulosis of colon (K57.30) Active confirmed Problem 393614445 Abnormal LFTs (R94.5) Active confirmed Vital Signs Blood pressure diastolic 77 mm Hg 09/07/2024 Height 62.5 in 09/07/2024 Blood pressure systolic 111 mm Hg 09/07/2024 Weight 171 lbs 09/07/2024 BMI 30.77 kg/m2 09/07/2024 Encounters Encounter Location Date Provider Diagnosis [facility] [address] [place] [phone] 12/25/2023 Placido Abarca Autoimmune hepatitis K75.4 [facility] [address] [place] [phone] 09/07/2024 Placido Abarca Autoimmune hepatitis K75.4 and Encounter for screening for malignant neoplasm of colon Z12.11 [facility] [address] [place] [phone] 01/27/2024 Placido Abarca Autoimmune hepatitis K75.4 [facility] [address] [place] [phone] 01/31/2024 Placido Abarca Autoimmune hepatitis K75.4 [facility] [address] [place] [phone] 02/04/2024 Placido Abarca [facility] [address] [place] [phone] 03/09/2024 Placido Abarca [facility] [address] [place] [phone] 07/27/2024 Placido Abarca Autoimmune hepatitis K75.4 [facility] [address] [place] [phone] 09/22/2024 Placido Abarca Autoimmune hepatitis K75.4 and Elevated liver function tests R79.89 [facility] [address] [place] [phone] 10/08/2024 Placido Abarca Autoimmune hepatitis K75.4 [facility] [address] [place] [phone] 10/24/2024 Placido Abarca Autoimmune hepatitis K75.4 [facility] [address] [place] [phone] 11/16/2024 Placido Abarca Assessments Encounter Date Diagnosis (ICD [...] R79.89) 10/08/2024 Autoimmune hepatitis (ICD-10 - K75.4) 10/24/2024 Autoimmune hepatitis (ICD-10 - K75.4) 09/07/2024 Encounter [...] PROFILE 01/02/2021 LIVER PROFILE 08/29/2020 LIVER PROFILE 09/22/2024 LIVER PROFILE 01/27/2024 LIVER PROFILE 02/04/2023 LIVER PROFILE 10/08/2024 LIVER PROFILE 08/12/2023 LIVER PROFILE 11/11/2021 LIVER PROFILE 09/12/2021 LIVER PROFILE 05/25/2023 LIVER PROFILE 09/10/2019 LIVER PROFILE 07/01/2019 LIVER PROFILE 10/24/2024 LIVER PROFILE 05/03/2021 LIVER PROFILE 05/27/2022 LIVER [...] B12 AND FOLATE 09/12/2021 CBC w DIFF 08/15/2023 CBC w DIFF 09/04/2021 CBC w DIFF 06/09/2019 CBC w DIFF 06/25/2022 CBC w DIFF 12/11/2022 CBC w DIFF 09/07/2024 CBC w DIFF 09/24/2021 CBC w DIFF 06/02/2019 CBC w DIFF 07/06/2022 CBC w DIFF 09/12/2021 CBC w DIFF 01/18/2021 CBC w DIFF 09/22/2024 CBC w DIFF 01/27/2024 CBC w DIFF 08/12/2023 CBC w DIFF 08/29/2020 CBC w DIFF 06/04/2019 CBC w DIFF 12/26/2022 SED RATE (ESR) 09/12/2021 SED RATE (ESR) 01/18/2021 SED RATE (ESR) 08/29/2020 HEPATITIS B PROFILE 05/25/2023 ALPHA-FETOPROTEIN,TUMOR MARKER ALPHA-FETOPROTEIN,TUMOR MARKER CELIAC PANEL #10 01/18/2021 OVA [...] Fibrosis Pnl 09/22/2024 T Spot TB 05/25/2023 Future Test Test Name Order Date UPPER GI ENDOSCOPY 08/29/2015 COLONOSCOPY 08/29/2015 UPPER GI ENDOSCOPY 06/02/2019 UPPER GI ENDOSCOPY 06/13/2019 COLONOSCOPY 01/18/2021 Next Appt Details Provider Name:Placido Markie Abarca , 03/16/2025 03:40:00 PM, [address] [place] [address], [place] [address], [place], [address], Insurance Providers Payer Name Payer Address Payer Phone Subscriber Number Group Number Insured Name Patient Relationship to Insured Coverage Start Date Coverage End Date [facility] [address] ANGELIQUE MOLINA [id number] PCP IVET GARCIA Self - patient is the insured 5 Medical (General) History Medical History History ICD Code Colonosocpy 02-26-2010--hype rplastic polyps, 1 tubular adenoma removed in 2002; neg. colonoscopy in 11/2015 Left-sided breast cancer--lumpectomy, XR T, chemo-1999 Denies VT,DM,CVA,Lung disease,renal dise ase Grave's disease EGD 05/2015--duodenal [...]
[2024-12-21 08:28] LABS: Alanine Aminotransferase 31 U/L (0-31); Albumin Level 4.2 g/dL (3.5-5.0); Alkaline Phosphatase 75 U/L (39-117); Aspartate Amino Transferase 35 U/L (5-31); Total Protein 8.2 g/dL (6.5-8.0)
== END 2024-12-21 06:54 | disposition home or self-care (01) ==
LOC: HO.LABR 06:53
PROVIDERS: PCP Internal Medicine; Visit Provider Internal Medicine
DX: K75.4 Autoimmune hepatitis (principal)
CPT/HCPCS: 36415; 80076

== ENCOUNTER 2025-01-13 06:57 | Outpatient (REF) | payer MEDICARE, SELFPAY ==
--- OUTSIDE RECORDS SUMMARY | 2025-01-13 07:00 | XMS_ITS | Patient Health Record ---
Author Organization [facility] Address [address] [place] [phone] Care Team Providers Care Advanced Manufacturing Associate Name Role Phone Bessie MARIE, Josephine Primary Care Provider Placido Espinoza [phone] Allergies Allergen (clinical drug ingredient) Drug/Non Drug Allergy documented on EMR Reaction Allergy Type Onset Date Status levofloxacin Levofloxacin RASH Drug Allergy A ctive azathioprine azaTHIOprine N/V Drug Allergy A ctive Results Component Value Reference Range Notes US abdomen comp w elastograp hy Reviewed date:10/24/2024 10:24:44 PM Interpretation: Performing Lab: Notes/Report: [address] [address] Ultrasound Report Signed Patient: Ivet Garcia MR#: [id number] : 1950 Acct:[id number] Age/Sex: 74 / F ADM Date: 09/23/24 Loc: HO.US Attending Dr: Placido Abarca MD Ordering Physician: Placido Abarca MD Date of Service: 09/23/24 Procedure(s): US abdomen comp w elastography Accession Number(s): [id number] cc: Josephine La MD; Placido Abarca MD [...] 09/23/24 1654 DD/ 1559 TD/TT: 09/23/24 1615 Loading Dock Hand: Complete Blood Count Auto Di ff Reviewed date:01/30/2024 12:40:23 PM Interpretation: Performing Lab:[facility], [address] [place] [phone] Notes/Report: White Blood Count 8.5 4.8-10.8 X10*3/uL [...] Panel Reviewed date:02/02/2024 02:51:52 PM Interpretation: Performing Lab:[facility], [address] [place] [phone] Notes/Report: Bilirubin Total 1.0 0.0-1.0 mg/dL Bilirubin Direct 0.3 0.0-0.5 mg/dL Aspartate Amino Transferase 196 5-31 U/L Alanine Aminotransferase 197 0-31 U/L Total Protein 8.3 6.5-8.0 g/dL Albumin Level 3.4 3.5-5.0 g/dL Alkaline Phosphatase 107 39-117 U/L Liver Panel Reviewed date:02/12/2024 07:36:35 PM Interpretation: Performing Lab:[facility], [address] [place] [phone] Notes/Report: Bilirubin Total 0.9 0.0-1.0 mg/dL Bilirubin Direct 0.3 0.0-0.5 mg/dL Aspartate Amino Transferase 30 5-31 U/L Alanine Aminotransferase 58 0-31 U/L Total Protein 8.3 6.5-8.0 g/dL Albumin Level 3.6 3.5-5.0 g/dL Alkaline Phosphatase 71 39-117 U/L Liver Panel Reviewed date:03/02/2024 07:29:08 AM Interpretation: Performing Lab:[address] [phone] Notes/Report: Bilirubin Total 0.6 0.0-1.0 mg/dL Bilirubin Direct 0.3 0.0-0.5 mg/dL Aspartate Amino Transferase 21 5-31 U/L Alanine Aminotransferase 24 0-31 U/L Total Protein 7.2 6.5-8.0 g/dL Albumin Level 3.5 3.5-5.0 g/dL Alkaline Phosphatase 57 39-117 U/L Liver Panel (Not yet reviewe d by provider) Interpretation: Performing Lab:[address] [phone] Notes/Report: Bilirubin Total 0.5 0.0-1.0 mg/dL Bilirubin Direct 0.2 0.0-0.5 mg/dL Aspartate Amino Transferase 26 5-31 U/L Alanine Aminotransferase 25 0-31 U/L Total Protein 7.8 6.5-8.0 g/dL Albumin Level 4.0 3.5-5.0 g/dL Alkaline Phosphatase 60 39-117 U/L Liver Panel (Not yet reviewe d by provider) Interpretation: Performing Lab:[address] [phone] Notes/Report: Bilirubin Total 0.9 0.0-1.0 mg/dL Bilirubin Direct 0.3 0.0-0.5 mg/dL Aspartate Amino Transferase 46 5-31 U/L Alanine Aminotransferase 42 0-31 U/L Total Protein 8.2 6.5-8.0 g/dL Albumin Level 3.6 3.5-5.0 g/dL Alkaline Phosphatase 70 39-117 U/L Liver Panel Reviewed date:06/21/2024 11:27:44 AM Interpretation: Performing Lab:[address] [phone] Notes/Report: Bilirubin Total 0.7 0.0-1.0 mg/dL Bilirubin Direct 0.3 0.0-0.5 mg/dL Aspartate Amino Transferase 56 5-31 U/L Alanine Aminotransferase 65 0-31 U/L Total Protein 8.9 6.5-8.0 g/dL Albumin Level 3.6 3.5-5.0 g/dL Alkaline Phosphatase 85 39-117 U/L Liver Panel Reviewed date:08/18/2024 03:38:55 PM Interpretation: Performing Lab:[facility], [address] [place] [phone] Notes/Report: Bilirubin Total 0.9 0.0-1.0 mg/dL Bilirubin Direct 0.3 0.0-0.5 mg/dL Aspartate Amino Transferase 35 5-31 U/L Alanine Aminotransferase 26 0-31 U/L Total Protein 8.0 6.5-8.0 g/dL Albumin Level 3.7 3.5-5.0 g/dL Alkaline Phosphatase 71 39-117 U/L Complete Blood Count Auto Di ff Reviewed date:09/20/2024 07:30:46 PM Interpretation: Performing Lab:[facility], [address] [place] [phone] Notes/Report: White Blood Count 8.7 4.8-10.8 X10*3/uL [...] Panel Reviewed date:09/23/2024 03:31:32 PM Interpretation: Performing Lab:[facility], [address] [place] [phone] Notes/Report: Bilirubin Total 0.6 0.0-1.0 mg/dL Bilirubin Direct 0.3 0.0-0.5 mg/dL Aspartate Amino Transferase 111 5-31 U/L Alanine Aminotransferase 102 0-31 U/L Total Protein 8.2 6.5-8.0 g/dL Albumin Level 3.8 3.5-5.0 g/dL Alkaline Phosphatase 112 39-117 U/L Complete Blood Count Auto Di ff Reviewed date:10/04/2024 11:56:42 PM Interpretation: Performing Lab:[facility], [address] [place] [phone] Notes/Report: White Blood Count 12.6 4.8-10.8 X10*3/uL [...] INR Reviewed date:10/04/2024 11:56:54 PM Interpretation: Performing Lab:[address] [phone] Notes/Report: Prothrombin Time 11.4 10.9-12.4 [employer] [...] Panel Reviewed date:10/24/2024 10:16:54 PM Interpretation: Performing Lab:[address] [phone] Notes/Report: Bilirubin Total 0.4 0.0-1.0 mg/dL Bilirubin Direct 0.2 0.0-0.5 mg/dL Aspartate Amino Transferase 30 5-31 U/L Alanine Aminotransferase 42 0-31 U/L Total Protein 7.7 6.5-8.0 g/dL Albumin Level 3.6 3.5-5.0 g/dL Alkaline Phosphatase 87 39-117 U/L Basic Metabolic Panel Reviewed date:10/04/2024 11:54:39 PM Interpretation: Performing Lab:[facility], [address] [place] [phone] Notes/Report: Sodium 137 135-145 mmol/L Potassium 3.8 [...] Fetoprotein Reviewed date:10/24/2024 10:16:39 PM Interpretation: Performing Lab:[facility], [address] [place] [phone] Notes/Report: Alpha Fetoprotein 3.1 Reference Range: <6.1 [...] of disease. THIS TEST WAS PERFORMED AT: [facility] [address] [place] [phone] LONI HATCH MD Liver Fibrosis Pnl Reviewed date:10/15/2024 08:11:24 AM Interpretation: Performing Lab:[address] [phone] Notes/Report: Liver Fibrosis Score 0.52 Liver Fibrosis [...] a>0.62 and a<=1.00 : A3 (severe activity) JTL-[id number]-[id number]-Macroglobulin 321 106-279 mg/dL FIB-Haptoglobin 141 43-212 mg/dL FIB-Apolipoprotein A1 153 101-198 mg/dL FIB-Total Bilirubin 0.4 0.2-1.2 mg/dL FIB-GGT 67 3-65 U/L FIB-ALT 31 6-29 U/L Reference ID [id number] Footnote SEE NOTE The reliability of results is dependent on compliance with the preanalytical and analytical conditions recommended by evly. The tests have to be deferred for: [...] The performance characteristics have been determined by [employer] [facility]. It has not been cleared or approved by the U.S. Food and Drug Administration. Performance characteristics refer to the analytical performance of the test. [employer], [employer], the associated logo, [employer] and all associated [employer] miranda are the registered trademarks of [employer]. All third alliance party miranad - (R) and (TM) - are the property of their respective owners. (C) 3090-0139 [employer]. All rights reserved. THIS TEST WAS PERFORMED AT: [employer] [facility] [address] [place] [address] DARRIAN LOZANO MD,PHD,VALERIE Liver Panel Reviewed date:10/24/2024 08:36:13 PM Interpretation: Performing Lab:[address] [phone] Notes/Report: Bilirubin Total 0.7 0.0-1.0 mg/dL Bilirubin Direct 0.3 0.0-0.5 mg/dL Aspartate Amino Transferase 37 5-31 U/L Alanine Aminotransferase 35 0-31 U/L Total Protein 8.0 6.5-8.0 g/dL Albumin Level 3.7 3.5-5.0 g/dL Alkaline Phosphatase 72 39-117 U/L Liver Panel Reviewed date:11/17/2024 12:00:12 AM Interpretation: Performing Lab:[address] [phone] Notes/Report: Bilirubin Total 0.6 0.0-1.0 mg/dL Bilirubin Direct 0.2 0.0-0.5 mg/dL Aspartate Amino Transferase 26 5-31 U/L Alanine Aminotransferase 18 0-31 U/L Total Protein 7.7 6.5-8.0 g/dL Albumin Level 3.9 3.5-5.0 g/dL Alkaline Phosphatase 71 39-117 U/L Liver Panel (Not yet reviewe d by provider) Interpretation: Performing Lab:[address] [address] Notes/Report: Bilirubin Total 0.8 0.0-1.0 mg/dL Bilirubin Direct 0.3 0.0-0.5 mg/dL Aspartate Amino Transferase 35 5-31 U/L Alanine Aminotransferase 31 0-31 U/L Total Protein 8.2 6.5-8.0 g/dL Albumin Level 4.2 3.5-5.0 g/dL Alkaline Phosphatase 75 39-117 U/L Reason For Referral No Information Medications Medication SIG (Take, Route, Frequency, Duration) Notes Start Date End Date Status Budesonide 3 MG 3 capsules Orally da cliff; Duration: 30 days 09/22/2024 Active Tylenol PRN Active Omeprazole 20 MG TAKE 1 CAPSULE BY UTH EVERY DAY; Duration: 90 Active predniSONE 5 MG 1 tablet Orally Once a day Active Vitamin D3 50 MCG (1999) TAKE 1 CAPSU LE BY MOUTH EVERY DAY Oral; Duration: 90 Days Active Levothyroxine Sodium 125 MCG [...] Problem Status W/U Status Risk Notes Problem Epigastric pain (01791315) Epigastric abdominal pain (R10.13) Active confirmed Problem Screening for malignant neoplasm of colon (346598815) Encounter for screening for malignant neoplasm of colon (Z12.11) Active confirmed Problem History of adenomatous polyp of colon (314460897) History of adenomatous polyp of colon (Z86.010) Active confirmed Problem Weight loss (439434388) Weight loss (R63.4) Active confirmed Problem Ulcer of esophagus (33041101) Ulcer of esophagus without bleeding (K22.10) Active confirmed Problem Autoimmune hepatitis (624905005) Autoimmune hepatitis (K75.4) Active confirmed Problem Early satiety (005751010) Early satiety (R68.81) Active confirmed Problem Gastroesophageal reflux disease with esophagitis (447377659) Gastroesophageal reflux disease with esophagitis (K21.0) Active confirmed Problem Epigastric pain (52365034) Abdominal pain, epigastric (R10.13) Active confirmed Problem Iron deficiency anemia (98680283) Iron deficiency anemia (D50.9) Active confirmed Problem Elevated liver enzymes level (456368928) Elevated liver function tests (R79.89) Active confirmed Problem Elevated liver enzymes level (730762342) Elevated liver enzymes (R74.8) Active confirmed Problem Fatty liver (427687804) Fatty liver (K76.0) Active confirmed Problem Hiatal hernia (43485783) Hiatal hernia (K44.9) Active confirmed Problem Anemia (225209105) Anemia (D64.9) Active confir med Problem Iron deficiency anemia (67531439) Iron deficiency anemia, unspecified iron deficiency anemia type (D50.9) Active confirmed Problem Abnormal UGI series (R93.3) Active confirmed Problem Duodenal ulcer (98254206) Duodenal ulcer (K26.9) Active confirmed Problem Diarrhea (10405971) Diarrhea, unspecified type (R19.7) Active confirmed Problem Lymphocytic colitis (9712099750) Lymphocytic colitis (K52.832) Active confirmed Problem Elevated liver enzymes level (899819909) Elevated liver function tests (R94.5) Active confirmed Problem Nausea and vomiting (55725291) Nausea and vomiting, intractability of vomiting not specified, unspecified vomiting type (R11.2) Active confirmed Problem Diverticulosis of colon (681263898) Diverticulosis of colon (K57.30) Active confirmed Problem Liver function tests abnormal (753981944) Abnormal LFTs (R94.5) Active confirmed Vital Signs Blood pressure diastolic 77 mm Hg 09/07/2024 Height 62.5 in 09/07/2024 Blood pressure systolic 111 mm Hg 09/07/2024 Weight 171 lbs 09/07/2024 BMI 30.77 kg/m2 09/07/2024 Encounters Encounter Location Date Provider Diagnosis [facility] [address] [place] [phone] 09/07/2024 Placido Abarca Autoimmune hepatitis K75.4 and Encounter for screening for malignant neoplasm of colon Z12.11 [facility] [address] [place] [phone] 01/27/2024 Placido Abarca Autoimmune hepatitis K75.4 [facility] [address] [place] [phone] 01/31/2024 Placido Abarca Autoimmune hepatitis K75.4 [facility] [address] [place] [phone] 02/04/2024 Placido Abarca [facility] [address] [place] [phone] 03/09/2024 Placido Abarca [facility] [address] [place] [phone] 07/27/2024 Placido Abarca Autoimmune hepatitis K75.4 [facility] [address] [place] [phone] 09/22/2024 Placido Abarca Autoimmune hepatitis K75.4 and Elevated liver function tests R79.89 [facility] [address] [place] [phone] 10/08/2024 Placido Abarca Autoimmune hepatitis K75.4 [facility] [address] [place] [phone] 10/24/2024 Placido Abarca Autoimmune hepatitis K75.4 [facility] [address] [place] [phone] 11/16/2024 Placido Abarca [facility] [address] [place] [phone] 12/21/2024 Placido Abarca Autoimmune hepatitis K75.4 Assessments Encounter Date Diagnosis (ICD Code) Assessment Notes Treatment Notes Treatment Clinical Notes Section Notes 09/07/2024 Autoimmune hepatitis (ICD-10 - K75.4) Overall, [...] K75.4) 10/24/2024 Autoimmune hepatitis (ICD-10 - K75.4) 12/21/2024 Autoimmune hepatitis (ICD-10 - K75.4) 09/07/2024 Encounter [...] PROFILE 01/27/2024 LIVER PROFILE 02/04/2023 LIVER PROFILE 09/22/2024 LIVER PROFILE 08/12/2023 LIVER PROFILE 10/08/2024 LIVER PROFILE 11/11/2021 LIVER PROFILE 09/12/2021 LIVER PROFILE 05/25/2023 LIVER PROFILE 09/10/2019 LIVER PROFILE 07/01/2019 LIVER PROFILE 05/03/2021 LIVER PROFILE 10/24/2024 LIVER PROFILE 05/27/2022 LIVER PROFILE 01/31/2024 LIVER PROFILE 11/11/2019 LIVER PROFILE 12/26/2022 LIVER PROFILE 08/15/2023 LIVER PROFILE 09/04/2021 LIVER PROFILE 12/21/2024 LIVER PROFILE 01/28/2023 LIVER PROFILE 07/06/2022 LIVER [...] 09/04/2021 Prothrombin Time INR 09/22/2024 Liver Panel 11/04/2022 Liver Panel 12/21/2024 Liver Panel 10/27/2023 Liver Panel 01/05/2021 Liver Panel 11/24/2023 Liver Panel 04/02/2024 Liver Panel 05/12/2024 Ferritin 12/11/2022 Ferritin 07/06/2022 Ferritin 09/12/2021 Vitamin B12 and Folate 07/06/2022 Liver Fibrosis Pnl 09/22/2024 T Spot TB 05/25/2023 Future Test Test Name Order Date UPPER GI ENDOSCOPY 08/29/2015 COLONOSCOPY 08/29/2015 UPPER GI ENDOSCOPY 06/02/2019 UPPER GI ENDOSCOPY 06/13/2019 COLONOSCOPY 01/18/2021 Next Appt Details Provider Name:Placido Markie Abarca , 03/16/2025 03:40:00 PM, [address] [place] [address], [address], [place], [address], Insurance Providers Payer Name Payer Address Payer Phone Subscriber Number Group Number Insured Name Patient Relationship to Insured Coverage Start Date Coverage End Date [employer] [address] ANGELIQUE MOLINA [id number] PCP IVET GARCIA Self - patient is the insured 5 Medical (General) History Medical History History ICD Code Colonosocpy 02-26-2010--hype rplastic polyps, 1 tubular adenoma removed in 2002; neg. colonoscopy in 11/2015 Left-sided breast cancer--lumpectomy, XR T, chemo-1999 Denies [place],DM,CVA,Lung disease,renal dise ase Grave's disease EGD 05/2015--duodenal [...]
[2025-01-13 07:51] LABS: Alanine Aminotransferase 35 U/L (0-31); Albumin Level 4.1 g/dL (3.5-5.0); Alkaline Phosphatase 71 U/L (39-117); Aspartate Amino Transferase 35 U/L (5-31); Total Protein 8.0 g/dL (6.5-8.0)
== END 2025-01-13 06:58 | disposition home or self-care (01) ==
LOC: HO.LABR 06:57
PROVIDERS: PCP Internal Medicine; Visit Provider Internal Medicine
DX: K75.4 Autoimmune hepatitis (principal)
CPT/HCPCS: 36415; 80076

== ENCOUNTER 2025-02-14 07:33 | Outpatient (REF) | payer MEDICARE, SELFPAY ==
--- OUTSIDE RECORDS SUMMARY | 2024-06-24 04:20 | XMS_ITS ---
Author Organization [facility] Address [address] [facility] [address] [place] [address] Care Team Providers Care Peanut Farmer Name Role Phone Bessie MARIE, Josephine Primary Care Provider Placido Espinoza [phone] REASON FOR VISIT Patient presents today for an autoimmune hepatitis Encounters Encounter Location Date Provider Diagnosis [facility] [address] [facility] [address] [place] [address] 06/24/2024 Placido Abarca Plan Of Treatment Next Appt Details Provider Name:Placido Abarca , 03/16/2025 03:40:00 PM, [address] [facility], [address], [place], [address], Progress Notes * IVET GARCIA ADOB:1950 ([age] yo F)Acc No.[id number]:06/24/2024 Progress Notes Patient: Ryder LAURO IVET Maldonado Provider: Ryder Abarca MD :1950 A ge:74 Y S ex:Female Date:06/24/2024 Address:[address] [place] [address] [facility] Pcp:Josephine La MD Subjective: * Chief Complaints: * P atient presents today for an autoimmune hepatitis Billing Information: * Procedure Codes: * The named appointment provid er may or may not be the originator of this progress note, and it is not deemed complete until electronically signed by the appointment provider. Sign off status: Pending * Provider: Ryder Abarca MD Date: 0 06/24/2024 Generated for Desean lieberman/Jeevan/Zurdoitting on: 1 04/16/2024 07:51 AM EST
--- OUTSIDE RECORDS SUMMARY | 2025-02-14 07:51 | XMS_ITS | Patient Health Record ---
Author Organization [facility] Address [address] [place] [address] Care Team Providers Care Gluing Machine Operator Electronic Name Role Phone Josephine La MD Primary Care Provider Placido Espinoza [phone] Allergies Allergen (clinical drug ingredient) Drug/Non Drug Allergy documented on EMR Reaction Allergy Type Onset Date Status azathioprine azaTHIOprine N/V Drug Allergy A ctive levofloxacin Levofloxacin RASH Drug Allergy A ctive Results Component Value Reference Range Flag Notes US abdomen comp w elastograp hy Reviewed date:10/24/2024 10:24:44 PM Interpretation: Performing Lab: Notes/Report: [address] [address] Ultrasound Report Signed Patient: Ivet Garcia MR#: [id number] : 1950 Acct:[id number] Age/Sex: 74 / F ADM Date: 09/23/24 Loc: HO.US Attending Dr: Placido Abarca MD Ordering Physician: Placido Abarca MD Date of Service: 09/23/24 Procedure(s): US abdomen comp w elastography Accession Number(s): [id number] cc: Josephine La MD; Placido Abarca MD [...] 09/23/24 1654 DD/ 1559 TD/TT: 09/23/24 1615 Order Takers Supervisor: Liver Panel Reviewed date:03/02/2024 07:29:08 AM Interpretation: Performing Lab:[facility], [address] [place] [phone] Notes/Report: Bilirubin Total 0.6 0.0-1.0 mg/dL N Bilirubin Direct 0.3 0.0-0.5 mg/dL N Aspartate Amino Transferase 21 5-31 U/L N Alanine Aminotransferase 24 0-31 U/L N Total Protein 7.2 6.5-8.0 g/dL N Albumin Level 3.5 3.5-5.0 g/dL N Alkaline Phosphatase 57 39-117 U/L N Liver Panel (Not yet reviewe d by provider) Interpretation: Performing Lab:[facility], [address] [place] [phone] Notes/Report: Bilirubin Total 0.5 0.0-1.0 mg/dL N Bilirubin Direct 0.2 0.0-0.5 mg/dL N Aspartate Amino Transferase 26 5-31 U/L N Alanine Aminotransferase 25 0-31 U/L N Total Protein 7.8 6.5-8.0 g/dL N Albumin Level 4.0 3.5-5.0 g/dL N Alkaline Phosphatase 60 39-117 U/L N Liver Panel (Not yet reviewe d by provider) Interpretation: Performing Lab:[facility], [address] [place] [phone] Notes/Report: Bilirubin Total 0.9 0.0-1.0 mg/dL N Bilirubin Direct 0.3 0.0-0.5 mg/dL N Aspartate Amino Transferase 46 5-31 U/L H Alanine Aminotransferase 42 0-31 U/L H Total Protein 8.2 6.5-8.0 g/dL H Albumin Level 3.6 3.5-5.0 g/dL N Alkaline Phosphatase 70 39-117 U/L N Liver Panel Reviewed date:06/21/2024 11:27:44 AM Interpretation: Performing Lab:[facility], [address] [place] [phone] Notes/Report: Bilirubin Total 0.7 0.0-1.0 mg/dL N Bilirubin Direct 0.3 0.0-0.5 mg/dL N Aspartate Amino Transferase 56 5-31 U/L H Alanine Aminotransferase 65 0-31 U/L H Total Protein 8.9 6.5-8.0 g/dL H Albumin Level 3.6 3.5-5.0 g/dL N Alkaline Phosphatase 85 39-117 U/L N Liver Panel Reviewed date:08/18/2024 03:38:55 PM Interpretation: Performing Lab:[facility], [address] [place] [phone] Notes/Report: Bilirubin Total 0.9 0.0-1.0 mg/dL N Bilirubin Direct 0.3 0.0-0.5 mg/dL N Aspartate Amino Transferase 35 5-31 U/L H Alanine Aminotransferase 26 0-31 U/L N Total Protein 8.0 6.5-8.0 g/dL N Albumin Level 3.7 3.5-5.0 g/dL N Alkaline Phosphatase 71 39-117 U/L N Complete Blood Count Auto Di ff Reviewed date:09/20/2024 07:30:46 PM Interpretation: Performing Lab:[facility], [address] [place] [phone] Notes/Report: White Blood Count 8.7 4.8-10.8 X10*3/uL N Red Blood Count 4.69 4.20-5.50 X10*6/uL N Hemoglobin 11.7 12.0-16.0 g/dl L Hematocrit 39.0 37.0-47.0 % N Mean Corpuscular Volume 83.2 80.0-98.0 fL N Mean Corpuscular Hemoglobin 24.9 27.0-33.0 pg L Mean Corpuscular HGB Conc 30.0 31.0-35.0 g/dl L Red Cell Distribution Width 21.7 11.0-16.0 % H Platelet Count 301 160-400 X10*3/uL N Mean Platelet Volume 10.3 9.4-12.3 fL N Neutrophils Percent Auto 58.3 45-73 % N Imm Gran Pct Auto 0.5 0.0-0.4 % H Lymphocytes Percent Auto 29.4 20-40 % N Monocytes Percent Auto 9.4 2-11 % N Eosinophils Percent Auto 2.1 0-4 % N Basophils Percent Auto 0.3 0-2 % N NRBC Pct Auto 0.0 0.0-0.2 /100WBC N Neutrophils Absolute Auto 5.1 2.0-8.3 x10*3/uL N Imm Gran Abs Auto 0.04 0.00-0.03 X10*3/uL H Lymphocytes Absolute Auto 2.6 1.2-4.9 X10*3/uL N Monocytes Absolute Auto 0.8 0.1-1.2 X10*3/uL N Eosinophils Absolute Auto 0.2 0.0-0.4 X10*3/uL N Basophils Absolute Auto 0.0 0.0-0.2 X10*3/uL N NRBC Abs Auto 0.000 0.0-0.012 X10*3/uL N Liver Panel Reviewed date:09/23/2024 03:31:32 PM Interpretation: Performing Lab:[facility], [address] [place] [phone] Notes/Report: Bilirubin Total 0.6 0.0-1.0 mg/dL N Bilirubin Direct 0.3 0.0-0.5 mg/dL N Aspartate Amino Transferase 111 5-31 U/L H Alanine Aminotransferase 102 0-31 U/L H Total Protein 8.2 6.5-8.0 g/dL H Albumin Level 3.8 3.5-5.0 g/dL N Alkaline Phosphatase 112 39-117 U/L N Complete Blood Count Auto Di ff Reviewed date:10/04/2024 11:56:42 PM Interpretation: Performing Lab:[facility], [address] [place] [phone] Notes/Report: White Blood Count 12.6 4.8-10.8 X10*3/uL H Red Blood Count 4.83 4.20-5.50 X10*6/uL N Hemoglobin 12.0 12.0-16.0 g/dl N Hematocrit 40.0 37.0-47.0 % N Mean Corpuscular Volume 82.8 80.0-98.0 fL N Mean Corpuscular Hemoglobin 24.8 27.0-33.0 pg L Mean Corpuscular HGB Conc 30.0 31.0-35.0 g/dl L Red Cell Distribution Width 20.3 11.0-16.0 % H Platelet Count 340 160-400 X10*3/uL N Mean Platelet Volume 9.7 9.4-12.3 fL N Neutrophils Percent Auto 65.0 45-73 % N Imm Gran Pct Auto 1.0 0.0-0.4 % H Lymphocytes Percent Auto 27.0 20-40 % N Monocytes Percent Auto 6.3 2-11 % N Eosinophils Percent Auto 0.3 0-4 % N Basophils Percent Auto 0.4 0-2 % N NRBC Pct Auto 0.0 0.0-0.2 /100WBC N Neutrophils Absolute Auto 8.2 2.0-8.3 x10*3/uL N Imm Gran Abs Auto 0.13 0.00-0.03 X10*3/uL H Lymphocytes Absolute Auto 3.4 1.2-4.9 X10*3/uL N Monocytes Absolute Auto 0.8 0.1-1.2 X10*3/uL N Eosinophils Absolute Auto 0.0 0.0-0.4 X10*3/uL N Basophils Absolute Auto 0.1 0.0-0.2 X10*3/uL N NRBC Abs Auto 0.000 0.0-0.012 X10*3/uL N Prothrombin Time INR Reviewed date:10/04/2024 11:56:54 PM Interpretation: Performing Lab:[address] [phone] Notes/Report: Prothrombin Time 11.4 10.9-12.4 SEC N INTERNATIONAL NORM RATIO 1.0 0.9-1.1 N INTERNATIONAL NORMALIZED RATIO (INR) REFERENCE RANGES Reference [...] Panel Reviewed date:10/24/2024 10:16:54 PM Interpretation: Performing Lab:[facility], [address] [place] [phone] Notes/Report: Bilirubin Total 0.4 0.0-1.0 mg/dL N Bilirubin Direct 0.2 0.0-0.5 mg/dL N Aspartate Amino Transferase 30 5-31 U/L N Alanine Aminotransferase 42 0-31 U/L H Total Protein 7.7 6.5-8.0 g/dL N Albumin Level 3.6 3.5-5.0 g/dL N Alkaline Phosphatase 87 39-117 U/L N Basic Metabolic Panel Reviewed date:10/04/2024 11:54:39 PM Interpretation: Performing Lab:[address] [phone] Notes/Report: Sodium 137 135-145 mmol/L N Potassium 3.8 3.3-5.1 mmol/L N Chloride 104 96-108 mmol/L N Carbon Dioxide 27 22-29 mmol/L N Anion Gap 10 12-20 L Blood Urea Nitrogen 14 9-16 mg/dL N Creatinine 0.63 0.5-1.4 mg/dL N Estimated Glomerular Filt Rate > 60 Chronic Kidney Disease: Estimated GFR < 60 mL/min/1.73m2 Severe Kidney Disease: Estimated GFR < 15 mL/min/1.73m2 Glucose Random 123 60-115 mg/dL H Calcium 9.2 8.4-10.2 mg/dL N Alpha Fetoprotein Reviewed date:10/24/2024 10:16:39 PM Interpretation: Performing Lab:[facility], [address] [place] [phone] Notes/Report: Alpha Fetoprotein 3.1 N Reference Range: <6.1 The use of AFP as a tumor marker in females is not recommended. This test was performed using the Daniele Adalberto chemiluminescent method. Values obtained from different assay methods cannot be used interchangeably. AFP levels, regardless of value, should not be interpreted as absolute evidence of the presence or absence of disease. THIS TEST WAS PERFORMED AT: [facility] [address] [place] [phone] LONI HATCH MD Liver Fibrosis Pnl Reviewed date:10/15/2024 08:11:24 AM Interpretation: Performing Lab:[facility], [address] [place] [phone] Notes/Report: Liver Fibrosis Score 0.52 Liver Fibrosis [...] a>0.62 and a<=1.00 : A3 (severe activity) VJF-Sovmy-4-Macroglobulin 321 106-279 mg/dL A FIB-Haptoglobin 141 43-212 mg/dL FIB-Apolipoprotein A1 153 101-198 mg/dL FIB-Total Bilirubin 0.4 0.2-1.2 mg/dL FIB-GGT 67 3-65 U/L A FIB-ALT 31 6-29 U/L A Reference ID [id number] Footnote SEE NOTE The reliability of results is dependent on compliance with the preanalytical and analytical conditions recommended by [employer]. The tests have to be deferred for: [...] The performance characteristics have been determined by [facility]. It has not been cleared or approved by the U.S. Food and Drug Administration. Performance characteristics refer to the analytical performance of the test. [employer], the associated logo, [facility] and all associated [employer] miranda are the registered trademarks of [employer]. All third constitution party miranda - (R) and (TM) - are the property of their respective owners. (C) [id number] [employer]. All rights reserved. THIS TEST WAS PERFORMED AT: [employer] [facility] [address] [address] [place] [facility] [place] [address] DARRIAN LOZANO MD,PHD,VALERIE Liver Panel Reviewed date:10/24/2024 08:36:13 PM Interpretation: Performing Lab:[facility], [address] [place] [phone] Notes/Report: Bilirubin Total 0.7 0.0-1.0 mg/dL N Bilirubin Direct 0.3 0.0-0.5 mg/dL N Aspartate Amino Transferase 37 5-31 U/L H Alanine Aminotransferase 35 0-31 U/L H Total Protein 8.0 6.5-8.0 g/dL N Albumin Level 3.7 3.5-5.0 g/dL N Alkaline Phosphatase 72 39-117 U/L N Liver Panel Reviewed date:11/17/2024 12:00:12 AM Interpretation: Performing Lab:[facility], [address] [place] [phone] Notes/Report: Bilirubin Total 0.6 0.0-1.0 mg/dL N Bilirubin Direct 0.2 0.0-0.5 mg/dL N Aspartate Amino Transferase 26 5-31 U/L N Alanine Aminotransferase 18 0-31 U/L N Total Protein 7.7 6.5-8.0 g/dL N Albumin Level 3.9 3.5-5.0 g/dL N Alkaline Phosphatase 71 39-117 U/L N Liver Panel (Not yet reviewe d by provider) Interpretation: Performing Lab:[facility], [address] [place] [phone] Notes/Report: Bilirubin Total 0.8 0.0-1.0 mg/dL N Bilirubin Direct 0.3 0.0-0.5 mg/dL N Aspartate Amino Transferase 35 5-31 U/L H Alanine Aminotransferase 31 0-31 U/L N Total Protein 8.2 6.5-8.0 g/dL H Albumin Level 4.2 3.5-5.0 g/dL N Alkaline Phosphatase 75 39-117 U/L N Liver Panel (Not yet reviewe d by provider) Interpretation: Performing Lab:[facility], [address] [place] [phone] Notes/Report: Bilirubin Total 0.4 0.0-1.0 mg/dL N Bilirubin Direct 0.2 0.0-0.5 mg/dL N Aspartate Amino Transferase 35 5-31 U/L H Alanine Aminotransferase 35 0-31 U/L H Total Protein 8.0 6.5-8.0 g/dL N Albumin Level 4.1 3.5-5.0 g/dL N Alkaline Phosphatase 71 39-117 U/L N Reason For Referral No Information Medications Medication SIG (Take, Route, Frequency, Duration) Notes Start Date End Date Status Tylenol PRN Active Omeprazole 20 MG Capsule Delayed Release TAKE 1 CAPSULE BY MOUTH EVERY DAY; Duration: 90 Active predniSONE 5 MG Tablet 1 tablet Orally O nce a day Active Vitamin D3 50 MCG (1999) Capsule TAKE 1 CAPSULE BY MOUTH EVERY DAY Oral; Duration: 90 Days Active Levothyroxine Sodium 125 MCG Tablet 1 tablet in the morning on an empty stomach Orally Once a day Active Budesonide 3 MG Capsule Delayed Release Particles 2 Orally daily; Duration: 30 days Active Immunizations Vaccine Route Administration Date Status Comme nts Influenza Unknown 01/14/2019 Administered Influenza Unknown 01/05/2020 Administered Influenza Unknown 12/29/2020 Administered Influenza Unknown 11/29/2021 Administered Social History Tobacco Use: Social History Observation Description Date Details (start date - stop date) Current Smoker NA - NA Social History Drugs/Alcohol: Social Info Question Answer Notes Alcohol Screen Did you have a drink containing alcohol in the past year? No Points 0 Interpretation Negative Tobacco Use: Social Info Question Answer Notes Tobacco Use/Smoking Patient is a current smoker How often do you smoke cigarettes? every day How many cigarettes a day do you smoke? 11-20 How soon after you wake up do you smoke your first cigarette? within 5 minutes Additional Details Category Social Info Options Details Miscellaneous: Marital status: Occupation: retired Section Notes: Smoker 1ppd; no sig alcohol [...] W/U Status Risk Notes Problem Epigastric pain (44265675) Epigastric abdominal pain (R10.13) Active confirmed Problem Screening for malignant neoplasm of colon (013868527) Encounter for screening for malignant neoplasm of colon (Z12.11) Active confirmed Problem History of adenomatous polyp of colon (954971732) History of adenomatous polyp of colon (Z86.010) Active confirmed Problem Weight loss (177561028) Weight loss (R63.4) Active confirmed Problem Ulcer of esophagus (30983240) Ulcer of esophagus without bleeding (K22.10) Active confirmed Problem Autoimmune hepatitis (462752903) Autoimmune hepatitis (K75.4) Active confirmed Problem Early satiety (360013763) Early satiety (R68.81) Active confirmed Problem Gastroesophageal reflux disease with esophagitis (725190987) Gastroesophageal reflux disease with esophagitis (K21.0) Active confirmed Problem Epigastric pain (65754668) Abdominal pain, epigastric (R10.13) Active confirmed Problem Iron deficiency anemia (22162626) Iron deficiency anemia (D50.9) Active confirmed Problem Elevated liver enzymes level (117009433) Elevated liver function tests (R79.89) Active confirmed Problem Elevated liver enzymes level (785020413) Elevated liver enzymes (R74.8) Active confirmed Problem Fatty liver (623014541) Fatty liver (K76.0) Active confirmed Problem Hiatal hernia (83972096) Hiatal hernia (K44.9) Active confirmed Problem Anemia (862133102) Anemia (D64.9) Active confir med Problem Iron deficiency anemia (21577211) Iron deficiency anemia, unspecified iron deficiency anemia type (D50.9) Active confirmed Problem Abnormal UGI series (R93.3) Active confirmed Problem Duodenal ulcer (62875064) Duodenal ulcer (K26.9) Active confirmed Problem Diarrhea (60550793) Diarrhea, unspecified type (R19.7) Active confirmed Problem Lymphocytic colitis (1009715795) Lymphocytic colitis (K52.832) Active confirmed Problem Elevated liver enzymes level (126291342) Elevated liver function tests (R94.5) Active confirmed Problem Nausea and vomiting (76815152) Nausea and vomiting, intractability of vomiting not specified, unspecified vomiting type (R11.2) Active confirmed Problem Diverticulosis of colon (566039435) Diverticulosis of colon (K57.30) Active confirmed Problem Liver function tests abnormal (512970415) Abnormal LFTs (R94.5) Active confirmed Vital Signs Blood pressure diastolic 77 mm Hg 09/07/2024 Height 62.5 in 09/07/2024 Blood pressure systolic 111 mm Hg 09/07/2024 Weight 171 lbs 09/07/2024 BMI 30.77 kg/m2 09/07/2024 Encounters Encounter Location Date Provider Diagnosis [facility] [address] [place] [phone] 09/07/2024 Placido Abarca Autoimmune hepatitis K75.4 and Encounter for screening for malignant neoplasm of colon Z12.11 [facility] [address] [place] [phone] 03/09/2024 Placido Abarca [facility] [address] [place] [phone] 07/27/2024 Placido Abarca Autoimmune hepatitis K75.4 [facility] [address] [place] [phone] 09/22/2024 Placido Abarca Autoimmune hepatitis K75.4 and Elevated liver function tests R79.89 [facility] [address] [place] [phone] 10/08/2024 Placido Abarca Autoimmune hepatitis K75.4 [facility] [address] [place] [phone] 10/24/2024 Placido Abarca Autoimmune hepatitis K75.4 [facility] [address] [place] [phone] 11/16/2024 Placido Abarca [facility] [address] [place] [phone] 12/21/2024 Placido Abarca Autoimmune hepatitis K75.4 Assessments Encounter Date Diagnosis (ICD Code) Assessment Notes Treatment Notes Treatment Clinical Notes Section Notes 07/27/2024 Autoimmune hepatitis (ICD-10 - K75.4) 09/22/2024 Autoimmune hepatitis (ICD-10 - K75.4) 09/22/2024 Elevated liver function tests (ICD-10 - R79.89) 10/08/2024 Autoimmune hepatitis (ICD-10 - K75.4) 10/24/2024 Autoimmune hepatitis (ICD-10 - K75.4) 12/21/2024 Autoimmune hepatitis (ICD-10 - K75.4) 09/07/2024 Autoimmune hepatitis (ICD-10 - K75.4) Overall, [...] keep you advised of her progress. 09/07/2024 Encounter for screening for malignant neoplasm [...] CHEM 7 PROFILE 01/18/2021 CHEM 7 PROFILE 06/04/2019 CHEM 7 PROFILE 07/01/2019 CHEM 7 PROFILE 08/29/2020 CHEM 7 PROFILE 01/28/2023 CHEM 7 PROFILE 08/12/2023 CHEM 7 PROFILE 09/22/2024 FASTING BLOOD SUGAR (FBS, GLUCOSE) 02/04 LIVER PROFILE 05/25/2023 LIVER PROFILE 08/15/2023 LIVER PROFILE 01/28/2023 LIVER PROFILE 02/04/2023 LIVER PROFILE 07/06/2022 LIVER PROFILE 05/03/2021 LIVER PROFILE 09/04/2021 LIVER PROFILE 09/12/2021 LIVER PROFILE 09/24/2021 LIVER PROFILE 11/11/2021 LIVER PROFILE 05/27/2022 LIVER PROFILE 08/29/2020 LIVER PROFILE 12/08/2020 LIVER PROFILE 01/02/2021 LIVER PROFILE 07/01/2019 LIVER PROFILE 11/11/2019 LIVER PROFILE 09/10/2019 LIVER PROFILE 12/27/2021 LIVER PROFILE 01/18/2021 LIVER PROFILE 12/26/2022 LIVER PROFILE 09/22/2024 LIVER PROFILE 01/27/2024 LIVER PROFILE 01/31/2024 LIVER PROFILE 07/27/2024 LIVER PROFILE 10/08/2024 LIVER PROFILE 10/24/2024 LIVER PROFILE 12/21/2024 LIVER PROFILE 08/12/2023 IRON + IBC (FE) 07/06/2022 IRON + IBC (FE) 09/12/2021 IRON + IBC (FE) 12/11/2022 CRP 08/29/2020 CRP 09/12/2021 CRP 01/18/2021 VITAMIN B12 AND FOLATE 09/12/2021 CBC w DIFF 09/04/2021 CBC w DIFF 09/24/2021 CBC w DIFF 08/29/2020 CBC w DIFF 09/12/2021 CBC w DIFF 12/11/2022 CBC w DIFF 07/06/2022 CBC w DIFF 01/27/2024 CBC w DIFF 08/15/2023 CBC w DIFF 08/12/2023 CBC w DIFF 01/18/2021 CBC w DIFF 06/02/2019 CBC w DIFF 09/07/2024 CBC w DIFF 06/25/2022 CBC w DIFF 06/09/2019 CBC w DIFF 12/26/2022 CBC w DIFF 06/04/2019 CBC w DIFF 09/22/2024 SED RATE (ESR) 08/29/2020 SED RATE (ESR) 01/18/2021 SED RATE (ESR) 09/12/2021 HEPATITIS B PROFILE 05/25/2023 ALPHA-FETOPROTEIN,TUMOR MARKER ALPHA-FETOPROTEIN,TUMOR MARKER 5 CELIAC PANEL #10 01/18/2021 OVA & PARASITES (O&P) 01/18/2021 OVA & PARASITES (O&P) 08/29/2020 CULTURE, STOOL 08/29/2020 CULTURE, STOOL 01/18/2021 US ABD 06/03/2019 STOOL WBC 01/18/2021 STOOL WBC 08/29/2020 US ABDOMEN COMP WITH ELASTOGRAPHY 2022 C DIFFICILE RFLX PCR 01/18/2021 C DIFFICILE RFLX PCR 08/29/2020 Prothrombin Time INR 09/04/2021 Prothrombin Time INR 09/22/2024 Liver Panel 11/04/2022 Liver Panel 10/27/2023 Liver Panel 11/24/2023 Liver Panel 04/02/2024 Liver Panel 05/12/2024 Liver Panel 12/21/2024 Liver Panel 01/13/2025 Liver Panel 01/05/2021 Ferritin 09/12/2021 Ferritin 07/06/2022 Ferritin 12/11/2022 Vitamin B12 and Folate 07/06/2022 Liver Fibrosis Pnl 09/22/2024 T Spot TB 05/25/2023 Future Test Test Name Order Date UPPER GI ENDOSCOPY 08/29/2015 COLONOSCOPY 08/29/2015 UPPER GI ENDOSCOPY 06/02/2019 UPPER GI ENDOSCOPY 06/13/2019 COLONOSCOPY 01/18/2021 Next Appt Details Provider Name:Placido Aden Rima , 03/16/2025 03:40:00 PM, [address], [address], [place], [address], Insurance Providers Payer Name Payer Address Payer Phone Subscriber Number Group Number Insured Name Patient Relationship to Insured Coverage Start Date Coverage End Date [facility] [address] [place], [place] [phone] [id number] PCP IVET GARCIA Self - patient is the insured 5 Medical (General) History Medical History History ICD Code Colonosocpy 02-26-2010--hype rplastic polyps, 1 tubular adenoma removed in 2002; neg. colonoscopy in 11/2015 Left-sided breast cancer--lumpectomy, XR T, chemo-1999 Denies [place],DM,CVA,Lung disease,renal dise ase Grave's disease EGD 05/2015--duodenal [...]
[2025-02-14 08:22] LABS: Alanine Aminotransferase 63 U/L (0-31); Albumin Level 3.8 g/dL (3.5-5.0); Alkaline Phosphatase 113 U/L (39-117); Aspartate Amino Transferase 81 U/L (5-31); Total Protein 8.1 g/dL (6.5-8.0)
== END 2025-02-14 07:34 | disposition home or self-care (01) ==
LOC: HO.LABR 07:33
PROVIDERS: PCP Internal Medicine; Visit Provider Internal Medicine
DX: K75.4 Autoimmune hepatitis (principal)
CPT/HCPCS: 36415; 80076

== ENCOUNTER 2025-02-21 12:48 | Outpatient (AMB) | payer MEDICARE, SELFPAY ==
[2025-02-21 13:13] VITALS: BP 110/80; PULSE 70; RESP 16; TEMP 36.7; O2SAT 96; BMI 31.8
--- NOTE | 2025-02-21 13:13 | A.OFFPC_ITS ---
Vital Signs 02/21/25 13:13 Height 5 ft 2 in Weight 174 lb BMI 31.8 BP 110/80 Blood Pressure Location Lt brachial Position Sitting Respiration 16 Pulse 70 Pulse Source Pulse Oximeter Temp 98.1 F Temp Source Oral Pulse Oximetry (%) 96 Oxygen Delivery Method Room Air Intake Visit Reasons: Annual PE Intake Note: Pt is here today for her PE: Last mammogram 09/20/24, bone density scan 04/29/24, colonoscopy 02/15/21 Allergies adhesive tape Allergy (Intermediate, Verified 02/21/25 13:25) Blister Medication List - Last Reconciled 02/21/25 by Josephine La MD budesonide DR-ER 6 mg PO DAILY Levoxyl (levothyroxine) 125 mcg PO QAM NS omeprazole 20 mg PO DAILY Tobacco use date assessed: 02/21/25 Fall risk assessment: No Falls in past year Last assessed Fall Risk: 02/21/25 Dental Screening Dental Screen Date: 02/21/25 Did you have a dental visit in the last 12 months?: Yes Did you have a dental problem in the last 6 months where you did not have access to dental care?: No Was dental information given to patient?: Patient has dentist HPI Annual PE HPI Details 75 year-old lady with past medical histo ry significant for DCIS of left breast s/p lumpectomy, chemotherapy and radiation; 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 Abarca and currently on prednisone 5 mg daily and due for colonoscopy in 2025; and hypothyroidism, here today for her physical exam. She is up-to-date with her screening mammogram, done August 2024 with benign findings. Last colonoscopy was done by Dr. Abarca in 2020 with removal of 3 adenomatous polyps, due again for recheck in 2025. 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 No history of fracture. Had a normal fasting lipid panel and normal fasting glucose seen on fasting labs drawn May 2024.. [facility], [facility] Medical History (Updated 02/21/25 @ 14:02 by Josephine La MD) Not ready to quit smoking Osteoporosis of lumbar spine Osteopenia of multiple sites History of ductal carcinoma in situ (DCIS) of left breast Dense breast tissue on mammogram Lymphocytic colitis COVID-19 vaccine series completed Breast cancer screening by mammogram Vitamin D deficiency Positive DASIA (antinuclear antibody) Duodenal ulcer Esophageal ulcer History of peptic ulcer disease History of Helicobacter pylori infection Psoriasis Chronic gastritis Iron deficiency anemia Autoimmune hepatitis Varicose veins of both lower extremities Hypothyroidism Graves disease Ductal carcinoma of left breast Tubular adenoma of colon H/O malignant neoplasm of breast Surgical History History of lumpectomy of left breast History of esophagogastroduodenoscopy (EGD) History of oophorectomy H/O excision of epidermal inclusion cyst H/O colonoscopy H/O tubal ligation Family History Father No problems noted. Mother No problems noted. Paternal Grandmother No problems noted. Paternal Grandfather No problems noted. Maternal Aunt Lupus Rheumatoid arthritis Paternal Aunt Lupus Rheumatoid arthritis Sister Psoriasis Social History Housing: House Are you a primary home care chaplain to a significant other at home: No Do you presently have visiting nurse or other home services: No Alcohol intake: unknown Patient Tobacco Use Status: Current everyday Tobacco user Tobacco use type: Cigarette Cigarette Packs Per Day: 1 Cigarettes Per Day: 20.0 Years Smoked: 50 e-Cigarette/Vaping Use: Never Used service: No Current occupational status: retired Cognitive needs: No Hearing needs: No Vision needs: Yes Questionnaire PHQ-9 Over the last 2 weeks, how often have you been bothered by any of the following problems? 1. Little interest or pleasure in doing things: not at all 2. Feeling down, depressed, or hopeless: not at all 3. Trouble falling or staying asleep, or sleeping too much: not at all 4. Feeling tired or having little energy: not at all 5. Poor appetite or overeating: not at all 6. Feeling bad about yourself - or that you are a failure or have let yourself or your family down: not at all 7. Trouble concentrating on things, such as reading the newspaper or watching television: not at all 8. Moving or speaking so slowly that other people could have noticed. Or the opposite - being so fidgety or restless that you have been moving around a lot more than usual: not at all 9. Thoughts that you would be better off or of hurting yourself in some way: not at all Total score: 0 Depression Screening Interpretation: Negative Depression Screening Done: Yes Source: Developed by Drs. Placido Narvaez, Bridgette Ward, Nirmal Calhoun and colleagues, with an educational fawad from [employer]. Thrive Questionnaire Date Thrive assessed: 05/20/24 I am a: Patient What is your living situation today?: I have a steady place to live Within the past 12 months, did the food you bought not last and you didn't have the money to get more?: Never true Within the past 12 months, did you worry whether your food would run out before you got money to buy more?: Never true Do you have trouble paying for medicines?: No Do you have trouble getting transportation to medical appointments?: No Do you have trouble paying your heating and electricity bill?: No Do you have trouble taking care of your child, family member or friend?: No Do you have trouble with day-to-day activities such as bathing, preparing meals, shopping, managing finances, etc.?: No Are you currently unemployed and looking for a job?: No Are you interested in more education?: No Please select the resources that you would like help with: None Currently or been in a relationship where the following occur: I choose not to answer THRIVE Score: 0 AUDIT C Alcohol Use Questionnaire (AUDIT-C) 1. How often do you have a drink containing alcohol?: Never Total Score: 0 NIDIA-7 AMB Questionnaire NIDIA-7 Date NIDIA - 7 assessed: 05/20/24 Feeling nervous, anxious, or on edge: 0 = Not at all Not being able to stop or control worryin = Not at all Worrying too much about different things: 0 = Not at all Trouble relaxin = Not at all Being so restless that it is hard to sit still: 0 = Not at all Becoming easily annoyed or irritable: 0 = Not at all Feeling afraid as if something awful might happen: 0 = Not at all Total NIDIA-7 score (0-4 normal; 5-9 mild; 10-14 moderate; 15-21 severe): 0 Source: Developed by Drs. Placido Narvaez, Bridgette Ward, Nirmal Calhoun and colleagues, with an educational fawad from [employer]. Review of Systems Const Reports no additional complaints Eyes Details: goes to [facility] , beginning cataracts, referred to Dr Lentz and has an appt already to see her on 03/04/25 ENT Reports no additional complaints Card Denies chest pain, Denies rapid heart rate, Denies irregular heart rhythm and Denies lightheadedness Resp Denies cough GI Denies abdominal pain, Denies melena and Denies change in bowel habits Reports no additional complaints Musc Reports no additional complaints, Reports abnormal gait (uses a walker) and Reports radiating pain into limb Skin/Breast Denies breast pain, Denies breast mass, Denies lesions and Denies unusual bruising Neuro Reports abnormal gait (uses a walker) Psych Reports no additional complaints Endo Reports no additional complaints Shin/Lymph Reports no additional complaints Aller/Immun Reports no additional complaints Physical exam (Primary Care) Vital Signs: Last Vital Signs Temp 98.1 F 02/21/25 13:13 Pulse 70 02/21/25 13:13 Resp 16 02/21/25 13:13 BP 110/80 02/21/25 13:13 Pulse Ox 96 02/21/25 13:13 Oxygen Delivery Method Room Air 02/21/25 13:13 BMI result Body Mass Index 31.8 Tobacco/Smoking Status: Tobacco use Status Tobacco use date assessed 02/21/25 02/21/25 13:16 Patient Tobacco Use Status Current everyday Tobacco 02/21/25 13:16 Tobacco use type Cigarette 02/21/25 13:16 e-Cigarette/Vaping Use Never Used 02/21/25 13:16 Are you ready to quit: No Tobacco cessation counseling provided: Yes PHQ-9: PHQ-9 Score PHQ-9: Total score 0 02/21/25 13:36 Depression Screening Interpretation: Negative Thrive Assessment: Date of Thrive Assessment Date Thrive assessed 05/20/24 02/21/25 13:16 Currently or been in a relationship where the following occur: I choose not to answer Const Other: - General: cooperative, comfortable and no acute distress Orientation/consciousness: patient oriented x3 HENMT General nose exam: Normal external nose present Face and sinus: Yes face symmetric Mouth: Normal oral and palatal mucosa present and moist mucous membranes Eyes General: appearance normal, both eyes and all related structures Neck Neck: Yes full ROM, Yes no lymphadenopathy and Yes supple Thyroid: Thyroid normal Resp Auscultation: clear to auscultation bilaterally Cardio Other: S1-S2 present regular rate and rhythm GI Palpation (GI): Soft to palpation, nontender, no guarding and no masses Auscultation: normal bowel sounds General: Yes no CVA tenderness Back/Spine/Pelvis Back: no CVA tenderness Neuro General: patient oriented x3, moves all extremities, no focal motor deficits and CN's II-XI intact bilaterally Extrem General: Yes normal to inspection, Yes full ROM, Yes no joint enlargement, Yes no pedal edema and Yes no calf tenderness Psych Appearance: grossly normal and well kempt Mental Status: mental status grossly normal Speech and movement: Normal speech and movement present Affect: normal affect Immunizations pneumoc 20-tadeo conj-dip cr(PF) 0.5 mL IM syringe Performing Provider: Josephine La MD Performing Location: [facility] Administered by: Aurora Neil CMA on 02/21/25 13:43 Dose Route Admin Location Dispensed Lot Number Expiration Date [facility] [employer] Teacher 0.5 mL IM Left Deltoid 0.5 mL [id number] 05/28/25 [employer] Total Dispensed Waste 0.5 mL 0 % VIS Given Date VIS Provided VIS Publication Date 02/21/25 Single Vaccine 24 Eligibility Eligibility Date Funding Source Not [facility] Eligible 02/21/25 Private Coding Level of Care Code Est Pt Prev Care >65y(40720) Diagnoses Autoimmune hepatitis K75.4 Vitamin D deficiency E55.9 Osteoporosis of lumbar spine M81.0 Chronic gastritis K29.50 Not ready to quit smoking Z72.0 Annual visit for general adult medical examination with abnormal findings Z00.01 Assessment & Plan Assessment & Plan (1) Autoimmune hepatitis: Comment: on a slow taper of prednisone currently being followed by Dr. Abarca Code(s): K75.4 - Autoimmune hepatitis Category: Medical (2) Vitamin D deficiency: Code(s): E55.9 - Vitamin D deficiency, unspecified Category: Medical (3) Osteoporosis of lumbar spine: Code(s): M81.0 - Age-related osteoporosis without current pathological fracture Category: Medical Plan: followed by [facility] , previously on Alendronate, patient to schedule again another appointment to be seen (4) Chronic gastritis: Code(s): K29.50 - Unspecified chronic gastritis without bleeding Category: Medical (5) Not ready to quit smoking: Code(s): Z72.0 - Tobacco use Category: Social Hx Plan: Patient strongly advised to stop smoking, as smoking damages blood vessels, degenerative of joints and spine, damage to lungs and heart., predisposes to developing certain cancers like lung, breast, bladder, colon. Recommended to try decreasing cigarette use by 1-2 cigarettes a day. Advised to monitor what triggers are for smoking so that this can be discussed on the next office visit. We can discuss different options to quit smoking when ready. Patient declined referral for lung cancer screening (6) Annual visit for general adult medical examination with abnormal findings: Code(s): Z00.01 - Encounter for general adult medical examination with abnormal findings Orders: Orders Thyroid Stimulating Hormone Today E55.9 - Vitamin D deficiency, unspecified, K29.50 - Unspecified chronic gastritis without bleeding, K75.4 - Autoimmune hepatitis, M81.0 - Age-related osteoporosis without current pathological fracture, Z13.1 - Encounter for screening for diabetes mellitus Hemoglobin and Hematocrit Today E55.9 - Vitamin D deficiency, unspecified, K29.50 - Unspecified chronic gastritis without bleeding, K75.4 - Autoimmune hepatitis, M81.0 - Age-related osteoporosis without current pathological fracture, Z13.1 - Encounter for screening for diabetes mellitus Vitamin D 25-OH Total Today E55.9 - Vitamin D deficiency, unspecified, K29.50 - Unspecified chronic gastritis without bleeding, K75.4 - Autoimmune hepatitis, M81.0 - Age-related osteoporosis without current pathological fracture, Z13.1 - Encounter for screening for diabetes mellitus Free T4 (Free Thyroxine) Today E55.9 - Vitamin D deficiency, unspecified, K29.50 - Unspecified chronic gastritis without bleeding, K75.4 - Autoimmune hepatitis, M81.0 - Age-related osteoporosis without current pathological fracture, Z13.1 - Encounter for screening for diabetes mellitus Glucose Fasting Today E55.9 - Vitamin D deficiency, unspecified, K29.50 - Unspecified chronic gastritis without bleeding, K75.4 - Autoimmune hepatitis, M81.0 - Age-related osteoporosis without current pathological fracture, Z13.1 - Encounter for screening for diabetes mellitus Pneumococcal 20 Immunization Today Z23 - Encounter for immunization
== END 2025-02-21 14:13 | disposition home or self-care (01) ==
LOC: HO.HMCC 12:49
PROVIDERS: PCP Internal Medicine; Visit Provider Internal Medicine
DX: Z23 Encounter for immunization (principal)

== ENCOUNTER → 2025-02-21 12:48 | Outpatient (BNVA) | payer MEDICARE, SELFPAY | PROVIDERS: PCP Internal Medicine; Visit Provider Internal Medicine | DX: Z00.01 Encounter for general adult medical examination with abnormal findings (principal); K75.4 Autoimmune hepatitis; E55.9 Vitamin D deficiency, unspecified; M81.0 Age-related osteoporosis without current pathological fracture; K29.50 Unspecified chronic gastritis without bleeding; Z13.31 Encounter for screening for depression; Z23 Encounter for immunization; Z72.0 Tobacco use | CPT/HCPCS: 90471; 90677; 96127; 99397 ==

== ENCOUNTER 2025-02-22 07:22 | Outpatient (REF) | payer MEDICARE, SELFPAY ==
[2025-02-22 10:24] LABS: Hematocrit 41.2 % (37.0-47.0); Hemoglobin 12.6 g/dl (12.0-16.0)
[2025-02-22 11:03] LABS: Free T4 (Free Thyroxine) 1.06 ng/dL (0.71-1.85); Thyroid Stimulating Hormone 3.64 uIU/mL (0.32-4.0)
== END 2025-02-22 07:23 | disposition home or self-care (01) ==
LOC: HO.HMGCLDS 07:22
PROVIDERS: PCP Internal Medicine; Visit Provider Internal Medicine
DX: K75.4 Autoimmune hepatitis (principal); M81.0 Age-related osteoporosis without current pathological fracture; K29.50 Unspecified chronic gastritis without bleeding; E55.9 Vitamin D deficiency, unspecified; Z13.1 Encounter for screening for diabetes mellitus; Z13.21 Encounter for screening for nutritional disorder; Z13.29 Encounter for screening for other suspected endocrine disorder
CPT/HCPCS: 36415; 82306; 82947; 84439; 84443; 85014; 85018

== ENCOUNTER 2025-03-21 07:08 | Outpatient (REF) | payer MEDICARE, SELFPAY ==
--- OUTSIDE RECORDS SUMMARY | 2024-06-24 04:20 | XMS_ITS ---
Author Organization [facility] Address [address] [facility] [address] [place] [address] Care Team Providers Care Senior Clinical Research Scientist Name Role Phone Bessie MARIE, Josephine Primary Care Provider Placido Espinoza [phone] REASON FOR VISIT Patient presents today for an autoimmune hepatitis Encounters Encounter Location Date Provider Diagnosis [facility] [address] [facility] [address] [place] [address] 06/24/2024 Placido Abarca Plan Of Treatment Next Appt Details Provider Name:Placido Abarca , 09/20/2025 09:30:00 AM, [address] [place] [address], [address], [place], [address], Progress Notes * IVET GARCIA ADOB:1950 ([age] yo F)Acc No.[id number]:06/24/2024 Progress Notes Patient: Ryder LAURO IVET Maldonado Provider: Ryder Abarca MD :1950 A ge:74 Y S ex:Female Date:06/24/2024 Address:[address] [place] [address] [id number] Pcp:Josephine La MD Subjective: * Chief Complaints: [...] 06/24/2024 Generated for Desean lieberman/Jeevan/Zurdoitting on: 1 05/22/2024 07:11 AM EST
--- OUTSIDE RECORDS SUMMARY | 2025-03-16 10:40 | XMS_ITS ---
Author Organization [facility] Address [address] [place] [id number] Care Team Providers Care Medicaid Biller Name Role Phone Bessie MARIE, Josephine Primary Care Provider Placido Espinoza Unavailable [phone] Allergies Allergen (clinical drug ingredient) Drug/Non Drug Allergy documented on EMR Reaction Allergy Type Onset Date Status Information temporarily unavailable azaTHIOprine N/V Drug Allergy Active Information temporarily unavailable Levofloxacin RASH Drug Allergy Active REASON FOR VISIT Patient presents today for Medications Medication SIG (Take, Route, Frequency, Duration) Notes Start Date End Date Status Vitamin D3 50 MCG (1999) Capsule TAKE 1 CAPSULE BY MOUTH EVERY DAY Oral; Duration: 90 Days Active Omeprazole 20 MG Capsule Delayed Release TAKE 1 CAPSULE BY MOUTH EVERY DAY; Duration: 90 Active predniSONE 5 MG Tablet 4 of the 5mg pill s(20mg) daily for 1 week, and then decrease by 1 pill(5mg) per week Orally Once a day; Duration: 30 days 03/12/2025 Active Budesonide 3 MG Capsule Delayed Release Particles 2 Orally daily; Duration: 30 days Active predniSONE 5 MG Tablet 1 tablet Orally O nce a day Active Tylenol PRN Active Levothyroxine Sodium 125 MCG Tablet 1 tablet in the morning on an empty stomach Orally Once a day Active Social History Tobacco Use: Social History Observation [...] Section Notes: Smoker 1ppd; no sig alcohol Vital Signs Blood pressure systolic 001 mm Hg 03/16/20 25 Blood pressure diastolic 01 mm Hg 025 Height 62.5 in 03/16/2025 Weight 174.6 lbs 03/16/2025 BMI 31.42 kg/m2 03/16/2025 Encounters Encounter Location Date Provider Diagnosis [facility] [address] [place] [address] 03/16/2025 Placido Abarca Autoimmune hepatitis K75.4 ; Encounter for screening for malignant neoplasm of colon Z12.11 and Gastroesophageal reflux disease with esophagitis K21.0 Assessments Encounter Date Diagnosis (ICD Code) Assessment Notes Treatment Notes Treatment Clinical Notes Section Notes 03/16/2025 Autoimmune hepatitis (ICD-10 - K75.4) Continue the 20mg prednisone and the 9mg Budesonide until we check the 03/21/2025 liver tests. Call me on 03/22/25 so I can let you know how to adjust the meds and the lab schedule. Overall, Ivet appears well at the present time and is not having any worrisome signs or symptoms of liver disease. We did review the recent flareup of the liver enzymes. I was hopeful that staying on the budesonide by itself would suffice to keep the autoimmune hepatitis in remission. As you know she was unable to tolerate azathioprine in regard to the autoimmune hepatitis earlier this year. At this point I am going to check a liver profile on Friday, March 21. If that has improved nicely on the 20 mg of prednisone and 9 mg of budesonide I will then have her do them every 2 to 4 weeks, and begin a prednisone taper. If we are able to get her off prednisone I would keep her on the 9 mg of budesonide for some time before starting to the see about tapering that. I did advise her that the budesonide is definitely safer than long-term prednisone. We did review that she will be due for a follow-up colonoscopy at the end of 2025. I did advise her continue her daily omeprazole as well since that seems to be working well for the chronic reflux. I have given her an appointment to see me again in 6 months but did advise her to contact me prior to that if she has any problems or questions I can be of assistance with. Ivet was comfortable with this plan. Thank you again for allowing me to participate in Ivet's care. I shall continue to keep you advised of her progress. 03/16/2025 Encounter for screening for malignant neoplasm of colon (ICD-10 - Z12.11) Colonoscopy at the end of 2025 Overall, Ivet appears well at the present time and is not having any worrisome signs or symptoms of liver disease. We did review the recent flareup of the liver enzymes. I was hopeful that staying on the budesonide by itself would suffice to keep the autoimmune hepatitis in remission. As you know she was unable to tolerate azathioprine in regard to the autoimmune hepatitis earlier this year. At this point I am going to check a liver profile on Friday, March 21. If that has improved nicely on the 20 mg of prednisone and 9 mg of budesonide I will then have her do them every 2 to 4 weeks, and begin a prednisone taper. If we are able to get her off prednisone I would keep her on the 9 mg of budesonide for some time before starting to the see about tapering that. I did advise her that the budesonide is definitely safer than long-term prednisone. We did review that she will be due for a follow-up colonoscopy at the end of 2025. I did advise her continue her daily omeprazole as well since that seems to be working well for the chronic reflux. I have given her an appointment to see me again in 6 months but did advise her to contact me prior to that if she has any problems or questions I can be of assistance with. Ivet was comfortable with this plan. Thank you again for allowing me to participate in Ivet's care. I shall continue to keep you advised of her progress. 03/16/2025 Gastroesophageal reflux disease with esophagitis (ICD-10 - K21.0) Continue the 20mg omeprazole daily Overall, Ivet appears well at the present time and is not having any worrisome signs or symptoms of liver disease. We did review the recent flareup of the liver enzymes. I was hopeful that staying on the budesonide by itself would suffice to keep the autoimmune hepatitis in remission. As you know she was unable to tolerate azathioprine in regard to the autoimmune hepatitis earlier this year. At this point I am going to check a liver profile on March 21. If that has improved nicely on the 20 mg of prednisone and 9 mg of budesonide I will then have her do them every 2 to 4 weeks, and begin a prednisone taper. If we are able to get her off prednisone I would keep her on the 9 mg of budesonide for some time before starting to the see about tapering that. I did advise her that the budesonide is definitely safer than long-term prednisone. We did review that she will be due for a follow-up colonoscopy at the end of 2025. I did advise her continue her daily omeprazole as well since that seems to be working well for the chronic reflux. I have given her an appointment to see me again in 6 months but did advise her to contact me prior to that if she has any problems or questions I can be of assistance with. Ivet was comfortable with this plan. Thank you again for allowing me to participate in Ivet's care. I shall continue to keep you advised of her progress. Plan Of Treatment Treatment Notes Assessment Notes Autoimmune hepatitis Continue the 20mg p rednisone and the 9mg Budesonide until we check the 03/21/2025 liver tests. Call me on 03/22/25 so I can let you know how to adjust the meds and the lab schedule. Encounter for screening for malignant neoplasm of colon Colonoscopy at the end of 2025 Gastroesophageal reflux dise ase with esophagitis Continue the 20mg omeprazole daily Pending Test Test Name Order Date LIVER PROFILE 03/16/2025 Next Appt Details Follow Up: 6 Months, Reason: Provider Name:Placido Abarca , 09/20/2025 09:30:00 AM, [address] [place] [address], [address], [place], [phone], History and Physical Notes * HPI (History of Present Illness) Category Sub-Category Detail Notes Category Not es incontinence I saw Ivet in follow-up today inverter underlying history of autoimmune hepatitis, gastroesophageal reflux, and discussion of colorectal cancer screening. I last saw Ivet in August. At that time she was on a low-dose of prednisone in regard to the autoimmune hepatitis with a stable liver profile. However, shortly after that visit she had a flare of the hepatitis with elevation of her liver enzymes to about three times normal requiring another course of steroids, but at that time I also put her on budesonide in hopes of keeping the hepatitis stable without needing long-term prednisone again. She did not have any jaundice at that time. Since then she was able to come off of the prednisone but did remain on the budesonide at 6 mg daily with normalization of her LFTs. This lasted through December but then in January began having a rise of the liver enzymes with them peaking on March 09 with an AST of 156 and ALT 112, along with an alk phos of 219. Her total bilirubin remained normal. When I saw her labs from last week I did call her and had her start prednisone 20 mg daily and increase budesonide to 9 mg daily. She continues to feel well and denies any signs of jaundice, pruritus, edema, fatigue, or abdominal pain. She is eating comfortably and denies any significant heartburn on her daily omeprazole. She denies any dysphagia, early satiety, nausea, nor vomiting. Her bowel movements are been regular and without any signs of bleeding. Of note, she also had an abdominal ultrasound in August that described no sign of cirrhosis or liver mass. There is no evidence of any biliary disease. Liver elastography was somewhat elevated. Progress Notes * IVET GARCIA ADOB:1950 ([age] yo F)Acc No.[id number]:03/16/2025 Progress Notes Patient: IVET RUTHERFORD Provider: Ryder Abarca MD :1950 A ge:75 Y S ex:Female Date:03/16/2025 Address:[address] [place] [address], [place], [id number] Pcp:Josephine La MD Subjective: * Chief Complaints: * P atisaac presents today for * HPI: i ncontinence: I saw Ivet in follow-up today inverter underlying history of autoimmune hepatitis, gastroesophageal reflux, and discussion of colorectal cancer screening. I last saw Ivet in August. At that time she was on a low-dose of prednisone in regard to the autoimmune hepatitis with a stable liver profile. However, shortly after that visit she had a flare of the hepatitis with elevation of her liver enzymes to about three times normal requiring another course of steroids, but at that time I also put her on budesonide in hopes of keeping the hepatitis stable without needing long- term prednisone again. She did not have any jaundice at that time. Since then she was able to come off of the prednisone but did remain on the budesonide at 6 mg daily with normalization of her LFTs. This lasted through December but then in January began having a rise of the liver enzymes with them peaking on March 09 with an AST of 156 and ALT 112, along with an alk phos of 219. Her total bilirubin remained normal. When I saw her labs from last week I did call her and had her start prednisone 20 mg daily and increase budesonide to 9 mg daily. She continues to feel well and denies any signs of jaundice, pruritus, edema, fatigue, or abdominal pain. She is eating comfortably and denies any significant heartburn on her daily omeprazole. She denies any dysphagia, early satiety, nausea, nor vomiting. Her bowel movements are been regular and without any signs of bleeding. Of note, she also had an abdominal ultrasound in August that described no sign of cirrhosis or liver mass. There is no evidence of any biliary disease. Liver elastography was somewhat elevated. * Medical History: Colonosocpy 02-26-2010- hyperplastic polyps, 1 tubular adenoma removed in 2002; neg. colonoscopy in 11/2015 Left-sided breast cancer- lumpectomy, XRT, chemo-1999 Denies MS,DM,CVA,Lung disease,renal disease Grave's disease EGD 05/2015- duodenal ulcers, erosive gastritis, H. pylori infection, erosive esophagitis, hiatal hernia- Hpylori was treated EGD in 11/2015-healed ulcers, gastric bx neg for Hpylori, small HH Psoriasis Anemia Autoimmune hepatitis diagnosed in May 2019 with a positive DASIA [...] negative for Fernandez's mucosa. Acute right-sided colitis seen on CT scan in 07/2020 in the ER- resolved with antibiotics Lymphocytic colitis- Colonoscopy in January of 2021 revealed a small tubular adenoma and a nonbleeding small angiodysplasia in the cecum- there was no gross evidence of colitis the biopsies from the colon were consistent with a lymphocytic colitis - she was having diarrhea at that time and was started on budesonide- she reports that did not help her, but things have resolved completely from a symptomatic standpoint as of the 05/2021 office visit. Flare of the autoimmune hepatitis in 08/2021 with enzymes > 100....responded to a short course of increased prednisone Flares of the autoimmune hepatitis in December of 2022 and May of 2023 both responding to prednisone. The plan is to start her on azathioprine as of the May 2023 office visit. She was unable to tolerate the azathioprine due to significant vomiting Cataracts Medical History Verified * Surgical History: Lumpectomy for breast cancer as above- 1999 Left oophorectomy-benign Surgical History verified. * Hospitalization/Major Diagno stic Procedure: No Hospitalization Documented. Hospitalization Verified. * Family History: F ather: 48 yrs, diagnosed with Colon cancer. M other: . F amily History Verified.. The patient family history is notable for her father with colon cancer at age 48. denies live cancer hx. * Social History: T obacco Use: T obacco Use/Smoking P atient is a c urrent smoker, H ow often do you smoke cigarettes? e very day, H ow many cigarettes a day do you smoke? 1 1-20, H ow soon after you wake up do you smoke your first cigarette? w ithin 5 minutes. D rugs/Alcohol: A lcohol Screen D id you have a drink containing alcohol in the past year? N o, P oints 0 , I nterpretation N egative. M iscellaneous: M arital status: . Occupation: retired. Social History Verified. S moker 1ppd; no sig alcohol. * Medications: T akingLevothyroxine Sodium 125 MCG Tablet 1 tablet in the morning on an empty stomach Orally Once a day Tylenol , Notes to Pharmacist: PRNpredniSONE 5 MG Tablet 1 tablet Orally Once a day Omeprazole 20 MG Capsule Delayed Release TAKE 1 CAPSULE BY MOUTH EVERY DAY Vitamin D3 50 MCG (1999 UT) Capsule TAKE 1 CAPSULE BY MOUTH EVERY DAY Oral Budesonide 3 MG Capsule Delayed Release Particles 2 Orally daily predniSONE 5 MG Tablet 4 of the 5mg pills(20mg) daily for 1 week, and then decrease by 1 pill(5mg) per week Orally Once a day Medication List reviewed and reconciled with the patientTaking Levothyroxine Sodium 125 MCG Tablet 1 tablet in the morning on an empty stomach Orally Once a day Taking Tylenol , Notes to Pharmacist: PRNTaking predniSONE 5 MG Tablet 1 tablet Orally Once a day Taking Omeprazole 20 MG Capsule Delayed Release TAKE 1 CAPSULE BY MOUTH EVERY DAY Taking Vitamin D3 50 MCG (1999 UT) Capsule TAKE 1 CAPSULE BY MOUTH EVERY DAY Oral Taking Budesonide 3 MG Capsule Delayed Release Particles 2 Orally daily Taking predniSONE 5 MG Tablet 4 of the 5mg pills(20mg) daily for 1 week, and then decrease by 1 pill(5mg) per week Orally Once a day Medication List reviewed and reconciled with the patient * Allergies: L evofloxacin: RASHazaTHIOprine: N/VyesAllergies Verified. Objective: * Vitals: W t: 174.6 lbs, Ht: 62.5 in, BMI: 31.42 Index, BP: 001/01 mm Hg, Ht-cm: 158.75 cm, Wt-k.2 kg. Assessment: * Assessment: 1. A utoimmune hepatitis - K75.4 (Primary) 2 . E ncounter for screening for malignant neoplasm of colon - Z12.11 3 . G astroesophageal reflux disease with esophagitis - K21.0 Overall, Ivet appears well a t the present time and is not having any worrisome signs or symptoms of liver disease. We did review the recent flareup of the liver enzymes. I was hopeful that staying on the budesonide by itself would suffice to keep the autoimmune hepatitis in remission. As you know she was unable to tolerate azathioprine in regard to the autoimmune hepatitis earlier this year. At this point I am going to check a liver profile on March 21. If that has improved nicely on the 20 mg of prednisone and 9 mg of budesonide I will then have her do them every 2 to 4 weeks, and begin a prednisone taper. If we are able to get her off prednisone I would keep her on the 9 mg of budesonide for some time before starting to the see about tapering that. I did advise her that the budesonide is definitely safer than long-term prednisone. We did review that she will be due for a follow-up colonoscopy at the end of 2025. I did advise her continue her daily omeprazole as well since that seems to be working well for the chronic reflux. I have given her an appointment to see me again in 6 months but did advise her to contact me prior to that if she has any problems or questions I can be of assistance with. Ivet was comfortable with this plan. Thank you again for allowing me to participate in Ivet's care. I shall continue to keep you advised of her progress. Plan: * Treatment: Notes: Continue the 20mg prednisone and the 9mg Budesonide until we check the 03/21/2025 liver tests. Call me on 03/22/25 so I can let you know how to adjust the meds and the lab schedule.??2.?Encounter for screening for malignant neoplasm of colon? Notes: Colonoscopy at the end of 2025??3.?Gastroesophageal reflux disease with esophagitis? Notes: Continue the 20mg omeprazole daily?? * Preventive Medicine: Screenings: F all Risk Screening F all Risk Assessment: N o falls in the past year, S creening: N o falls in the past year, P carolyn of Care: N ot documented, no reason specified. * Follow Up: 6 Months * The named appointment provid er may or may not be the originator of this progress note, and it is not deemed complete until electronically signed by the appointment provider. Sign off status: Pending * Provider: Ryder Abarca MD Date: 05/17/2024 Generated for Desean lieberman/Jeevan/Zurdoitting on: 05/22/2024 07:11 AM EST
--- OUTSIDE RECORDS SUMMARY | 2025-03-21 07:12 | XMS_ITS | Patient Health Record ---
Author Organization [facility] Address [address] [place] [address] Care Team Providers Care Forensic Technician Name Role Phone Bessie MARIE, Josephine Primary Care Provider Placido Espinoza [phone] Allergies Allergen (clinical drug ingredient) Drug/Non Drug Allergy documented on EMR Reaction Allergy Type Onset Date Status azathioprine azaTHIOprine N/V Drug Allergy A ctive levofloxacin Levofloxacin RASH Drug Allergy A ctive Results Component Value Reference Range Flag Notes Liver Panel Reviewed date:03/13/2025 12:47:17 AM Interpretation: Performing Lab:[address] [address] Notes/Report: Bilirubin Total 0.5 0.0-1.0 mg/dL N Bilirubin Direct 0.2 0.0-0.5 mg/dL N Aspartate Amino Transferase 26 5-31 U/L N Alanine Aminotransferase 25 0-31 U/L N Total Protein 7.8 6.5-8.0 g/dL N Albumin Level 4.0 3.5-5.0 g/dL N Alkaline Phosphatase 60 39-117 U/L N Liver Panel Reviewed date:03/13/2025 12:47:17 AM Interpretation: Performing Lab:[facility], [address] [place] [phone] Notes/Report: Bilirubin Total 0.9 0.0-1.0 mg/dL N Bilirubin Direct 0.3 0.0-0.5 mg/dL N Aspartate Amino Transferase 46 5-31 U/L H Alanine Aminotransferase 42 0-31 U/L H Total Protein 8.2 6.5-8.0 g/dL H Albumin Level 3.6 3.5-5.0 g/dL N Alkaline Phosphatase 70 39-117 U/L N Liver Panel Reviewed date:06/21/2024 11:27:44 AM Interpretation: Performing Lab:[facility], [address] [place] [phone] Notes/Report: Bilirubin Total 0.7 0.0-1.0 mg/dL N Bilirubin Direct 0.3 0.0-0.5 mg/dL N Aspartate Amino Transferase 56 5-31 U/L H Alanine Aminotransferase 65 0-31 U/L H Total Protein 8.9 6.5-8.0 g/dL H Albumin Level 3.6 3.5-5.0 g/dL N Alkaline Phosphatase 85 39-117 U/L N Complete Blood Count Auto Di ff Reviewed date:09/20/2024 07:30:46 PM Interpretation: Performing Lab:[facility], [address] [place] [phone] Notes/Report: White Blood Count 8.7 4.8-10.8 X10*3/uL [...] Panel Reviewed date:09/23/2024 03:31:32 PM Interpretation: Performing Lab:[facility], [address] [place] [phone] Notes/Report: Bilirubin Total 0.6 0.0-1.0 mg/dL N Bilirubin Direct 0.3 0.0-0.5 mg/dL N Aspartate Amino Transferase 111 5-31 U/L H Alanine Aminotransferase 102 0-31 U/L H Total Protein 8.2 6.5-8.0 g/dL H Albumin Level 3.8 3.5-5.0 g/dL N Alkaline Phosphatase 112 39-117 U/L N Complete Blood Count Auto Di ff Reviewed date:10/04/2024 11:56:42 PM Interpretation: Performing Lab:[facility], [address] [place] [phone] Notes/Report: White Blood Count 12.6 4.8-10.8 X10*3/uL [...] INR Reviewed date:10/04/2024 11:56:54 PM Interpretation: Performing Lab:[address] [address] Notes/Report: Prothrombin Time 11.4 10.9-12.4 SEC N [...] Panel Reviewed date:10/24/2024 10:16:54 PM Interpretation: Performing Lab:[address] [address] Notes/Report: Bilirubin Total 0.4 0.0-1.0 mg/dL N Bilirubin Direct 0.2 0.0-0.5 mg/dL N Aspartate Amino Transferase 30 5-31 U/L N Alanine Aminotransferase 42 0-31 U/L H Total Protein 7.7 6.5-8.0 g/dL N Albumin Level 3.6 3.5-5.0 g/dL N Alkaline Phosphatase 87 39-117 U/L N Basic Metabolic Panel Reviewed date:10/04/2024 11:54:39 PM Interpretation: Performing Lab:[facility], [address] [place] [phone] Notes/Report: Sodium 137 135-145 mmol/L N Potassium [...] Fetoprotein Reviewed date:10/24/2024 10:16:39 PM Interpretation: Performing Lab:[facility], [address] [place] [phone] Notes/Report: Alpha Fetoprotein 3.1 N Reference Range: <6.1 The use of AFP as a tumor marker in females is not recommended. This test was performed using the Daniele Lindrith chemiluminescent method. Values obtained from different assay methods cannot be used interchangeably. AFP levels, regardless of value, should not be interpreted as absolute evidence of the presence or absence of disease. THIS TEST WAS PERFORMED AT: [facility] [address] [place] [phone] LONI HATCH MD Liver Fibrosis Pnl Reviewed date:10/15/2024 08:11:24 AM Interpretation: Performing Lab:[address] [address] Notes/Report: Liver Fibrosis Score 0.52 Liver Fibrosis [...] a>0.62 and a<=1.00 : A3 (severe activity) TGD-Odfoy-3-Macroglobulin 321 106-279 mg/dL A FIB-Haptoglobin 141 43-212 mg/dL FIB-Apolipoprotein A1 153 101-198 mg/dL FIB-Total Bilirubin 0.4 0.2-1.2 mg/dL FIB-GGT 67 3-65 U/L A FIB-ALT 31 6-29 U/L A Reference ID [id number] Footnote SEE NOTE The reliability of results is dependent on compliance with the preanalytical and analytical conditions recommended by [employer]. The tests have to be deferred for: [...] The performance characteristics have been determined by [facility]. It has not been cleared or approved by the U.S. Food and Drug Administration. Performance characteristics refer to the analytical performance of the test. [employer], the associated logo, [employer] and all associated [employer] miranda are the registered trademarks of [employer]. All third alliance party miranda - (R) and (TM) - are the property of their respective owners. (C) [id number] [employer]. All rights reserved. THIS TEST WAS PERFORMED AT: [employer] [facility] [address] [place] [address] DARRIAN LOZANO MD,PHD,VALERIE Liver Panel Reviewed date:10/24/2024 08:36:13 PM Interpretation: Performing Lab:[facility], [address] [place] [phone] Notes/Report: Bilirubin Total 0.7 0.0-1.0 mg/dL N Bilirubin Direct 0.3 0.0-0.5 mg/dL N Aspartate Amino Transferase 37 5-31 U/L H Alanine Aminotransferase 35 0-31 U/L H Total Protein 8.0 6.5-8.0 g/dL N Albumin Level 3.7 3.5-5.0 g/dL N Alkaline Phosphatase 72 39-117 U/L N Liver Panel Reviewed date:11/17/2024 12:00:12 AM Interpretation: Performing Lab:[facility], [address] [place] [phone] Notes/Report: Bilirubin Total 0.6 0.0-1.0 mg/dL N Bilirubin Direct 0.2 0.0-0.5 mg/dL N Aspartate Amino Transferase 26 5-31 U/L N Alanine Aminotransferase 18 0-31 U/L N Total Protein 7.7 6.5-8.0 g/dL N Albumin Level 3.9 3.5-5.0 g/dL N Alkaline Phosphatase 71 39-117 U/L N Liver Panel Reviewed date:03/13/2025 12:47:17 AM Interpretation: Performing Lab:[facility], [address] [place] [phone] Notes/Report: Bilirubin Total 0.8 0.0-1.0 mg/dL N Bilirubin Direct 0.3 0.0-0.5 mg/dL N Aspartate Amino Transferase 35 5-31 U/L H Alanine Aminotransferase 31 0-31 U/L N Total Protein 8.2 6.5-8.0 g/dL H Albumin Level 4.2 3.5-5.0 g/dL N Alkaline Phosphatase 75 39-117 U/L N Liver Panel Reviewed date:03/13/2025 12:47:17 AM Interpretation: Performing Lab:[facility], [address] [place] [phone] Notes/Report: Bilirubin Total 0.4 0.0-1.0 mg/dL N Bilirubin Direct 0.2 0.0-0.5 mg/dL N Aspartate Amino Transferase 35 5-31 U/L H Alanine Aminotransferase 35 0-31 U/L H Total Protein 8.0 6.5-8.0 g/dL N Albumin Level 4.1 3.5-5.0 g/dL N Alkaline Phosphatase 71 39-117 U/L N Liver Panel Reviewed date:03/13/2025 12:47:17 AM Interpretation: Performing Lab:[facility], [address] [place] [phone] Notes/Report: Bilirubin Total 0.9 0.0-1.0 mg/dL N Bilirubin Direct 0.3 0.0-0.5 mg/dL N Aspartate Amino Transferase 81 5-31 U/L H Alanine Aminotransferase 63 0-31 U/L H Total Protein 8.1 6.5-8.0 g/dL H Albumin Level 3.8 3.5-5.0 g/dL N Alkaline Phosphatase 113 39-117 U/L N Liver Panel Reviewed date:03/13/2025 12:47:17 AM Interpretation: Performing Lab:[facility], [address] [place] [phone] Notes/Report: Bilirubin Total 0.8 0.0-1.0 mg/dL N Bilirubin Direct 0.4 0.0-0.5 mg/dL N Aspartate Amino Transferase 156 5-31 U/L H Alanine Aminotransferase 112 0-31 U/L H Total Protein 9.1 6.5-8.0 g/dL H Albumin Level 3.4 3.5-5.0 g/dL L Alkaline Phosphatase 219 39-117 U/L H US abdomen comp w elastograp hy Reviewed date:10/24/2024 10:24:44 PM Interpretation: Performing Lab: Notes/Report: [address] [address] Ultrasound Report Signed Patient: Ivet Garcia MR#: [id number] : 1950 Acct:[id number] Age/Sex: 74 / F ADM Date: 09/23/24 Loc: HO.US Attending Dr: Placido Abarca MD Ordering Physician: Placido Abarca MD Date of Service: 09/23/24 Procedure(s): US abdomen comp w elastography Accession Number(s): [id number] cc: Josephine La MD; Placido Abarca MD [...] 09/23/24 1654 DD/ 1559 TD/TT: 09/23/24 1615 Associate Publisher: Liver Panel Reviewed date:08/18/2024 03:38:55 PM Interpretation: Performing Lab:[facility], [address] [place] [phone] Notes/Report: Bilirubin Total 0.9 0.0-1.0 mg/dL N [...] 2 Orally daily; Duration: 30 days Active Tylenol PRN Active Levothyroxine Sodium 125 MCG Tablet 1 tablet in the morning on an empty stomach Orally Once a day Active predniSONE 5 MG Tablet 1 tablet Orally O nce a day Active Immunizations Vaccine Route Administration Date Status Comme nts Influenza Unknown 01/14/2019 Administered Influenza Unknown 01/05/2020 Administered Influenza Unknown 12/29/2020 Administered Influenza Unknown 11/29/2021 Administered Influenza Unknown 01/13/2025 Administered Social History Tobacco Use: Social History [...] W/U Status Risk Notes Problem Epigastric pain (49509950) Epigastric abdominal pain (R10.13) Active confirmed Problem Screening for malignant neoplasm of colon (239206084) Encounter for screening for malignant neoplasm of colon (Z12.11) Active confirmed Problem History of adenomatous polyp of colon (249345794) History of adenomatous polyp of colon (Z86.010) Active confirmed Problem Weight loss (274459351) Weight loss (R63.4) Active confirmed Problem Ulcer of esophagus (04176813) Ulcer of esophagus without bleeding (K22.10) Active confirmed Problem Autoimmune hepatitis (822849143) Autoimmune hepatitis (K75.4) Active confirmed Problem Early satiety (071668644) Early satiety (R68.81) Active confirmed Problem Gastroesophageal reflux disease with esophagitis (757620622) Gastroesophageal reflux disease with esophagitis (K21.0) Active confirmed Problem Epigastric pain (15484596) Abdominal pain, epigastric (R10.13) Active confirmed Problem Iron deficiency anemia (52047873) Iron deficiency anemia (D50.9) Active confirmed Problem Elevated liver enzymes level (507898136) Elevated liver function tests (R79.89) Active confirmed Problem Elevated liver enzymes level (105408320) Elevated liver enzymes (R74.8) Active confirmed Problem Fatty liver (759188605) Fatty liver (K76.0) Active confirmed Problem Hiatal hernia (88646873) Hiatal hernia (K44.9) Active confirmed Problem Anemia (114052569) Anemia (D64.9) Active confir med Problem Iron deficiency anemia (08513479) Iron deficiency anemia, unspecified iron deficiency anemia type (D50.9) Active confirmed Problem Abnormal UGI series (R93.3) Active confirmed Problem Duodenal ulcer (05779546) Duodenal ulcer (K26.9) Active confirmed Problem Diarrhea (10494938) Diarrhea, unspecified type (R19.7) Active confirmed Problem Lymphocytic colitis (9954640797) Lymphocytic colitis (K52.832) Active confirmed Problem Elevated liver enzymes level (336008627) Elevated liver function tests (R94.5) Active confirmed Problem Nausea and vomiting (05307207) Nausea and vomiting, intractability of vomiting not specified, unspecified vomiting type (R11.2) Active confirmed Problem Diverticulosis of colon (372217224) Diverticulosis of colon (K57.30) Active confirmed Problem Liver function tests abnormal (716373455) Abnormal LFTs (R94.5) Active confirmed Vital Signs Blood pressure diastolic 01 mm Hg 03/16/2025 Height 62.5 in 03/16/2025 Blood pressure systolic 001 mm Hg 03/16/2025 Weight 174.6 lbs 03/16/2025 BMI 31.42 kg/m2 03/16/2025 Encounters Encounter Location Date Provider Diagnosis [facility] [address] [place] [phone] 03/16/2025 Placido Abarca Autoimmune hepatitis K75.4 ; Encounter for screening for malignant neoplasm of colon Z12.11 and Gastroesophageal reflux disease with esophagitis K21.0 [facility] [address] [place] [phone] 09/07/2024 Placido Abarca Autoimmune hepatitis K75.4 and Encounter for screening for malignant neoplasm of colon Z12.11 [facility] [address] [place] [phone] 07/27/2024 Placido Abarca Autoimmune hepatitis K75.4 [facility] [address] [place] [phone] 09/22/2024 Placido Abarca Autoimmune hepatitis K75.4 and Elevated liver function tests R79.89 [facility] [address] [place] [phone] 10/08/2024 Placido Abarca Autoimmune hepatitis K75.4 [facility] [address] [place] [phone] 10/24/2024 Placido Abarca Autoimmune hepatitis K75.4 [facility] [address] [place] [phone] 11/16/2024 Placido Abarca [facility] [address] [place] [phone] 12/21/2024 Placido Abarca Autoimmune hepatitis K75.4 [facility] [address] [place] [phone] 03/12/2025 Placido Abarca Assessments Encounter Date Diagnosis (ICD Code) Assessment Notes Treatment Notes Treatment Clinical Notes Section Notes 07/27/2024 Autoimmune hepatitis (ICD-10 - K75.4) 09/22/2024 Autoimmune hepatitis (ICD-10 - K75.4) 09/22/2024 Elevated liver function tests (ICD-10 - R79.89) 10/08/2024 Autoimmune hepatitis (ICD-10 - K75.4) 10/24/2024 Autoimmune hepatitis (ICD-10 - K75.4) 12/21/2024 Autoimmune hepatitis (ICD-10 - K75.4) 03/16/2025 Encounter for screening for malignant neoplasm [...] keep you advised of her progress. 03/16/2025 Autoimmune hepatitis (ICD-10 - K75.4) Continue [...] GLUCOSE) 02/04 LIVER PROFILE 05/25/2023 LIVER PROFILE 08/12/2023 LIVER PROFILE 01/28/2023 LIVER PROFILE 02/04/2023 LIVER PROFILE 07/06/2022 LIVER PROFILE 05/03/2021 LIVER PROFILE 09/04/2021 LIVER PROFILE 09/12/2021 LIVER PROFILE 09/24/2021 LIVER PROFILE 11/11/2021 LIVER PROFILE 05/27/2022 LIVER PROFILE 08/29/2020 LIVER PROFILE 12/08/2020 LIVER PROFILE 01/02/2021 LIVER PROFILE 07/01/2019 LIVER PROFILE 11/11/2019 LIVER PROFILE 12/26/2022 LIVER PROFILE 03/16/2025 LIVER PROFILE 09/10/2019 LIVER PROFILE 12/27/2021 LIVER PROFILE 01/18/2021 LIVER PROFILE 09/22/2024 LIVER PROFILE 01/27/2024 LIVER PROFILE 01/31/2024 LIVER PROFILE 07/27/2024 LIVER PROFILE 10/08/2024 LIVER PROFILE 10/24/2024 LIVER PROFILE 12/21/2024 LIVER PROFILE 08/15/2023 IRON + IBC (FE) 07/06/2022 IRON + IBC (FE) 09/12/2021 IRON + IBC (FE) 12/11/2022 CRP 08/29/2020 CRP 09/12/2021 CRP 01/18/2021 VITAMIN B12 AND FOLATE 09/12/2021 CBC w DIFF 08/15/2023 CBC w DIFF 08/12/2023 CBC w DIFF 12/11/2022 CBC w DIFF 07/06/2022 CBC w DIFF 09/24/2021 CBC w DIFF 09/12/2021 CBC w DIFF 08/29/2020 CBC w DIFF 09/04/2021 CBC w DIFF 01/18/2021 CBC w DIFF 06/02/2019 CBC w DIFF 12/26/2022 CBC w DIFF 06/25/2022 CBC w DIFF 09/07/2024 CBC w DIFF 06/09/2019 CBC w DIFF 06/04/2019 CBC w DIFF 01/27/2024 CBC w DIFF 09/22/2024 SED RATE (ESR) 01/18/2021 SED RATE (ESR) [...] 09/04/2021 Prothrombin Time INR 09/22/2024 Liver Panel 01/05/2021 Ferritin 09/12/2021 Ferritin 07/06/2022 Ferritin 12/11/2022 Vitamin B12 and Folate 07/06/2022 Liver Fibrosis Pnl 09/22/2024 T Spot TB 05/25/2023 Future Test Test Name Order Date UPPER GI ENDOSCOPY 08/29/2015 COLONOSCOPY 08/29/2015 UPPER GI ENDOSCOPY 06/02/2019 UPPER GI ENDOSCOPY 06/13/2019 COLONOSCOPY 01/18/2021 Next Appt Details Provider Name:Placido Abarca , 09/20/2025 09:30:00 AM, [address] [place] [address], [address], [place], [address], Insurance Providers Payer Name Payer Address Payer Phone Subscriber Number Group Number Insured Name Patient Relationship to Insured Coverage Start Date Coverage End Date [facility] [address] [place], [place] [id number] PCP IVET GARCIA Self - patient is the insured 5 Medical (General) History Medical History History ICD Code Colonosocpy 02-26-2010- hype rplastic polyps, 1 tubular adenoma removed in 2002; neg. colonoscopy in 11/2015 Left-sided breast cancer- lumpectomy, XR T, chemo-1999 Denies HI,DM,CVA,Lung disease,renal dise ase Grave's disease EGD 05/2015- duodenal ulcers, erosive [...] the ER- resolved with antibiotics Lymphocytic colitis- Colonos copy in January of 2021 revealed a [...] tolerate the azathioprine due to significant vomiting cataracts Surgical History Surgery Date(Month/Year) Lumpectomy for breast cancer as above- 2 000 Left oophorectomy-benign
[2025-03-21 08:41] LABS: Alanine Aminotransferase 37 U/L (0-31); Albumin Level 3.4 g/dL (3.5-5.0); Alkaline Phosphatase 115 U/L (39-117); Aspartate Amino Transferase 33 U/L (5-31); Total Protein 8.2 g/dL (6.5-8.0)
== END 2025-03-21 07:09 | disposition home or self-care (01) ==
LOC: HO.LAB 07:08
PROVIDERS: PCP Internal Medicine; Visit Provider Internal Medicine
DX: K75.4 Autoimmune hepatitis (principal)
CPT/HCPCS: 36415; 80076